=== PATIENT | female | born 1995 | race Caucasian/White ===

== ENCOUNTER → 2017-12-21 15:37 | Outpatient (CLI) | payer MEDICAID, SELFPAY | PROVIDERS: Visit Provider Obstetrics & Gynecology | DX: O20.0 Threatened abortion (principal); Z3A.00 Weeks of gestation of pregnancy not specified | CPT/HCPCS: 36415; 86850; 86900 ==

== ENCOUNTER → 2017-12-26 15:14 | Outpatient (CLI) | payer MEDICAID, SELFPAY ==
[2017-12-26 18:05] LABS: Chlamydia Trachomatis by PCR Negative (Negative); Neisserai gonorrhoeae by PCR Negative (Negative); Probe Check PASS; Sample Adequacy Control PASS; Specimen Processing Control PASS
== END ==
PROVIDERS: Visit Provider Obstetrics & Gynecology
DX: Z34.90 Encounter for supervision of normal pregnancy, unspecified, unspecified trimester (principal)
CPT/HCPCS: 87086; 87491; 87591

== ENCOUNTER → 2018-01-08 14:33 | Outpatient (CLI) | payer MEDICAID, SELFPAY ==
[2018-01-08 15:31] LABS: Absolute Lymphocyte Count 1.74 X10^3/ul (0.83-4.51); Basophil# 0.01 X10^3/uL; Basophil% 0.1 % (0-1); Eosinophil# 0.02 X10^3/uL; Eosinophils% 0.3 % (0-5); Hemoglobin 12.7 g/dl (12.0-15.0); Lymphocyte # 1.74 X10^3/ul (4.0); Lymphocyte % 24.1 % (19-41); Mean Corp Hgb Conc 35.3 g/gl (32-36); Mean Corpuscular Hgb 30.5 pg (27.0-32.0); Mean Corpuscular Volume 86.3 fL (81-99); Monocyte# 0.41 X10^3/uL; Monocyte% 5.7 % (0-10); Neutrophil # 5.04 X10^3/uL (2.7-7.7); Neutrophil % 69.7 % (47-70); Platelet Count 216 K/mm3 (150-450); RBC Distribution Width CV 12.4 % (11.6-14.6); RBC Distribution Width SD 38.2 fl (35.1-43.9); Red Blood Count 4.17 M/mm3 (4.2-5.4); White Blood Count 7.2 K/mm3 (4.4-11.0)
[2018-01-08 15:34] LABS: POSITIVE COUNT NO; POSITIVE DIFFERENTIAL NO; POSITIVE MORPHOLOGY NO
[2018-01-09 09:48] LABS: HIV - WCH Non-Reactive (Nonreactive); Rubella IgG 299.2 IU/mL
[2018-01-11 03:11] LABS: Rapid Plasmin Reagin (RPR) NONREACTIVE (NONREACTIVE)
[2018-01-11 09:54] LABS: HEPATITIS B SURFACE AG Negative (Negative); V-Zoster IgG (Immunity) 254 index (Immune >165)
== END ==
PROVIDERS: Visit Provider Obstetrics & Gynecology
DX: Z34.90 Encounter for supervision of normal pregnancy, unspecified, unspecified trimester (principal)
CPT/HCPCS: 85025; 86592; 86703; 86762; 86787; 86850; 86900; 87340

== ENCOUNTER → 2018-02-04 11:48 | Outpatient (CLI) | payer MEDICAID, SELFPAY | DX: Z36.82 Encounter for antenatal screening for nuchal translucency (principal) | CPT/HCPCS: 36415 ==

== ENCOUNTER → 2018-04-05 12:17 | Outpatient (CLI) | payer MEDICAID, SELFPAY ==
--- NOTE | 2018-04-05 12:30 | US_ITS ---
STUDY: SECOND AND THIRD TRIMESTER OBSTETRICAL ULTRASOUND REASON FOR EXAM: Female, 22 years old. For anatomy. LMP: ALESSANDRA: 08/12/2018 TECHNIQUE: Transabdominal PRIOR ULTRASOUND: None. FINDINGS: There is a single intrauterine fetus. The fetus is in a breech presentation. There is demonstrated cardiac activity with a heart rate of 147 bpm. There is a normal amniotic fluid volume. The largest amniotic fluid pocket measures 2.0 x 6.1 cm. . The placenta is posterior in location and is not low lying. . The cervix measures 4.9 cm in length. The bilateral adnexal regions are visualized. BIOMETRY: BPD: 5.2 cm: 21 weeks, 5 days HC: 19.3 cm: 21 weeks, 4 days AC: 16.8 cm: 21 weeks, 6 days FL: 3.7 cm: 22 weeks, 0 days CI: 78% FL/BPD: 72% FL/AC: 22% HC/AC: 1.15 age by current US: 21 weeks, 6 days. ALESSANDRA by current US: 08/10/2018. Estimated weight: 451 grams, +/- 66 grams, 56 %. Age by LMP: 21 weeks, 4 days. ALESSANDRA by LMP: 08/12/2018. ANATOMY: Visualized. Gender: Female Cranium: lateral ventricles. choroid plexus. cerebellum. Cisterna magna. Face, nose and lips. Chest: 4-chamber heart. Abdomen/Pelvis: diaphragm. stomach. abdominal wall. Cord insertion. 3 vessel cord. kidneys. bladder. Spine: cervical spine. thoracic spine. lumbar spine. sacrum. Extremities: bilateral upper extremities. bilateral lower extremities. US/OB Anatomy Scan IMPRESSION: 1. Single alive intrauterine uterine is seen in a breech position. 2. Estimated gestational age by current ultrasound: 21 weeks 6 days and ALESSANDRA: 08/10/2018. Based on LMP gestational age: 21 weeks 4 days and ALESSANDRA: 08/12/2018. 3. Unremarkable visualized anatomy. Electronically Signed: Erin Zelaya MD at 10:10 EDT Tel , Service support ,
== END ==
PROVIDERS: Visit Provider Nurse Practitioner Women's Health
DX: Z34.90 Encounter for supervision of normal pregnancy, unspecified, unspecified trimester (principal)
CPT/HCPCS: 76805

== ENCOUNTER → 2018-05-08 09:00 | Outpatient (CLI) | payer MEDICAID, SELFPAY ==
[2018-05-08 10:04] LABS: Absolute Lymphocyte Count 1.67 X10^3/ul (0.83-4.51); Absolute Neutrophil Count 5.8 X10^3/uL (2.0-7.7); Basophil# 0.02 X10^3/uL; Basophil% 0.2 % (0-1); Eosinophils% 1.2 % (0-5); Hematocrit 31.4 % (37-47); Hemoglobin 10.4 g/dl (12.0-15.0); Lymphocyte # 1.67 X10^3/ul (4.0); Lymphocyte % 20.1 % (19-41); Mean Corp Hgb Conc 33.1 g/gl (32-36); Mean Corpuscular Hgb 30.2 pg (27.0-32.0); Mean Corpuscular Volume 91.3 fL (81-99); Mean Platelet Vol. 9.7 fl (6.2-12.0); Monocyte# 0.62 X10^3/uL; Monocyte% 7.5 % (0-10); Neutrophil # 5.83 X10^3/uL (2.7-7.7); Neutrophil % 70.4 % (47-70); Platelet Count 227 K/mm3 (150-450); RBC Distribution Width CV 12.6 % (11.6-14.6); RBC Distribution Width SD 41.2 fl (35.1-43.9); Red Blood Count 3.44 M/mm3 (4.2-5.4); White Blood Count 8.3 K/mm3 (4.4-11.0)
[2018-05-08 10:16] LABS: POSITIVE COUNT NO; POSITIVE DIFFERENTIAL NO; POSITIVE MORPHOLOGY NO
[2018-05-08 10:17] LABS: Glucose Challenge Gest 1H 50g 74 mg/dL (70-140)
== END ==
PROVIDERS: Visit Provider Obstetrics & Gynecology
DX: Z34.90 Encounter for supervision of normal pregnancy, unspecified, unspecified trimester (principal)
CPT/HCPCS: 36415; 82950; 85025

== ENCOUNTER 2018-06-18 10:45 | Outpatient (CLI) | payer MEDICAID, SELFPAY ==
[2018-06-18 11:48] VITALS: BMI 23.9
[2018-06-18 11:59] LABS: Fetal Fibronectin Negative
[2018-06-18 13:30] LABS: Color, Urine Yellow (Yellow); Glucose, Dipstick Normal (Normal); Ketone-Dipstick 50 mg/dl (Negative); Leukocyte Esterase-Dipstick Negative /ul (Negative); Nitrite-Dipstick Negative (Negative); Occult Blood-Urine Negative /ul (Negative); Protein-Dipstick Negative (Negative); Urine Bilirubin Dipstick Negative (Negative); Urine Clarity Clear (Clear); Urine Urobilinogen Normal (Normal)
--- NOTE | 2018-06-20 21:29 | OB.TRI.NOTE ---
- Problem List (1) contractions Status: Acute History of Present Illness Date of Service: 06/18/18 Was patient seen by the physician?: No Reason For Visit: R/O LABOR Final ALESSANDRA: 08/12/18 Final ALESSANDRA Source: US >20 weeks Gestational age: 32 Weeks and 3 Days History of Present Illness: contractions Allergies No Known Allergies Allergy (Verified 06/18/18 11:58) - Pertinent Past Medical History Medical History: Past Medical History (Last Reviewed 05/29/18 @ 14:11 by Lydia Green) Anxiety and depression Surgical History: Past Surgical History (Last Reviewed 05/29/18 @ 14:11 by Lydia Green) H/O dilation and curettage right hand surgery NST - FHR Rate Baby A Baseline: 140 Variability:: Moderate Accelerations:: 15 x 15 Decelerations:: None NST Reactive:: Yes FHR Category:: Category I Uterine Activity:: irregular ctx Impression/Plan threatened labor reactive nst cat I
== END 2018-06-18 13:55 | disposition home or self-care (01) ==
LOC: WPOUT 10:54 → WP 10:54
PROVIDERS: Visit Provider Obstetrics & Gynecology
DX: O47.03 False labor before 37 completed weeks of gestation, third trimester (principal); Z3A.32 32 weeks gestation of pregnancy
CPT/HCPCS: 59025; 59050; 81002; 82731; 87086; 99218; G0378

== ENCOUNTER 2018-07-10 12:10 | Outpatient (CLI) | payer MEDICAID, SELFPAY ==
[2018-07-10 12:33] VITALS: BMI 23.8
[2018-07-10 13:07] LABS: ROM Internal Control Test YES-OK TO RESULT pt. (Internal QC); ROM Patient Test Negative (Negative)
--- NOTE | 2018-07-10 18:00 | OB.TRI.NOTE ---
- Problem List (1) 35 weeks gestation of Status: Acute (2) False labor after 37 completed weeks of gestation Status: Acute History of Present Illness Date of Service: 07/10/18 Was patient seen by the physician?: No Reason For Visit: R/O LABOR Final ALESSANDRA: 08/12/18 Final ALESSANDRA Source: US >20 weeks Gestational age: 35 Weeks and 2 Days Allergies No Known Allergies Allergy (Verified 07/18/18 14:15) - Pertinent Past Medical History Medical History: Past Medical History (Last Reviewed 07/18/18 @ 14:15 by Lydia Green) Anxiety and depression Surgical History: Past Surgical History (Last Reviewed 07/18/18 @ 14:15 by Lydia Green) H/O dilation and curettage right hand surgery NST - FHR Rate Baby A Baseline: 140 Variability:: Moderate Accelerations:: 15 x 15 Decelerations:: None NST Reactive:: Yes FHR Category:: Category I Uterine Activity:: irritability Impression/Plan ROM plus neg Cat I FHR D/C home
== END 2018-07-10 13:30 | disposition home or self-care (01) ==
LOC: WPOUT 12:23 → WP 12:24
PROVIDERS: Obstetrics & Gynecology; Visit Provider Obstetrics & Gynecology
DX: O47.9 False labor, unspecified (principal); Z3A.00 Weeks of gestation of pregnancy not specified
CPT/HCPCS: 59025; 59050; 84112; 99218; G0378

== ENCOUNTER → 2018-07-18 17:09 | Outpatient (CLI) | payer MEDICAID, SELFPAY ==
[2018-07-18 18:36] LABS: Group B Strep DNA By PCR Negative (Negative); Internal Control PASS; Probe Check PASS; Specimen Processing Control PASS
== END ==
PROVIDERS: Referring Provider Obstetrics & Gynecology; Visit Provider Obstetrics & Gynecology
DX: Z34.90 Encounter for supervision of normal pregnancy, unspecified, unspecified trimester (principal)
CPT/HCPCS: 87081; 87653

== ENCOUNTER 2018-08-12 04:15 | Inpatient (IN) | payer MEDICAID, SELFPAY ==
[2018-08-12 04:31] VITALS: BMI 25.4
[2018-08-12] MEDS: Lactated Ringers 1,000 ML 50 ML IV ×3 (04:45→10:43)
[2018-08-12 05:04] LABS: Hematocrit 33.5 % (37-47); Hemoglobin 10.4 g/dl (12.0-15.0); Mean Corpuscular Hgb 23.9 pg (27.0-32.0); Mean Corpuscular Volume 76.8 fL (81-99); Mean Platelet Vol. 9.3 fl (6.2-12.0); Platelet Count 291 K/mm3 (150-450); RBC Distribution Width CV 14.7 % (11.6-14.6); RBC Distribution Width SD 41.5 fl (35.1-43.9); Red Blood Count 4.36 M/mm3 (4.2-5.4); White Blood Count 10.8 K/mm3 (4.4-11.0)
[2018-08-12] MEDS: Ondansetron 4 MG/2 ML Vial IV (05:08)
[2018-08-12 05:10] LABS: Scan Indicated on CBC? Y/N NO
--- NOTE | 2018-08-12 05:29 | PCM.HP.OB ---
- Problem List (1) Active labor at term Status: Acute (2) Status: Acute Qualifiers: (3) Anemia in preg-unspec Status: Acute Qualifiers: (4) screening encounter Status: Acute Comment: NT done 02/04/18 (5) Supervision of normal Status: Acute Qualifiers: Comment: PRR ALESSANDRA 08/12/18 girl Avril Artur History Date of Admission: 08/12/18 Final ALESSANDRA: 08/12/18 Final ALESSANDRA Source: US >20 weeks Gestational age: 40 Weeks and 0 Days History of this : This is a 22 year-old, G 2, P 0, at 40 weeks gestational age presents in active labor. Patient presented at 3-4 cm dilated 90% effaced with a bulging bag. Patient complains of regular painful contractions every 2-3 minutes. Patient is also had some vaginal bleeding. Patient denies any loss of fluid and admits good movement. She has had an uncomplicated . Medical History: Medical History (Last Reviewed 08/09/18 @ 14:41 by Alyssa Mcfarlane) Anxiety and depression F41.8 Surgical History: Surgical History (Last Reviewed 08/09/18 @ 14:41 by Alyssa Mcfarlane) H/O dilation and curettage Z98.890 right hand surgery Allergies No Known Allergies Allergy (Verified 08/09/18 14:40) Home Medications: Home Medications vitamin,calcium,soozxjwd-isre-ziwaf acid tablet 1 tab PO QDAY 12/21/17 Ranitidine HCl [Acid Control] 150 mg PO BID 07/10/18 Smoking Status: Never smoker Alcohol: None Number of Fetus(es): 1 Heart Tracins to 140s moderate variability reactive no decelerations TOCO Analysis: Every 2 to 3 minutes History Past Pregnancies: Past PregnanciesPregancy History 2 Elective abortions Hx Para 0 Spontaneous abortions 1 Hx # Term Pregnancies Ectopic pregnancies Hx # Pregnancies Multiple births # of living children OB Visit ALESSANDRA Calculator Estimated Delivery Date 08/12/18 Based on Ultrasound Date 12/26/17 Current WG 39w 4d Number 1 Expected Delivery Route/Plan Specific Issue/Plans flu vaccine declined minichart given: given tdap vaccine: given rhogam: NA LARC form signed: declines labor support person: Artur pain management: epidural cut cord/dad catch: cord : yes PP control planned: [] special requests: [] Describe any other labor & delivery plans:: OB Visit. ALESSANDRA Calculator. Estimated Delivery Date 08/12/18. Based on Ultrasound Date 12/26/17. Current WG 39w 4d. Number 1. Expected Delivery Route/Plan. . Specific Issue/Plans. flu vaccine declined. minichart given: given. tdap vaccine: given. rhogam: NA. LARC form signed: declines. labor support person: Artur. pain management: epidural. cut cord/dad catch: cord. : yes. PP control planned: []. special requests: [] Review of Systems Constitutional: Denies: Fever, Malaise Eyes: Denies: Blurred vision, Vision Change HEENT: Denies: Head Aches, Visual Changes Cardiovascular: Denies: Chest Pain, Palpitations Respiratory: Denies: Cough, Shortness of Breath, Wheezing Gastrointestinal: Denies: Abdominal Pain, Diarrhea, Nausea, Vomiting Genitourinary: Denies: Dysuria, Hematuria Musculoskeletal: Denies: Joint Pain, Muscle pain Skin: Denies: Lesions, Rash Neurological: Denies: Blurred vision, Focal weakness, Headaches Psychiatric: Denies: Anxiety, Depression Endocrine: Denies: Heat/ Cold Intolerance Hematologic/ Lymphatic: Denies: Easy Bruising, Easy Bleeding Physical Exam General: Alert, Cooperative, No apparent distress HEENT: Atraumatic, Normocephalic. Negative for: Thyromegaly, Lymphadenopathy Cardiovascular: Regular rate Lungs: Normal air movement Abdomen: Soft, Non Tender, Gravid Neurological: Deep Tendon Reflexes 2+/4 and Symmetrical, Neuro grossly intact. Negative for: Clonus PACKAGE WINDER: Normal external genitalia. Negative for: Vulvar lesions Estimated gestational size: Appropriate for gestational size Presentation: Cephalic Cervix Dilation (cm): 3.5 Station: 0 Effacement (%): 90 Assessment/Plan All Active Problems (Last Reviewed 08/09/18 @ 14:41 by Alyssa Mcfarlane) Active labor at term (Acute) (Acute) Anemia in preg-unspec (Acute) screening encounter (Acute) Supervision of normal (Acute) 35 weeks gestation of (Resolved) False labor after 37 completed weeks of gestation (Resolved) contractions (Resolved) Subchorionic hematoma in first trimester (Resolved) Threatened in early (Resolved) This is a 22 year-old, G 2, P 0, at 40 weeks gestational age in active labor Patient presents in active labor plan expectant management for , AROM and Pitocin if needed. Pain management: plans epidural. GBS negative. Management of any complications: None I have reviewed the [facility] and made any clinically relevant updates.
[2018-08-12] MEDS: fentaNYL-bupivacaine (epidural) 100 ML BAG EPIDURAL ×2 (06:01→10:43)
[2018-08-12] MEDS: Mag Hydrox/Al Hydrox/Simeth 30 ML UDC PO (08:18)
--- NOTE | 2018-08-12 13:05 | PCM.PN.BLA ---
Progress Note fht 130 moderate variability reactive no decels cat I tracing toco q 2-4 minutes. 7-8/100/+1 station. exp managment pit PRN
[2018-08-12] MEDS: Oxytocin 30 units/NS 500 ml 30 UNITS/500 ML IV.SOLN 334 UNITS IV (15:10)
--- NOTE | 2018-08-12 15:21 | PCM.OB.VAG ---
- Problem List (1) Active labor at term Status: Acute (2) Status: Acute Qualifiers: (3) Anemia in preg-unspec Status: Acute Qualifiers: (4) screening encounter Status: Acute Comment: NT done 02/04/18 (5) Supervision of normal Status: Acute Qualifiers: Comment: PRR ALESSANDRA 08/12/18 girl Avril Artur Vaginal Delivery Maternal Presentation: Active Labor ial 40 weeks Amniotic Membrane Rupture Type: Artificial Amniotic Fluid Description: Clear Final ALESSANDRA: 08/12/18 Gestational age: 40 Weeks and 0 Days Date of Procedure: 08/12/18 Pre-Operative Diagnosis: ial Post-Operative Diagnosis: same Surgery/ Procedure Performed: Spontaneous Vaginal Delivery Type of Anesthesia: Epidural Description of Procedure: delivered head atraumatically rest of infant delivered delayed cord clamping 60 seconday, placenta delivered intact following. no lacerations Presentation: EDWARD Placental Delivery Description: Spontaneous Placenta Disposition: [facility] Cord Vessel Description: 3 Vessels Cord Entanglement: None Estimated Blood Loss: 100 A gender: Female Episiotomy Description: None Laceration: None Medications given after delivery: IV Pitocin Complications: None
[2018-08-12] MEDS: Oxytocin 30 units/NS 500 ml 30 UNITS/500 ML IV.SOLN 167 UNITS IV (15:40)
[2018-08-12 20:14] VITALS: BP 105/59; PULSE 109; RESP 15; TEMP 37.7; O2SAT 98
[2018-08-12] MEDS: Naproxen 250 MG Tablet PO (21:03)
[2018-08-12] MEDS: Famotidine 20 MG Tablet PO (22:37)
[2018-08-12] MEDS: Senna/Docusate Sodium 1 Tablet PO (22:37)
[2018-08-13 00:45] VITALS: BP 112/72; PULSE 101; RESP 17; TEMP 36.4; O2SAT 98
[2018-08-13 04:45] VITALS: BP 102/56; PULSE 75; RESP 15; TEMP 36.1; O2SAT 98
--- NOTE | 2018-08-13 08:00 | PCM.PN.OB ---
Patient Problems: Active and Suspected Problems (Last Reviewed 08/09/18 @ 14:41 by Alyssa Mcfarlane) Active labor at term (Acute) Subjective: Doing well. No CP, SOB. - Physical Exam General: Alert, Oriented x3 Abdomen: Soft, Non Tender, - - FF below U Vital Signs Temp Pulse Resp BP Pulse Ox 97.0 F L 75 15 102/56 L 98 08/13/18 04:45 08/13/18 04:45 08/13/18 04:45 08/13/18 04:45 08/13/18 04:45 Oxygen Delivery Method Room Air Weight: 139 lb Body Mass Index (BMI) 25.4 Intake and Output for Last 24 Hours 08/11/18 08/12/18 08/13/18 23:59 23:59 23:59 Intake Total 1200 / 1200 Output Total 1050 / 1050 Balance 150 / 150 Medical Necessity - Tobacco Use Smoking Status: Never smoker Assessment/Plan All Active Problems (Last Reviewed 08/09/18 @ 14:41 by Alyssa Mcfarlane) Active labor at term (Acute) (Acute) Anemia in preg-unspec (Acute) screening encounter (Acute) Supervision of normal (Acute) 35 weeks gestation of (Resolved) False labor after 37 completed weeks of gestation (Resolved) contractions (Resolved) Subchorionic hematoma in first trimester (Resolved) Threatened in early (Resolved) PPD #1: Routine care. Pain controlled.
[2018-08-13 10:00] VITALS: BP 110/63; PULSE 91; RESP 20; TEMP 36.7
[2018-08-13] MEDS: Senna/Docusate Sodium 1 Tablet PO (10:50)
[2018-08-13] MEDS: Prenatal Vits Tablet 1 TABLET PO (10:50)
[2018-08-13] MEDS: Famotidine 20 MG Tablet PO ×2 (10:50→21:44)
[2018-08-13 12:30] VITALS: BP 103/60; PULSE 103; RESP 14; TEMP 36.7; O2SAT 98
[2018-08-13 16:30] VITALS: BP 117/61; PULSE 92; RESP 16; TEMP 36.7; O2SAT 96
[2018-08-13 20:15] VITALS: BP 108/59; PULSE 104; RESP 15; TEMP 36.4; O2SAT 97
[2018-08-13] MEDS: Naproxen 250 MG Tablet PO (21:44)
[2018-08-14 02:45] VITALS: BP 98/69; PULSE 74; RESP 18; TEMP 36.2; O2SAT 97
--- NOTE | 2018-08-14 07:47 | PCM.PN.OB ---
Patient Problems: Active and Suspected Problems (Last Reviewed 08/09/18 @ 14:41 by Alyssa Mcfarlane) Active labor at term (Acute) Subjective: NO CP, SOB. Doing well. Pain controlled - Physical Exam General: Alert, Oriented x3 Abdomen: Soft, Non Tender, - - F Extremities: No clubbing - FF below U, No edema, Capillary Refill Less than 3 Seconds Vital Signs Temp Pulse Resp BP Pulse Ox 97.2 F L 74 18 98/69 97 08/14/18 02:45 08/14/18 02:45 08/14/18 02:45 08/14/18 02:45 08/14/18 02:45 Oxygen Delivery Method Room Air Weight: 139 lb Body Mass Index (BMI) 25.4 Intake and Output for Last 24 Hours 08/12/18 08/13/18 08/14/18 23:59 23:59 23:59 Intake Total 1200 / 1200 Output Total 1050 / 1050 Balance 150 / 150 Medical Necessity - Tobacco Use Smoking Status: Never smoker Assessment/Plan All Active Problems (Last Reviewed 08/09/18 @ 14:41 by Alyssa Mcfarlane) Active labor at term (Acute) (Acute) Anemia in preg-unspec (Acute) screening encounter (Acute) Supervision of normal (Acute) 35 weeks gestation of (Resolved) False labor after 37 completed weeks of gestation (Resolved) contractions (Resolved) Subchorionic hematoma in first trimester (Resolved) Threatened in early (Resolved) PPD#2: Routine care. Home today
--- NOTE | 2018-08-14 07:49 | PCM.DCVAG ---
Additional Instructions: If you experience any of the following, contact your healthcare provider. Bleeding that soaks a pad every hour for 2 hours Fever 100.4 or higher Unrelieved incision or abdominal pain Swelling, redness, discharge or bleeding from your incision or episiotomy site Your incision begins to separate Problems urinating (including inability to urinate or burning while urinating). Visual changes Severe headache Flu-like symptoms Pain or redness in one of both of your breasts Pain, warmth, tenderness or swelling in your legs, especially the calf area Frequent nausea and vomiting Symptoms of depression or anxiety If you experience any of the following, call 911 or go to the nearest Emergency Room. Chest pain Problems breathing Seizure activity Partial or complete paralysis of a body part, slurred speech, weakness or drooping of the face, or a sudden inability to walk or hold your balance Allergies/Adverse Reactions: Allergies No Known Allergies Allergy (Verified 08/09/18 14:40) Medications to take at Discharge vitamin,calcium,pigqfrfz-eujg-nngmx acid tablet 1 tab PO QDAY 12/21/17 Ranitidine HCl [Acid Control] 150 mg PO BID 07/10/18 Primary Care Physician: Care Physician,No Primary [Primary Care Provider] - Test Results: Test results from this visit will be discussed in further detail at your follow-up appointment, if applicable.
--- NOTE | 2018-08-14 07:50 | DCINST_ITS ---
Additional Instructions: If you experience any of the following, contact your healthcare provider. * Bleeding that soaks a pad every hour for 2 hours * Fever 100.4 or higher * Unrelieved incision or abdominal pain * Swelling, redness, discharge or bleeding from your incision or episiotomy site * Your incision begins to separate * Problems urinating (including inability to urinate or burning while urinating). * Visual changes * Severe headache * Flu-like symptoms * Pain or redness in one of both of your breasts * Pain, warmth, tenderness or swelling in your legs, especially the calf area * Frequent nausea and vomiting * Symptoms of depression or anxiety If you experience any of the following, call 911 or go to the nearest Emergency Room. * Chest pain * Problems breathing * Seizure activity * Partial or complete paralysis of a body part, slurred speech, weakness or drooping of the face, or a sudden inability to walk or hold your balance Allergies/Adverse Reactions: Allergies No Known Allergies Allergy (Verified 08/09/18 14:40) Medications to take at Discharge vitamin,calcium,nabfajfw-wrda-weqgj acid tablet 1 tab PO QDAY 12/21/17 Ranitidine HCl [Acid Control] 150 mg PO BID 07/10/18 Primary Care Physician: Care Physician,No Primary [Primary Care Provider] - Test Results: Test results from this visit will be discussed in further detail at your follow- up appointment, if applicable.
[2018-08-14 08:44] VITALS: BP 116/68; PULSE 69; RESP 16; TEMP 36.6
[2018-08-14] MEDS: Famotidine 20 MG Tablet PO (10:41)
[2018-08-14 12:42] VITALS: BP 114/74; PULSE 97; RESP 16; TEMP 36.3
== END 2018-08-14 12:50 | disposition home or self-care (01) | DRG 560 ==
PROVIDERS: Admitting Provider Obstetrics & Gynecology; Visit Provider Obstetrics & Gynecology
DX: O99.02 Anemia complicating childbirth (principal); D64.9 Anemia, unspecified; Z3A.40 40 weeks gestation of pregnancy; Z37.0 Single live birth
CPT/HCPCS: 59025; 59050; 85027; 86850; 86900; 99218; J7120; G0378; J2405

== ENCOUNTER → 2020-07-22 09:52 | Outpatient (CLI) | payer MEDICAID, SELFPAY ==
[2020-07-22 09:25] VITALS: BMI 25.4
[2020-07-22 12:47] LABS: Absolute Lymphocyte Count 1.52 X10^3/uL (0.83-4.51); Absolute Neutrophil Count 4.3 X10^3/uL (2.0-7.7); Basophil# 0.03 X10^3/uL; Basophil% 0.5 % (0-1); Eosinophil# 0.06 X10^3/uL; Hematocrit 43.5 % (37-47); Hemoglobin 14.5 g/dL (12.0-15.0); Lymphocyte # 1.52 X10^3/ul (4.0); Lymphocyte % 24.2 % (19-41); Mean Corp Hgb Conc 33.3 g/dL (32-36); Mean Corpuscular Hgb 29.6 pg (27.0-32.0); Mean Corpuscular Volume 88.8 fL (81-99); Mean Platelet Vol. 10.5 fl (6.2-12.0); Monocyte# 0.35 X10^3/uL; Monocyte% 5.6 % (0-10); NRBC Flagged by Analyzer 0 % (0-5); Neutrophil # 4.29 X10^3/uL (2.7-7.7); Neutrophil % 68.2 % (47-70); Platelet Count 259 K/mm3 (150-450); RBC Distribution Width CV 12.7 % (11.6-14.6); RBC Distribution Width SD 41.3 fl (35.1-43.9); White Blood Count 6.3 K/mm3 (4.4-11.0)
[2020-07-22 13:11] LABS: ALB/GLOB Ratio 1.1 RATIO (0.9-2.4); AST(SGOT) 21 U/L (15-37); Alanine Aminotransfer ALT/SGPT 11 U/L (13-56); Albumin, Serum 4.1 g/dL (3.2-5.0); Alkaline Phosphatase 43 U/L (45-117); Anion Gap 5 (5-15); BUN 8 mg/dL (7-18); BUN/Creat Ratio 12.2 RATIO (10-20); Calcium,Total 9.4 mg/dL (8.5-10.1); Chloride 103 mmol/L (98-107); Cholesterol 149 mg/dL (200); Creatinine, Serum 0.66 mg/dL (0.55-1.02); EST Glomerular Filtration Rate 119 mL/min (>60); Est Glom Filt Rate - Afr Amer 144 mL/min (>60); Globulin 3.7 g/dL (2.2-4.2); Glucose 79 mg/dL (74-106); High Density Lipoprotein 64 mg/dL; Potassium 4.2 mmol/L (3.5-5.1); Protein, Total 7.8 g/dL (6.4-8.2); Sodium Level 135 mmol/L (136-145); Thyroid Stim Hormone (TSH) 1.24 uIU/mL (0.358-3.74); Triglycerides 43 mg/dL; Very Low Density Lipoprotein 9 mg/dL (5-40)
== END ==
PROVIDERS: PCP Internal Medicine; Referring Provider Nurse Practitioner Family; Visit Provider Nurse Practitioner Family
DX: F31.9 Bipolar disorder, unspecified (principal); F41.9 Anxiety disorder, unspecified; E55.9 Vitamin D deficiency, unspecified
CPT/HCPCS: 36415; 80053; 80061; 82306; 84443; 85025

== ENCOUNTER 2021-12-12 13:01 | Outpatient (CLI) | payer MEDICAID, SELFPAY ==
[2021-12-12 13:45] LABS: hCG Titer Quant., Serum 48 mIU/mL (1-3)
== END 2021-12-12 23:59 | disposition home or self-care (01) ==
PROVIDERS: PCP Internal Medicine; Referring Provider Nurse Practitioner Women's Health; Visit Provider Nurse Practitioner Women's Health
DX: N91.2 Amenorrhea, unspecified (principal)
CPT/HCPCS: 36415; 84702

== ENCOUNTER 2021-12-15 11:10 | Outpatient (CLI) | payer MEDICAID, SELFPAY ==
[2021-12-15 11:55] LABS: hCG Titer Quant., Serum 188 mIU/mL (1-3)
== END 2021-12-15 23:59 | disposition home or self-care (01) ==
LOC: PAVLAB 11:11
PROVIDERS: PCP Internal Medicine; Referring Provider Nurse Practitioner Women's Health; Visit Provider Nurse Practitioner Women's Health
DX: N91.2 Amenorrhea, unspecified (principal)
CPT/HCPCS: 36415; 84702

== ENCOUNTER 2021-12-19 10:58 | Outpatient (CLI) | payer MEDICAID, SELFPAY ==
--- NOTE | 2021-12-19 11:02 | US_ITS ---
STUDY: FIRST TRIMESTER OBSTETRICAL ULTRASOUND REASON FOR EXAM: Female, 26 years old dating LMP: Unknown. TECHNIQUE: Transvaginal TECHNICAL QUALITY: Adequate. PRIOR ULTRASOUND: None. FINDINGS: There is visualization of a single gestational sac in a normal intrauterine position. The mean sac diameter (MSD) measures 2.9 mm, indicating an estimated gestational age (EGA) of 4 weeks, 6 days. The gestational sac shape is within normal limits. There is no demonstrated yolk sac. The placenta is non-visualized. There is no demonstrated embryo ( pole). The estimated gestation age (EGA) by US is 4 weeks, 6 days. The estimated date of delivery (ALESSANDRA) by US is 08/22/2022. The uterus measures 9.2 cm x 5.7 cm x 4.8 cm. There is no demonstrated uterine fibroid. The cervix is closed. The right ovary measures 3.7 cm x 3.3 cm x 2.5 cm. There is no right ovarian cyst. There is no visualized right adnexal mass or complex lesion. The left ovary measures 3.9 cm x 1.8 cm by 1.4 cm. There is no left ovarian cyst. There is no visualized left adnexal mass or complex lesion. There is no fluid in the cul de sac. US/Transvaginal w/Preg US IMPRESSION: Intrauterine gestational sac measuring 4 weeks and 6 days. Follow-up is recommended. Electronically Signed: Mian Bojorquez MD at 15:40 EST ,
== END 2021-12-19 23:59 | disposition home or self-care (01) ==
PROVIDERS: PCP Internal Medicine; Visit Provider Obstetrics & Gynecology
DX: Z34.90 Encounter for supervision of normal pregnancy, unspecified, unspecified trimester (principal)
CPT/HCPCS: 76817

== ENCOUNTER 2022-01-23 16:22 | Outpatient (CLI) | payer MEDICAID, SELFPAY ==
--- NOTE | 2022-01-23 16:24 | US_ITS ---
EXAM: US OB Transvaginal HISTORY: well being TECHNIQUE: US OB Transvaginal COMPARISON: None. LIMITATIONS: None. UTERUS Size: Within normal limits Masses: None. Gestational sac: Single intrauterine gestational sac visualized. Subchorionic hemorrhage: None. Yolk sac: Visualized. pole: CRL = 2.9 cm, 9 weeks 3 days. Cardiac activity: 161 bpm. OVARIES/ADNEXA Right: Within normal limits. Left: Within normal limits OTHER: Increased vascularity in the bilateral adnexa. US/Transvaginal w/Preg US IMPRESSION: Single live intrauterine , 9 weeks 3 days. Electronically Signed: Jesus Wilkinson MD at 6:58 EDT ,
== END 2022-01-23 23:59 | disposition home or self-care (01) ==
LOC: OPUS 16:24
PROVIDERS: Visit Provider Obstetrics & Gynecology
DX: Z34.91 Encounter for supervision of normal pregnancy, unspecified, first trimester (principal)
CPT/HCPCS: 76817

== ENCOUNTER 2022-01-27 09:57 | Outpatient (CLI) | payer MEDICAID, SELFPAY ==
[2022-01-27 10:20] LABS: Absolute Lymphocyte Count 1.57 X10^3/uL (0.83-4.51); Absolute Neutrophil Count 4.6 X10^3/uL (2.0-7.7); Basophil# 0.03 X10^3/uL; Basophil% 0.5 % (0-1); Eosinophil# 0.03 X10^3/uL; Eosinophils% 0.5 % (0-5); Hematocrit 37.8 % (37-47); Hemoglobin 12.6 g/dL (12.0-15.0); Lymphocyte # 1.57 X10^3/ul (0.83-4.51); Lymphocyte % 23.6 % (19-41); Mean Corp Hgb Conc 33.3 g/dL (32-36); Mean Corpuscular Hgb 27.5 pg (27.0-32.0); Mean Corpuscular Volume 82.4 fL (81-99); Monocyte# 0.41 X10^3/uL; Monocyte% 6.2 % (0-10); NRBC Flagged by Analyzer 0 % (0-5); Neutrophil # 4.61 X10^3/uL (2.7-7.7); Platelet Count 273 K/mm3 (150-450); RBC Distribution Width CV 14.5 % (11.6-14.6); RBC Distribution Width SD 42.7 fl (35.1-43.9); Red Blood Count 4.59 M/mm3 (4.2-5.4); White Blood Count 6.7 K/mm3 (4.4-11.0)
[2022-01-27 11:25] LABS: HIV - WCH Non-Reactive (Nonreactive); Hepatitis B Surface Antigen Non-Reactive (Nonreactive); Hepatitis C Antibody Non-Reactive (Nonreactive); Rubella IgG Reactive (Nonreactive); Syphilis Antibodies Non-reactive
[2022-01-27 17:36] LABS: Amphetamine Urine VISTA NEGATIVE (<1000 ng/mL); Barbiturate Urine VISTA NEGATIVE (< 200 ng/mL); Benzodiazepine Urine VISTA NEGATIVE (< 200 ng/mL); Cocaine Urine VISTA NEGATIVE (< 300 ng/mL); Ecstacy Urine VISTA NEGATIVE (< 500 ng/mL); Methadone Urine VISTA NEGATIVE (< 300 ng/mL); PCP Urine VISTA NEGATIVE (< 25 ng/mL); THC Urine VISTA POSITIVE (< 50 ng/mL); Vista UDS pH Range 6
[2022-01-31 12:01] LABS: Chlamydia By Nucleic Acid AMP Negative (Negative)
[2022-01-31 12:26] LABS: Gonococcus By Nucleic Acid AMP Negative (Negative)
[2022-02-03 13:29] LABS: HPV APTIMA, High Risk Negative (Negative)
== END 2022-01-27 23:59 | disposition home or self-care (01) ==
LOC: PAVLAB 09:58
PROVIDERS: Referring Provider Obstetrics & Gynecology; Visit Provider Obstetrics & Gynecology
DX: O21.9 Vomiting of pregnancy, unspecified (principal); Z3A.00 Weeks of gestation of pregnancy not specified
CPT/HCPCS: 36415; 80307; 85025; 86703; 86762; 86780; 86803; 86850; 86900; 86901; 87086; 87088; 87340; 87491; 87591; 87624; 88175; G0145

== ENCOUNTER → 2022-05-16 | Outpatient (CLI) | payer MEDICAID, SELFPAY ==
[2022-05-15 14:02] LABS: Amphetamine Urine VISTA NEGATIVE (<1000 ng/mL); Barbiturate Urine VISTA NEGATIVE (< 200 ng/mL); Benzodiazepine Urine VISTA NEGATIVE (< 200 ng/mL); Cocaine Urine VISTA NEGATIVE (< 300 ng/mL); Ecstacy Urine VISTA NEGATIVE (< 500 ng/mL); Methadone Urine VISTA NEGATIVE (< 300 ng/mL); PCP Urine VISTA NEGATIVE (< 25 ng/mL); THC Urine VISTA NEGATIVE (< 50 ng/mL); Vista UDS pH Range 6
== END | disposition home or self-care (01) ==
LOC: LABSPEC 09:26
PROVIDERS: Referring Provider Obstetrics & Gynecology; Visit Provider Obstetrics & Gynecology
DX: F12.90 Cannabis use, unspecified, uncomplicated (principal)
CPT/HCPCS: 80307

== ENCOUNTER → 2022-06-05 | Outpatient (CLI) | payer MEDICAID, SELFPAY ==
[2022-06-05 10:05] LABS: Absolute Lymphocyte Count 1.56 X10^3/uL (0.83-4.51); Basophil# 0.03 X10^3/uL; Basophil% 0.4 % (0-1); Eosinophil# 0.11 X10^3/uL; Eosinophils% 1.5 % (0-5); Hematocrit 30.8 % (37-47); Hemoglobin 10.1 g/dL (12.0-15.0); Lymphocyte # 1.56 X10^3/ul (0.83-4.51); Lymphocyte % 21.7 % (19-41); Mean Corp Hgb Conc 32.8 g/dL (32-36); Mean Corpuscular Hgb 27.2 pg (27.0-32.0); Mean Platelet Vol. 10.1 fl (6.2-12.0); Monocyte# 0.43 X10^3/uL; NRBC Flagged by Analyzer 0 % (0-5); Neutrophil # 5.01 X10^3/uL (2.7-7.7); Neutrophil % 69.6 % (47-70); Platelet Count 224 K/mm3 (150-450); RBC Distribution Width CV 13.2 % (11.6-14.6); RBC Distribution Width SD 39.7 fl (35.1-43.9); Red Blood Count 3.71 M/mm3 (4.2-5.4); White Blood Count 7.2 K/mm3 (4.4-11.0)
[2022-06-05 10:13] LABS: Glucose Challenge Gest 1H 50g 98 mg/dL (70-140)
== END | disposition home or self-care (01) ==
LOC: PAVLAB 09:32
PROVIDERS: Referring Provider Obstetrics & Gynecology; Visit Provider Obstetrics & Gynecology
DX: Z34.90 Encounter for supervision of normal pregnancy, unspecified, unspecified trimester (principal)
CPT/HCPCS: 36415; 82950; 85025

== ENCOUNTER → 2022-07-03 | Outpatient (CLI) | payer MEDICAID, SELFPAY ==
[2022-07-03 12:57] LABS: Absolute Neutrophil Count 3.2 X10^3/uL (2.0-7.7); Basophil# 0.01 X10^3/uL; Basophil% 0.2 % (0-1); Eosinophil# 0.04 X10^3/uL; Eosinophils% 0.8 % (0-5); Hematocrit 32.9 % (37-47); Hemoglobin 10.2 g/dL (12.0-15.0); Lymphocyte % 26.4 % (19-41); Mean Corpuscular Hgb 25.3 pg (27.0-32.0); Mean Corpuscular Volume 81.6 fL (81-99); Mean Platelet Vol. 9.6 fl (6.2-12.0); Monocyte# 0.28 X10^3/uL; Monocyte% 5.7 % (0-10); NRBC Flagged by Analyzer 0 % (0-5); Neutrophil # 3.23 X10^3/uL (2.7-7.7); Neutrophil % 65.5 % (47-70); Platelet Count 216 K/mm3 (150-450); RBC Distribution Width CV 14.3 % (11.6-14.6); RBC Distribution Width SD 41.4 fl (35.1-43.9); Red Blood Count 4.03 M/mm3 (4.2-5.4); White Blood Count 4.9 K/mm3 (4.4-11.0)
[2022-07-03 13:14] LABS: ALB/GLOB Ratio 0.7 RATIO (0.9-2.4); AST(SGOT) 40 U/L (15-37); Alanine Aminotransfer ALT/SGPT 15 U/L (13-56); Albumin, Serum 2.7 g/dL (3.2-5.0); Alkaline Phosphatase 93 U/L (45-117); Anion Gap 12 (5-15); BUN 7 mg/dL (7-18); BUN/Creat Ratio 11.8 RATIO (10-20); Calcium,Total 8.6 mg/dL (8.5-10.1); Chloride 104 mmol/L (98-107); Creatinine, Serum 0.59 mg/dL (0.55-1.02); EST Glomerular Filtration Rate 131 mL/min (>60); Est Glom Filt Rate - Afr Amer 159 mL/min (>60); Glucose 78 mg/dL (74-106); Potassium 3.8 mmol/L (3.5-5.1); Protein, Total 6.7 g/dL (6.4-8.2); Sodium Level 139 mmol/L (136-145)
== END | disposition home or self-care (01) ==
PROVIDERS: Referring Provider Obstetrics & Gynecology; Visit Provider Obstetrics & Gynecology
DX: O26.619 Liver and biliary tract disorders in pregnancy, unspecified trimester (principal); O99.619 Diseases of the digestive system complicating pregnancy, unspecified trimester; K83.1 Obstruction of bile duct
CPT/HCPCS: 36415; 80053; 85025

== ENCOUNTER → 2022-07-06 | Outpatient (CLI) | payer MEDICAID, SELFPAY ==
--- NOTE | 2022-07-06 18:38 | US_ITS ---
STUDY: OBSTETRICAL ULTRASOUND - BIOPHYSICAL PROFILE REASON FOR EXAM: Female, 26 years old cholestasis LMP: 11/18/2021. PRIOR ULTRASOUND: Comparison is made with prior sonogram dated 01/23/2022. TECHNIQUE: Transabdominal TECHNICAL QUALITY: Adequate. FINDINGS: There is a single intrauterine fetus. The fetus is in a cephalic presentation. There is demonstrated cardiac activity with a heart rate of 143 bpm. There is a normal amniotic fluid volume. The largest amniotic fluid pocket measures 2.6 cm x 2.4 cm. The amniotic fluid index (JG) is 12.75 cm. The placenta is posterior in location and is not low lying. There are Grade 1 placental changes. Age by LMP: 32 weeks, 6 days. ALESSANDRA by LMP: 08/25/2022. age by prior US: 31 weeks, 5 days. ALESSANDRA by prior US: 09/02/2022. BIOPHYSICAL PROFILE: Breathing Movements (FBM): 2 Gross Body Movements (GBM): 2 Tone (FT): 2 Amniotic Fluid Volume (AFV): 2 TOTAL SCORE: 8 / 8 US/Biophysical Prof W/O Non Stres IMPRESSION: Normal biophysical profile of 8/8. Electronically Signed: Mian Bojorquez MD at 10:14 EDT ,
--- NOTE | 2022-07-06 18:38 | US_ITS ---
STUDY: SECOND AND THIRD TRIMESTER OBSTETRICAL ULTRASOUND - LIMITED REASON FOR EXAM: Female, 26 years old cholestasis in LMP: 11/18/2021. PRIOR ULTRASOUND: Comparison is made with prior examination 01/23/2022. TECHNIQUE: Transabdominal TECHNICAL QUALITY: Adequate. FINDINGS: There is a single intrauterine fetus. The fetus is in a cephalic presentation. There is demonstrated cardiac activity with a heart rate of 145 bpm. There is a normal amniotic fluid volume. The largest amniotic fluid pocket measures 5.3 cm x 4.2 cm. The amniotic fluid index (JG) is 12.75 cm. The placenta is posterior in location and is not low lying. There are Grade 1 placental changes. The cervix measures 3.3 cm in length. BIOMETRY: BPD: 7.58 cm: 30 weeks, 3 days HC: 29.71 cm: 32 weeks, 6 days AC: 26.06 cm: 30 weeks, 1 days FL: 6.16 cm: 32 weeks, 0 days Age by LMP: 32 weeks, 6 days. ALESSANDRA by LMP: 08/25/2022. age by prior US: 33 weeks, 2 days. ALESSANDRA by prior US: 08/22/2022. age by current US: 31 weeks, 5 days. ALESSANDRA by current US: 09/02/2020. Estimated weight: 1657 grams, +/- 249 grams, 4.7 percentile. US/OB Limited With Biometrics IMPRESSION: Single live intrauterine gestation with a mean gestational age of 33 weeks and 2 days. The measurements obtained today fall within the 5th percentile. Electronically Signed: Mian Bojorquez MD at 10:16 EDT ,
== END | disposition home or self-care (01) ==
LOC: US 18:34
PROVIDERS: Visit Provider Obstetrics & Gynecology
DX: O26.613 Liver and biliary tract disorders in pregnancy, third trimester (principal); K83.1 Obstruction of bile duct; Z3A.33 33 weeks gestation of pregnancy
CPT/HCPCS: 76816; 76819

== ENCOUNTER → 2022-07-13 | Outpatient (CLI) | payer MEDICAID, SELFPAY ==
--- NOTE | 2022-07-13 18:08 | US_ITS ---
STUDY: LIMITED OBSTETRICAL ULTRASOUND- BIOPHYSICAL PROFILE 1813 HOURS ON 07/13/2022 REASON FOR EXAM: 26-year-old female for evaluation of biophysical profile. LMP: 11/18/2021. PRIOR ULTRASOUND: None. TECHNIQUE: A transabdominal examination was performed for evaluation of biophysical profile. TECHNICAL QUALITY: Adequate. FINDINGS: There is a single fetus in transverse position with head towards maternal right. heartbeat 169 bpm. There is amniotic fluid index of 12.89 cm with the largest pocket measuring 4.44 cm and the Q2 quadrant. The biophysical profile scoring, there is a breathing movement score 2, gross body movement score 2, a tone score of 2, and a amniotic fluid volume score 2. There is a biophysical profile score of 8 out of 8. US/Biophysical Prof W/O Non Stres IMPRESSION: 1. Single fetus in transverse position with its head towards maternal left in a heart rate of 169 bpm. 2. Biophysical profile score of 8 out of 8. Electronically Signed: Junaid Edmonds MD at 20:19 EDT ,
== END | disposition home or self-care (01) ==
PROVIDERS: Visit Provider Obstetrics & Gynecology
DX: Z36.89 Encounter for other specified antenatal screening (principal)
CPT/HCPCS: 76819

== ENCOUNTER → 2022-07-17 | Outpatient (CLI) | payer MEDICAID, SELFPAY ==
--- NOTE | 2022-07-17 11:54 | US_ITS ---
STUDY: OBSTETRICAL ULTRASOUND - BIOPHYSICAL PROFILE REASON FOR EXAM: Female, 26 years old well being LMP: 05/18/2022. PRIOR ULTRASOUND: Comparison is made with prior examination of 07/13/2022. TECHNIQUE: Transabdominal TECHNICAL QUALITY: Adequate. FINDINGS: There is a single intrauterine fetus. The fetus is in a cephalic presentation. There is demonstrated cardiac activity with a heart rate of 133 bpm. There is a normal amniotic fluid volume. The largest amniotic fluid pocket measures 4.6 cm. The amniotic fluid index (JG) is 11.5 cm. The placenta is posterior in location and is not low lying. There are Grade 1 placental changes. Age by LMP: 34 weeks, 3 days. ALESSANDRA by LMP: 08/25/2022. age by prior US: 34 weeks, 3 days. ALESSANDRA by prior US: 08/25/2023. BIOPHYSICAL PROFILE: Breathing Movements (FBM): 2 Gross Body Movements (GBM): 2 Tone (FT): 2 Amniotic Fluid Volume (AFV): 2 TOTAL SCORE: US/Biophysical Prof W/O Non Stres IMPRESSION: Normal biophysical profile of 05/29. Electronically Signed: Mian Bojorquez MD at 15:43 EDT ,
== END | disposition home or self-care (01) ==
PROVIDERS: Visit Provider Obstetrics & Gynecology
DX: O26.613 Liver and biliary tract disorders in pregnancy, third trimester (principal); K83.1 Obstruction of bile duct; Z3A.34 34 weeks gestation of pregnancy
CPT/HCPCS: 76819

== ENCOUNTER → 2022-07-24 | Outpatient (CLI) | payer MEDICAID, SELFPAY ==
[2022-07-24 10:02] LABS: Absolute Lymphocyte Count 1.65 X10^3/uL (0.83-4.51); Absolute Neutrophil Count 5.2 X10^3/uL (2.0-7.7); Basophil# 0.04 X10^3/uL; Basophil% 0.5 % (0-1); Eosinophil# 0.07 X10^3/uL; Eosinophils% 0.9 % (0-5); Hematocrit 31.6 % (37-47); Hemoglobin 9.7 g/dL (12.0-15.0); Lymphocyte # 1.65 X10^3/ul (0.83-4.51); Lymphocyte % 21.5 % (19-41); Mean Corp Hgb Conc 30.7 g/dL (32-36); Mean Corpuscular Hgb 24.6 pg (27.0-32.0); Mean Corpuscular Volume 80.2 fL (81-99); Mean Platelet Vol. 9.9 fl (6.2-12.0); Monocyte# 0.61 X10^3/uL; Monocyte% 7.9 % (0-10); NRBC Flagged by Analyzer 0 % (0-5); Neutrophil # 5.21 X10^3/uL (2.7-7.7); Neutrophil % 67.8 % (47-70); Platelet Count 221 K/mm3 (150-450); RBC Distribution Width CV 14.6 % (11.6-14.6); RBC Distribution Width SD 42.4 fl (35.1-43.9); Red Blood Count 3.94 M/mm3 (4.2-5.4); White Blood Count 7.7 K/mm3 (4.4-11.0)
--- NOTE | 2022-07-24 10:49 | US_ITS ---
STUDY: OBSTETRICAL ULTRASOUND - BIOPHYSICAL PROFILE REASON FOR EXAM: Female, 26 years old well being LMP: 05/18/2022 PRIOR ULTRASOUND: Comparison is made with prior study 07/17/2022 TECHNIQUE: Transabdominal TECHNICAL QUALITY: Adequate. FINDINGS: There is a single intrauterine fetus. The fetus is in a cephalic presentation. There is demonstrated cardiac activity with a heart rate of 138 bpm. There is a normal amniotic fluid volume. The largest amniotic fluid pocket measures 4.5 cm x 3 cm. The amniotic fluid index (JG) is 10.14 cm. The placenta is posterior in location and is not low lying. There are Grade 1 placental changes. Age by LMP: 35 weeks, 3 days. ALESSANDRA by LMP: 08/25/2022. age by prior US: 35 weeks, 3 days. ALESSANDRA by prior US: 08/25/2022. BIOPHYSICAL PROFILE: Breathing Movements (FBM): 2 Gross Body Movements (GBM): 2 Tone (FT): 2 Amniotic Fluid Volume (AFV): 2 TOTAL SCORE: 8 / 8 US/Biophysical Prof W/O Non Stres IMPRESSION: Normal biophysical profile of 05/29. Electronically Signed: Mian Bojorquez MD at 12:31 EDT ,
[2022-07-24 11:16] LABS: ALB/GLOB Ratio 0.7 RATIO (0.9-2.4); AST(SGOT) 41 U/L (15-37); Alanine Aminotransfer ALT/SGPT 25 U/L (13-56); Albumin, Serum 2.8 g/dL (3.2-5.0); Alkaline Phosphatase 108 U/L (45-117); Anion Gap 9 (5-15); BUN 7 mg/dL (7-18); BUN/Creat Ratio 14.1 RATIO (10-20); Calcium,Total 8.7 mg/dL (8.5-10.1); Chloride 106 mmol/L (98-107); EST Glomerular Filtration Rate 161 mL/min (>60); Est Glom Filt Rate - Afr Amer 195 mL/min (>60); Globulin 4.1 g/dL (2.2-4.2); Glucose 74 mg/dL (74-106); Lipase 236 U/L (73-393); Potassium 3.6 mmol/L (3.5-5.1); Protein, Total 6.9 g/dL (6.4-8.2); Sodium Level 137 mmol/L (136-145)
[2022-07-26 17:07] LABS: Dilute Prothrombin Time (dPT) 29.3 sec (0.0-47.6); Dilute Russell Viper Venom 33.2 sec (0.0-47.0); HEPATITIS B SURFACE AG Negative (Negative); Hep C Antibodies <0.1 s/co ratio (0.0-0.9); Hepatitis A IgM Antibody Negative (Negative); Hepatitis B Core AB IgM Negative (Negative); PTT-LA 31.4 sec (0.0-51.9); Thrombin Time 16.1 sec (0.0-23.0); dPT Confirm Ratio 1.19 Ratio (0.00-1.34)
[2022-07-27 12:34] LABS: Anti-Cardiolipin Ab, IgG, Qn < 9 GPL U/mL (0-14)
[2022-07-27 12:35] LABS: Anti-Cardiolipin Ab, IgA, Qn < 9 APL U/mL (0-11); Anti-Cardiolipin Ab, IgM, Qn 13 MPL U/mL (0-12); Beta-2-Glycoprotein I IgA <9 (0-25); Beta-2-Glycoprotein I IgG <9 (0-20); Beta-2-Glycoprotein I IgM <9 (0-32); Interpretation Comment: (.)
== END | disposition home or self-care (01) ==
PROVIDERS: Nurse Practitioner Women's Health; Referring Provider Obstetrics & Gynecology; Visit Provider Obstetrics & Gynecology
DX: O26.23 Pregnancy care for patient with recurrent pregnancy loss, third trimester (principal); O26.613 Liver and biliary tract disorders in pregnancy, third trimester; K83.1 Obstruction of bile duct; Z3A.35 35 weeks gestation of pregnancy
CPT/HCPCS: 36415; 76819; 80053; 80074; 83690; 85025; 86146; 86147

== ENCOUNTER → 2022-07-27 | Outpatient (CLI) | payer MEDICAID, SELFPAY ==
--- NOTE | 2022-07-27 18:27 | US_ITS ---
INDICATION: WELL BEING EXAMINATION: US Biophysical Profile W/O Nonst TECHNIQUE: Transabdominal pelvic ultrasound was performed, biophysical profile scoring. COMPARISON: Obstetric ultrasound from 07/24/2022 LMP: 11/18/2021 Beta-hCG: Unknown. Provided EGA: 35 weeks 6 days FINDINGS: INTRAUTERINE GESTATION(s): Single. ESTIMATED GESTATIONAL AGE: 35 weeks 6 days ESTIMATED DUE DATE (ALESSANDRA): 08/25/2022 HEART MOTION is 167 bpm. AMNIOTIC FLUID INDEX (JG): 10.8 cm, with largest pocket measuring 4.3 x 4.6 cm. BIOPHYSICAL PROFILE (BPP): 05/29 -- Breathin/2. -- Movement: 2/2. -- Tone: 2/2. --JG: 2/2. PRESENTATION: Cephalic PLACENTA: Posterior grade 1. There is no placenta previa or abruption. CERVIX: The cervix is not visualized. MATERNAL OVARIES: Not imaged. FREE FLUID: None demonstrated. US/Biophysical Prof W/O Non Stres IMPRESSION: Single live intrauterine with normal biophysical profile score. Electronically Signed: Jamar Thacker MD at 1:00 EDT ,
== END | disposition home or self-care (01) ==
PROVIDERS: Visit Provider Obstetrics & Gynecology
DX: Z36.89 Encounter for other specified antenatal screening (principal)
CPT/HCPCS: 76819

== ENCOUNTER → 2022-07-28 | Outpatient (CLI) | payer MEDICAID, SELFPAY ==
[2022-07-28] MEDS: 0.9% NaCl Peripheral Flush Adult/Peds IV (12:58)
[2022-07-28] MEDS: 0.9% NaCl IVPB Med Flush (250 mL) 15 ML IV (13:00)
[2022-07-28 13:08] VITALS: BP 117/73; PULSE 98; O2SAT 98
[2022-07-28 15:13] VITALS: BP 109/67; PULSE 103; RESP 16; O2SAT 97
== END | disposition home or self-care (01) ==
LOC: MEDOUTP 12:44
PROVIDERS: Referring Provider Nurse Practitioner Women's Health; Visit Provider Nurse Practitioner Women's Health
DX: O99.019 Anemia complicating pregnancy, unspecified trimester (principal); Z3A.00 Weeks of gestation of pregnancy not specified
CPT/HCPCS: 96365; 96366; J1756; J7050; A4216

== ENCOUNTER → 2022-07-31 | Outpatient (CLI) | payer MEDICAID, SELFPAY ==
[2022-07-31 12:19] VITALS: BP 122/75; PULSE 93; RESP 16; TEMP 36.3; O2SAT 99; BMI 25.0
[2022-07-31] MEDS: 0.9% NaCl IVPB Med Flush (250 mL) 15 ML IV (13:17)
[2022-07-31 15:01] VITALS: BP 101/52; PULSE 96
== END | disposition home or self-care (01) ==
LOC: OPUS 12:32 → MEDOUTP 12:58
PROVIDERS: Referring Provider Nurse Practitioner Women's Health; Visit Provider Nurse Practitioner Women's Health
DX: O99.019 Anemia complicating pregnancy, unspecified trimester (principal)
CPT/HCPCS: 96365; 96366; 87081; J1756; J7050; A4216

== ENCOUNTER → 2022-08-03 | Outpatient (CLI) | payer MEDICAID, SELFPAY ==
--- NOTE | 2022-08-03 18:35 | US_ITS ---
STUDY: OBSTETRICAL ULTRASOUND - BIOPHYSICAL PROFILE REASON FOR EXAM: Female, 26 years old WELL BEING LMP: 11/18/2021 PRIOR ULTRASOUND: 07/27/2022 TECHNIQUE: Transabdominal TECHNICAL QUALITY: Adequate. FINDINGS: There is a single intrauterine fetus. The fetus is in a cephalic presentation. There is demonstrated cardiac activity with a heart rate of 158 bpm. There is a normal amniotic fluid volume. The largest amniotic fluid pocket measures 4.8 x 4.2 cm. The amniotic fluid index (JG) is 9.5 cm. The placenta is posterior in location and is not low lying. There are Grade 2 placental changes. Age by LMP: 36 weeks, 6 days. ALESSANDRA by LMP: 08/25/2022. Gender: Female BIOPHYSICAL PROFILE: Breathing Movements (FBM): 2 Gross Body Movements (GBM): 2 Tone (FT): 2 Amniotic Fluid Volume (AFV): 2 TOTAL SCORE: 8 / 8 US/Biophysical Prof W/O Non Stres IMPRESSION: Normal biophysical profile of 8/8. Electronically Signed: Vivek Munoz MD at 20:04 EDT ,
== END | disposition home or self-care (01) ==
LOC: US 18:33
PROVIDERS: Visit Provider Obstetrics & Gynecology
DX: Z36.89 Encounter for other specified antenatal screening (principal)
CPT/HCPCS: 76819

== ENCOUNTER → 2022-08-07 | Outpatient (CLI) | payer MEDICAID, SELFPAY ==
[2022-08-07 10:42] VITALS: BP 105/68; PULSE 105; TEMP 36.2
[2022-08-07] MEDS: 0.9% NaCl IVPB Med Flush (250 mL) 15 ML IV (10:53)
[2022-08-07] MEDS: 0.9% NaCl Peripheral Flush Adult/Peds IV (10:53)
[2022-08-07 12:46] VITALS: BP 108/64; PULSE 106; RESP 16
== END | disposition home or self-care (01) ==
LOC: MEDOUTP 10:30
PROVIDERS: Referring Provider Obstetrics & Gynecology; Visit Provider Obstetrics & Gynecology
DX: O99.019 Anemia complicating pregnancy, unspecified trimester (principal)
CPT/HCPCS: 96365; 96366; J1756; J7050; A4216

== ENCOUNTER 2022-08-14 07:15 | Inpatient (IN) | payer MEDICAID, SELFPAY ==
[2022-08-14] VITALS (39 sets, daily range): BP systolic 77–133; BP diastolic 46–81; PULSE 65–111; RESP 15; TEMP 36.5–37.4; O2SAT 91–100; BMI 25.6
--- NOTE | 2022-08-14 | PLAC_PTH ---
PATIENT: LISSETT ARNETT LOC: WP U#:[id number] AGE/SX: ROOM: WP004 RE08/14/[address]: Georgette Cantu CNM : 1995 BED: 1 DIS: 08/15/2022 SPEC #: [id number] RECD: 08/14/22 16:19 STATUS: JOSE REJaskaran #: [id number] MAYRA: 08/14/22 00:[address]: Georgette Cantu DEPT: SURGICAL PATHOLOGY RECD BY: Bernard Hansen ENTERED: 08/15/22 09:03 SP TYPE: PLACENTA OTHR DR: Linda Primary Care Phys Tissues: Placenta, NOS Procedures: Surgery Specimen Level V HEADER OPERATION: Vaginal delivery PRE-OP DIAGNOSIS: Abnormal looking cord TISSUE SUBMITTED: Placenta MICROSCOPIC DIAGNOSIS Carreon placenta (348 gm): Umbilical cord ? trivascular with no inflammation. Placental membranes - No pathologic change. Placental disc ? Gallo change, mild chronic decidual inflammation. AM:sahara 08/16/2022 MICROSCOPIC DESCRIPTION Slides are reviewed. GROSS DESCRIPTION SPECIMEN: PLACENTA / CLINICAL INFORMATION: A. Weight: 2.785 kg B. Gestational Age: 38 weeks C. Sex: Female PLACENTAL WEIGHT (POST FIXATION): 348 gm PLACENTAL DIMENSIONS: 17 x 14 x 2.5 cm PLACENTAL SHAPE: Usual ovoid PLACENTAL WEIGHT FOR GESTATIONAL AGE: Within 10-99th percentile MEMBRANES - Present A. Insertion: Marginal B. Site of rupture from edge: 2 cm from edge of placental disc C. Color of membrane: Rodriguez-martinez D. Abnormalities: None UMBILICAL CORD - Present A. Color: Rodriguez-martinez B. Insertion: Eccentric C. Length: 21 cm D. Diameter: 2 cm E. Number of vessels: Three F. Abnormalities: None PLACENTAL DISC - Present A. Color of surface: Rodriguez-martinez B. surface abnormalities: None C. Maternal cotyledons: Intact with minimal tears D. Attached retro placental clot: No clot E. Cut surface: Dark red and spongy F. Lesions: None G. Separate clot: Absent SECTIONS SUBMITTED: 1. Umbilical cord ( end notched) 2. Umbilical cord, placental end 3. Membrane roll 4. Placental disc, and maternal surfaces 5. Placental disc, and maternal surfaces 6. Placental disc, and maternal surfaces AM:sahara 08/15/2022 TC:5 CPT: 79321
[2022-08-14] MEDS: Lactated Ringers 1,000 ML 50 ML IV (08:28)
[2022-08-14] MEDS: Oxytocin 15 Units/NS 250ml 15 UNITS/250 ML IV.SOLN 2 UNITS IV (08:28)
[2022-08-14 08:29] LABS: Absolute Neutrophil Count 3.9 X10^3/uL (2.0-7.7); Basophil# 0.04 X10^3/uL; Basophil% 0.6 % (0-1); Eosinophils% 1.6 % (0-5); Hematocrit 34.7 % (37-47); Hemoglobin 10.8 g/dL (12.0-15.0); Lymphocyte % 28.8 % (19-41); Mean Corp Hgb Conc 31.1 g/dL (32-36); Mean Corpuscular Hgb 25.8 pg (27.0-32.0); Mean Corpuscular Volume 82.8 fL (81-99); Mean Platelet Vol. 10.6 fl (6.2-12.0); Monocyte# 0.42 X10^3/uL; Monocyte% 6.7 % (0-10); NRBC Flagged by Analyzer 0 % (0-5); Neutrophil # 3.85 X10^3/uL (2.7-7.7); Neutrophil % 61.8 % (47-70); POSITIVE MORPHOLOGY YES; Platelet Count 213 K/mm3 (150-450); RBC Distribution Width CV 21.6 % (11.6-14.6); RBC Distribution Width SD 62.5 fl (35.1-43.9); Red Blood Count 4.19 M/mm3 (4.2-5.4); White Blood Count 6.2 K/mm3 (4.4-11.0)
--- NOTE | 2022-08-14 08:46 | HP.PCM.OB_ITS ---
HPI - General General Date of Admission: 08/14/22 HPI Narrative LISSETT ARNETT, is a 26 y/o @ 38 weeks and 3 days who presents to L&D for iol secondary to cholestasis of . She has been followed by [facility] and our office. Her last was uncomplicated and she states that she delivered within 3 hours when presented in active labor last . Maternal Data Information ALESSANDRA Calculator Estimated Delivery Date Method Current WG Current Estimate 08/25/22 Ultrasound #1 38w 3d PFSH PFS Medical History Anxiety and depression Home Medications prenat.vits,silvia,kla-vhwr-nydov 1 tab PO DAILY 04/17/22 [History Last Taken Unknown] ferrous sulfate 325 mg (65 mg iron) tablet (Feosol) 325 mg PO DAILY #90 tabs 06/05/22 [Rx Last Taken Unknown] famotidine 20 mg tablet (Pepcid) 20 mg PO BID #30 tabs 07/03/22 [Rx Last Taken Unknown] ursodiol 500 mg tablet 500 mg PO BID #60 tabs 07/03/22 [Rx Last Taken Unknown] Allergy/AdvReac Type Severity Reaction Status Date / Time No Known Allergies Allergy Verified 08/08/22 14:37 Surgical History H/O dilation and curettage Hx of hand surgery S/P laparoscopy Social History Smoking Status: Never smoker alcohol intake: never substance use type: does not use caffeine: No what type of physical activity do you participate in: none seatbelt use: always do you feel safe at home: Yes additional social history: [place]- unemployed History 2 Elective abortions Hx Para 1 Spontaneous abortions Hx # Term Pregnancies Ectopic pregnancies Hx # Pregnancies Multiple births # of living children 1 Past Pregnancies Del. Date Name GA/Weeks Outcome Route Bth Weight Infant Gen Labor Lgth Anesthesia Del Locatn Provider FOB 08/12/18 AVRIL 40 live - full term Female epid ural [facility] Art[facility] Visit Details Expected Delivery Route/Plan IOL 37 Labor Preferences- CB/BF classes: discussed labor support person: Donald labor intervention preferences: [] pain management options preferred: epidural cut cord/dad catch: yes : yes PP control planned: considering IUD discussed possible routes of delivery and associated risks: [] special requests: [] Plans Covid status: discussed Flu vaccine: discussed Tdap vaccine: considering Rhogam: na LARC form signed: yes movement and labor precautions reviewed. Problem list reviewed and updated with the most current plan of care details and appropriate orders placed. Relevant counseling for the gestational age provided. Continue routine care and follow up unless otherwise noted in visit notes/problem list details OB Flowsheet Initial Weight: Not Recorded Date -?-?-?-?-?-?-?-?-?-?-?-?- EGA Weight BP Urine Prot -?-?-?-?-?-?-?-?-?-?-?-?- Glucose FHR FuHt Pres Dilation -?-?-?-?-?-?-?-?-?-?-?-?- Effaced St Visit Note 01/27/22 -?-?-?-?-?-?-?-?-?-?-?-?- 10w 0d 111 lb 94/62 -?-?-?-?-?-?-?-?-?-?-?-?- 150 -?-?-?-?-?-?-?-?-?-?-?-?- SM- no vb crampi ng 02/24/22 -?-?-?-?-?-?-?-?-?-?-?-?- 14w 0d 116 lb 2 oz 110/58 Nega tive -?-?-?-?-?-?-?-?-?-?-?-?- Negative 146 -?-?-?-?-?-?-?-?-?-?-?-?- JV- no cramping or bleeding, no complaints. NIPT normal 04/17/22 -?-?-?-?-?-?-?-?-?-?-?-?- 21w 3d 121 lb 100/72 Negative -?-?-?-?-?-?-?-?-?-?-?-?- Negative 140 21 -?-?-?-?-?-?-?-?-?-?-?-?- SM- no vb lof go od fm no regular ctx 05/15/22 -?-?-?-?-?-?-?-?-?-?-?-?- 25w 3d 129 lb 112/74 -?-?-?-?-?-?-?-?-?-?-?-?- 140 25 -?-?-?-?-?-?-?-?-?-?-?-?- Sm- no vb lof go od fm no regular ctx 06/05/22 -?-?-?-?-?-?-?-?-?-?-?-?- 28w 3d 133 lb 118/70 Negative -?-?-?-?-?-?-?-?-?-?-?-?- Negative 145 27 -?-?-?-?-?-?-?-?-?-?-?-?- MH-No Vb, LOF. G ood FM. Declines tdap. 28 wk labs and larc done. 06/19/22 -?-?-?-?-?-?-?-?-?-?-?-?- 30w 3d 133 lb 102/70 -?-?-?-?-?-?-?-?-?-?-?-?- 140 30 -?-?-?-?-?-?-?-?-?-?-?-?- SM- no vb lof go od fm no regular ctx 07/03/22 -?-?-?-?-?-?-?-?-?-?-?-?- 32w 3d 129 lb 101/63 Negative -?-?-?-?-?-?-?-?-?-?-?-?- Negative 140 -?-?-?-?-?-?-?-?-?-?-?-?- SM- SM- co generalized severe pr uritis. labs done, start zyrtec and urosodiol, reviewed kick counts 07/10/22 -?-?-?-?-?-?-?-?-?-?-?-?- 33w 3d 135 lb 103/71 Negative -?-?-?-?-?-?-?-?-?-?-?-?- Negative 140 -?-?-?-?-?-?-?-?-?-?-?-?- SM- itching mild ly improved. nst reactive 07/17/22 -?-?-?-?-?-?-?-?-?-?-?-?- 34w 3d 137 lb 121/77 Negative -?-?-?-?-?-?-?-?-?-?-?-?- Negative 150 33 -?-?-?-?-?-?-?-?-?-?-?-?- SM- no vb lof go od fm no regular ctx itching resolved now with medication twice weekly bpps scheduled 07/24/22 -?-?-?-?-?-?-?-?-?-?-?-?- 35w 3d 137 lb 2 oz 112/72 Nega tive -?-?-?-?-?-?-?-?-?-?-?-?- Negative 148 -?-?-?-?-?-?-?-?-?-?-?-?- MH-No VB, LOF. G ood FM. Repeat fasting bile acid, CMP, APL & Hep panal plus BPP today. 07/31/22 -?-?-?-?-?-?-?-?-?-?-?-?- 36w 3d 140 lb 115/50 -?-?-?-?-?-?-?-?-?-?-?-?- 145 35 -?-?-?-?-?-?-?-?-?-?-?-?- SM- no vb lof go od fm no regular ctx 08/08/22 -?-?-?-?-?-?-?-?-?-?-?-?- 37w 4d 141 lb 4 oz 113/72 Nega tive -?-?-?-?-?-?-?-?-?-?-?-?- Negative 155 36 Cephalic 3 -?-?-?-?-?-?-?-?-?-?-?-?- 70 JV- reac tive NST. Bile acids up to 8 now per MFM. (unable to see results here) recommendations are to deliver between 38 wnd 39 weeks. PT prefers after 08/13. IOL set up for 08/14 at 7am. no complaints of itching and is off ursidiol. ROS Constitutional Constitutional: Denies change in weight, fatigue, fever(s), headache(s), poor appetite or weakness Eyes Eyes: Denies blurry vision, change in vision, seeing flashes or spots in vision ENT HEENT: Denies dizziness, headache(s), loss taste/smell or sore throat Cardiovascular Cardiovascular: Denies chest pain, dizziness, dyspnea, irregular heart rhythm, leg edema, palpitations, rapid heart rate or vomiting Respiratory/Chest Respiratory/Chest: Denies chest tightness, cough, dyspnea or breast pain Gastrointestinal Gastrointestinal: Denies abdominal pain, anorexia, constipation, cramping, diarrhea, hemorrhoids, vomiting or weight changes Genitourinary Genitourinary: Denies dysuria, flank pain, genital lesions, genital pain, urinary frequency or urinary urgency Musculoskeletal Musculoskeletal: Denies back pain, difficulty walking, joint pain, limited range of motion, muscle cramps or numbness Integumentary Integumentary: Denies lesions or unusual bruising Neurologic Neurologic: Denies abnormal movements, abnormal speech, dizziness, numbness, seizure-like activity or syncope Psychiatric Psychiatric: Denies anxiety, behavioral changes, change in appetite, change in libido, cognitive impairment, confusion, depression, difficulty concentrating, hallucinations or suicidal thoughts Endocrine Endocrinology: Denies excessive sweating, polydipsia or polyuria Hematologic/Lymphatic Hematologic/Lymphatic: Denies easy bleeding, easy bruising or lymphadenopathy Allergic/Immunologic Allergic/Immunologic: Denies itchy eyes, lip swelling, seasonal rhinorrhea, rhinitis, throat swelling, tongue swelling, eczemia, wheezing or asthma Vital Signs Vital Signs Vital Signs: 08/14/22 07:25 08/14/22 07:25 08/14/22 08:29 Temperature Pulse Rate 107 H Blood Pressure 110/70 120/71 BP Systolic 110 120 BP Diastolic 70 71 08/14/22 08:29 08/14/22 08:29 Temperature 99.3 F H Pulse Rate 109 H Blood Pressure BP Systolic BP Diastolic Weight Weight: 140 lb Body Mass Index (BMI) 25.6 Physical Exam Const alert, oriented x3, no apparent distress and healthy appearing General Appearance: cooperative; Negative for anxious HEENT normocephalic Face and Sinus: normal facial exam Eyes EOMs intact bilaterally and no scleral icterus General Eye: normal appearance of both eyes Neck full ROM and supple Lymph Lymphatic: no lymphadenopathy noted Chest Chest: abnormal inspection of the chest Resp normal respiratory effort Effort and Inspection: able to speak in complete sentences Cardio regular rate GI soft to palpation and non-tender Inspection: gravid Palpation: soft; Negative for tender external exam normal Speculum Exam - Cervix: other /-2, posterior , medium consistency. Back/Spine no CVA tenderness Extremity normal to inspection, full ROM and no clubbing, cyanosis or edema General Extremity: Negative for calf tenderness or edema Skin Lesions: no lesions Rashes: no rashes Psych mental status grossly normal Labs Labs Labs: Blood Type A POSITIVE Antibody Screen NEGATIVE Hct 31.6 % (37-47) L Hgb 9.7 g/dL (12.0-15.0) L Obstetrics US Syphilis Total Ab Non-reactive VZV IgG Antibody 254 index (Immune >165) Rubella IgG Antibody Reactive (Nonreactive) Hep Bs Antigen Negative (Negative) Chlamydia DNA ([place]) Negative (Negative) Neisseria gonorrhoeae DNA ([place]) Negative (Negative) HIV 1&2 Antibody Non-Reactive (Nonreactive) Glucose 1 Hr 50 gm 98 mg/dL (70-140) Group B Strep DNA Negative (Negative) Rhogam given: No Miscellaneous Test Assessment & Plan (1) Supervision of high-risk : COMMENT: PRR ALESSANDRA 08/25/22 girl PC: Avril boyfriend Donald (his first) (2) Cholestasis during : COMMENT: elevated AST. start on ursodiol empirically/works. MFM: recommend twice weekly BPP or nst. deliver at 39. growth US 31%. rpt fasting bile acid, CMP, hep and APL panels done 07/23. 07/31 Labs sent to [facility] (3) Anemia affecting : COMMENT: Fe added; worsening:IV fenofer (4) Marijuana use: COMMENT: random tox screens 05/15/22 negative (5) : QUALIFIERS: Weeks of gestation: 37 weeks Qualified Code(s): Z3A.37 - 37 weeks gestation of COMMENT: anatomy nl, declined carrier screening and afp. NIPT low risk, GBS negative PLAN: Plan Patient presents IOL, plan management for with pitocin/AROM. Pain management: plans epidural. GBS negative. Management of any complications: cholestasis - mild I have reviewed the [facility] and made any clinically relevant updates.
[2022-08-14 09:00] LABS: Differential Indicated SCAN CRITERIA MET
[2022-08-14] MEDS: LACTATED RINGERS 500 ML 999 ML IV (09:10)
[2022-08-14 10:12] LABS: Anisocytosis 2+; Differential Comment SCANNED; Macrocytosis 1+; Microcytosis 1+
[2022-08-14] MEDS: fentaNYL-bupivacaine (epidural) 100 ML BAG EPIDURAL (10:15)
[2022-08-14] MEDS: Ondansetron 4 MG/2 ML Vial IV (10:48)
[2022-08-14] MEDS: Mag Hydrox/Al Hydrox/Simeth 30 ML UDC PO (10:48)
[2022-08-14 16:21] LABS: Pathology Specimen OB SEE PATHOLOGY REPORT
--- NOTE | 2022-08-14 16:22 | OP.PCM_ITS ---
Assessment & Plan (1) Supervision of high-risk : COMMENT: PRR ALESSANDRA 08/25/22 girl PC: Avril boyfrienrashawn Bennett (his first) (2) Cholestasis during : COMMENT: elevated AST. start on ursodiol empirically/works. MFM: recommend twice weekly BPP or nst. deliver at 39. growth US 31%. rpt fasting bile acid, CMP, hep and APL panels done 07/23. 07/31 Labs sent to [facility] (3) Anemia affecting : COMMENT: Fe added; worsening:IV fenofer (4) Marijuana use: COMMENT: random tox screens 05/15/22 negative (5) : QUALIFIERS: Weeks of gestation: 37 weeks Qualified Code(s): Z3A.37 - 37 weeks gestation of COMMENT: anatomy nl, declined carrier screening and afp. NIPT low risk, GBS negative PLAN: Plan on 08/14/2022 routine care Maternal Data Information ALESSANDRA Calculator Estimated Delivery Date Method Current WG Current Estimate 08/25/22 Ultrasound #1 38w 3d Vaginal Delivery Maternal Presentation Maternal Presentation: Medically Indicated Induction Type of Induction: Pitocin and Amniotomy Medical Reason for Induction: Maternal Medical Condition: list: (cholestasis ) and - Operative Information Pre-Operative Diagnosis: Post-Operative Diagnosis: Surgery / Procedure Performed: Spontaneous Vaginal Delivery Type of Anesthesia: Epidural Estimated Blood Loss: 300 Time of Delivery: 15:12 Findings Description of Procedure: Patient began pushing and delivered the head in the [EDWARD] presentation. The head was delivered atraumatically. The anterior and posterior shoulders delivered without complication followed by the rest of the infant and the was placed on the maternal abdomen. Delayed cord clamping was employed for approximately 120 seconds. Cord was clamped and cut and gentle traction was applied to the cord and the placenta delivered spontaneously immediately following it was noted to be intact with three-vessel cord. The perineum and vagina were inspected and noted to have no laceration. uterus was boggy, pitocin rate increased with uterine massage with hemostasis achieved in 30 seconds. EBL was 300. Patient and infant entered recovery phase in stable condition bonding skin to skin. Presentation: EDWARD Amniotic Membrane Rupture Type: Artificial Amniotic Fluid Description: Clear Placental Delivery Description: Spontaneous Placenta Disposition: Sent to Pathology Cord Vessel Description: 3 Vessels Cord Entanglement: None Nuchal Cord Compression: Without compression A Gender: Female (1 minute): 9 (5 minute): 9 Delayed Cord Clamping: Yes Post Vaginal Delivery Medications Given After Delivery: IV Pitocin Episiotomy Description: None Laceration: None Complication Complications: None Multi Select Codes Urinary/Genital Urinary/Genital CPT Codes: 76007 Vaginal Delivery global pkg (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
[2022-08-14] MEDS: Ibuprofen 600 MG Tablet PO ×2 (16:47→22:49)
[2022-08-14] MEDS: Acetaminophen 500 MG Tablet 1000 MG PO (19:16)
[2022-08-15 00:39] VITALS: BP 104/58; PULSE 100; RESP 16; TEMP 36.6; O2SAT 97
[2022-08-15 03:58] VITALS: BP 110/66; PULSE 70; RESP 14; TEMP 36.4; O2SAT 97
[2022-08-15] MEDS: Acetaminophen 500 MG Tablet 1000 MG PO ×2 (04:08→09:58)
--- NOTE | 2022-08-15 06:28 | NURSING ---
All charting done by SERA Cool reviewed by SERA Stone
--- NOTE | 2022-08-15 07:53 | PCM.PN.OB ---
Subjective Subjective Patient doing well without complaints. Tolerating PO. Ambulating and voiding without difficulty. Feeding well. Denies chest pain, shortness of breath, calf pain/swelling, fevers, chills, lightheadedness. Objective Data Objective Data Vital Signs: Vital Signs Temp Pulse Resp BP Pulse Ox O2 Del Method 97.6 F L 70 14 110/66 97 Room Air 08/15/22 03:58 08/15/22 03:58 08/15/22 03:58 08/15/22 03:58 08/15/22 03:58 08/15/22 03:58 Oxygen Delivery Method Room Air Weight: 140 lb Body Mass Index (BMI) 25.6 Intake & Output: Intake and Output for Last 24 Hours 08/13/22 08/14/22 08/15/22 23:59 23:59 23:59 Intake Total 1750.00 / 1750.00 Output Total 800 / 800 600 / 600 Balance 950.00 / 950.00 -600 / -600 Lab / Micro Data Result Diagrams: 08/14/22 07:50 Labs: Laboratory Results - last 24 hr 08/14/22 07:50: WBC 6.2, RBC 4.19 L, Hgb 10.8 L, Hct 34.7 L, MCV 82.8, MCH 25.8 L, MCHC 31.1 L, RDW Std Deviation 62.5 H, RDW Coeff of Saurabh 21.6 H, Plt Count 213, MPV 10.6, Immature Gran % (Auto) 0.500, Neut % (Auto) 61.8, Lymph % (Auto) 28.8, [place] % (Auto) 6.7, Eos % (Auto) 1.6, Baso % (Auto) 0.6, Absolute Neuts (auto) 3.9, Absolute Lymphs (auto) 1.80, Nucleated RBC % 0, Differential Comment SCANNED, Anisocytosis 2+, Microcytosis 1+, Macrocytosis 1+ 08/14/22 07:50: Blood Type A POSITIVE, Antibody Screen NEGATIVE Physical Exam Const alert and oriented x3 HEENT normocephalic Eyes PERRL Neck full ROM Resp normal respiratory effort GI soft to palpation GI Narrative: FF below U Assessment & Plan (1) Vaginal delivery: COMMENT: 08/14/22 Girl LC PLAN: Plan s/p PPD # 1 1. routine post delivery care 2. breast feeding- support given 3. rh positive 4. rubella immune 5. plans home today 6. anemia stable pp
[2022-08-15 08:50] VITALS: BP 112/71; PULSE 83; RESP 16; TEMP 36.6; O2SAT 98
[2022-08-15] MEDS: Ibuprofen 600 MG Tablet PO (09:58)
[2022-08-15 11:19] VITALS: BP 113/56; PULSE 86; RESP 16; TEMP 36.6; O2SAT 97
[2022-08-15] MEDS: FLU VACC QS2022-23(6MOS UP)/PF 60 MCG/0.5 ML SYRINGE IM (15:08)
[2022-08-15 16:00] VITALS: BP 105/64; PULSE 78; RESP 14; TEMP 36; O2SAT 97
[2022-08-23 08:20] LABS: Pathology Specimen OB SEE PATHOLOGY REPORT
== END 2022-08-15 17:50 | disposition home or self-care (01) | DRG 560 ==
PROVIDERS: Obstetrics & Gynecology; Admitting Provider Registered Nurse; Visit Provider Registered Nurse
DX: O26.62 Liver and biliary tract disorders in childbirth (principal); Z37.0 Single live birth; K83.1 Obstruction of bile duct; F12.90 Cannabis use, unspecified, uncomplicated; O99.02 Anemia complicating childbirth; O99.324 Drug use complicating childbirth; O99.892 Other specified diseases and conditions complicating childbirth; N85.8 Other specified noninflammatory disorders of uterus; Z3A.38 38 weeks gestation of pregnancy; Z23 Encounter for immunization
CPT/HCPCS: 59025; 59050; 85025; 86850; 86900; 86901; 88307; 99218; J7120; 90686; G0378; J2405

== ENCOUNTER → 2023-10-04 | Outpatient (CLI) | payer MEDICAID, SELFPAY ==
[2023-10-04 13:37] LABS: hCG Titer Quant., Serum 36617 mIU/mL (1-3)
== END | disposition home or self-care (01) ==
LOC: LAB 12:11
PROVIDERS: Referring Provider Obstetrics & Gynecology; Visit Provider Obstetrics & Gynecology
DX: N91.2 Amenorrhea, unspecified (principal)
CPT/HCPCS: 36415; 84702

== ENCOUNTER → 2023-10-05 | Outpatient (CLI) | payer MEDICAID, SELFPAY ==
--- NOTE | 2023-10-05 19:12 | US_ITS ---
INDICATION: DATING COMPARISON: 08/03/2022 OB ultrasound.. FINDINGS: 54 grayscale ultrasound ultrasound images demonstrate single live intrauterine measuring at 12 weeks +0 days average age. This gives estimated date of delivery by current ultrasound of 04/18/2024. However, crown-rump length measures at 12 weeks +4 days. heart rate 161 bpm. Yolk sac is identified. Adequate amniotic fluid for gestational age. Placenta cannot be definitively identified at this gestational age. Uterine myometrium is unremarkable. Bilateral ovaries are not visualized. No significant free fluid. US/Transvaginal w/Preg US IMPRESSION: Single live intrauterine measuring at 12 weeks +0 days average age. This gives estimated date of delivery by current ultrasound of 04/18/2024. However, crown-rump length measures at 12 weeks +4 days. Electronically Signed: Ananda Landa MD at 7:00 EST ,
== END | disposition home or self-care (01) ==
LOC: US 19:07
PROVIDERS: Visit Provider Obstetrics & Gynecology
DX: Z34.90 Encounter for supervision of normal pregnancy, unspecified, unspecified trimester (principal); N91.2 Amenorrhea, unspecified
CPT/HCPCS: 76817

== ENCOUNTER → 2023-10-24 | Outpatient (CLI) | payer MEDICAID, SELFPAY ==
--- OUTSIDE RECORDS SUMMARY | 2023-10-24 17:11 | XMS RPT_ITS | CCD ---
Author Name Unknown Address [id number] [place] [address] Organization [facility] Care Team Providers Care Database Security Administrator Name Role Phone DENISHA HARRINGTON Unavailable Unavailable JUANYDENISHA GUTIERREZ Unavailable Unavailable NONE, NONE Unavailable Unavailable NONE, NONE Unavailable Unavailable Arcadio Garner Unavailable Unavailable Arcadio Ganrer Unavailable Unavailable Massiel Lujan Unavailable Unavailable Massiel Lujan Unavailable Unavailable Aydee Francisco Unavailable Unavailable Aydee Francisco Unavailable Unavailable Unavailable Primary Care Provider UnavailSharri Gibson MD Primary Care Provider Provider, Akbar Primary Care Provider Unava ilable Jesus Man Unavailable Unavailable Unavailable MASSIEL LUJAN Admitting Unavailable MASSIEL LUJAN Attending Unavailable MASSIEL LUJAN Referring Unavailable SHARRI GUZMÁN Primary Care Unavailable SHARRI GUZMÁN Primary Care Unavailable SHARRI GUZMÁN Referring UnavailLETY Garcia Primary Care Unavailable ROBERT LAWRENCE Attending Unavailable VIDAL ERVIN Referring Unavailab ELANA Pacheco Attending Unavailable LETY MONTELONGO Primary Care Unavailable SHARRI GUZMÁN Referring UnavailCHE Cordero Attending Unavailable LETY MONTELONGO Primary Care Unavailable SHARRI GUZMÁN Referring UnavailCHE Cordero Attending Unavailable LETY MONTELONGO Primary Care Unavailable SHARRI GUZMÁN Referring UnavailBHUMIKA Klein Attending Unavailable LETY MONTELONGO Primary Care Unavailable Allergies Allergy Classification Reported Allergen(s) Allergy Type Date of Onset Reaction(s) Facility (1 source) OTHER; Translations: [OTHER] Propensity to adverse reactions to food (disorder) 4 [facility] Repository Medications Current Medications Medication Drug Class(es) Dates Sig (Normalized) Sig (Original) brompheniramine maleate 0.4 mg/ml / dextromethorphan hydrobromide 2 mg/ml / pseudoephedrine hydrochloride 6 mg/ml oral solution (2 sources) alpha-Adrenergic Agonist, Uncompetitive E-dqexuw-P-aspartat e Receptor Antagonist, Sigma-1 Agonist Start: 02-09-2021 take 1 [tsp_us] by mouth every six hours as needed pseudoephedrine-b rompheniramine-de xtromethorphan (Bromfed DM) 30-2-10 MG/5ML Syrup Take 1 teaspoon PO every 6 hours as needed 100 mL 0 02/09/2021 Active docusate sodium 100 mg oral capsule (2 sources) Start: 02-25-2019 take 1 capsule by mouth twice daily as needed for constipation docusate 100 MG Cap Take 1 capsule by mouth 2 times daily as needed for Constipation 1st Line. 60 capsule 0 02/25/2019 Active ibuprofen 600 mg oral tablet (2 sources) Nonsteroidal Anti-inflammatory Drug Start: 02-25-2019 take 1 tablet by mouth every six hours as needed ibuprofen 600 MG Tab tablet Take 1 tablet by mouth every 6 hours as needed for Mild Pain or Moderate Pain. 35 tablet 0 02/25/2019 Active ondansetron 4 mg disintegrating oral tablet (5 sources) Serotonin-3 Receptor Antagonist Start: 10-31-2020 take 1 tablet by mouth every four hours as needed ondansetron 4 MG Tab Dispersible tablet Take 1 tablet by mouth every 4 hours as needed for Nausea. 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 Inflammation; infection of eye (except that caused by tuberculosis or sexually transmitteddisease) (1 source) Allergic contact dermatitis of eyelid; Translations: [Contact and allergic dermatitis of eyelid] Episodic Other circulatory disease (1 source) History of cardiac arrhythmia; Translations: [Personal history of other diseases of circulatory system] Episodic Other complications of (1 source) Vomiting of ; Translations: [Vomiting of , unspecified] Episodic Other gastrointestinal disorders (1 source) Hemoperitoneum; Translations: [Hemoperitoneum] Episodic Residual codes; unclassified (1 source) History of past delivery; Translations: [Personal history of other genital system and obstetric disorders] Episodic Past or Other Problems Problem Classification Problem Date Documented Da te Episodic/Chronic Influenza (3 sources) Influenza due to Influenza A virus; Translations: [Influenza due to other identified influenza virus with other respiratory manifestations] Onset: 01-01-2022 Episodic Menstrual disorders (2 sources) Missed period; Translations: [Irregular menstrual cycle] Resolved: 04-10-2022 Chronic Other complications of (1 source) Nausea and vomiting; Translations: [Unspecified vomiting of , unspecified as to episode of care or not applicable] Resolved: 04-10-2022 Episodic Other complications of (2 sources) Vomiting of , unspecified; Translations: [Vomiting of , unspecified] Onset: 01-01-2022 Episodic Ovarian cyst (2 sources) Hemorrhagic cyst of ovary; Translations: [Unspecified ovarian cyst, unspecified side] Onset: 02-24-2019 02-24-2019 Episodic Urinary tract infections (1 source) Acute cystitis; Translations: [Acute cystitis without hematuria] Episodic NEGATED: Highlighted row has been ruled out!Unclassified (2 sources) No known active problems Results Test Name Value Interpretation Reference Range Merged With [facility] it Vital Signs Date Time Vital Sign Value Performing Clinician Demetris gregory 04-10-2022 15:36-0400 Body height 157.48 cm Jesus Alannah [facility] Work Phone: [facility] Work Phone: 04-10-2022 15:36-0400 Body mass index (BMI) [Ratio] 22.41 kg/m2 Jesus Man Work Phone: [facility] Work Phone: 04-10-2022 15:36-0400 Body surface area Derived from formula 1.55 m2 Jesus Man Work Phone: [facility] Work Phone: 04-10-2022 15:36-0400 Body temperature 97.3 [degF] Jesus Man Work Phone: [facility] Work Phone: 04-10-2022 15:36-0400 Body weight 55.57 kg Jesus Man Work Phone: [facility] Work Phone: 04-10-2022 15:36-0400 Diastolic blood pressure 64 mm[Hg] Jesus Man Work Phone: [facility] Work Phone: 04-10-2022 15:36-0400 Heart rate 94 /min Jesus Man Work Phone: [facility] Work Phone: 04-10-2022 15:36-0400 SaO2% (BldA) [Mass fraction] 99 % Jesus Man Work Phone: [facility] Work Phone: 04-10-2022 15:36-0400 Systolic blood pressure 104 mm[Hg] Jesus Goinsl Work Phone: [facility] Work Phone: 01-01-2022 14:18-0400 Diastolic blood pressure 70 mm[Hg] Sharri Guzmán MD Work Phone: [facility] 01-01-2022 14:18-0400 Heart rate 114 /min Sharri Guzmán MD Work Phone: [facility] [employer] [facility] 01-01-2022 14:18-0400 Respiratory rate 16 /min Sharri Guzmán MD Work Phone: [facility] 01-01-2022 14:18-0400 SaO2% (BldA) [Mass fraction] 97 % Sharri Guzmán MD Work Phone: [facility] 01-01-2022 14:18-0400 Systolic blood pressure 106 mm[Hg] Sharri Guzmán MD Work Phone: [facility] 01-01-2022 10:14-0400 Body height 154.9 cm Sharri Guzmán MD Work Phone: [facility] 01-01-2022 10:13-0400 Body temperature 100.09 [degF] Sharri Guzmán MD Work Phone: [facility] 06-13-2021 14:10-0400 Body height 157.5 cm Bloomingdale Arnold PA-C Work Phone: [facility] [employer] [facility] 06-13-2021 14:10-0400 Body mass index (BMI) [Ratio] 19.39 kg/m2 Lenore Arnold PA-C Work Phone: [employer] [facility] 06-13-2021 14:10-0400 Body temperature 98.6 [degF] Lenore Arnold PA-C Work Phone: [facility] [employer] [facility] 06-13-2021 14:10-0400 Body weight 48.08 kg Lenore Arnold PA-C Work Phone: [employer] [facility] 06-13-2021 14:10-0400 Diastolic blood pressure 68 mm[Hg] Bloomingdale Arnold PA-C Work Phone: [facility] 06-13-2021 14:10-0400 Heart rate 83 /min Lenore Arnold PA-C Work Phone: [facility] 06-13-2021 14:10-0400 Respiratory rate 15 /min Lenore Cordova PA-C Work Phone: [facility] [employer] [facility] 06-13-2021 14:10-0400 SaO2% (BldA) [Mass fraction] 99 % Lenore Cordova PA-C Work Phone: [facility] [employer] [facility] 06-13-2021 14:10-0400 Systolic blood pressure 100 mm[Hg] Lenore Cordova PA-C Work Phone: [employer] [facility] 02-24-2019 15:40-0400 BP Diastolic 66 mm[Hg] [employer] 02-24-2019 15:40-0400 BP Systolic 133 mm[Hg] [employer] 02-24-2019 15:40-0400 Pulse (Heart Rate) 94 /min [employer] 02-24-2019 15:40-0400 Pulse Oximetry 100 % [employer] 02-24-2019 15:40-0400 Respiratory Rate 22 /min [employer] 02-24-2019 14:23-0400 Body Temperature 98.49 [degF] [facility] 02-24-[facility] 10:07-0400 Height 154.9 cm [employer] Encounters Encounter Date Encounter Type Care Provider Facility Start: 08-07-2022 End: 08-07-2022 ambulatory [facility] Start: 07-20-2022 End: 07-20-2022 ambulatory SHARRI GUZMÁN [facility] Start: 06-28-2022 End: 06-28-2022 ambulatory MASSIEL LUJAN [facility] Start: 04-10-2022 Office outpatient ne w 30 minutes Jesus Man Work Phone: [facility] Work Phone: Start: 03-28-2022 End: 03-28-2022 ambulatory VIDAL ERVIN [facility] Start: 01-01-2022 End: 01-01-2022 Emergency department patient visit SHARRI GUZMÁN [facility] Start: 01-01-2022 End: 01-01-2022 Emergency department patient visit Sharri Guzmán MD Work Phone: [facility] Start: 06-13-2021 End: 06-13-2021 Office outpatient new 30 minutes Lenore Cordova PA-C Work Phone: [facility] Procedures Date Procedure Procedure Detail Performing Clinician Start: 01-01-2022 End: 01-01-2022 Gonadotropin chorionic qualitative Corinne Charles AUTOMATIC MAINTAINER-RELOCATION MANAGER Work Phone: Start: 01-01-2022 Urinalysis microscopic only Corinne Alannah Roni rivero AUTOMATIC MAINTAINER-RELOCATION MANAGER Work Phone: Start: 01-01-2022 Urinalysis, reagent strip without microscopy Corinne Charles AUTOMATIC MAINTAINER-RELOCATION MANAGER Work Phone: Start: 01-01-2022 Complete blood count with white cell differential, automated Corinne Charles AUTOMATIC MAINTAINER-RELOCATION MANAGER Work Phone: Start: 01-01-2022 Quantitative PCR analysis Corinne williamson AUTOMATIC MAINTAINER-RELOCATION MANAGER Work Phone: Start: 06-13-2021 Urnls dip stick/tablet rgnt auto w/o microscopy Lenore Cordova PA-C Work Phone: Start: 06-11-2019 Echocardiography Start: 02-24-2019 Blood count hematocrit Triny Mejia Work Phone: Start: 02-24-2019 Blood typing serologic abo Triny mota Work Phone: Start: 02-24-2019 Choriogonadotropin ( test) [Presence] in Serum or Plasma Triny Mejia Work Phone: Start: 02-24-2019 Computed tomography of abdomen and pelvis with contrast Triny Mejia Work Phone: Start: 02-24-2019 Choriogonadotropin ( test) [Presence] in Urine Triny Mejia Work Phone: Start: 02-24-2019 Iadna chlamydia trachomatis amplified probe tq Triny Mejia Work Phone: Start: 02-24-2019 Urinalysis microscopic only Triny Avitia rne Work Phone: Start: 02-24-2019 URINALYSIS, MACRO Triny Mejia Work Phone: Start: 02-24-2019 Assay of lipase Triny Mejia Work Phone: Start: 02-24-2019 CBC, EDIF, PLATELET Triny Mejia Work Phone: Start: 02-24-2019 Comprehensive metabolic panel Triny eagle Work Phone: Dilation and curettage Jesus Man Work Phone: Excision of cyst of ovary Se teri Man Work Phone: Plan of Treatment Date Care Activity Detail Author Start: 06-22-2021 Influenza vaccination INFLUENZA VACCINE (#1) [facility] Start: 02-25-2020 GONORRHEA SCREEN GONORRHEA SCREEN [facility] Start: 02-25-2020 Screening for Chlamydia trachomatis CHLAMYDIA SCREEN [facility] Start: 06-22-2019 Influenza vaccination INFLUENZA VACCINE (Season Ended) [facility] Start: 2018 Screening for malignant neoplasm of cervix [facility] Start: 2016 Third diphtheria, tetanus and acellular pertussis (DTaP) vaccination TDAP (ADULT) [facility] Start: 2015 Tetanus vaccination TETANUS [facility] Start: 2013 Screening for Chlamydia trachomatis CHLAMYDIA SCREEN [facility] Start: 2012 HIV screening HIV SCREENING DISCUSSION [facility] Start: 2012 Vaccination for human papillomavirus HPV VACCINE ADOL (1 - Female 3-dose series) [facility] Start: 2010 HIV screening HIV SCREENING DISCUSSION [facility] Start: 2009 COVID-19 VACCINE (1) COVID-19 VACCINE (1) [facility] Start: 2008 Vaccination for human papillomavirus HPV VACCINE ADOL (1 - 2-dose series) [facility] Start: 2002 COVID-19 VACCINE (1) COVID-19 VACCINE (1) [facility] Start: 1997 GONORRHEA SCREEN GONORRHEA SCREEN [facility] Start: 1997 Hepatitis C antibody, confirmatory test HEPATITIS C VIRUS SCREENING [facility] Bacteria identified in Urine by Culture URINE CULTURE Microbiology STAT 01/01/2022 11:57 AM EDT [facility] Bacteria identified in Urine by Culture URINE CULTURE Microbiology Routine Acute cystitis without hematuria 06/13/2021 2:00 PM EDT [facility] Work Phone: CHLAMYDIA/GONOCOCCUS, CLIFTON CHLAMY SHAUNA/GONOCOCCUS, [place]ON Microbiology STAT 02/24/2019 11:45 AM EDT [facility] HCG ( test) Ql [facility] End: 01-01-2022 Standard ECG ECG ECG STAT One Time for 1 Occurrences starting 01/01/2022 until 01/01/2022 [facility] Payers Date Payer Category Payer Unknown [employer] SHAYNEGARRET xxxxxxxxxxx 2017-Present xxxxxxxxxxx [id number] 2017 Unknown [id number] 2017 Unknown [employer] [id number] 2017-Present [address] [place] [address] [id number] 2017 Unknown [id number] 1997 Unknown [id number] 1997 Unknown [id number] 1997 Unknown [id number] 1997 Unknown [id number] 1997 Unknown [id number] 1997 Unknown [id number] 1997 Unknown [id number] Social History Date Type Detail Facility Start: 12-16-2017 End: 02-24-2019 Tobacco smoking status NHIS Never smoker [facility] Start: 1997 Sex Assigned At Not on file O [facility] Start: 12-16-2017 Tobacco use and exposure Smokeless tobacco non-user [facility] Start: 06-13-2021 End: 01-01-2022 Alcohol intake Current non-drinker of alcohol (finding) [facility] Start: 12-22-2021 End: 01-01-2022 Exposure to SARS-CoV-2 (event) Not sure [facility] No alcohol use No alcohol use [facility] Work Phone: Clinical Notes 06-13-2021 to 08-07-2022 Nancy Saleem RN - 01/01/2022 12:50 PM Oscar Saleem RN - 01/01/2022 12:50 PM Eugenio Charles APRN-RELOCATION MANAGER - 01/01/2022 10:47 AM Janice Duarte RN - 01/01/2022 10:21 AM EDTDischarge Instructions Note Date & Type Note Facility 08-07-2022 Note DOS: 08/07/2022 COMANAGEMENT PROGRESS NOTE CHIEF COMPLAINT: Possible cholestasis of HISTORY OF PRESENT ILLNESS: Yumi is a 26 y.o. female at 37w3d who presents for comanagement visit. She has no unusual complaints. States stopped ursodiol as instructed and has had no further itching. Reports good movement ALLERGY: Allergies Allergen Reactions Other Swelling Pop Tarts - used to make throat swell. Can eat them now. REVIEW OF SYSTEMS: A comprehensive review of systems was negative. PHYSICAL EXAM: VITAL SIGNS: Wt 64.2 kg (141 lb 8 oz) LMP 11/18/2021 BMI 25.88 kg/m DOS: 08/07/2022 MEDS: Current Outpatient Medications Medication Sig FEROSUL 325 (65 Fe) MG TABS tablet Take by mouth daily MV-Min-Fe Fum-FA-DHA ( 1 PO) Take by mouth IMAGING: Growth ultrasound today- see report under separate cover. LABS: No visits with results within 1 Month(s) from this visit. Latest known visit with results is: Office Visit on 12/03/2014 Component Date Value Ref Range Status Strep A Antigen 12/03/2014 None Detected None Detected Final POCT Influenza A Ag 12/03/2014 None Detected None Detected Final POCT Influenza B Ag 12/03/2014 None Detected None Detected Final Strep Culture 12/03/2014 SEE BELOW Final 26 y.o. at 37w3d with Active Non-Hospital Problems Diagnosis Date Noted 07/20/2022 Ultrasound on 07/06/2022 states EFW in 5th percentile Normally grown on US 07/20 Possible Cholestasis during 07/20/2022 - Bile salts = 4.5 (07/03/22) - AST mildly elevated at 40 but ALT normal - Recommend continuing ursodiol at this time as her symptoms return with a missed dose. - Recommend repeating fasting bile acids, LFT (along with hepatitis panel and APLS testing if not previously done). 08/04- pt stopped ursodiol and no further itching Repeat bile acid ^8 (previously 4.5) AST 41 ALT 25 Reviewed on 08/07/2022 Prior loss in second trimester, antepartum 07/20/2022 - G1 demise in second trimester, in [place] - Recommend APLS testing if not previously done. - Further management per primary OB. Follow up: While bile acids normal, have risen. Would recommend delivery 38-39 weeks. If not delivering by 08/14- please call our office to schedule BPP on 08/14 as she has no further ultrasounds with our office Precautions, movement monitoring reinforced. The total time spent on patient care today was 25 minutes. -15 minutes direct patient care -10 minutes chart review and documentation [facility] 01-01-2022 Emergency department Note Pt states I am pretty sure I just threw up the Tylenol and Tamilflu Pt vomiting into bag upon entering room. [facility] 01-01-2022 Emergency department Note Pt states I am pretty sure I just threw up the Tylenol and Tamilflu Pt vomiting into bag upon entering room. Emergency Department Report [facility] EM[facility] Service Date:.01/01/22 PCP: Sharri Guzmán Chief Complaint: Chief Complaint Patient presents with Fever 3 days Headache HPI Yumi Hirsch is a 26 y.o. female who presents to ED for evaluation of Fever, cough, headache; onset 3 days ago. She additionally states that she is approximately 7 weeks gestation of , G4A2P1, & has had morning sickness weak, now having difficulty retaining fluids. She has an appointment with highwall drill operator in [place] tomorrow. Denies any abdominal pain. No urinary symptoms or abnormal vaginal bleeding/discharge. She does report a history of stress-induced cardiomyopathy & notes mild shortness of breath, chest discomfort for a few days now. No lower extremity pain or swelling. Review of Systems: Review of Systems 8 systems reviewed with patient, negative unless specifically mentioned in history of present illness Past Medical History: No past medical history on file. Past Surgical History: Past Surgical History: Procedure Laterality Date LAPAROSCOPY ABDOMEN PERITONEUM OMENTUM W/ ASPIRATION CAVITY/CYST N/A 02/24/2019 Laterality: N/A; Surgeon: Rachel Rai MD; Location: [facility] MAIN OR HAND SURGERY right Allergies: No Known Allergies Medications: Patient's Medications New Prescriptions OSELTAMIVIR 75 MG CAPSULE Take 1 capsule by mouth 2 times daily. For flu treatment Previous Medications DOCUSATE 100 MG CAP Take 1 capsule by mouth 2 times daily as needed for Constipation 1st Line. IBUPROFEN 600 MG TAB TABLET Take 1 tablet by mouth every 6 hours as needed for Mild Pain or Moderate Pain. ONDANSETRON 4 MG TAB DISPERSIBLE TABLET Take 1 tablet by mouth every 4 hours as needed for Nausea. Place on tongue OXYCODONE 5 MG TAB TABLET Take 1 tablet by mouth every 6 hours as needed for Pain (breakthrough) for up to 7 days. VIT-FE FUMARATE-FA ( PLUS) 27-1 MG TABLET Take 1 tablet by mouth daily. PSEUDOEPHEDRINE-BROMPHENIRAMINE -DEXTROMETHORPHAN (BROMFED DM) 30-2-10 MG/5ML SYRUP Take 1 teaspoon PO every 6 hours as needed Modified Medications No medications on file Discontinued Medications No medications on file Family History: History reviewed. No pertinent family history. Social History: Social History Socioeconomic History Marital status: Single Spouse name: Not on file Number of children: Not on file Years of education: Not on file Highest education level: Not on file Occupational History Not on file Tobacco Use Smoking status: Never Smoker Smokeless tobacco: Never Used Vaping Use Vaping Use: Never used Substance and Sexual Activity Alcohol use: No Drug use: No Sexual activity: Yes Partners: Male control/protection: None Other Topics Concern Service Not Asked Blood Transfusions Not Asked Caffeine Concern Not Asked Occupational Exposure Not Asked Hobby Hazards Not Asked Sleep Concern Not Asked Stress Concern Not Asked Weight Concern Not Asked Special Diet Not Asked Back Care Not Asked Exercise Not Asked Bike Helmet Not Asked Seat Belt Not Asked Domestic Violence No Social History Narrative Not on file Social Determinants of Health Financial Resource Strain: Not on file Food Insecurity: Not on file Transportation Needs: Not on file Physical Activity: Not on file Stress: Not on file Social Connections: Not on file Intimate Partner Violence: Not on file Housing Stability: Not on file Physical Exam: Physical Exam Vitals and nursing note reviewed. Constitutional: General: She is not in acute distress. Appearance: She is not toxic-appearing or diaphoretic. HENT: Head: Normocephalic and atraumatic. Right Ear: External ear normal. Left Ear: External ear normal. Mouth/Throat: Comments: masked Eyes: General: Right eye: No discharge. Left eye: No discharge. Conjunctiva/sclera: Conjunctivae normal. Cardiovascular: Rate and Rhythm: Regular rhythm. Tachycardia present. Pulses: Normal pulses. Heart sounds: Normal heart sounds. No murmur heard. No friction rub. No gallop. Pulmonary: Effort: Pulmonary effort is normal. No respiratory distress. Breath sounds: Normal breath sounds. No wheezing, rhonchi or rales. Abdominal: General: Bowel sounds are normal. There is no distension. Palpations: Abdomen is soft. Tenderness: There is no abdominal tenderness. There is no guarding or rebound. Musculoskeletal: Cervical back: Normal range of motion and neck supple. Skin: General: Skin is warm and dry. Capillary Refill: Capillary refill takes less than 2 seconds. Coloration: Skin is not jaundiced or pale. Findings: No rash. Neurological: General: No focal deficit present. Mental Status: She is alert and oriented to person, place, and time. Motor: No weakness. Gait: Gait normal. Psychiatric: Mood and Affect: Mood normal. Behavior: Behavior normal. Vital Signs During ED Visit Patient Vitals for the past 24 hrs: BP Temp Temp src Pulse Resp SpO2 Height 01/01/22 1150 108/71 -- -- 107 15 98 % -- 01/01/22 1124 107/57 -- -- 108 14 97 % -- 01/01/22 1014 -- -- -- -- -- -- 1.549 m (5' 1 ) 01/01/22 1013 120/73 100.1 F (37.8 C) Oral 117 16 99 % -- Orders/Results: Results for orders placed or performed during the hospital encounter of 01/01/22 INFLUENZA A AND B, PCR Result Value Ref Range INFLUENZA A POSITIVE (A) NEGATIVE INFLUENZA B NEGATIVE NEGATIVE CBC, EDIF, PLATELET Result Value Ref Range WBC (WHITE BLOOD COUNT) 5.8 3.6 - 11.0 10*3/uL RBC 4.34 4.0 - 5.4 10*6/uL HEMOGLOBIN (HGB) 11.8 (L) 12.0 - 16.0 G/DL HEMATOCRIT (HCT) 34.6 (L) 36.0 - 48.0 % MEAN CELL VOLUME 79.8 (L) 80.0 - 100.0 FL Mean Cell HGB 27.3 26.0 - 35.0 PG MEAN CELL HGB CONCENTRATION 34.2 27.0 - 37.0 G/DL RBC DISTRIBUTION 15.1 (H) 11.5 - 14.5 % PLATELET COUNT 179 130.0 - 400.0 10*3/uL MEAN PLATELET VOLUME 8.3 7.4 - 11.0 FL DIFFERENTIAL TYPE AUTO DIFF % NEUTROPHILS 88.9 (H) 37.0 - 75.0 % LYMPHOCYTE 4.5 (L) 20.0 - 55.0 % MONOCYTE % 5.9 0.0 - 10.0 % EOSINOPHIL % 0.2 0.0 - 11.0 % BASOPHIL % 0.5 0.0 - 2.0 % Absolute Neutrophil Count 5.2 1.4 - 6.5 10*3/uL LYMPHOCYTES, ABSOLUTE 0.30 (L) 1.2 - 3.4 10*3/uL MONOCYTES, ABSOLUTE 0.3 0.0 - 0.7 10*3/uL ABSOLUTE EOSINOPHIL COUNT 0.00 0.0 - 0.7 10*3/uL ABSOLUTE BASOPHIL COUNT 0.0 0.0 - 0.2 10*3/uL CHEM 7 (LYTES,BUN,CREA,GLUC) Result Value Ref Range GLUCOSE 95 70 - 100 MG/DL BUN 9 7 - 20 MG/DL CREATININE SERUM 0.75 0.52 - 1.04 MG/DL SODIUM 131 (L) 136 - 145 MMOL/L POTASSIUM 3.4 (L) 3.5 - 5.1 MMOL/L CHLORIDE 98 98 - 107 MMOL/L CARBON DIOXIDE (CO2) 23 22 - 30 MMOL/L ESTIMATED GFR, NON AMER 101 ml/min/1.73sq.m ESTIMATED GFR, 122 ml/min/1.73sq.m GFR COMMENT Average GFR for 20-29 years old = 116. TROPONIN I, HIGH SENSITIVITY Result Value Ref Range TROPONIN I, HIGH SENSITIVITY <2 0 - 12 pg/mL URINALYSIS, MACRO Result Value Ref Range COLOR, URINE YELLOW YELLOW APPEARANCE, URINE CLEAR CLEAR Specific [place], Urine 1.020 1.010 - 1.025 PH URINE 7.0 5.0 - 7.0 PROTEIN, URINE 30 (A) NEGATIVE mg/dl GLUCOSE, URINE NEGATIVE NEGATIVE mg/dl KETONES, URINE 40 (A) NEGATIVE mg/dl BILIRUBIN, URINE SMALL (A) NEGATIVE BLOOD, URINE DIPSTICK NEGATIVE NEGATIVE NITRITES, URINE NEGATIVE NEGATIVE UROBILINOGEN, URINE 1.0 0.2 - 1.0 E.U./dL LEUKOCYTE ESTERASE, URINE NEGATIVE NEGATIVE HCG QUALITATIVE, URINE Result Value Ref Range HCG, QUALITATIVE, URINE POSITIVE (A) NEGATIVE URINE MICROSCOPIC Result Value Ref Range WBC, URINE NEGATIVE NEGATIVE /HPF RBC, URINE NEGATIVE NEGATIVE /HPF Epithelial Cells UA 1 TO 5 /HPF Mucus NEGATIVE NEGATIVE BACTERIA, URINE TRACE (A) NEGATIVE CRYSTALS, URINE NONE NONE CASTS, URINE NONE NONE /LPF COMMENT, URINE CULTURE CRITERIA NOT MET, NO CULTURE PERFORMED. Radiographic Imaging No orders to display Medications Ordered/Given During ED Visit Medications sodium chloride 0.9% IV solution 1,000 mL (0 mL Intravenous Stopped 01/01/22 1231) metoclopramide (REGLAN) injection 10 mg (10 mg Intravenous Given 01/01/22 1057) diphenhydrAMINE (BENADRYL) injection 25 mg (25 mg Intravenous Given 01/01/22 1057) acetaminophen (TYLENOL) tablet 650 mg (650 mg Oral Given 01/01/22 1152) oseltamivir (TAMIFLU) capsule 75 mg (75 mg Oral Given 01/01/22 1152) Procedures: Procedures EKG: Sinus tachycardia, rate 104 BPM. VT 130, QRS 72, QTC 402. Mabie is normal. No acute ST changes, no STEMI. No old EKGs readily available for comparison ED Summary/MDM Patient presented for evaluation of Fever, cough and cold symptoms; additionally complaining of persistent vomiting at 7 weeks gestation of . She is nontoxic in appearance. ED workup as follows: Influenza A POSITIVE. Laboratory studies grossly unremarkable. Urine is positive. Urinalysis is unfortunately contaminated with squamous epithelial cells, but no overt infection. She was given IV hydration and antiemetics, and on my reevaluation she is feeling significantly improved & iis tolerating oral fluids. Discussed risks versus benefits of Tamiflu, and at this point she would like to proceed and dose was given here in ED. She is currently medically stable for discharge and outpatient treatment. Tamiflu Prescription was sent to patient's pharmacy of choice. She may continue Unisom/B6 as needed for nausea, as directed by her MOLDING PRESS OPERATOR. Supportive measures were otherwise reviewed and return precautions were given.Patient is aware of all findings, agreeable to plan. Stable throughout ED course. Clinical Impression: 1. Influenza A 2. Nausea and vomiting in prior to 22 weeks gestation No follow-ups on file. New Prescriptions OSELTAMIVIR 75 MG CAPSULE Take 1 capsule by mouth 2 times daily. For flu treatment Discontinued Medications No medications on file An After Visit Summary was printed and given to the patient with above information. . . Corinne Charles APRN-RELOCATION MANAGER 01/01/22 1237 Pt ambulates to ER, c/o headache, fever, eye pain, N/V and generalized malaise x approx 3 days. Pt reports that she is unable to retain food or liquids, and is approximately 7 weeks . documented in this encounter [facility] 01-01-2022 Hospital Discharg e instructions HOMER Hernandez - 01/01/2022 12:02 PM EDT May continue Unisom & Vit B6 Needed for nausea/vomiting, dosage as per your OB provider. Tamiflu as directed- okay to discontinue if worsens nausea/vomiting. Increase oral fluids, bland diet. Please follow-up with your doctor as planned, or return for new, worsening, or worrisome symptoms. The following attachments cannot be sent through Care Everywhere.Influenza ([place]ian)Morning Sickness ([facility]) ([place]ian) Over the Counter Medicines During ([facility]) ([place]ian)documented in this encounter [facility] 01-01-2022 Physician Emergency department Note Emergency Department Report [facility] EM[facility]PART[facility] Service Date:.01/01/22 PCP: Sharri Guzmán Chief Complaint: Chief Complaint Patient presents with Fever 3 days Headache HPI Yumi Hirsch is a 26 y.o. female who presents to ED for evaluation of Fever, cough, headache; onset 3 days ago. She additionally states that she is approximately 7 weeks gestation of , G4A2P1, & has had morning sickness weak, now having difficulty retaining fluids. She has an appointment with highwall drill operator in [place] tomorrow. Denies any abdominal pain. No urinary symptoms or abnormal vaginal bleeding/discharge. She does report a history of stress-induced cardiomyopathy & notes mild shortness of breath, chest discomfort for a few days now. No lower extremity pain or swelling. Review of Systems: Review of Systems 8 systems reviewed with patient, negative unless specifically mentioned in history of present illness Past Medical History: No past medical history on file. Past Surgical History: Past Surgical History: Procedure Laterality Date LAPAROSCOPY ABDOMEN PERITONEUM OMENTUM W/ ASPIRATION CAVITY/CYST N/A 02/24/2019 Laterality: N/A; Surgeon: Rachel Rai MD; Location: [facility] MAIN OR HAND SURGERY right Allergies: No Known Allergies Medications: Patient's Medications New Prescriptions OSELTAMIVIR 75 MG CAPSULE Take 1 capsule by mouth 2 times daily. For flu treatment Previous Medications DOCUSATE 100 MG CAP Take 1 capsule by mouth 2 times daily as needed for Constipation 1st Line. IBUPROFEN 600 MG TAB TABLET Take 1 tablet by mouth every 6 hours as needed for Mild Pain or Moderate Pain. ONDANSETRON 4 MG TAB DISPERSIBLE TABLET Take 1 tablet by mouth every 4 hours as needed for Nausea. Place on tongue OXYCODONE 5 MG TAB TABLET Take 1 tablet by mouth every 6 hours as needed for Pain (breakthrough) for up to 7 days. VIT-FE FUMARATE-FA ( PLUS) 27-1 MG TABLET Take 1 tablet by mouth daily. PSEUDOEPHEDRINE-BROMPHENIRAMINE -DEXTROMETHORPHAN (BROMFED DM) 30-2-10 MG/5ML SYRUP Take 1 teaspoon PO every 6 hours as needed Modified Medications No medications on file Discontinued Medications No medications on file Family History: History reviewed. No pertinent family history. Social History: Social History Socioeconomic History Marital status: Single Spouse name: Not on file Number of children: Not on file Years of education: Not on file Highest education level: Not on file Occupational History Not on file Tobacco Use Smoking status: Never Smoker Smokeless tobacco: Never Used Vaping Use Vaping Use: Never used Substance and Sexual Activity Alcohol use: No Drug use: No Sexual activity: Yes Partners: Male control/protection: None Other Topics Concern Service Not Asked Blood Transfusions Not Asked Caffeine Concern Not Asked Occupational Exposure Not Asked Hobby Hazards Not Asked Sleep Concern Not Asked Stress Concern Not Asked Weight Concern Not Asked Special Diet Not Asked Back Care Not Asked Exercise Not Asked Bike Helmet Not Asked Seat Belt Not Asked Domestic Violence No Social History Narrative Not on file Social Determinants of Health Financial Resource Strain: Not on file Food Insecurity: Not on file Transportation Needs: Not on file Physical Activity: Not on file Stress: Not on file Social Connections: Not on file Intimate Partner Violence: Not on file Housing Stability: Not on file Physical Exam: Physical Exam Vitals and nursing note reviewed. Constitutional: General: She is not in acute distress. Appearance: She is not toxic-appearing or diaphoretic. HENT: Head: Normocephalic and atraumatic. Right Ear: External ear normal. Left Ear: External ear normal. Mouth/Throat: Comments: masked Eyes: General: Right eye: No discharge. Left eye: No discharge. Conjunctiva/sclera: Conjunctivae normal. Cardiovascular: Rate and Rhythm: Regular rhythm. Tachycardia present. Pulses: Normal pulses. Heart sounds: Normal heart sounds. No murmur heard. No friction rub. No gallop. Pulmonary: Effort: Pulmonary effort is normal. No respiratory distress. Breath sounds: Normal breath sounds. No wheezing, rhonchi or rales. Abdominal: General: Bowel sounds are normal. There is no distension. Palpations: Abdomen is soft. Tenderness: There is no abdominal tenderness. There is no guarding or rebound. Musculoskeletal: Cervical back: Normal range of motion and neck supple. Skin: General: Skin is warm and dry. Capillary Refill: Capillary refill takes less than 2 seconds. Coloration: Skin is not jaundiced or pale. Findings: No rash. Neurological: General: No focal deficit present. Mental Status: She is alert and oriented to person, place, and time. Motor: No weakness. Gait: Gait normal. Psychiatric: Mood and Affect: Mood normal. Behavior: Behavior normal. Vital Signs During ED Visit Patient Vitals for the past 24 hrs: BP Temp Temp src Pulse Resp SpO2 Height 01/01/22 1150 108/71 -- -- 107 15 98 % -- 01/01/22 1124 107/57 -- -- 108 14 97 % -- 01/01/22 1014 -- -- -- -- -- -- 1.549 m (5' 1 ) 01/01/22 1013 120/73 100.1 F (37.8 C) Oral 117 16 99 % -- Orders/Results: Results for orders placed or performed during the hospital encounter of 01/01/22 INFLUENZA A AND B, PCR Result Value Ref Range INFLUENZA A POSITIVE (A) NEGATIVE INFLUENZA B NEGATIVE NEGATIVE CBC, EDIF, PLATELET Result Value Ref Range WBC (WHITE BLOOD COUNT) 5.8 3.6 - 11.0 10*3/uL RBC 4.34 4.0 - 5.4 10*6/uL HEMOGLOBIN (HGB) 11.8 (L) 12.0 - 16.0 G/DL HEMATOCRIT (HCT) 34.6 (L) 36.0 - 48.0 % MEAN CELL VOLUME 79.8 (L) 80.0 - 100.0 FL Mean Cell HGB 27.3 26.0 - 35.0 PG MEAN CELL HGB CONCENTRATION 34.2 27.0 - 37.0 G/DL RBC DISTRIBUTION 15.1 (H) 11.5 - 14.5 % PLATELET COUNT 179 130.0 - 400.0 10*3/uL MEAN PLATELET VOLUME 8.3 7.4 - 11.0 FL DIFFERENTIAL TYPE AUTO DIFF % NEUTROPHILS 88.9 (H) 37.0 - 75.0 % LYMPHOCYTE 4.5 (L) 20.0 - 55.0 % MONOCYTE % 5.9 0.0 - 10.0 % EOSINOPHIL % 0.2 0.0 - 11.0 % BASOPHIL % 0.5 0.0 - 2.0 % Absolute Neutrophil Count 5.2 1.4 - 6.5 10*3/uL LYMPHOCYTES, ABSOLUTE 0.30 (L) 1.2 - 3.4 10*3/uL MONOCYTES, ABSOLUTE 0.3 0.0 - 0.7 10*3/uL ABSOLUTE EOSINOPHIL COUNT 0.00 0.0 - 0.7 10*3/uL ABSOLUTE BASOPHIL COUNT 0.0 0.0 - 0.2 10*3/uL CHEM 7 (LYTES,BUN,CREA,GLUC) Result Value Ref Range GLUCOSE 95 70 - 100 MG/DL BUN 9 7 - 20 MG/DL CREATININE SERUM 0.75 0.52 - 1.04 MG/DL SODIUM 131 (L) 136 - 145 MMOL/L POTASSIUM 3.4 (L) 3.5 - 5.1 MMOL/L CHLORIDE 98 98 - 107 MMOL/L CARBON DIOXIDE (CO2) 23 22 - 30 MMOL/L ESTIMATED GFR, NON AMER 101 ml/min/1.73sq.m ESTIMATED GFR, 122 ml/min/1.73sq.m GFR COMMENT Average GFR for 20-29 years old = 116. TROPONIN I, HIGH SENSITIVITY Result Value Ref Range TROPONIN I, HIGH SENSITIVITY <2 0 - 12 pg/mL URINALYSIS, MACRO Result Value Ref Range COLOR, URINE YELLOW YELLOW APPEARANCE, URINE CLEAR CLEAR Specific [place], Urine 1.020 1.010 - 1.025 PH URINE 7.0 5.0 - 7.0 PROTEIN, URINE 30 (A) NEGATIVE mg/dl GLUCOSE, URINE NEGATIVE NEGATIVE mg/dl KETONES, URINE 40 (A) NEGATIVE mg/dl BILIRUBIN, URINE SMALL (A) NEGATIVE BLOOD, URINE DIPSTICK NEGATIVE NEGATIVE NITRITES, URINE NEGATIVE NEGATIVE UROBILINOGEN, URINE 1.0 0.2 - 1.0 E.U./dL LEUKOCYTE ESTERASE, URINE NEGATIVE NEGATIVE HCG QUALITATIVE, URINE Result Value Ref Range HCG, QUALITATIVE, URINE POSITIVE (A) NEGATIVE URINE MICROSCOPIC Result Value Ref Range WBC, URINE NEGATIVE NEGATIVE /HPF RBC, URINE NEGATIVE NEGATIVE /HPF Epithelial Cells UA 1 TO 5 /HPF Mucus NEGATIVE NEGATIVE BACTERIA, URINE TRACE (A) NEGATIVE CRYSTALS, URINE NONE NONE CASTS, URINE NONE NONE /LPF COMMENT, URINE CULTURE CRITERIA NOT MET, NO CULTURE PERFORMED. Radiographic Imaging No orders to display Medications Ordered/Given During ED Visit Medications sodium chloride 0.9% IV solution 1,000 mL (0 mL Intravenous Stopped 01/01/22 1231) metoclopramide (REGLAN) injection 10 mg (10 mg Intravenous Given 01/01/22 1057) diphenhydrAMINE (BENADRYL) injection 25 mg (25 mg Intravenous Given 01/01/22 1057) acetaminophen (TYLENOL) tablet 650 mg (650 mg Oral Given 01/01/22 1152) oseltamivir (TAMIFLU) capsule 75 mg (75 mg Oral Given 01/01/22 1152) Procedures: Procedures EKG: Sinus tachycardia, rate 104 BPM. VT 130, QRS 72, QTC 402. Mabie is normal. No acute ST changes, no STEMI. No old EKGs readily available for comparison ED Summary/MDM Patient presented for evaluation of Fever, cough and cold symptoms; additionally complaining of persistent vomiting at 7 weeks gestation of . She is nontoxic in appearance. ED workup as follows: Influenza A POSITIVE. Laboratory studies grossly unremarkable. Urine is positive. Urinalysis is unfortunately contaminated with squamous epithelial cells, but no overt infection. She was given IV hydration and antiemetics, and on my reevaluation she is feeling significantly improved & iis tolerating oral fluids. Discussed risks versus benefits of Tamiflu, and at this point she would like to proceed and dose was given here in ED. She is currently medically stable for discharge and outpatient treatment. Tamiflu Prescription was sent to patient's pharmacy of choice. She may continue Unisom/B6 as needed for nausea, as directed by her MOLDING PRESS OPERATOR. Supportive measures were otherwise reviewed and return precautions were given.Patient is aware of all findings, agreeable to plan. Stable throughout ED course. Clinical Impression: 1. Influenza A 2. Nausea and vomiting in prior to 22 weeks gestation No follow-ups on file. New Prescriptions OSELTAMIVIR 75 MG CAPSULE Take 1 capsule by mouth 2 times daily. For flu treatment Discontinued Medications No medications on file An After Visit Summary was printed and given to the patient with above information. . . Corinne Charles, AUTOMATIC MAINTAINER-RELOCATION MANAGER 01/01/22 1237 [facility] 01-01-2022 Emergency department Note Pt ambulates to ER, c/o headache, fever, eye pain, N/V and generalized malaise x approx 3 days. Pt reports that she is unable to retain food or liquids, and is approximately 7 weeks . [facility] 06-13-2021 History of Presen t illness Narrative HPI Yumi Hirsch is a 25 y.o. female presenting to the clinic for urinary symptoms for the past 2 weeks. Symptoms include dysuria, urgency, frequency,, abdominal pain, back pain. She denies fever/chills or nausea/vomiting. Self treatment - cranberry juice. Patient states she is currently on her menstrual period. ROS Constitutional: Denies Fever or chills Gastrointestinal: Denies nausea, Denies vomiting, Denies diarrhea Genitourinary: SEE HPI Musculoskeletal: Reports back pain Social History Socioeconomic History Marital status: Single Spouse name: Not on file Number of children: Not on file Years of education: Not on file Highest education level: Not on file Occupational History Not on file Tobacco Use Smoking status: Never Smoker Smokeless tobacco: Never Used Vaping Use Vaping Use: Never used Substance and Sexual Activity Alcohol use: No Drug use: No Sexual activity: Yes Partners: Male control/protection: None Other Topics Concern Service Not Asked Blood Transfusions Not Asked Caffeine Concern Not Asked Occupational Exposure Not Asked Hobby Hazards Not Asked Sleep Concern Not Asked Stress Concern Not Asked Weight Concern Not Asked Special Diet Not Asked Back Care Not Asked Exercise Not Asked Bike Helmet Not Asked Seat Belt Not Asked Domestic Violence No Social History Narrative Not on file Social Determinants of Health Financial Resource Strain: Difficulty of Paying Living Expenses: Food Insecurity: Worried About Running Out of Food in the Last Year: Ran Out of Food in the Last Year: Transportation Needs: Lack of Transportation (Medical): Lack of Transportation (Non-Medical): Physical Activity: Days of Exercise per Week: Minutes of Exercise per Session: Stress: Feeling of Stress : Social Connections: Frequency of Communication with Friends and Family: Frequency of Social Gatherings with Friends and Family: Attends Zoroastrianism Services: Active Member of Clubs or Organizations: Attends Club or Organization Meetings: Marital Status: Intimate Partner Violence: Fear of Current or Ex-Partner: Emotionally Abused: Physically Abused: Sexually Abused: History reviewed. No pertinent family history. No past medical history on file. Past Surgical History: Procedure Laterality Date LAPAROSCOPY ABDOMEN PERITONEUM OMENTUM W/ ASPIRATION CAVITY/CYST N/A 02/24/2019 Laterality: N/A; Surgeon: Rachel Rai MD; [facility]GERY right PHYSICAL EXAM BP 100/68 (BP Location: Right arm, BP Position: Sitting) Pulse 83 Temp 98.6 F (37 C) (Temporal) Resp 15 Ht 1.575 m (5' 2 ) Wt 48.1 kg (106 lb) SpO2 99% BMI 19.39 kg/m Smoking Status Never Smoker Primary Assessment: Airway patent. Respirations unlabored, Normal respiratory effort Constitutional: Vital signs reviewed. Well appearing. No distress Psychiatric: Mental status appropriate. Normal affect Skin: Warm and dry. No rashes noted Gastrointestinal: No CVA tenderness. Abdomen soft, no masses or hepatosplenomegaly, no guarding or rigidity, no rebound tenderness. Negative for suprapubic tenderness with palpation. Musculoskeletal: All joints grossly normal. Neurologic: Alert and Oriented Results for orders placed or performed in visit on 06/13/21 POCT URINALYSIS DIPSTICK AUTOMATED W/O SCOP Result Value Ref Range POCT APPEARANCE, URINE CLOUDY POCT COLOR, URINE YELLOW POCT GLUCOSE, URINE NEGATIVE mg/dL POCT BILIRUBIN, URINE NEGATIVE POCT KETONES, URINE NEGATIVE mg/dL POCT SPECIFIC GRAVITY, URINE 1.025 1.001 - 1.035 POCT BLOOD, URINE SMALL POCT PH, URINE 7.0 5 - 7 POCT PROTEIN, URINE NEGATIVE mg/dL POCT UROBILINOGEN, URINE 1.0 0 - 2 E.U./dL POCT NITRITE, URINE NEGATIVE POCT LEUKOCYTE, URINE NEGATIVE POCT ESTERASE, URINE POCT BACTERIA, URINE POCT WBC, URINE POCT RBC, URINE POCT AMORPHOUS, URINE POCT CASTS, QUANTITATIVE, URINE POCT SQUAMOUS EPIS, URINE POCT RENAL EPIS, URINE POCT CRYSTALS, URINE POCT URINE COMMENTS, URINE Diagnosis/Plan: Yumi was seen today for urinary pain. Diagnoses and all orders for this visit: Acute cystitis without hematuria - sulfamethoxazole-trimethoprim 800-160 MG per tablet; Take 1 tablet by mouth 2 times daily for 5 days. - POCT URINALYSIS DIPSTICK AUTOMATED W/O SCOP - URINE CULTURE; Future Patient's urine will be sent to the lab for a urine culture. This office will contact the patient in 2-3 days with the results. If it is negative patient will be asked to stop the antibiotic and follow up with his/her primary care provider if he/she is still having symptoms. If symptoms worsen patient was advised to follow up in our office or with his/her PCP. Benefits, Risks, Contraindications, and Complications of recommended treatments were explained. The patient understands and agrees to proceed with plan. Lenore Cordova PA-C 06/13/2021 documented in this encounter [facility] 06-13-2021 Instructions Lenore Cordova PA-C - 06/13/2021 1:10 PM EDT Images from the original note were not included. Urinary Tract Infection (UTI) in Women: Care Instructions Overview A urinary tract infection, or UTI, is a general term for an infection anywhere between the kidneys and the urethra (where urine comes out). Most UTIs are bladder infections. They often cause pain or burning when you urinate. UTIs are caused by bacteria and can be cured with antibiotics. Be sure to complete your treatment so that the infection does not get worse. Follow-up care is a castillo part of your treatment and safety. Be sure to make and go to all appointments, and call your doctor if you are having problems. It's also a good idea to know your test results and keep a list of the medicines you take. How can you care for yourself at home? Take your antibiotics as directed. Do not stop taking them just because you feel better. You need to take the full course of antibiotics. Drink extra water and other fluids for the next day or two. This will help make the urine less concentrated and help wash out the bacteria that are causing the infection. (If you have kidney, heart, or liver disease and have to limit fluids, talk with your doctor before you increase the amount of fluids you drink.) Avoid drinks that are carbonated or have caffeine. They can irritate the bladder. Urinate often. Try to empty your bladder each time. To relieve pain, take a hot bath or lay a heating pad set on low over your lower belly or genital area. Never go to sleep with a heating pad in place. To prevent UTIs Drink plenty of water each day. This helps you urinate often, which clears bacteria from your system. (If you have kidney, heart, or liver disease and have to limit fluids, talk with your doctor before you increase the amount of fluids you drink.) Urinate when you need to. If you are sexually active, urinate right after you have sex. Change sanitary pads often. Avoid douches, bubble baths, feminine hygiene sprays, and other feminine hygiene products that have deodorants. After going to the bathroom, wipe from front to back. When should you call for help? Call your doctor now or seek immediate medical care if: Symptoms such as fever, chills, nausea, or vomiting get worse or appear for the first time. You have new pain in your back just below your rib cage. This is called flank pain. There is new blood or pus in your urine. You have any problems with your antibiotic medicine. Watch closely for changes in your health, and be sure to contact your doctor if: You are not getting better after taking an antibiotic for 2 days. Your symptoms go away but then come back. Where can you learn more? Go to http://www.wexnermedical.[facility].ed u/patiented. Enter K848 in the search box to learn more about 'Urinary Tract Infection (UTI) in Women: Care Instructions.' Interested in seeing a video go to https://wexnermedical.[facility].edu/v mk to see all video content. Current as of: December 01, 2020 Content Version: 12.9 [employer]. Care instructions adapted under license by your healthcare professional. If you have questions about a medical condition or this instruction, always ask your healthcare professional. [employer] disclaims any warranty or liability for your use of this information. documented in this encounter [facility] Acute cystitis without hematuria- Primary Acute cystitis [facility] Patient presents to establish care. * Patient has no chronic illnesses and takes no daily medicines. Patient is currently 20 weeks and is following with OB in [place]. * Acutely, patient reports eyelid irritation. Patient reports erythema, irritation, mild tenderness, and pruritus that has been present for months after using glue to affix fake eyelashes. Patient has attempted moisturizing cream without success. No bleeding or drainage from the eyelids. Has stopped u sing all eye cosmetic products and has not used the adhesive since that time. [facility] Work Phone: Summary Purpose Family History No Family History Records FoundUnknown Family Member Name Dates Details Family history of malignant neoplasm of thyroid: Mother(V16.8, Z80.8) Status:Active Elevated cholesterol with hi gh triglycerides: Mother Status:Active Advance Directives No Advanced Directives Records FoundLatest Code Status on File Code Status Date Activated Date Inactivated Comments Full Code 02/24/2019 7:56 PM 02/24/2019 11:39 PM Latest Code Status on File Code Status Date Activated Date Inactivated Comments Full Code 02/24/2019 7:56 PM 02/24/2019 11:39 PM Reason for Referral Status Reason Specialty Diagnoses / Procedures Referred By Contact Referred To Contact New Request Procedures US PELVIS Triny Mejia, RENO [address] [place] [address] Status Reason Specialty Diagnoses / Procedures Referred By Contact Referred To Contact New Request Procedures US ABDOMEN COMPLETE Triny Mejia, RENO [address] [place] [address] Specialty Diagnoses / Procedures Referred By Contalejandro t Referred To Contact Procedures ECG Handy Charlessshandy Jaffe, AUTOMATIC MAINTAINER-RELOCATION MANAGER 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) Hospital Course Note Send Summary: Discharge Summ ethan Providers: Provider RoleProvider Name ReferringDanis Crystal AttendingDanis Crystal ConsultingMartin Hayes PrimaryRequired, No Pcp Note Recipients: Danis Crystal DO Poommipanit, Paul, MD Discharge: Summary: Admission Date: .10-Jun-2019 22:05:00 Discharge Date: 12-Jun-2019 Attending Physician at Discharge: Danis Crystal Admission Reason: elevated trop, n/v, CP, epigastric pain(1) Final Discharge Diagnoses: stress induced Cardiomyopathy, Dehydration, Elevated troponin level, Epigastric pain, Nausea and vomiting, Procedures: none Condition at Discharge: Fair Disposition at Discharge: .Home Vital Signs: T PRBPSpO2 [id number]/6398% Date/Time06/12 8:008 8: 8:008 8:008 8:00 Range(36.4C - 37C ) (59 - 75 ) (18 - 18 ) (98 - 111 )/ (54 - 64 ) (94% - 99% ) Highest temp of 37 C was recorded at 06/11 20:00 Physical Exam: Constitutional: Alert, awake, in no acute distress Eyes: EOMI, PERRLA, clear sclera Head/Neck: Normocephalic, a (more content not included)... Chief Complaint * Patient here today to get established as a new patient. Patient states it has been over 5 years since last seen by a PCP. Patient is 20 weeks [address] Jamar Malave in [place]. * Patient is having bilateral upper eye lid irritation with itching x 3-4 months. Patient states symptoms noticed after she used false eyelashes and eyelash glue. Patient states since that time she hasstopped using make-up and fake eyelashes with no change in eye irritation. Additional Source Comments INFORMATION SOURCE (unrecogn ized section and content) DATE CREATED AUTHOR AUTHOR'S ORGANIZ ATION 05/09/2018 [facility] DATE CREATED AUTHOR AUTHOR'S ORGANIZ ATION 06/20/2019 [facility] DATE CREATED AUTHOR AUTHOR'S ORGANIZ ATION 06/25/2019 [facility] DATE CREATED AUTHOR AUTHOR'S ORGANIZ ATION 03/28/2021 [facility] DATE CREATED AUTHOR AUTHOR'S ORGANIZ ATION 06/17/2021 [facility] DATE CREATED AUTHOR AUTHOR'S ORGANIZ ATION 04/11/2022 [facility] DATE CREATED AUTHOR AUTHOR'S ORGANIZ ATION 07/04/2022 [facility] DATE CREATED AUTHOR AUTHOR'S ORGANIZ ATION 08/12/2022 [facility] Reason for Visit (unrecogniz ed section and content) Reason Comments Fever 3 days Headache Reason Comments Urinary Pain symptoms started las t week, strong odor, burning and tinging, urgency Scheduled Active and Recently Administ ered Medications (unrecognized section and content) Care Teams (unrecognized sec tion and content) Database Security Administrator Relationship Specialty Start Date End Date Provider, Historical PCP - General Unallocated 06/13/21 FOR RECORDS PERTAINING TO PATIENTS WHO ARE OR HAVE BEEN ENROLLED IN A CHEMICAL DEPENDENCY/SUBSTANCEABUSE PROGRAM, SOME INFORMATION MAY BE OMITTED. This clinical summary was aggregated from multiple sources. Caution should be exercised in using it in the provision of clinical care. This summary normalizes information from multiple sources, and as a consequence, information in this document may materially change the coding, format and clinical context of patient data. In addition, data may be omitted in some cases. CLINICAL DECISIONS SHOULD BE BASED ON THE PRIMARY CLINICAL RECORDS. [facility]. provides no warranty or guarantee of the accuracy or completeness of information in this document.
[2023-10-24 18:15] LABS: Amphetamine Urine VISTA NEGATIVE (<1000 ng/mL); Barbiturate Urine VISTA NEGATIVE (< 200 ng/mL); Benzodiazepine Urine VISTA NEGATIVE (< 200 ng/mL); Cocaine Urine VISTA NEGATIVE (< 300 ng/mL); Ecstacy Urine VISTA NEGATIVE (< 500 ng/mL); Methadone Urine VISTA NEGATIVE (< 300 ng/mL); PCP Urine VISTA NEGATIVE (< 25 ng/mL); THC Urine VISTA NEGATIVE (< 50 ng/mL); Vista UDS pH Range 5
[2023-10-26 22:10] LABS: Chlamydia By Nucleic Acid AMP Negative (Negative); Gonococcus By Nucleic Acid AMP Negative (Negative)
== END | disposition home or self-care (01) ==
LOC: LABSPEC 16:43
PROVIDERS: Referring Provider Registered Nurse; Visit Provider Registered Nurse
DX: O99.320 Drug use complicating pregnancy, unspecified trimester (principal); F12.91 Cannabis use, unspecified, in remission; Z3A.00 Weeks of gestation of pregnancy not specified
CPT/HCPCS: 80307; 87086; 87088; 87491; 87591

== ENCOUNTER → 2023-10-25 | Outpatient (CLI) | payer MEDICAID, SELFPAY ==
[2023-10-25 17:51] LABS: Absolute Lymphocyte Count 1.62 X10^3/uL (0.83-4.51); Absolute Neutrophil Count 4.6 X10^3/uL (2.0-7.7); Basophil# 0.04 X10^3/uL; Basophil% 0.6 % (0-1); Eosinophil# 0.05 X10^3/uL; Eosinophils% 0.7 % (0-5); Hematocrit 37.6 % (37-47); Hemoglobin 12.6 g/dL (12.0-15.0); Lymphocyte # 1.62 X10^3/ul (0.83-4.51); Lymphocyte % 24.1 % (19-41); Mean Corp Hgb Conc 33.5 g/dL (32-36); Mean Corpuscular Hgb 30.1 pg (27.0-32.0); Mean Corpuscular Volume 89.7 fL (81-99); Monocyte# 0.42 X10^3/uL; Monocyte% 6.2 % (0-10); NRBC Flagged by Analyzer 0 % (0-5); Neutrophil # 4.58 X10^3/uL (2.7-7.7); Neutrophil % 68.1 % (47-70); Platelet Count 233 K/mm3 (150-450); RBC Distribution Width CV 13.1 % (11.6-14.6); RBC Distribution Width SD 42.5 fl (35.1-43.9); Red Blood Count 4.19 M/mm3 (4.2-5.4); White Blood Count 6.7 K/mm3 (4.4-11.0)
--- OUTSIDE RECORDS SUMMARY | 2023-10-25 19:04 | XMS RPT_ITS | CCD ---
Author Name Unknown Address [id number] [place] [address] Organization [employer] Care Team Providers Care Tank Truck Milk Receiver Name Role Phone DENISHA HARRINGTON Unavailable Unavailable JUANYDENISHA GUTIERREZ Unavailable Unavailable NONE, NONE Unavailable Unavailable NONE, NONE Unavailable Unavailable Arcadio Garner Unavailable Unavailable Arcadio Garner Unavailable Unavailable Massiel Lujan Unavailable Unavailable Massiel [...] Unavailable LETY MONTELONGO Primary Care Unavailable SHARRI UGZMÁN Referring UnavailCHE Cordero Attending Unavailable LETY MONTELONGO Primary Care Unavailable SHARRI GUZMÁN Referring UnavailBHUMIKA Klein Attending Unavailable LETY MONTELONGO Primary Care Unavailable Allergies Allergy Classification Reported Allergen(s) Allergy Type Date of Onset Reaction(s) Facility (1 source) OTHER; Translations: [OTHER] Propensity to adverse reactions to food (disorder) [facility] Rep[facility] Medications Current Medications Medication Drug Class(es) Dates Sig (Normalized) Sig (Original) brompheniramine maleate 0.4 mg/ml / dextromethorphan hydrobromide 2 mg/ml / pseudoephedrine hydrochloride 6 mg/ml oral solution (2 sources) alpha-Adrenergic Agonist, Uncompetitive B-mufbss-W-aspartat e Receptor Antagonist, Sigma-1 Agonist Start: 02-09-2021 [...] Results Test Name Value Interpretation Reference Range [facility] it Vital Signs Date Time Vital Sign Value Performing Clinician Demetris gregory 04-10-2022 15:36-0400 Body height 157.48 cm Jesus Alannah [facility] Work Phone: [facility] Work Phone: 04-10-2022 15:36-0400 Body mass index (BMI) [Ratio] 22.41 kg/m2 Jesus Man Work Phone: [facility] Work Phone: 04-10-2022 15:36-0400 Body surface area Derived from formula 1.55 m2 Jesus Man Work Phone: [facility] Work Phone: 04-10-2022 15:36-0400 Body temperature 97.3 [degF] Jesus Man Work Phone: [facility] Work Phone: 04-10-2022 15:36-0400 Body weight 55.57 kg Jesus Man Work Phone: [facility] Work Phone: 04-10-2022 15:36-0400 Diastolic blood pressure 64 mm[Hg] Jesus Man Work Phone: [facility] Work Phone: 04-10-2022 15:36-0400 Heart rate 94 /min Jesus Man Work Phone: [facility] Work Phone: 04-10-2022 15:36-0400 SaO2% (BldA) [Mass fraction] 99 % Jesus Man Work Phone: [facility] Work Phone: 04-10-2022 15:36-0400 Systolic blood pressure 104 mm[Hg] Jesus Goinsl Work Phone: [facility] Work Phone: 01-01-2022 14:18-0400 Diastolic blood pressure 70 mm[Hg] Sharri Guzmán MD Work Phone: [facility] 01-01-2022 14:18-0400 Heart rate 114 /min Sharri Guzmán MD Work Phone: [facility] 01-01-2022 14:18-0400 Respiratory rate 16 /min Sharri Guzmán MD Work Phone: [facility] 01-01-2022 14:18-0400 SaO2% (BldA) [Mass fraction] 97 % Sharri Guzmán MD Work Phone: [facility] 01-01-2022 14:18-0400 Systolic blood pressure 106 mm[Hg] Sharri Guzmán MD Work Phone: [facility] 01-01-2022 10:14-0400 Body height 154.9 cm Sharri Guzmán MD Work Phone: [facility] 01-01-2022 10:13-0400 Body temperature 100.09 [degF] Sharri Guzmán MD Work Phone: [facility] 06-13-2021 14:10-0400 Body height 157.5 cm [place]ack[place] Arnold PA-C Work Phone: [facility] 06-13-2021 14:10-0400 Body mass index (BMI) [Ratio] 19.39 kg/m2 Lenore Arnold PA-C Work Phone: [employer] [facility] 06-13-2021 14:10-0400 Body temperature 98.6 [degF] Lenore Arnold PA-C Work Phone: [facility] 06-13-2021 14:10-0400 Body weight 48.08 kg Lenore Arnold PA-C Work Phone: [employer] [facility] 06-13-2021 14:10-0400 Diastolic blood pressure 68 mm[Hg] Thackerville Arnold PA-C Work Phone: [facility] 06-13-2021 14:10-0400 Heart rate 83 /min Lenore Arnold PA-C Work Phone: [facility] 06-13-2021 14:10-0400 Respiratory rate 15 /min Lenore Cordova PA-C Work Phone: [facility] 06-13-2021 14:10-0400 SaO2% (BldA) [Mass fraction] 99 % Lenore [place] PA-C Work Phone: [facility] 06-13-2021 14:10-0400 Systolic blood pressure 100 mm[Hg] Lenore [place] PA-C Work Phone: [employer] [facility] 02-24-2019 15:40-0400 BP Diastolic 66 mm[Hg] [facility]or[facility] 02-24-2019 15:40-0400 BP Systolic 133 mm[Hg] [facility] 02-24-2019 15:40-0400 Pulse (Heart Rate) 94 /min [facility] 02-24-2019 15:40-0400 Pulse Oximetry 100 % [facility]ic [facility] 02-24-2019 15:40-0400 Respiratory Rate 22 /min [facility] 02-24-2019 14:23-0400 Body Temperature 98.49 [degF] [facility] 02-24-2019 10:07-0400 Height 154.9 cm Agorafy Encounters Encounter Date Encounter Type Care Provider Facility Start: 08-07-2022 End: 08-07-2022 [facility] Start: 07-20-2022 End: 07-20-2022 ambulatory SHARRI GUZMÁN [facility] Start: 06-28-2022 End: 06-28-2022 ambulatory MASSIEL LUJAN [facility] Start: 04-10-2022 Office outpatient ne w 30 minutes Jesus Man Work Phone: [facility] Work Phone: Start: 03-28-2022 End: 03-28-2022 ambulatory VIDAL ERVIN [facility] Start: 01-01-2022 End: 01-01-2022 Emergency department patient visit SHARRI GUZMÁN [facility] Start: 01-01-2022 End: 01-01-2022 Emergency department patient visit Sharri Guzmán MD Work Phone: [facility] Start: 06-13-2021 End: 06-13-2021 Office outpatient new 30 minutes Lenore [place] PA-C Work Phone: [facility] Procedures Date Procedure Procedure Detail Performing Clinician Start: 01-01-2022 End: 01-01-2022 Gonadotropin chorionic qualitative Corinne Charles JOURNEYMAN PATTERNMAKER-RENEWABLE ENERGY TRADER Work Phone: Start: 01-01-2022 Urinalysis microscopic only Corinne Alannah Roni rivero JOURNEYMAN PATTERNMAKER-RENEWABLE ENERGY TRADER Work Phone: Start: 01-01-2022 Urinalysis, reagent strip without microscopy Corinne Charles JOURNEYMAN PATTERNMAKER-RENEWABLE ENERGY TRADER Work Phone: Start: 01-01-2022 Complete blood count with white cell differential, automated Corinne Charles JOURNEYMAN PATTERNMAKER-RENEWABLE ENERGY TRADER Work Phone: Start: 01-01-2022 Quantitative PCR analysis Corinne williamson JOURNEYMAN PATTERNMAKER-RENEWABLE ENERGY TRADER Work Phone: Start: 06-13-2021 Urnls dip stick/tablet [...] Start: 06-22-2021 Influenza vaccination INFLUENZA VACCINE (#1) [facility] Start: 02-25-2020 GONORRHEA SCREEN GONORRHEA SCREEN [facility] Start: 02-25-2020 Screening for Chlamydia trachomatis CHLAMYDIA SCREEN [facility] Start: 06-22-2019 Influenza vaccination INFLUENZA VACCINE (Season Ended) [facility] Start: 2018 Screening for malignant neoplasm of cervix [facility] Start: 2016 Third diphtheria, tetanus and acellular pertussis (DTaP) vaccination TDAP (ADULT) [facility] Start: 2015 Tetanus vaccination TETANUS [facility] Start: 2013 Screening for Chlamydia trachomatis CHLAMYDIA SCREEN [facility] Start: 2012 HIV screening HIV SCREENING DISCUSSION [facility] Start: 2012 Vaccination for human papillomavirus HPV VACCINE ADOL (1 - Female 3-dose series) [facility] Start: 2010 HIV screening HIV SCREENING DISCUSSION [facility] Start: 2009 COVID-19 VACCINE (1) COVID-19 VACCINE (1) [facility] Start: 2008 Vaccination for human papillomavirus HPV VACCINE ADOL (1 - 2-dose series) [facility] Start: 2002 COVID-19 VACCINE (1) COVID-19 VACCINE (1) [facility] Start: 1997 GONORRHEA SCREEN GONORRHEA SCREEN [facility] Start: 1997 Hepatitis C antibody, confirmatory test HEPATITIS C VIRUS SCREENING [facility] Bacteria identified in Urine by Culture URINE CULTURE Microbiology STAT 01/01/2022 11:57 AM EDT [facility] Bacteria identified in Urine by Culture URINE CULTURE Microbiology Routine Acute cystitis without hematuria 06/13/2021 2:00 PM EDT [facility] Work Phone: CHLAMYDIA/GONOCOCCUS, CLIFTON CHLAMY SHAUNA/GONOCOCCUS, [place]IFTON Microbiology STAT 02/24/2019 11:45 AM EDT [place] HCG ( test) Ql [facility] End: 01-01-2022 Standard ECG ECG ECG STAT One Time for 1 Occurrences starting 01/01/2022 until 01/01/2022 [facility] Payers Date Payer Category Payer Unknown [employer] SHAYNEGARRET xxxxxxxxxxx 2017-Present xxxxxxxxxxx [id number] 2017 Unknown [id number] 2017 Unknown [employer] SHAY[employer]RET [id number] 2017-Present [address] [place] [address] [id number] 2017 Unknown [id number] 1997 Unknown [id number] 1997 Unknown [id number] 1997 Unknown [id number] 1997 Unknown [id number] 1997 Unknown [id number] 1997 Unknown [id number] 1997 Unknown [id number] Social History Date Type Detail Facility Start: 12-16-2017 End: 02-24-2019 Tobacco smoking status NHIS Never smoker [facility] Start: 1997 Sex Assigned At Not on file [facility] Start: 12-16-2017 Tobacco use and exposure Smokeless tobacco non-user [facility] Start: 06-13-2021 End: 01-01-2022 Alcohol intake Current non-drinker of alcohol (finding) [facility] Start: 12-22-2021 End: 01-01-2022 Exposure to SARS-CoV-2 (event) Not sure [facility] No alcohol use No alcohol use [facility] Work Phone: Clinical Notes 06-13-2021 to 08-07-2022 Nancy Saleem RN - 01/01/2022 12:50 PM Oscar Saleem RN - 01/01/2022 12:50 PM Eugenio Charles APRN-RENEWABLE ENERGY TRADER - 01/01/2022 10:47 AM Janice Duarte RN [...] - G1 demise in second trimester, in [place] - Recommend APLS testing if not previously [...] care -10 minutes chart review and documentation [facility] 01-01-2022 Emergency department Note Pt states I am pretty sure I just threw up the Tylenol and Tamilflu Pt vomiting into bag upon entering room. [facility] 01-01-2022 Emergency department Note Pt states I am pretty sure I just threw up the Tylenol and Tamilflu Pt vomiting into bag upon entering room. Emergency Department Report [facility] EM[facility] Service Date:.01/01/22 PCP: Sharri Guzmán [...] retaining fluids. She has an appointment with high pressure kettle operator in [place] tomorrow. Denies any abdominal [...] YELLOW YELLOW APPEARANCE, URINE CLEAR CLEAR Specific [place], Urine 1.020 1.010 - 1.025 PH URINE [...] Procedures EKG: Sinus tachycardia, rate 104 BPM. AZ 130, QRS 72, QTC 402. [place] is normal. No acute ST changes, no [...] needed for nausea, as directed by her HOLE FILLER. Supportive measures were otherwise reviewed and return [...] with above information. . . Corinne Charles APRN-RENEWABLE ENERGY TRADER 01/01/22 1237 Pt ambulates to ER, c/o headache, fever, eye pain, N/V and generalized malaise x approx 3 days. Pt reports that she is unable to retain food or liquids, and is approximately 7 weeks . documented in this encounter [facility] 01-01-2022 Hospital Discharg e instructions HOMER [...] attachments cannot be sent through Care Everywhere.Influenza ([facility])Morning Sickness ([facility]) ([facility]) Over the Counter Medicines During ([facility]) ([place])documented in this encounter [facility] 01-01-2022 Physician Emergency department Note Emergency Department Report [facility] Service Date:.01/01/22 PCP: Sharri Guzmán [...] retaining fluids. She has an appointment with high pressure kettle operator in [place] tomorrow. Denies any abdominal pain. No urinary [...] YELLOW YELLOW APPEARANCE, URINE CLEAR CLEAR Specific [place], Urine 1.020 1.010 - 1.025 PH URINE [...] Procedures EKG: Sinus tachycardia, rate 104 BPM. AZ 130, QRS 72, QTC 402. [place] is normal. No acute ST changes, no [...] needed for nausea, as directed by her HOLE FILLER. Supportive measures were otherwise reviewed and return [...] with above information. . . Corinne Charles, JOURNEYMAN PATTERNMAKER-RENEWABLE ENERGY TRADER 01/01/22 1237 [facility] 01-01-2022 Emergency department Note Pt ambulates to ER, c/o headache, fever, eye pain, N/V and generalized malaise x approx 3 days. Pt reports that she is unable to retain food or liquids, and is approximately 7 weeks . [facility] 06-13-2021 History of Presen t illness [...] Social Gatherings with Friends and Family: Attends Buddhist Services: Active Member of Clubs or Organizations: [...] [place] PA-C 06/13/2021 documented in this encounter [facility] 06-13-2021 Instructions Lenore [place] PA-C - [...] of: December 01, 2020 Content Version: 12.9 [employer]. Care instructions adapted under license by your healthcare professional. If you have questions about a medical condition or this instruction, always ask your healthcare professional. [employer] disclaims any warranty or liability for your use of this information. documented in this encounter [facility] [employer] [facility] Diagnosis Acute cystitis without hematuria- Primary Acute cystitis [facility] N[facility]* Patient presents to establish care. * Patient has no chronic illnesses and takes no daily medicines. Patient is currently 20 weeks and is following with OB in [place]. * Acutely, patient reports eyelid irritation. Patient reports erythema, irritation, mild tenderness, and pruritus that has been present for months after using glue to affix fake eyelashes. Patient has attempted moisturizing cream without success. No bleeding or drainage from the eyelids. Has stopped u sing all eye cosmetic products and has not used the adhesive since that time. [facility] Work Phone: Summary Purpose [...] Request Procedures US PELVIS Triny Mejia, RENO [address] [place] [address] Status Reason Specialty Diagnoses / Procedures Referred By Contact Referred To Contact New Request Procedures US ABDOMEN COMPLETE Triny Mejia, RENO [address] [facility] [place] [address] Specialty Diagnoses / Procedures Referred By Contalejandro t Referred To Contact Procedures ECG Handy Charlessshandy Jaffe, JOURNEYMAN PATTERNMAKER-RENEWABLE ENERGY TRADER [address] [address] Referral ID Status Reason Start Date Expiration Date V isits Requested Visits Authorized [id number] New Request 01/01/2022 01/26/2023 1 1 Assessments [...] at Discharge: .Home Vital Signs: T PRBPSpO2 [id number]/6398% Date/Time06/12 8:008 8: 8:008 8:008 8:00 Range(36.4C [...] and follows with Dr. Jamar Malave in [place]. * Patient is having bilateral upper eye lid irritation with itching x 3-4 months. Patient states symptoms noticed after she used false eyelashes and eyelash glue. Patient states since that time she hasstopped using make-up and fake eyelashes with no change in eye irritation. Additional Source Comments INFORMATION SOURCE (unrecogn ized section and content) DATE CREATED AUTHOR AUTHOR'S ORGANIZ ATION 05/09/2018 [facility] DATE CREATED AUTHOR AUTHOR'S ORGANIZ ATION 06/20/2019 [facility] DATE CREATED AUTHOR AUTHOR'S ORGANIZ ATION 06/25/2019 [facility] DATE CREATED AUTHOR AUTHOR'S ORGANIZ ATION 03/28/2021 [facility] DATE CREATED AUTHOR AUTHOR'S ORGANIZ ATION 06/17/2021 [facility] DATE CREATED AUTHOR AUTHOR'S ORGANIZ ATION 04/11/2022 [facility] DATE CREATED AUTHOR AUTHOR'S ORGANIZ ATION 07/04/2022 [facility] DATE CREATED AUTHOR AUTHOR'S ORGANIZ ATION 08/12/2022 [facility] Reason for Visit (unrecogniz ed section and content) Reason Comments Fever 3 days Headache Reason Comments Urinary Pain symptoms started las t week, strong odor, burning and tinging, urgency Scheduled Active and Recently Administ ered Medications (unrecognized section and content) Care Teams (unrecognized sec tion and content) Tank Truck Milk Receiver Relationship Specialty Start Date End Date Provider, [...] BE BASED ON THE PRIMARY CLINICAL RECORDS. [facility]. provides no warranty or guarantee of the accuracy or completeness of information in this document.
[2023-10-25 19:20] LABS: HIV - WCH Non-Reactive (Nonreactive); Hepatitis B Surface Antigen Non-Reactive (Nonreactive); Hepatitis C Antibody Non-Reactive (Nonreactive); Rubella IgG Reactive (Nonreactive); Syphilis Antibodies Non-reactive
== END | disposition home or self-care (01) ==
LOC: LAB 17:38
PROVIDERS: Registered Nurse; Visit Provider Obstetrics & Gynecology
DX: Z34.90 Encounter for supervision of normal pregnancy, unspecified, unspecified trimester (principal)
CPT/HCPCS: 36415; 85025; 86703; 86762; 86780; 86803; 86850; 86900; 86901; 87340

== ENCOUNTER → 2024-01-24 | Outpatient (CLI) | payer MEDICAID, SELFPAY ==
[2024-01-24 13:14] LABS: Absolute Lymphocyte Count 1.76 X10^3/uL (0.83-4.51); Absolute Neutrophil Count 5.3 X10^3/uL (2.0-7.7); Basophil# 0.05 X10^3/uL; Basophil% 0.7 % (0-1); Eosinophil# 0.07 X10^3/uL; Eosinophils% 0.9 % (0-5); Hematocrit 32.7 % (37-47); Hemoglobin 10.8 g/dL (12.0-15.0); Lymphocyte # 1.76 X10^3/ul (0.83-4.51); Lymphocyte % 22.9 % (19-41); Mean Corpuscular Hgb 29.3 pg (27.0-32.0); Mean Corpuscular Volume 88.6 fL (81-99); Mean Platelet Vol. 10.3 fl (6.2-12.0); Monocyte# 0.42 X10^3/uL; Monocyte% 5.5 % (0-10); NRBC Flagged by Analyzer 0 % (0-5); Neutrophil # 5.33 X10^3/uL (2.7-7.7); Neutrophil % 69.3 % (47-70); Platelet Count 221 K/mm3 (150-450); RBC Distribution Width CV 12.7 % (11.6-14.6); RBC Distribution Width SD 40.8 fl (35.1-43.9); Red Blood Count 3.69 M/mm3 (4.2-5.4); White Blood Count 7.7 K/mm3 (4.4-11.0)
[2024-01-24 13:28] LABS: Glucose Challenge Gest 1H 50g 126 mg/dL (70-140)
[2024-01-24 13:57] LABS: HIV - WCH Non-Reactive (Nonreactive); Syphilis Antibodies Non-reactive
[2024-01-24 16:25] LABS: Amphetamine Urine VISTA NEGATIVE (<1000 ng/mL); Barbiturate Urine VISTA NEGATIVE (< 200 ng/mL); Benzodiazepine Urine VISTA NEGATIVE (< 200 ng/mL); Cocaine Urine VISTA NEGATIVE (< 300 ng/mL); Ecstacy Urine VISTA NEGATIVE (< 500 ng/mL); Methadone Urine VISTA NEGATIVE (< 300 ng/mL); PCP Urine VISTA NEGATIVE (< 25 ng/mL); THC Urine VISTA NEGATIVE (< 50 ng/mL); Vista UDS pH Range 6
== END | disposition home or self-care (01) ==
PROVIDERS: Referring Provider Registered Nurse; Visit Provider Registered Nurse
DX: O09.91 Supervision of high risk pregnancy, unspecified, first trimester (principal); O99.321 Drug use complicating pregnancy, first trimester; F12.91 Cannabis use, unspecified, in remission; Z13.1 Encounter for screening for diabetes mellitus; Z3A.00 Weeks of gestation of pregnancy not specified
CPT/HCPCS: 36415; 80307; 82950; 85025; 86703; 86780

== ENCOUNTER → 2024-02-18 | Outpatient (CLI) | payer MEDICAID, SELFPAY ==
--- NOTE | 2024-02-18 14:44 | US_ITS ---
STUDY: SECOND AND THIRD TRIMESTER OBSTETRICAL ULTRASOUND - LIMITED REASON FOR EXAM: Female, 28 years old growth LMP: July 03, 2023. PRIOR ULTRASOUND: Comparison is made with prior study dated October 05, 2023. TECHNIQUE: Transabdominal TECHNICAL QUALITY: Adequate. FINDINGS: There is a single intrauterine fetus. The fetus is in a breech presentation. There is demonstrated cardiac activity with a heart rate of 141 bpm. There is a normal amniotic fluid volume. The largest amniotic fluid pocket measures 5.6 cm. The amniotic fluid index (JG) is 16.7 cm. The placenta is anterior in location and is not low lying. There are Grade 1 placental changes. The cervix was not measured due to the head positioning. BIOMETRY: BPD: 7.93 cm: 31 weeks, 6 days HC: 30.02 cm: 33 weeks, 2 days AC: 28.2 cm: 32 weeks, 2 days FL: 5.9 cm: 30 weeks, 6 days Age by LMP: 32 weeks, 6 days. ALESSANDRA by LMP: April 08, 2024. age by prior US: 31 weeks, 3 days. ALESSANDRA by prior US: April 18, 2024. age by current US: 32 weeks, 4 days. ALESSANDRA by current US: April 10, 2024. Estimated weight: 1847 grams, +/- 277 grams, 15 percentile. US/OB Limited With Biometrics IMPRESSION: Single live uterine gestation with a mean gestational age of 32 weeks and 4 days. Electronically Signed: Mian Bojorquez MD at 10:59 EDT ,
== END | disposition home or self-care (01) ==
LOC: OPUS 14:44
PROVIDERS: Referring Provider Obstetrics & Gynecology; Visit Provider Obstetrics & Gynecology
DX: O09.90 Supervision of high risk pregnancy, unspecified, unspecified trimester (principal); O99.320 Drug use complicating pregnancy, unspecified trimester; F12.99 Cannabis use, unspecified with unspecified cannabis-induced disorder; Z3A.00 Weeks of gestation of pregnancy not specified; Z87.19 Personal history of other diseases of the digestive system; Z87.59 Personal history of other complications of pregnancy, childbirth and the puerperium
CPT/HCPCS: 76816

== ENCOUNTER 2024-03-13 16:40 | Outpatient (CLI) | payer MEDICAID, SELFPAY ==
[2024-03-13 17:06] VITALS: BP 116/55; PULSE 103
[2024-03-13 17:07] VITALS: BMI 27.8
[2024-03-13 17:11] VITALS: PULSE 104; O2SAT 96
[2024-03-13 17:12] VITALS: RESP 16; TEMP 36.2
--- NOTE | 2024-03-13 17:56 | OB.TRI.PN_ITS ---
Progress Notes Date of Service: 03/13/24 Progress Note: Patient presents for triage evaluation secondary to false labor FHT: 130 Moderate variability reactive no decelerations category I tracing [place]: q 2-5, irregular Contractions Assessment and plan: false labor, variable 05/29 bpp Reactive NST, reassuring maternal and status patient discharged to home to follow-up as scheduled. See problem list details for additional plan information. Charges/Coding Procedures Urinary/Genital [id number]-[id number]: 22143-93 non-stress test Interp
--- NOTE | 2024-03-13 17:56 | US_ITS ---
INDICATION: variables EXAMINATION: Ultrasound US Biophysical Profile W/O Nonst TECHNIQUE: Transabdominal pelvic ultrasound was performed. COMPARISON: February 18, 2024. Provided EGA: 36 weeks 2 days correlating with April 08, 2024 delivery date. FINDINGS: Single live anterior with current cephalic presentation heart rate 1 64 bpm. Placenta anterior, grade 2, without evidence of abruption or previa. JG 13.9 cm with deepest vertical pocket 5.5 cm BIOPHYSICAL PROFILE (BPP): 05/29 -- Breathin/2. -- Movement: 2/2. -- Tone: 2/2. --JG: 2/2. US/Biophysical Prof W/O Non Stres IMPRESSION: Single live intrauterine with current cephalic presentation and normal heart rate. Normal biophysical profile, 8 out of 8 . Electronically Signed: Bala Rios MD at 22:04 EDT ,
== END 2024-03-13 19:20 | disposition home or self-care (01) ==
LOC: WPOUT 16:48 → WP 16:49
PROVIDERS: Referring Provider Obstetrics & Gynecology; Visit Provider Obstetrics & Gynecology
DX: O47.03 False labor before 37 completed weeks of gestation, third trimester (principal); O32.1XX0 Maternal care for breech presentation, not applicable or unspecified; O09.93 Supervision of high risk pregnancy, unspecified, third trimester; Z3A.36 36 weeks gestation of pregnancy; Z87.59 Personal history of other complications of pregnancy, childbirth and the puerperium
CPT/HCPCS: 59025; 59050; 76819; 99221; G0378

== ENCOUNTER → 2024-03-13 | Outpatient (CLI) | payer MEDICAID, SELFPAY | END | disposition home or self-care (01) | LOC: LABSPEC 17:07 | PROVIDERS: Referring Provider Advanced Practice Midwife; Visit Provider Advanced Practice Midwife | DX: O09.90 Supervision of high risk pregnancy, unspecified, unspecified trimester (principal); Z3A.00 Weeks of gestation of pregnancy not specified | CPT/HCPCS: 87081 ==

== ENCOUNTER 2024-04-03 03:30 | Inpatient (IN) | payer MEDICAID, SELFPAY ==
[2024-04-03] VITALS (74 sets, daily range): BP systolic 90–134; BP diastolic 50–65; PULSE 73–106; RESP 14–16; TEMP 36.2–37.5; O2SAT 88–100; BMI 27.8
[2024-04-03] MEDS: Lactated Ringers 1,000 ML 999 ML IV (03:30)
[2024-04-03 03:56] LABS: Absolute Lymphocyte Count 3.73 X10^3/uL (0.83-4.51); Absolute Neutrophil Count 7.7 X10^3/uL (2.0-7.7); Basophil# 0.07 X10^3/uL; Basophil% 0.5 % (0-1); Eosinophils% 0.8 % (0-5); Hematocrit 33.6 % (37-47); Hemoglobin 10.4 g/dL (12.0-15.0); Lymphocyte # 3.73 X10^3/ul (0.83-4.51); Lymphocyte % 29.1 % (19-41); Mean Corpuscular Hgb 24.5 pg (27.0-32.0); Mean Corpuscular Volume 79.1 fL (81-99); Mean Platelet Vol. 10.2 fl (6.2-12.0); Monocyte# 1.08 X10^3/uL; Monocyte% 8.4 % (0-10); NRBC Flagged by Analyzer 0 % (0-5); Neutrophil % 60.2 % (47-70); Platelet Count 288 K/mm3 (150-450); RBC Distribution Width CV 14.4 % (11.6-14.6); RBC Distribution Width SD 41.1 fl (35.1-43.9); Red Blood Count 4.25 M/mm3 (4.2-5.4); White Blood Count 12.8 K/mm3 (4.4-11.0)
[2024-04-03] MEDS: fentaNYL-bupivacaine (epidural) 100 ML BAG EPIDURAL (04:12)
[2024-04-03 04:30] LABS: Syphilis Antibodies Non-reactive
[2024-04-03] MEDS: Lactated Ringers 1,000 ML 200 ML IV (04:31)
[2024-04-03 06:05] LABS: Amphetamine Urine VISTA NEGATIVE (<1000 ng/mL); Barbiturate Urine VISTA NEGATIVE (< 200 ng/mL); Benzodiazepine Urine VISTA NEGATIVE (< 200 ng/mL); Cocaine Urine VISTA NEGATIVE (< 300 ng/mL); Ecstacy Urine VISTA NEGATIVE (< 500 ng/mL); Methadone Urine VISTA NEGATIVE (< 300 ng/mL); PCP Urine VISTA NEGATIVE (< 25 ng/mL); THC Urine VISTA NEGATIVE (< 50 ng/mL); Vista UDS pH Range 6
[2024-04-03] MEDS: Oxytocin 15 Units/NS 250ml 15 UNITS/250 ML IV.SOLN 334 UNITS IV (06:05)
--- NOTE | 2024-04-03 06:13 | HP.PCM.OB_ITS ---
HPI - General General Date of Admission: 04/03/24 HPI Narrative LISSETT ARNETT, is a 28 y/o @ 39 weeks 2 days who presents to L&D with painful contractions. she was checked in by the nurses and found to be 7 cm dilated at 3:30 am. She is requesting an epidural. Maternal Data Information ALESSANDRA Calculator Estimated Delivery Date Method Current WG Current Estimate 04/08/24 Ultrasound #1 39w 2d PFSH PFSH Medical History Vaginal delivery Anemia affecting Marijuana use Anxiety and depression Home Medications ?Medication ?Instructions ?Recorded ?Last Taken ?Type prenat.vits,silvia,fpw-rxbh-swmig 1 tab PO DAILY 04/17/22 03/13/24 08:00 History 1 TAB Allergy/AdvReac Type Severity Reaction Status Date / Time No Known Allergies Allergy Verified 04/03/24 03:34 Surgical History Hx of hand surgery S/P laparoscopy H/O dilation and curettage Social History adopted: No household members: significant other and children number of children: 1 current occupational status: employed current occupation: [employer] current occupational exposures/hazards: No pets and animals: Yes (Not managing litterbox ) pets and animals: cat(s) and dog(s) history of recent travel: No sexually active: Yes Smoking Status: Never smoker alcohol intake: never substance use type: does not use well-balanced diet: daily or most days caffeine: Yes Type: coffee Number of servings: 1 eating out: rarely or never during the past year weight has: remained stable what type of physical activity do you participate in: none ciara/roman catholic: None seatbelt use: always do you feel safe at home: Yes additional social history: [employer] - [employer] History 4 Elective abortions Hx Para 2 Spontaneous abortions 1 Hx # Term Pregnancies Ectopic pregnancies Hx # Pregnancies Multiple births # of living children 2 Past Pregnancies Del. Date Name GA/Weeks Outcome Route Bth Weight Gen Labor Lgth Anesthesia Del Locatn Provider FOB 09/28/17 8 spontaneous 08/12/18 SOILA 40 live - full term Female epid ural [facility] LILLIAN Artur 08/14/22 Theryi 38 live - full term Female [facility] Georgette Bennett Delivery Date: 09/28/17 Last Updated by: Cris Gordon D&C Delivery Date: 08/14/22 Last Updated by: Lydia Green Cholestasis, anemia Visit Details Expected Delivery Route/Plan Labor Preferences- CB/BF classes: [] labor support person: [] labor intervention preferences: [] pain management options preferred: [] cut cord/dad catch: [] : [] PP control planned: [] discussed possible routes of delivery and associated risks: [] special requests: [] Plans Covid status: [] Flu vaccine: [] Tdap vaccine: [] Rhogam: [] LARC form signed: completed. Problem list reviewed and updated with the most current plan of care details and appropriate orders placed. Relevant counseling for the gestational age provided. Continue routine care and follow up unless otherwise noted in visit notes/problem list details OB Flowsheet Initial Weight: Not Recorded Date -?-?-?-?-?-?-?-?-?-?-?-?- EGA Weight BP Urine Prot -?-?-?-?-?-?-?-?-?-?-?-?- Glucose FHR FuHt Pres Dilation -?-?-?-?-?-?-?-?-?-?-?-?- Effaced St Visit Note 10/24/23 -?-?-?-?-?-?-?-?-?-?-?-?- 16w 1d 127 lb 8 oz 101/70 -?-?-?-?-?-?-?-?-?-?-?-?- 153 -?-?-?-?-?-?-?-?-?-?-?-?- LC- 1st trimeste r us con with LMP. declines nipt LC- 1st trimester us con wit h LMP. declines nipt. 01/24/24 -?-?-?-?-?-?-?-?-?-?-?-?- 29w 2d 145 lb 2 oz 112/76 Nega tive -?-?-?-?-?-?-?-?-?-?-?-?- Negative 145 28 -?-?-?-?-?-?-?-?-?-?-?-?- LC- no vb/ctx/lo f. good fm. had gap in care due to seeing MFM and didn't remember to schedule here. LC- no vb/ctx/lof. good fm. had gap in care due to seeing MFM and didn't remember to schedule here as well. completing 28 week labs today. 02/04/24 -?-?-?-?-?-?-?-?-?-?-?-?- 30w 6d 148 lb 109/73 Negative -?-?-?-?-?-?-?-?-?-?-?-?- Negative 140 30 -?-?-?-?-?-?-?-?-?-?-?-?- JV- pt was not s een for a while between oct and january because she was being seen for MFM for a false blood clot in the brain. She is now cleared and all genetic screens were normal. she wants to do follow up growth scans with us here instead of driving 2 hrs to [place]. will arrange for this. normal gct. mild anemia. pt unable to tolerate PO iron. will rpt in 1-2 months. 02/22/24 -?-?-?-?-?-?-?-?-?-?-?-?- 33w 3d 150 lb 2 oz 115/73 Nega tive -?-?-?-?-?-?-?-?-?-?-?-?- Negative 145 32 -?-?-?-?-?-?-?-?-?-?-?-?- Jv- scan shows 1 5th% and breech. rpt bedside scan at 36 weeks and growth at 37 weeks. 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 03/13/24 -?-?-?-?-?-?-?-?-?-?-?-?- 36w 2d 153 lb 115/75 Negative -?-?-?-?-?-?-?-?-?-?-?-?- Negative 145 35 Cephalic 3 -?-?-?-?-?-?-?-?-?-?-?-?- 60 -2 kw- work i n for light brown spotting and cramping today. good fm. no urinary sx. to wp to rule out labor 04/02/24 -?-?-?-?-?-?-?-?-?-?-?-?- 39w 1d 152 lb 6 oz 111/70 Trac e -?-?-?-?-?-?-?-?-?-?-?-?- Negative 156 40 Cephalic 4 .5 -?-?-?-?-?-?-?-?-?-?-?-?- 60 -2 JV- labor precautions discussed. no lof, vaginal bleeding, or dec fm. does not want induced but tired of being . membranes swept today ROS Constitutional Constitutional: Denies change in weight, fatigue, fever(s), headache(s), poor appetite or weakness Eyes Eyes: Denies blurry vision, change in vision, seeing flashes or spots in vision ENT HEENT: Denies dizziness, headache(s), loss taste/smell or sore throat Cardiovascular Cardiovascular: Denies chest pain, dizziness, dyspnea, irregular heart rhythm, leg edema, palpitations, rapid heart rate or vomiting Respiratory/Chest Respiratory/Chest: Denies chest tightness, cough, dyspnea or breast pain Gastrointestinal Gastrointestinal: Denies abdominal pain, anorexia, constipation, cramping, diarrhea, hemorrhoids, vomiting or weight changes Genitourinary Genitourinary: Denies dysuria, flank pain, genital lesions, genital pain, urinary frequency or urinary urgency Musculoskeletal Musculoskeletal: Denies back pain, difficulty walking, joint pain, limited range of motion, muscle cramps or numbness Integumentary Integumentary: Denies lesions or unusual bruising Neurologic Neurologic: Denies abnormal movements, abnormal speech, dizziness, numbness, seizure-like activity or syncope Psychiatric Psychiatric: Denies anxiety, behavioral changes, change in appetite, change in libido, cognitive impairment, confusion, depression, difficulty concentrating, hallucinations or suicidal thoughts Endocrine Endocrinology: Denies excessive sweating, polydipsia or polyuria Hematologic/Lymphatic Hematologic/Lymphatic: Denies easy bleeding, easy bruising or lymphadenopathy Allergic/Immunologic Allergic/Immunologic: Denies itchy eyes, lip swelling, seasonal rhinorrhea, rhinitis, throat swelling, tongue swelling, eczemia, wheezing or asthma Vital Signs Vital Signs Vital Signs: 04/03/24 03:32 04/03/24 03:32 04/03/24 03:33 Temperature Temperature Source Pulse Rate 81 85 Respiratory Rate Blood Pressure 119/59 L BP Systolic 119 BP Diastolic 59 Pulse Ox 04/03/24 03:33 04/03/24 03:38 04/03/24 03:38 Temperature Temperature Source Pulse Rate 85 Respiratory Rate Blood Pressure BP Systolic BP Diastolic Pulse Ox 98 100 04/03/24 03:38 04/03/24 03:38 04/03/24 03:38 Temperature 97.2 F L Temperature Source Temporal Pulse Rate Respiratory Rate 16 Blood Pressure BP Systolic BP Diastolic Pulse Ox 04/03/24 03:43 04/03/24 03:43 04/03/24 04:00 Temperature Temperature Source Pulse Rate 86 104 H Respiratory Rate Blood Pressure BP Systolic BP Diastolic Pulse Ox 100 04/03/24 04:00 04/03/24 04:01 04/03/24 04:01 Temperature Temperature Source Pulse Rate 106 H Respiratory Rate Blood Pressure BP Systolic BP Diastolic Pulse Ox 88 100 04/03/24 04:01 04/03/24 04:01 04/03/24 04:01 Temperature Temperature Source Pulse Rate 90 Respiratory Rate 16 Blood Pressure 122/63 H BP Systolic 122 BP Diastolic 63 Pulse Ox 04/03/24 04:06 04/03/24 04:06 04/03/24 04:06 Temperature Temperature Source Pulse Rate 85 Respiratory Rate Blood Pressure 134/57 H BP Systolic 134 BP Diastolic 57 Pulse Ox 99 04/03/24 04:06 04/03/24 04:08 04/03/24 04:08 Temperature Temperature Source Pulse Rate 96 Respiratory Rate 16 Blood Pressure BP Systolic BP Diastolic Pulse Ox 92 04/03/24 04:11 04/03/24 04:11 04/03/24 04:13 Temperature Temperature Source Pulse Rate 101 H Respiratory Rate Blood Pressure 122/65 H BP Systolic 122 BP Diastolic 65 Pulse Ox 99 04/03/24 04:13 04/03/24 04:13 04/03/24 04:16 Temperature Temperature Source Pulse Rate 99 86 Respiratory Rate 16 Blood Pressure BP Systolic BP Diastolic Pulse Ox 04/03/24 04:16 04/03/24 04:17 04/03/24 04:17 Temperature Temperature Source Pulse Rate 80 Respiratory Rate Blood Pressure 114/55 L BP Systolic 114 BP Diastolic 55 Pulse Ox 100 04/03/24 04:17 04/03/24 04:20 04/03/24 04:20 Temperature Temperature Source Pulse Rate 82 Respiratory Rate 16 Blood Pressure BP Systolic BP Diastolic Pulse Ox 100 04/03/24 04:21 04/03/24 04:21 04/03/24 04:21 Temperature Temperature Source Pulse Rate 86 Respiratory Rate 16 Blood Pressure 110/58 L BP Systolic 110 BP Diastolic 58 Pulse Ox 04/03/24 04:26 04/03/24 04:26 04/03/24 04:27 Temperature Temperature Source Pulse Rate 87 Respiratory Rate Blood Pressure 103/62 BP Systolic 103 BP Diastolic 62 Pulse Ox 100 04/03/24 04:27 04/03/24 04:27 04/03/24 04:31 Temperature Temperature Source Pulse Rate 90 88 Respiratory Rate 16 Blood Pressure BP Systolic BP Diastolic Pulse Ox 04/03/24 04:31 04/03/24 04:33 04/03/24 04:33 Temperature Temperature Source Pulse Rate 83 Respiratory Rate Blood Pressure 110/56 L BP Systolic 110 BP Diastolic 56 Pulse Ox 98 04/03/24 04:36 04/03/24 04:36 04/03/24 04:37 Temperature Temperature Source Pulse Rate 85 Respiratory Rate Blood Pressure 110/56 L BP Systolic 110 BP Diastolic 56 Pulse Ox 96 04/03/24 04:37 04/03/24 04:37 04/03/24 04:41 Temperature Temperature Source Pulse Rate 99 85 Respiratory Rate 16 Blood Pressure BP Systolic BP Diastolic Pulse Ox 04/03/24 04:41 04/03/24 04:41 04/03/24 04:41 Temperature Temperature Source Pulse Rate 84 Respiratory Rate Blood Pressure 98/51 L BP Systolic 98 BP Diastolic 51 Pulse Ox 99 04/03/24 04:41 04/03/24 04:45 04/03/24 04:45 Temperature Temperature Source Pulse Rate 100 Respiratory Rate 16 Blood Pressure BP Systolic BP Diastolic Pulse Ox 98 04/03/24 04:46 04/03/24 04:46 04/03/24 04:46 Temperature Temperature Source Pulse Rate 102 H Respiratory Rate 16 Blood Pressure 95/53 L BP Systolic 95 BP Diastolic 53 Pulse Ox 04/03/24 04:51 04/03/24 04:51 04/03/24 04:51 Temperature Temperature Source Pulse Rate 84 Respiratory Rate Blood Pressure 99/52 L BP Systolic 99 BP Diastolic 52 Pulse Ox 97 04/03/24 04:51 04/03/24 04:55 04/03/24 04:55 Temperature Temperature Source Pulse Rate 102 H 93 Respiratory Rate Blood Pressure BP Systolic BP Diastolic Pulse Ox 97 04/03/24 04:55 04/03/24 04:57 04/03/24 04:57 Temperature Temperature Source Pulse Rate 83 Respiratory Rate 16 Blood Pressure 91/50 L BP Systolic 91 BP Diastolic 50 Pulse Ox 04/03/24 05:00 04/03/24 05:00 04/03/24 05:01 Temperature Temperature Source Pulse Rate 96 Respiratory Rate Blood Pressure 90/54 L BP Systolic 90 BP Diastolic 54 Pulse Ox 97 04/03/24 05:01 04/03/24 05:01 04/03/24 05:01 Temperature Temperature Source Temporal Pulse Rate 96 Respiratory Rate 16 Blood Pressure BP Systolic BP Diastolic Pulse Ox 04/03/24 05:01 04/03/24 06:09 04/03/24 06:09 Temperature 98.4 F Temperature Source Pulse Rate 90 Respiratory Rate Blood Pressure BP Systolic BP Diastolic Pulse Ox 98 04/03/24 06:10 04/03/24 06:10 Temperature Temperature Source Pulse Rate 84 Respiratory Rate Blood Pressure 111/53 L BP Systolic 111 BP Diastolic 53 Pulse Ox Weight Weight: 152 lb Body Mass Index (BMI) 27.8 Physical Exam Const alert, oriented x3, no apparent distress and healthy appearing General Appearance: cooperative; Negative for anxious HEENT normocephalic Face and Sinus: normal facial exam Eyes EOMs intact bilaterally and no scleral icterus General Eye: normal appearance of both eyes Neck full ROM and supple Lymph Lymphatic: no lymphadenopathy noted Chest Chest: abnormal inspection of the chest Resp normal respiratory effort Effort and Inspection: able to speak in complete sentences Cardio regular rate GI soft to palpation and non-tender Inspection: gravid Palpation: soft; Negative for tender external exam normal Amniotic Fluid: ROM+plus Back/Spine no CVA tenderness Extremity normal to inspection, full ROM and no clubbing, cyanosis or edema General Extremity: Negative for calf tenderness or edema Skin Lesions: no lesions Rashes: no rashes Psych mental status grossly normal Labs Labs Labs: Blood Type A POSITIVE Antibody Screen NEGATIVE Hct 33.6 % (37-47) L Hgb 10.4 g/dL (12.0-15.0) L Obstetrics Ultrasound Syphilis Total Ab Non-reactive VZV IgG Antibody 254 index (Immune >165) Rubella IgG Antibody Reactive (Nonreactive) Hep Bs Antigen Non-Reactive (Nonreactive) Hepatitis C Antibody Non-Reactive (Nonreactive) Hepatitis C Ab (EIA) <0.1 s/co ratio (0.0-0.9) Chlamydia DNA ([place]) Negative (Negative) N.gonorrhoeae DNA ([place]) Negative (Negative) HIV 1&2 Antibody Non-Reactive (Nonreactive) Glucose 1 Hr 50 gm 126 mg/dL (70-140) Group B Strep DNA Negative (Negative) Rhogam given: No Miscellaneous Test Assessment & Plan (1) malformation of central nervous system: COMMENT: [facility]- stat MRI with [facility] ashleigh follow up. verbalized follow up and mri normal- report requested- pending review. -normal results (2) Supervision of high risk in first trimester: COMMENT: ALESSANDRA 04/08/24 PC: Cedric Mackenzie (3) History of cholestasis during : (4) History of marijuana use: COMMENT: random tox screen.neg on NOB. verbally states has not used. rescreened / due to gap in care. (5) History of miscarriage, currently : COMMENT: 2016 (6) Supervision of high-risk : COMMENT: ALESSANDRA 04/08/24 PC: Cedric Mackenzie (7) : QUALIFIERS: Weeks of gestation: 39 weeks Qualified Code(s): Z3A.39 - 39 weeks gestation of COMMENT: GBS neg, discussed genetic & carrier, declines. obtained with MFM- low risk nipt., nl GCT (8) 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, antepartum: COMMENT: TVUS for dating PLAN: Plan Patient presents IAL, plan expectant management for , pitocin/AROM PRN if needed. Pain management: plans epidural. GBS negative . Management of any complications: none I have reviewed the [facility] and made any clinically relevant updates.
--- NOTE | 2024-04-03 06:15 | EX.PCM.OBRPT ---
Maternal Data Information ALESSANDRA Calculator Estimated Delivery Date Method Current Current Estimate 04/08/24 Ultrasound #1 39w 2d Vaginal Delivery Maternal Presentation Maternal Presentation: Active Labor Type of Induction: Amniotomy Operative Information Date of Procedure: 04/03/24 Pre-Operative Diagnosis: active labor @ 39 weeks 2 days gestation Post-Operative Diagnosis: active labor @ 39 weeks 2 days gestation Surgery / Procedure Performed: Spontaneous Vaginal Delivery Type of Anesthesia: Epidural Drain: Murpyh to straight drain Time of Delivery: 06:00 Findings Description of Procedure: Patient began pushing and delivered the head in the MARILU presentation. The head was delivered atraumatically. The anterior and posterior shoulders delivered without complication followed by the rest of the infant and the was placed on the maternal abdomen. Delayed cord clamping was employed for approximately 60 seconds. Cord was clamped and cut and gentle traction was applied to the cord and the placenta delivered spontaneously immediately following it was noted to be intact with three-vessel cord. The perineum and vagina were inspected and noted to be intact. EBL was 100 cc. Patient and tolerated delivery well. Baby boy Artell Presentation: Vertex Amniotic Membrane Rupture Type: Spontaneous Amniotic Fluid Description: Clear Placental Delivery Description: Spontaneous Placenta Disposition: [facility] Cord Vessel Description: 3 Vessels Cord Entanglement: None Infant A Gender: Male (1 minute): 6 (5 minute): 8 Delayed Cord Clamping: Yes Post Vaginal Delivery Medications Given After Delivery: IV Pitocin Episiotomy Description: None Laceration: None Complication Complications: None Multi Select Codes Urinary/Genital Urinary/Genital CPT Codes: 18051 Vaginal Delivery+ Care([facility])
--- NOTE | 2024-04-03 06:17 | DCINST_ITS ---
Discharge Instructions Diet Discharge Diet: No restrictions Activity Discharge Activity: Return to Normal Activity, May Not Drive (while taking narcotic pain medications.) and May Shower May resume sexual activity in: 4-6 weeks Dressing / Incision Call your doctor if your incision/area has: Continuous Slow Oozing, Sudden Increased Bleeding, Increased Pain/ Swelling, Increased Redness and Foul Smelling Discharge Follow Up Care Please Follow Up With: Coco Vyas, DO When: Call [phone] to make an appointment with your doctor in 6 weeks. If you had elevated blood pressure or 4th degree laceration, you will need to be seen in 2 weeks. Test Results: Test results from this visit will be discussed in further detail at your follow- up appointment, if applicable. Discharge Plan Admission Admit Date/Time: 04/03/24 03:30 Attending Provider: Coco Vyas Primary Care Provider: Joana Physician,Linda Primary Discharge Orders/Prescriptions Prescriptions: No Action prenat.vits,silvia,[id number] Tablet 1 tab PO DAILY Referrals / Follow Up: Care Physician,No Primary [Primary Care Provider] -
[2024-04-03] MEDS: Oxytocin 15 Units/NS 250ml 15 UNITS/250 ML IV.SOLN 83 UNITS IV (06:36)
[2024-04-03] MEDS: Ibuprofen 600 MG Tablet PO ×2 (11:43→21:43)
[2024-04-04 05:30] VITALS: BP 89/50; PULSE 65; RESP 16; TEMP 36.7; O2SAT 97
[2024-04-04 05:31] VITALS: BP 89/50; PULSE 64
--- NOTE | 2024-04-04 07:32 | PN.OBGYN_ITS ---
Subjective Subjective Patient doing well without complaints. Tolerating PO. Ambulating and voiding without difficulty. Feeding well. Denies chest pain, shortness of breath, calf pain/swelling, fevers, chills, lightheadedness. Objective Data Objective Data Vital Signs: Vital Signs Temp Pulse Resp BP Pulse Ox O2 Del Method 98.0 F 64 16 89/50 L 97 Room Air 04/04/24 05:30 04/04/24 05:31 04/04/24 05:30 04/04/24 05:31 04/04/24 05:30 04/04/24 05:30 Oxygen Delivery Method Room Air Weight: 152 lb Body Mass Index (BMI) 27.8 Intake & Output: Intake and Output for Last 24 Hours 04/02/24 04/03/24 04/04/24 23:59 23:59 23:59 Intake Total 1985.90 / 1985.90 Output Total 650 / 650 Balance 1335.90 / 1335.90 Lab / Micro Data Attestation: I reviewed the patient's lab results. 04/03/24 03:30 ROS Constitutional Constitutional: Reports systems reviewed and no addt'l complaints, except as documented; Denies anorexia or headache(s) Cardiovascular Cardiovascular: Reports systems reviewed and no addt'l complaints, except as documented; Denies dizziness, dyspnea, nausea or tachypnea Respiratory/Chest Respiratory/Chest: Reports systems reviewed and no addt'l complaints, except as documented; Denies cough, dyspnea, shortness of breath at rest or tachypnea Gastrointestinal Gastrointestinal: Reports systems reviewed and no addt'l complaints, except as documented; Denies abdominal pain, constipation or nausea Genitourinary Genitourinary: Reports systems reviewed and no addt'l complaints, except as documented; Denies burning urination, difficulty urinating, dysuria, urinary frequency or urinary incontinence Musculoskeletal Musculoskeletal: Reports systems reviewed and no addt'l complaints, except as documented Integumentary Integumentary: Reports systems reviewed and no addt'l complaints, except as documented Neurologic Neurologic: Reports systems reviewed and no addt'l complaints, except as documented; Denies abnormal speech, dizziness or headache(s) Psychiatric Psychiatric: Reports systems reviewed and no addt'l complaints, except as documented Endocrine Endocrinology: Reports systems reviewed and no addt'l complaints, except as documented Hematologic/Lymphatic Hematologic/Lymphatic: Reports systems reviewed and no addt'l complaints, except as documented Physical Exam Const alert, oriented x3 and no apparent distress Neck full ROM Resp normal respiratory effort, normal air movement and no retractions Effort and Inspection: able to speak in complete sentences and symmetric chest movement GI soft to palpation Bladder / Kidney Exam: bladder normal to palpation Uterus Palpation: uterus fundus firm Extremity normal to inspection and full ROM Psych mental status grossly normal, thought process normal and cooperative Assessment & Plan (1) malformation of central nervous system: COMMENT: [facility]- stat MRI with [facility] follow up. verbalized follow up and mri normal- report requested- pending review. -normal results (2) Supervision of high risk in first trimester: COMMENT: ALESSANDRA 04/08/24 PC: Cedric Mackenzie (3) History of cholestasis during : (4) History of marijuana use: COMMENT: random tox screen.neg on NOB. verbally states has not used. rescreened 01/23 due to gap in care. (5) History of miscarriage, currently : COMMENT: 2016 (6) Supervision of high-risk : COMMENT: ALESSANDRA 04/08/24 PC: Cedric Mackenzie (7) : QUALIFIERS: Weeks of gestation: 39 weeks Qualified Code(s): Z 3A.39 - 39 weeks gestation of COMMENT: GBS neg, discussed genetic & carrier, declines. obtained with [facility]- low risk nipt., nl GCT (8) 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, antepartum: COMMENT: TVUS for dating (9) Vaginal delivery: PLAN: s/p PPD # 1 1. routine post delivery care 2. breast feeding- support given 3. rh positive 4. rubella immune 5. Discharge home Charges/Coding Multi Select Codes Urinary/Genital Urinary/Genital CPT Codes: No Charge
[2024-04-04] MEDS: Acetaminophen 500 MG Tablet 1000 MG PO (09:19)
[2024-04-04 09:21] VITALS: BP 113/57; PULSE 87; RESP 16; TEMP 36.9; O2SAT 97
[2024-04-04 09:22] VITALS: BP 113/57; PULSE 86
--- NOTE | 2024-04-04 11:18 | CASEMGMT ---
Social Work Assessment Labor and Delivery Unit Patient Address: [address] [place] [address] [place] [address] Phone number: [phone] Date of Referral: 04/03/24 Time of Referral:? 714 Referred By: Coco Vyas Date of Intervention: ??04/04/24 Time of Intervention:? 5 Reason for Referral:?anxiety and depression Sw completed chart review and acknowledges social work consult due to maternal mental health history. Sw presented to bedside and introduced self to mother of baby (MARINA Eason) and explained sw role throughout admission. Sw completed psychosocial assessment and provided literature and resources. History obtained from: medical records, MOB Household composition: LUIS F states that she and FOB currently reside together along with their other child (Roland- 1 y/o) and MOB's older daughter (Avril, 5 y/o). baby will also reside with family when ready for discharge. Patient's parent/guardian status:? ?LUIS F states that she and FOB have been together for 4 years after meeting through mutual friends. MOB denies any concerns of domestic violence or intimate partner violence with FOB. Medical History: ?LUIS F is 28 year old female who is 4, para 2- now 3 following labor and delivery of . LUIS F received routine care during with [facility]. LUIS F presented to hospital on 04/03/24 and delivered baby via vaginal delivery at 39 weeks gestation. Baby boy, named Lorenzo Mcgrath, was born weighing 6lb 12oz with apgars of 6 and 8 at one and five minutes of life, respectfully. Baby will be followed by Dr. Haley for pediatrics. LUIS F states that she is breast feeding and has a pump for home. Educational Status:? Both parents graduated from high school. Financial Status: Both parents are gainfully employed outside of the home. LUIS F works for a [employer] company and is able to work remotely. FOB works for a moving company. Infant Supplies:?? LUIS F has obtained all necessary baby supplies for baby, including: car seat, safe sleep space, clothes, diapers and wipes. Childcare/Caregiver(s):? MOB will be the primary caregiver to baby along with FOB when he is not working. Transportation:?? Both parents have their drivers license and reliable means of transportation. Programs/Agencies Involved: ?LUIS F denies being connected to any resources that assist her financially. ?? Children Services/Legal Issues:??? LUIS F denies history of children services involvement. NO issues or concerns warranting referral to be made at this time. Behavioral Health Issues: ??Mental Health History:?LUIS F reports that CÉSAR does not have any mental health diagnoses. LUIS F states that she has been diagnosed with anxiety and depression, however those were issues that she struggled with when she was younger. LUIS F denies ever having mental health concerns as an adult. ?? Substance Use History:?LUIS F admits to smoking marijuana in the past, denies anything during . ? Family History:?MOB denies any family history of addiction or significant mental health diagnoses. ? Drug Screens: ?MOB urine screens was negative at time of delivery. ? Family/Social Stressors:? LUIS F denies any issues, concerns or problems at this time. Support Systems: LUIS F states that CÉSAR and her mom are her biggest supports. Depression/Shaken Baby/Safe Sleeping:? Sw educated MOB on signs and symptoms of baby blues and depression. MOB expressed understanding. MOB states that if she were to struggle CÉSAR would know how to recognize that and he would know how to help and support her. Sw educated MOB on shaken baby prevention and ABCs of safe sleep. MOB expressed understanding. ASSESSMENT:? MOB and baby admitted following labor and delivery. Baby not present in room during time of psychosocial assessment due to getting circumcision. LUIS F made eye contact but her presentation appeared to be blunt. Sw asked LUIS F if she was okay, and she reported to being tired after baby cluter feeding. Shirley talked to nursing staff who state that LUIS F has done great with baby and has been pleasant throughout admission. MOB with mental health and substance use history, however reports that these are no longer an issue for her. LUIS F has obtained everything she needs for baby and has natural supports in place. PLAN:? MOB and baby to be discharged when medically ready. ?No other services requested or indicated. Fish Ardon, FORGING OPERATOR, GUN STOCK MAKER
[2024-04-04 15:13] VITALS: BP 111/63; PULSE 82; PULSE 84; RESP 17; TEMP 36.8; O2SAT 93; O2SAT 97
[2024-04-04 15:14] VITALS: BP 111/63; PULSE 81
--- NOTE | 2024-04-09 10:19 | NURSING ---
Follow up phone call made, no answer, voicemail left
== END 2024-04-04 16:00 | disposition home or self-care (01) | DRG 560 ==
LOC: WPOUT 03:30 → WP 03:30 → WPOUT 03:31 → WP 03:31
PROVIDERS: Admitting Provider Obstetrics & Gynecology; Referring Provider Obstetrics & Gynecology; Visit Provider Obstetrics & Gynecology
DX: O26.23 Pregnancy care for patient with recurrent pregnancy loss, third trimester (principal); Z37.0 Single live birth; O99.324 Drug use complicating childbirth; F12.11 Cannabis abuse, in remission; Z3A.39 39 weeks gestation of pregnancy; Z87.19 Personal history of other diseases of the digestive system; Z87.59 Personal history of other complications of pregnancy, childbirth and the puerperium
CPT/HCPCS: 59025; 59050; 80307; 85025; 86780; 86850; 86900; 86901; 99221; J7120; G0378

== ENCOUNTER → 2025-05-12 | Outpatient (CLI) | payer MEDICAID, SELFPAY ==
--- NOTE | 2025-05-12 18:02 | US_ITS ---
PROCEDURE: PELVIC W/ TRANSVAGINAL 05/12/2025 REASON FOR EXAM: INCOMPLETE , RULE OUT POC TECHNIQUE: PELVIC W/ TRANSVAGINAL. Transabdominal and transvaginal grayscale, color and spectral Doppler pelvic ultrasound. COMPARISON: None. FINDINGS: ENDOMETRIUM: Heterogeneous with internal vascularity. Thickness of 12.0 mm. UTERUS: Anteverted. Normal size and contour measuring 9.6 x 6.1 x 4.3 cm. No fibroid detected. CERVIX: Normal size and contour. RIGHT OVARY: Normal size and appearance measuring 3.7 x 3.2 x 2.7 cm. Normal follicles. Normal blood flow. No adnexal mass. LEFT OVARY: Enlarged measuring 4.0 x 3.2 x 3.2 cm with a volume of 21.4 mL. Anechoic cyst measuring 3.4 x 2.8 x 3.0 cm. Normal blood flow. No adnexal mass. FREE FLUID: No free fluid. US/Pelvic w/ Transvaginal IMPRESSION: 1. Heterogeneous endometrium with vascularity, suggesting retained products of conception. 2. Simple 3.4 cm left ovarian cyst. O-RADS US 2 - Almost certainly benign cat egory (<1% risk of malignancy). No follow-up recommended. Reading Location: [id number]
== END | disposition home or self-care (01) ==
PROVIDERS: Referring Provider Obstetrics & Gynecology; Visit Provider Obstetrics & Gynecology
DX: O03.4 Incomplete spontaneous abortion without complication (principal)
CPT/HCPCS: 76830; 76856

== ENCOUNTER 2025-05-21 05:54 | Day surgery (SDC) | payer MEDICAID, SELFPAY ==
[2025-05-21] VITALS (8 sets, daily range): BP systolic 94–120; BP diastolic 58–81; PULSE 59–80; RESP 12–16; TEMP 36.4–36.7; O2SAT 95–99; BMI 22.5
--- OUTSIDE RECORDS SUMMARY | 2025-05-21 05:59 | XMS RPT_ITS | CCD ---
Author Organization [facility] Care Team Providers Care Rack Pusher Name Role Phone JUANYDENISHA GUTIERREZ Unavailable Unavailable JUANYDENISHA GUTIERREZ Unavailable Unavailable NONE, NONE Unavailable Unavailable NONE, NONE Unavailable Unavailable Arcadio Garner Unavailable Unavailable Arcadio Garner Unavailable Unavailable Massiel Lujan Unavailable Unavailable Massiel Lujan Unavailable Unavailable Aydee Francisco Unavailable Unavailable Aydee Francisco Unavailable Unavailable Unavailable Primary Care Provider UnavailSharri Gibson MD Primary Care Provider [phone] Provider, Historical Primary Care Provider Unava Dr. Briana Law Referring Provider [phone] Sharri Guzmán Attending Provider [phone] Care Physician, No Primary Primary Care Provider Unavailable Jesus Man Unavailable Unavailable Unavailable Care Physician, No Primary Referring Provider Un available Dr. Coco Vyas Attending Provider [phone] Care Physician, No Primary Primary Care Provider Unavailable Care Physician, No Primary Referring Provider Un available Dr. Sharri Guzmán Attending Provider [phone] Sandro TO, KALA Maharaj Attending Provider [phone] Dr. Coco Vyas Attending Provider [phone] QUINCY Cantu Admit Provider QUINCY Cantu Other Provider Care Physician, No Primary Primary Care Provider Unavailable Care Physician, No Primary Referring Provider Un available QUINCY Cantu Attending Provider [phone] Sobeida Cantu CNM Unavailable [phone] No business strategist, Md Primary Care Provider Shonda vailable SOBEIDA CANTU Referring Unavailable NO PRIMARY CARE, Primary Care Unavailable CANDIS ROBERTS Attending Unavailable CANDIS ROBERTS Referring Unavailable NO PRIMARY CARE, Primary Care Unavailable CANDIS ROBERTS Attending Unavailable CANDIS ROBERTS Referring Unavailable NO PRIMARY CARE, Primary Care Unavailable CANDIS ROBERTS Attending Unavailable SOBEIDA CANTU Referring Unavailable NO PRIMARY CARE, Primary Care Unavailable CANDIS ROBERTS Attending Unavailable Care Physician, No Primary Primary Care Provider Unavailable Care Physician, No Primary Referring Provider Un available QUINCY Cantu Attending Provider [phone] Dr. Coco Vyas Attending Provider [phone] Care Physician, No Primary Primary Care Provider Unavailable Care Physician, No Primary Referring Provider Un available QUINCY Cantu Attending Provider [phone]) Sharri Guzmán MD Primary Care Provider SHARRI GUZMÁN Primary Care Unavailabl e CORINNE PAUL Attending Unavailable SELF, SELF Referring Unavailable Sharri Guzmán MD Primary Care Provider SELF, SELF Referring Unavailable CORINNE PAUL Attending Unavailable SHARRI GUZMÁN Primary Care Unavailabl e SELF, SELF Referring Unavailable KAREN LLOYD Attending Unavailable SHARRI GUZMÁN Primary Care Unavailabl e SHARRI GUZMÁN Primary Care Unavailabl e SELF, SELF Referring Unavailable CORINNE PAUL Attending Unavailable SELF, SELF Referring Unavailable PRETTY VEGA Attending Unavailable SHARRI GUZMÁN Primary Care Unavailabl e SHARRI GUZMÁN Primary Care Unavailabl e Care Physician, No Primary Primary Care Provider Unavailable Care Physician, No Primary Referring Provider Un available Dr. Coco Vyas DO Attending Provider Dr. Coco Vyas DO Referring Provider Coco Vyas Attending Unavailabl e Care Physician, No Primary Referring Unava ilable Care Physician, No Primary Primary Care Unava ilRosey Almeida Attending Unavailable Care Physician, No Primary Referring Unava ilable Care Physician, No Primary Primary Care Unava ilable Coco V[facility]as [facility] Referring [facility] e Care Physician, No Primary Primary Care Unava ilable Coco Vyas Attending [facility] e Care Physician, No Primary Primary Care Unava ilable Allergies Allergy Classification Reported Allergen(s) Allergy Type Date of Onset Reaction(s) Facility (3 sources) Other; Translations: [OTHER] Propensity to adverse reactions 09-30-2014 [facility] Medications Current Medications Medication Drug Class(es) Dates Sig (Normalized) Sig (Original) [id number] 200 actuat albuterol 0.09 mg/actuat metered dose inhaler (1 source) beta2-Adrenergic Agonist Start: 03-12-2025 take 2 puff(s) by inhalation every six hours as needed for wheezing Albuterol 108 (90 Base) MCG/ACT Aero Soln inhaler Inhale 2 puffs every 6 hours as needed for Shortness of Breath or Wheezing. 8 g 03/12/2025 Active amoxicillin 500 mg oral capsule (1 source) Penicillin-class Antibacterial Start: 12-25-2024 End: 01-04-2025 take 1 capsule by mouth every twelve hours Amoxicillin 500 MG capsule Indications: Sore throat , Strep throat exposure Take 1 capsule by mouth every 12 hours for 10 days. 20 capsule 12/25/2024 01/04/2025 Active amoxicillin 875 mg / clavulanate 125 mg oral tablet (1 source) Penicillin-class Antibacterial Start: 09-11-2024 End: 09-18-2024 take 1 tablet by mouth twice daily Amoxicillin-clavu lanate 875-125 MG tablet Indications: Acute suppurative otitis media of left ear without spontaneous rupture of tympanic membrane, recurrence not specified Take 1 tablet by mouth 2 times daily for 7 days. 14 tablet 09/11/2024 09/18/2024 Active dextromethorphan hydrobromide 15 mg / guaiFENesin 400 mg / pseudoephedrine hydrochloride 60 mg oral tablet (1 source) alpha-Adrenergic Agonist, Uncompetitive G-nynwbd-B-aspartat e Receptor Antagonist, Sigma-1 Agonist Start: 03-12-2025 take 1 tablet by mouth every six hours as needed pseudoephedrine-d extromethorphan-g uaiFENesin (Capmist DM) 60-15-400 MG tablet Take 1 tablet by mouth every 6 hours as needed for Cold Symptoms or Cough for up to 3 days. 12 tablet 03/12/2025 Active docusate sodium 100 mg oral capsule (6 sources) Start: 02-25-2019 take 1 capsule by mouth twice daily as needed for constipation docusate 100 MG Cap Take 1 capsule by mouth 2 times daily as needed for Constipation 1st Line. 60 capsule 02/25/2019 Active ibuprofen 600 mg oral tablet (6 sources) Nonsteroidal Anti-inflammatory Drug Start: 02-25-2019 take 1 tablet by mouth every six hours as needed ibuprofen 600 MG Tab tablet Take 1 tablet by mouth every 6 hours as needed for Mild Pain or Moderate Pain. 35 tablet 02/25/2019 Active miSOPROStol 0.2 mg oral tablet (2 sources) Prostaglandin E1 Analog Start: 04-27-2025 take 1 tablet by mouth once Misoprostol (Cytotec) 200 mcg tablet Active 600 ug PO ONCE 3 0 April 27, 2025 12:00am oseltamivir 75 mg oral capsule (6 sources) Neuraminidase Inhibitor Start: 01-01-2022 End: 01-01-2022 take 1 capsule by mouth twice daily oseltamivir 75 MG capsule Take 1 capsule by mouth 2 times daily. For flu treatment 10 capsule 01/01/2022 Active oxyCODONE hydrochloride 5 mg oral tablet (6 sources) Opioid Agonist Start: 02-25-2019 take 1 tablet by mouth every six hours as needed for pain oxyCODONE 5 MG Tab tablet Indications: Hemorrhagic cyst of ovary Take 1 tablet by mouth every 6 hours as needed for Pain (breakthrough) for up to 7 days. 10 tablet 02/25/2019 Active Prenat.Vits,Donta,Min-Ir on-Folic (17 sources) Start: 04-17-2022 take 1 tablet by mouth once daily Prenat.Vits,Donta,M gb-Aken-Hjxjs Active 1 TABLET PO DAILY April 16, 2022 11:00pm Start: 04-17-2022 take 1 tablet by jeniffer th once daily Prenat.Vits,Donta,Qiw-Tdfw-Oluwk Active 1 TABLET PO DAILY April 17, 2022 12:00am MV-Min-Fe Fum-FA-DHA ( 1 PO) (2 sources) MV-Min- Fe Fum-FA-DHA ( 1 PO) Take by mouth 0 Active Vit-Fe Fumarate-FA ( Plus) 27-1 MG tablet (6 sources) Start: 01-01-2020 take 1 tablet by mouth once daily Vit-Fe Fumarate-FA ( Plus) 27-1 MG tablet Take 1 tablet by mouth daily. 30 tablet 01/01/2020 Active Start: 01-01-2020 take 1 tablet by jeniffer th once daily Vit-Fe Fumarate-FA ( Plus) 27-1 MG tablet Take 1 tablet by mouth daily. 30 tablet 0 01/01/2020 Active sertraline 50 mg oral tablet (2 sources) Serotonin Reuptake Inhibitor Start: 04-27-2025 take 0.5 tablet by mouth every week Sertraline (Zoloft) 50 mg tablet Active 50 mg PO daily April 27, 2025 12:00am take a half a pill for the first week. sulfamethoxazole 800 mg / trimethoprim 160 mg oral tablet (1 source) Dihydrofolate Reductase Inhibitor Antibacterial, Sulfonamide Antimicrobial Start: 06-13-2021 End: 06-18-2021 take 1 tablet by mouth twice daily sulfamethoxazole -trimethoprim 800-160 MG per tablet Indications: Acute cystitis without hematuria Take 1 tablet by mouth 2 times daily for 5 days. 10 tablet 0 06/13/2021 06/18/2021 Active Completed/Discontinued Medications Medication Drug Class(es) Dates Sig (Normalized) Sig (Original) acetaminophen 325 mg oral tablet (5 sources) Start: 01-01-2022 End: 01-01-2022 acetaminophen (TYLENOL) tablet 650 mg Acetaminophen 16 0 MG/5ML Solution Take by mouth every 4 hours as needed for Mild Pain. Active ARIPiprazole 2 mg oral tablet (20 sources) Atypical Antipsychotic Start: 07-22-2020 End: 04-17-2022 take 1 tablet by mouth once daily Aripiprazole (Abilify) 2 mg tablet Discontinued 2 mg PO DAILY 30 July 22, 2020 12:00am April 17, 2022 10:53am brompheniramine maleate 0.4 mg/ml / dextromethorphan hydrobromide 2 mg/ml / pseudoephedrine hydrochloride 6 mg/ml oral solution (3 sources) alpha-Adrenergic Agonist, Uncompetitive S-uinxrm-E-aspartat e Receptor Antagonist, Sigma-1 Agonist Start: 02-09-2021 End: 09-11-2024 take 1 [tsp_us] by mouth every six hours as needed pseudoephedrine-b rompheniramine-de xtromethorphan (Bromfed DM) 30-2-10 MG/5ML Syrup Take 1 teaspoon PO every 6 hours as needed 100 mL 02/09/2021 09/11/2024 Discontinued (Therapy completed) calcium chloride 0.001 meq/ml / glucose 50 mg/ml / potassium chloride 0.004 meq/ml / sodium chloride 0.103 meq/ml / sodium lactate 0.028 meq/ml injectable solution (1 source) Start: 04-22-2025 End: 04-22-2025 Intravenous, at 125 mL/hr, CONTINUOUS, Starting on Sun04/22/25 at 1900, Until Sun04/22/25 at 2325 1 ml diphenhydrAMINE hydrochloride 50 mg/ml cartridge (2 sources) Histamine-1 Receptor Antagonist Start: 04-22-2025 End: 04-22-2025 25 mg, Intravenous, ONCE, 1 dose, On Sun04/22/25 at 1830 Start: 01-01-2022 End: 01-01-2022 diphenhydrAMINE (BENADRYL) i njection 25 mg famotidine 20 mg oral tablet (18 sources) Histamine-2 Receptor Antagonist Start: 07-03-2022 End: 10-12-2023 take 1 tablet by mouth twice daily Famotidine (Pepcid) 20 mg tablet Discontinued 20 mg PO TWICE A DAY 30 July 03, 2022 12:00am October 12, 2023 2:10pm ferrous sulfate 325 mg oral tablet (20 sources) Start: 06-05-2022 End: 10-12-2023 take 1 tablet by mouth once daily Ferrous Sulfate (Feosol) 325 mg (65 mg iron) tablet Discontinued 325 mg PO DAILY 90 June 05, 2022 12:00am October 12, 2023 2:09pm Start: 02-25-2019 End: 06-13-2021 take 1 tablet by mouth three times daily at mealtime ferrous sulfate 324 (65 Fe) MG Tab DR tablet Take 1 tablet by mouth 3 times daily with meals. 90 tablet 1 02/25/2019 06/13/2021 Discontinued 1 ml HYDROmorphone hydrochloride 1 mg/ml cartridge (1 source) Opioid Agonist Start: 02-24-2019 End: 02-24-2019 HYDROmorphone (DILAUDID) injection 1 mg Start: 02-24-2019 End: 02-24-2019 HYDROmorphone (DILAUDID) inj ection 1 mg hydrOXYzine hydrochloride 25 mg oral tablet (1 source) Antihistamine Start: 04-10-2022 take 1 tablet by mouth three to four times daily as needed hydrOXYzine HCl - 25 MG Oral Tablet TAKE 1 TABLET 3 TO 4 TIMES DAILY NEEDED FOR ITCHING. Quantity: 20 Refills: 0 Ordered: 10-Apr-2022 Jesus Man PA-C Start : 10-Apr-2022 Active iohexol (OMNIPAQUE) 350 MG/ML injection 75 mL (1 source) Start: 02-24-2019 End: 02-24-2019 iohexol (OMNIPAQUE) 350 MG/ML injection 75 mL 2 ml ketorolac tromethamine 30 mg/ml cartridge (1 source) Nonsteroidal Anti-inflammatory Drug, Cyclooxygenase Inhibitor Start: 02-24-2019 End: 02-24-2019 ketorolac (TORADOL) injection 30 mg Start: 02-24-2019 End: 02-24-2019 ketorolac (TORADOL) injectio n 30 mg 2 ml metoclopramide 5 mg/ml prefilled syringe (2 sources) Dopamine-2 Receptor Antagonist Start: 04-22-2025 End: 04-22-2025 10 mg, Intravenous, ONCE, 1 dose, On Sun04/22/25 at 1830 Start: 01-01-2022 End: 01-01-2022 metoclopramide (REGLAN) inje ction 10 mg ofloxacin 3 mg/ml ophthalmic solution (2 sources) Quinolone Antimicrobial Start: 12-20-2024 End: 12-25-2024 take 1 drop(s) into the eye(s) four times daily ofloxacin 0.3 % ophthalmic solution Place 1 drop in both eyes 4 times daily for 5 days. 5 mL 12/20/2024 12/25/2024 ondansetron 4 mg disintegrating oral tablet (20 sources) Serotonin-3 Receptor Antagonist Start: 10-31-2020 End: 04-17-2022 take 1 tablet by mouth every four hours as needed for nausea and vomiting Ondansetron 4 mg tablet,disintegra ting Discontinued 4 mg PO Q4H as needed for nausea and vomiting 60 2 March 02, 2022 9:35am April 17, 2022 10:54am Start: 02-24-2019 End: 02-24-2019 ondansetron 4mg/2ml (ZOFRAN) injection 4 mg Start: 12-16-2017 take 1 tablet by jeniffer th every four hours as needed ondansetron 4 MG Tab Dispersible tablet Take 1 tablet by mouth every 4 hours as needed for Nausea. Place on tongue 30 tablet 0 12/16/2017 Active Prenat.Vits,Donta,Vjh-Thpz-Wof ic ( Vitamin) tablet (20 sources) Start: 12-21-2017 End: 07-22-2020 take 1 tablet by mouth once daily Prenat.Vits,Donta,Fcb-Gqdo-Vpbdg ( Vitamin) tablet Discontinued 1 TABLET PO daily December 21, 2017 4:00pm July 22, 2020 9:21am Start: 12-21-2017 End: 07-22-2020 Prenat.Vits,Donta,Jfw-Npid-Ksq ic ( Vitamin) tablet Discontinued 1 {tbl} PO daily December 21, 2017 1:00am July 22, 2020 9:21am Start: 12-21-2017 End: 07-22-2020 take 1 tablet by mouth once daily Prenat.Vits,Donta,Lxx-Ehyn-Yipyc ( Vitamin) tablet Discontinued 1 TABLET PO daily December 21, 2017 12:00am July 22, 2020 8:21am Start: 12-21-2017 End: 07-22-2020 take 1 tablet by mouth once daily Prenat.Vits,Donta,Ypc-Ddzm-Wjewo ( Vitamin) tablet Discontinued 1 TABLET PO daily December 21, 2017 1:00am July 22, 2020 9:21am Prenat.Vits,Donta,Hkb-Qdpm-Tex ic tablet (2 sources) Start: 04-17-2022 End: 04-27-2025 Prenat.Vits,Donta,Tpx-Wvaj-Ssh ic tablet Discontinued 1 {tbl} PO DAILY April 17, 2022 12:00am April 27, 2025 1:18pm One Daily 27-0.8 MG Oral Tablet (1 source) Start: 01-07-2020 take 1 tablet by mouth once daily One Daily 27-0.8 MG Oral Tablet TAKE 1 TABLET DAILY DIRECTED. Quantity: 30 Refills: 1 Ordered: 07-Jan-2020 Darin Barros DO Start : 07-Jan-2020 Active Any PNV covered by insurance promethazine hydrochloride 2 5 mg oral tablet (1 source) Phenot hiazin e Start: 01-07-2020 End: 04-10-2022 take 1 tablet by mouth every six hours Promethazine HCl - 25 MG Oral Tablet TAKE 1 TABLET EVERY 6 HOURS NEEDED FOR NAUSEA. Quantity: 20 Refills: 3 Ordered: 07-Jan-2020 Darin Barros DO Start : 07-Jan-2020 End : 10-Apr-2022 Complete promethazine (PHENERGAN) 12. 5 mg in sodium chloride 0.9%, with overfill 60.5 mL (total volume) IVPB (2 sources) Start: 01-01-2022 End: 01-01-2022 promethazine (PHENERGAN) 12. 5 mg in sodium chloride 0.9%, with overfill 60.5 mL (total volume) IVPB Start: 02-24-2019 End: 02-24-2019 promethazine (PHENERGAN) 12. 5 mg in sodium chloride 0.9%, with overfill 60.5 mL (total volume) IVPB raNITIdine 150 mg oral tablet (20 sources) Histamine-2 Receptor Antagonist Start: 04-10-2018 End: 07-22-2020 take 1 tablet by mouth twice daily Ranitidine Hcl 150 MG tablet Discontinued 150 mg PO TWICE A DAY July 10, 2018 12:35pm July 22, 2020 9:21am acid reflux 250 ml sodium chloride 9 mg/ml injection (7 sources) Start: 04-22-2025 End: 04-22-2025 1,000 mL, Intravenous, ONCE, 1 dose, On Sun04/22/25 at 1830 Start: 01-01-2022 End: 01-01-2022 sodium chloride 0.9% IV solu tion 1,000 mL Start: 02-24-2019 End: 02-24-2019 sodium chloride 0.9% IV solu tion 250 mL Start: 02-24-2019 End: 02-24-2019 sodium chloride (PF) 0.9% in jection 70 mL Start: 02-24-2019 End: 02-24-2019 sodium chloride 0.9% IV solu tion 1,000 mL triamcinolone acetonide 5 mg/ml topical cream (1 source) Corticosteroid Start: 04-10-2022 Triamcinolone Acetonide 0.5 % External Cream APPLY SPARINGLY AND MASSAGE IN TWICE DAILY. Quantity: 1 Refills: 0 Ordered: 10-Apr-2022 Magda BOJORQUEZ Jesus Start : 10-Apr-2022 Active ursodiol 500 mg oral tablet (18 sources) Bile Acid Start: 07-03-2022 End: 10-12-2023 take 1 tablet by mouth twice daily Ursodiol 500 mg tablet Discontinued 500 mg PO TWICE A DAY 60 July 03, 2022 12:00am October 12, 2023 2:09pm vitamin b6 50 mg oral tablet (1 source) Start: 01-07-2020 End: 04-10-2022 take 1 tablet by mouth twice daily B-6 50 MG Oral Tablet TAKE 1 TABLET TWICE DAILY. Quantity: 60 Refills: 2 Ordered: 07-Jan-2020 Darin Barros DO Start : 07-Jan-2020 End : 10-Apr-2022 Complete Problems Active Problems Problem Classification Problem Date Documented Da te Episodic/Chronic Administrative/social admission (2 sources) Discussed with patient; Translations: [Other specified counseling] Onset: 11-23-2023 11-23-2023 Episodic Anxiety disorders (2 sources) Mixed anxiety and depressive disorder; Translations: [Anxiety disorder, unspecified] Onset: 11-23-2023 11-23-2023 Chronic Deficiency and other anemia (1 source) Anemia due to blood loss; Translations: [Blood loss anemia] Chronic Early or threatened labor (20 sources) False labor at or after 37 completed weeks of gestation; Translations: [False labor at or after 37 completed weeks of gestation] 08-12-2018 Episodic Hemorrhage during ; abruptio placenta; placenta previa (20 sources) Threatened miscarriage in first trimester; Translations: [Threatened ] Onset: 04-22-2025 08-12-2018 Episodic Influenza (1 source) Influenza due to Influenza A virus; Translations: [Influenza due to other identified influenza virus with other respiratory manifestations] Episodic Malposition; malpresentation (3 sources) Breech presentation; Translations: [Maternal care for breech presentation, not applicable or unspecified] 02-22-2024 Episodic Other circulatory disease (1 source) History of cardiac arrhythmia; Translations: [Personal history of other diseases of circulatory system] Episodic Other complications of ; puerperium affecting management of mother (6 sources) 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 verbalized follow up and mri normal- report requested- pending review.-normal results Other complications of (20 sources) Anemia of ; Translations: [Anemia complicating , unspecified trimester] 01-07-2020 Chronic Comment on above: Fe added; worsening: IV fenofer Other complications of (20 sources) Anemia complicating , unspecified trimester; Translations: [Anemia of mother, unspecified as to episode of care or not applicable] Chronic Other complications of (1 source) Vomiting of ; Translations: [Vomiting of , unspecified] Episodic Other complications of (20 sources) Nausea and vomiting; Translations: [Vomiting of , unspecified] Resolved: 04-10-2022 04-17-2022 Episodic Other complications of (6 sources) Vomiting of , unspecified; Translations: [Unspecified vomiting of , unspecified as to episode of care or not applicable] Episodic Comment on above: ED visit prior to NO B. Failed phenergan and reglan. Zofran sent Other complications of (20 sources) High risk ; Translations: [Supervision of high risk , unspecified, unspecified trimester] 08-15-2022 Episodic Comment on above: ALESSANDRA 04/08/24 PC: Cedric Mackenzie PRR ALESSANDRA 08/25/22 girl PC: Avril boyfrienrashawn Bennett (his first) Other complications of (20 sources) Cholestasis of ; Translations: [Liver and biliary tract disorders in , unspecified trimester] Onset: 07-20-2022 08-15-2022 Episodic Comment on above: elevated AST. start on ursodiol empirically/works. [facility]: recommend twice weekly BPP or nst. deliver at 39. growth US 31%. rpt fasting bile acid, CMP, hep and APL panels done 07/23. 07/31 Labs sent to [facility] Other complications of (20 sources) Liver and biliary tract disorders in , unspecified trimester; Translations: [Liver and biliary tract disorders in , unspecified as to episode of care or not applicable] Episodic Other complications of (20 sources) Supervision of high risk , unspecified, unspecified trimester; Translations: [Supervision of unspecified high-risk ] Episodic Other complications of (7 sources) Supervision of with other poor reproductive or obstetric history, unspecified trimester; Translations: [Supervision of high-risk with history of ] 10-24-2023 Episodic Other complications of (7 sources) Supervision of high risk , unspecified, first trimester; Translations: [Supervision of unspecified high-risk ] 10-24-2023 Episodic Other complications of (1 source) ultrasound scan abnormal; Translations: [Abnormal ultrasonic finding on screening of mother] 11-23-2023 Episodic Other complications of (1 source) Hyperemesis gravidarum; Translations: [Mild hyperemesis gravidarum] 04-22-2025 Episodic Other complications of (2 sources) Mild hyperemesis gravidarum; Translations: [Mild hyperemesis gravidarum] Onset: 04-22-2025 Episodic Other gastrointestinal disorders (1 source) Hemoperitoneum; Translations: [Hemoperitoneum] Episodic Other lower respiratory disease (2 sources) Shortness of breath; Translations: [Shortness of breath] Onset: 03-12-2025 Episodic Other and delivery including normal (20 sources) Normal ; Translations: [Encounter for supervision of normal , unspecified, unspecified trimester] Episodic Comment on above: GBS neg, discussed g enetic & carrier, declines.obtained with [facility]- low risk nipt., nl GCT TVUS for dating Other screening for suspected conditions (not mental disorders or infectious disease) (20 sources) Patient encounter status; Translations: [Encounter for screening, unspecified] 01-07-2020 Episodic Comment on above: NT done 02/04/18 Other upper respiratory disease (2 sources) Nasal congestion; Translations: [Nasal congestion] Onset: 03-12-2025 Episodic Other upper respiratory disease (2 sources) Other specified disorders of nose and nasal sinuses; Translations: [Other specified disorders of nose and nasal sinuses] Onset: 03-12-2025 Episodic Polyhydramnios and other problems of amniotic cavity (20 sources) Subchorionic hematoma; Translations: [Other specified disorders of amniotic fluid and membranes, first trimester, not applicable or unspecified] 08-12-2018 Episodic Residual codes; unclassified (20 sources) Gestation period, 35 weeks; Translations: [35 weeks gestation of ] 08-12-2018 Episodic Residual codes; unclassified (1 source) History of past delivery; Translations: [Personal history of other genital system and obstetric disorders] Episodic Comment on above: 08/12/2018; 40 WEEKS ; FEMALE; 8LBS; Residual codes; unclassified (7 sources) H/O: miscarriage; Translations: [Personal history of other genital system and obstetric disorders] 10-12-2023 Episodic Comment on above: 10/06/2017; 2017 Residual codes; unclassified (6 sources) History of cholestasis in ; Translations: [Personal history of other complications of , childbirth and the puerperium] 10-24-2023 Episodic Residual codes; unclassified (4 sources) Personal history of other complications of , childbirth and the puerperium; Translations: [ with other poor obstetric history] 01-24-2024 Episodic Short gestation; low weight; and growth retardation (20 sources) growth restriction; Translations: [ growth restriction] Episodic Comment on above: consult [facility] for grow th us:31%. growth. Rpt [facility] growth US 08/03 Spontaneous (4 sources) with abortive outcome; Translations: [Incomplete spontaneous without complication] Onset: 05-18-2025 04-27-2025 Episodic Substance-related disorders (13 sources) History of clinical finding in subject; Translations: [History of marijuana use] 10-12-2023 Chronic Comment on above: random tox screen.ne g on NOB. verbally states has not used. rescreened 01/23 due to gap in care. Substance-related disorders (20 sources) Marijuana user; Translations: [Cannabis use, unspecified, uncomplicated] Episodic Comment on above: random tox screens negative Unclassified (3 sources) Encounter for surveillance of implantable subdermal contraceptive; Translations: [ENC SURV IMPLANT SUBDERMAL CNTRACPT] Onset: 04-03-2017 Unclassified (1 source) Acute cough; Translations: [Acute cough] Onset: 03-12-2025 Past or Other Problems Problem Classification Problem Date Documented Date Episodic/Chronic E Codes: Natural/environment (2 sources) Cat bite - wound; Translations: [Bitten by cat, initial encounter] Onset: 05-26-2014 Resolved: 09-30-2014 09-30-2014 Episodic Immunizations and screening for infectious disease (3 sources) Exposure to streptococcal pharyngitis; Translations: [Contact with and (suspected) exposure to other bacterial communicable diseases] Onset: 12-25-2024 12-25-2024 Episodic Inflammation; infection of eye (except that caused by tuberculosis or sexually transmitteddisease) (4 sources) Allergic contact dermatitis of eyelid; Translations: [Contact and allergic dermatitis of eyelid] Onset: 12-20-2024 12-20-2024 Episodic Menstrual disorders (2 sources) Missed period; Translations: [Irregular menstrual cycle] Resolved: 04-10-2022 Chronic Other complications of (2 sources) Poor growth affecting management; Translations: [Maternal care for other known or suspected poor growth, unspecified trimester, not applicable or unspecified] Onset: 07-20-2022 07-20-2022 Episodic Other complications of (2 sources) H/O: loss; Translations: [Supervision of with other poor reproductive or obstetric history, second trimester] Onset: 07-20-2022 07-21-2022 Episodic Other upper respiratory infections (4 sources) Sore throat symptom; Translations: [Acute pharyngitis, unspecified] Onset: 12-25-2024 09-11-2024 Episodic Otitis media and related conditions (3 sources) Acute suppurative otitis media without spontaneous rupture of ear drum; Translations: [Acute suppurative otitis media without spontaneous rupture of ear drum, left ear] Onset: 09-11-2024 09-11-2024 Episodic Ovarian cyst (6 sources) Hemorrhagic cyst of ovary; Translations: [Unspecified ovarian cyst, unspecified side] Onset: 02-24-2019 02-24-2019 Episodic Unclassified (19 sources) Normal labor; Translations: [Active labor at term] 01-07-2020 Unclassified (1 source) Acute cough; Translations: [Acute cough] Onset: 03-12-2025 Urinary tract infections (1 source) Acute cystitis; Translations: [Acute cystitis without hematuria] Episodic NEGATED: Highlighted row has been ruled out!Unclassified (2 sources) No known active problems Results Test Name Value Interpretation Reference Range Facility Pelvic w/ Transvaginalon Pelvic w/ Transvaginal [facility] Imaging Services [address] [place] [address] Pelvic w/ Transvaginal MR#: [id number] Acct: [id number] Name: LISSETT ARNETT Rep #: [id number] : 1995 F 29 From: Anais Dunlap MD PCP: Care Physician,No Primary Status: REG CLI Study: Pelvic w/ Transvaginal Date of Exam: 05/12/25 Exam# [id number] Ordering Dr: Coco Vyas DO PROCEDURE: PELVIC W/ TRANSVAGINAL 05/12/2025 REASON FOR EXAM: INCOMPLETE , RULE OUT POC TECHNIQUE: PELVIC W/ TRANSVAGINAL. Transabdominal and transvaginal grayscale, color and spectral Doppler pelvic ultrasound. COMPARISON: None. FINDINGS: ENDOMETRIUM: Heterogeneous with internal vascularity. Thickness of 12.0 mm. UTERUS: Anteverted. Normal size and contour measuring 9.6 x 6.1 x 4.3 cm. No fibroid detected. CERVIX: Normal size and contour. RIGHT OVARY: Normal size and appearance measuring 3.7 x 3.2 x 2.7 cm. Normal follicles. Normal blood flow. No adnexal mass. LEFT OVARY: Enlarged measuring 4.0 x 3.2 x 3.2 cm with a volume of 21.4 mL. Anechoic cyst measuring 3.4 x 2.8 x 3.0 cm. Normal blood flow. No adnexal mass. FREE FLUID: No free fluid. US/Pelvic w/ Transvaginal IMPRESSION: 1. Heterogeneous endometrium with vascularity, suggesting retained products of conception. 2. Simple 3.4 cm left ovarian cyst. O-RADS US 2 - Almost certainly benign category (<1% risk of malignancy). No follow-up recommended. Reading Location: [id number] CC: Dr. Coco Vyas DO; No Primary Care Physician Hogshead Dumper: Signed Normal [facility] Hand Counter Office Visit Reporton 04-27-2025 Hand Counter Office Visit Report [facility] [address], [address] [place] [address] OFFICE VISIT Date of Service: 04/27/25 MR#: [id number] Acct: [id number] Name: LISSETT ARNETT Rep #: [id number] : 1995 Provider: Dr. Coco Davison DO Age/Sex: 29/F [place] [facility] [place]: Signed Intake Vital Signs 04/03/24 03:41 04/27/25 13:13 Height 5 ft 2 in 5 ft 2 in Weight: 124 lb BMI 22.6 BP 116/76 Intake Visit Reasons: Possible Miscarriage F/U Rides Attendant Required: No Is patient in pain?: No Allergies No Known Allergies Allergy (Verified 04/27/25 13:14) Medications ???Medication ???Instructions ???Recorded ???Confirmed ???Type misoprostol 200 mcg tablet 600 mcg (3 x 200 mcg) PO ONCE #3 0 04/27/25 04/27/25 Rx (Cytotec) tabs sertraline 50 mg tablet (Zoloft) 50 mg PO QDAY #90 tabs 04/27/25 Rx Is last menstrual period known: No Post menopausal: No PFSH Medical History (Updated 04/27/25 @ 13:[address] Coco Vyas DO) 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, antepartum Supervision of high-risk History of miscarriage, currently malformation of central nervous system Supervision of high risk in first trimester Breech presentation Anemia affecting Marijuana use Anxiety and depression Surgical History Hx of hand surgery S/P laparoscopy H/O dilation and curettage Social History adopted: No household members: significant other and children number of children: 3 current occupational status: employed current occupation: [employer] current occupational exposures/hazards: No pets and animals: Yes (Not managing litterbox ) pets and animals: cat(s) and dog(s) history of recent travel: No sexually active: Yes Smoking Status: Never smoker alcohol intake: never substance use type: does not use well-balanced diet: daily or most days caffeine: Yes Type: coffee Number of servings: 1 eating out: rarely or never during the past year weight has: remained stable what type of physical activity do you participate in: none ciara/methodist: None seatbelt use: always do you feel safe at home: Yes additional social history: [facility] - [employer] HPI Possible Miscarriage F/U Details: LISSETT ARNETT is a 29 year old who presents for miscarriage follow up. She was seen at an ER in [facility] but results from them are scant and do not include labs or ultrasound. she states that they told her the fetus was 5 weeks 6 days and had a 90bpm heart rate. She since then bled large clots. She is extremely tearful today and wants to get started on an antidepressant (has appt with online psych in may) and wants to discuss tubal ligation. History 5 Elective abortions Hx Para 3 Spontaneous abortions 2 Hx # Term Pregnancies Ectopic pregnancies Hx # Pregnancies Multiple births # of living children 3 Past Pregnancies Del. Date Name GA/Weeks Outcome Route Bth Weight Gen Labor Lgth Anesthesia Del Locatn Provider FOB 09/28/17 8 spontaneous 08/12/18 AVRIL 40 live - full term Female epidural [facility] L[facility]IAN Artur 08/14/22 Theryi 38 live - full term Female [facility] Noa Cantu Donald 04/03/24 Artell 39 live - full term Male epidural [facility] JV Delivery Date: 09/28/17 Last Updated by: Cris Smith Delivery Date: 08/14/22 Last Updated by: Lydia Green Cholestasis, anemia Delivery Date: 04/03/24 Last Updated by: Marianne Saab RN See problem list for complications ROS Const ROS Unobtainable: All systems reviewed are unremarkable except as noted in H Resp Resp: Reports system reviewed and no additional complaints, except as documented; Denies cough GI GI: Reports as per HPI Psych Psych: Reports system reviewed and no additional complaints, except as documented Exam Const General: cooperative, healthy appearing, comfortable and no acute distress Resp Effort Inspection: normal respiratory effort Other: 1.5 cm endometrium. no blood flow. no IUP noted. Skin General: no rashes or lesions noted Psych Appearance: grossly normal Speech and Movement: speech and movement normal Coding Level of Care Code Off vis,est,level 4 Diagnoses Incomplete O03.4 Contraceptive management Z30.9 Assessment and Plan Assessment and Plan (1) Incomplete : Status: Acute (2) Contraceptive management: Status: Acute Orders: Orders Pelvic w/ Transvaginal 05/04/25 O03.4 - Incomplete spontaneous without complication Medications: New sertrali (more content not included)... Normal [facility] 04-22-20 [facility] [address].00 MIU/ML Normal [facility] Comment on above: Result Comment: [facility] INTERPRETIVE RANGES: NON FEMALE 0-6 MIU/ML MALE ADULT 0-2 MIU/ML 0-1 WEEK 6-50 MIU/ML 1-2 WEEKS 40-300 MIU/ML 2-3 WEEKS 100-1,000 MIU/ML 3-4 WEEKS 500-6,000 MIU/ML 1-2 MONTHS 5,000-200,000 MIU/ML 2-3 MONTHS 10,000-100,000 MIU/ML 2ND TRIMESTER 3,000-50,000 MIU/ML 3RD TRIMESTER 1,000-50,000 MIU/ML If an hCG level is inconsistent with, or unsupported by, clinical evidence, results should be confirmed by an alternate hCG method. This method may include the qualitative hCG testing of urine. Performed By: #### B HCG2, LIVR, CHEM7F, ACBC, LIPA2 #### Testing performed at [place] [id number] CBCon 04-22-2025 ABSOLUTE BAS 0.0 10*3/uL Normal 0.0-0.2 [facility] Comment on above: Performed By: #### B HCG2, LIVR, CHEM7F, ACBC, LIPA2 #### Testing performed at [address] [address] ABSOLUTE EOS 0.0 10*3/uL Normal 0.0-0.7 [facility] Comment on above: Performed By: #### B HCG2, LIVR, CHEM7F, ACBC, LIPA2 #### Testing performed at [address] [address] ABSOLUTE NEUTROPHIL COUNT 3.6 10*3/uL Normal 1.4-6.5 [facility] Comment on above: Performed By: #### B HCG2, LIVR, CHEM7F, ACBC, LIPA2 #### Testing performed at [address] [address] Basophils/100 WBC (Bld) 0.7 % Normal 0.0-2.0 [facility] Comment on above: Performed By: #### B HCG2, LIVR, CHEM7F, ACBC, LIPA2 #### Testing performed at [address] [address] DTYPE AUTO DIFF Normal [facility] Comment on above: Performed By: #### B HCG2, LIVR, CHEM7F, ACBC, LIPA2 #### Testing performed at [address] [address] Eosinophils/100 WBC (Bld) 0.7 % Normal 0.0-11.0 [facility] Comment on above: Performed By: #### B HCG2, LIVR, CHEM7F, ACBC, LIPA2 #### Testing performed at [address] [address] Erythrocyte distribution width (RBC) [Ratio] 13.5 % Normal 11.5-14.5 [facility] Comment on above: Performed By: #### B HCG2, LIVR, CHEM7F, ACBC, LIPA2 #### Testing performed at [address] [address] Hematocrit (Bld) [Volume fraction] 39.0 % Normal 36.0-48.0 [facility] Comment on above: Performed By: #### B HCG2, LIVR, CHEM7F, ACBC, LIPA2 #### Testing performed at [address] [address] Hemoglobin (Bld) [Mass/Vol] 13.9 g/dL Normal 12.0-16.0 [facility] Comment on above: Performed By: #### B HCG2, LIVR, CHEM7F, ACBC, LIPA2 #### Testing performed at [address] [address] Lymphocytes (Bld) [#/Vol] 1.2 10*3/uL Normal 1.2-3.4 [facility] Comment on above: Performed By: #### B HCG2, LIVR, CHEM7F, ACBC, LIPA2 #### Testing performed at [address] [address] Lymphocytes/100 WBC (Bld) 23.7 % Normal 20.0-55.0 [facility] Comment on above: Performed By: #### B HCG2, LIVR, CHEM7F, ACBC, LIPA2 #### Testing performed at [address] [address] MCH (RBC) [Entitic mass] 29.6 pg Normal 26.0-35.0 [facility] Comment on above: Performed By: #### B HCG2, LIVR, CHEM7F, ACBC, LIPA2 #### Testing performed at [address] [address] MCHC (RBC) [Mass/Vol] 35.7 g/dL Normal 27.0-37.0 [facility] Comment on above: Performed By: #### B HCG2, LIVR, CHEM7F, ACBC, LIPA2 #### Testing performed at [address] [address] MCV (RBC) [Entitic vol] 82.9 fL Normal 80.0-100.0 [facility] Comment on above: Performed By: #### B HCG2, LIVR, CHEM7F, ACBC, LIPA2 #### Testing performed at [address] [address] Monocytes (Bld) [#/Vol] 0.3 10*3/uL Normal 0.0-0.7 [facility] Comment on above: Performed By: #### B HCG2, LIVR, CHEM7F, ACBC, LIPA2 #### Testing performed at [address] [address] Monocytes/100 WBC (Bld) 6.0 % Normal 0.0-10.0 [facility] Comment on above: Performed By: #### B HCG2, LIVR, CHEM7F, ACBC, LIPA2 #### Testing performed at [address] [address] Neutrophils/100 WBC (Bld) 68.9 % Normal 37.0-75.0 [facility] Comment on above: Performed By: #### B HCG2, LIVR, CHEM7F, ACBC, LIPA2 #### Testing performed at [address] [address] Platelet mean volume (Bld) [Entitic vol] 8.2 fL Normal 7.4-11.0 [facility] Comment on above: Performed By: #### B HCG2, LIVR, CHEM7F, ACBC, LIPA2 #### Testing performed at [address] [address] Platelets (Bld) [#/Vol] 215 10*3/uL Normal 130-400 [facility] Comment on above: Performed By: #### B HCG2, LIVR, CHEM7F, ACBC, LIPA2 #### Testing performed at [address] [address] RBC (Bld) [#/Vol] 4.70 10*6/uL Normal 4.0-5.4 [facility] Comment on above: Performed By: #### B HCG2, LIVR, CHEM7F, ACBC, LIPA2 #### Testing performed at [address] [address] WBC (Bld) [#/Vol] 5.2 10*3/uL Normal 3.6-11.0 [facility] Comment on above: Performed By: #### B HCG2, LIVR, CHEM7F, ACBC, LIPA2 #### Testing performed at [address] [address] CBC, EDIF, PLATELETon 2024 ABSOLUTE BASOPHIL COUNT 0 10*3/uL 0.0 - 0.2 10*3/uL [facility] Basophils/100 WBC (Bld) 0.7 % 0.0 - 2.0 % [facility] Differential cell count method Nom (Bld) AUTO DIFF % [facility] Eosinophils (Bld) [#/Vol] 0 10*3/uL 0.0 - 0.7 10*3/uL [facility] Eosinophils/100 WBC (Bld) 0.7 % 0.0 - 11.0 % [facility] Erythrocyte distribution width (RBC) [Ratio] 13.5 % 11.5 - 14.5 % [facility] Hematocrit (Bld) [Volume fraction] 39 % 36.0 - 48.0 % [facility] Hemoglobin (Bld) [Mass/Vol] 13.9 g/dL [facility] Lymphocytes (Bld) [#/Vol] 1.2 10*3/uL 1.2 - 3.4 10*3/uL [facility] Lymphocytes/100 WBC (Bld) 23.7 % 20.0 - 55.0 % [facility] MCH (RBC) [Entitic mass] 29.6 pg 26.0 - 35.0 PG [facility] MCHC (RBC) [Mass/Vol] 35.7 g/dL [facility] MCV (RBC) [Entitic vol] 82.9 fL [facility] Monocytes (Bld) [#/Vol] 0.3 10*3/uL 0.0 - 0.7 10*3/uL [facility] Monocytes/100 WBC (Bld) 6 % 0.0 - 10.0 % [facility] Neutrophils (Bld) [#/Vol] 3.6 10*3/uL 1.4 - 6.5 10*3/uL [facility] Neutrophils/100 WBC (Bld) 68.9 % 37.0 - 75.0 % [facility] Platelet mean volume (Bld) [Entitic vol] 8.2 fL [facility] Platelets (Bld) [#/Vol] 215 10*3/uL 130 - 400 10*3/uL [facility] RBC (Bld) [#/Vol] 4.7 10*6/uL 4.0 - 5.4 10*6/uL [facility] WBC (Bld) [#/Vol] 5.2 10*3/uL 3.6 - 11.0 10*3/uL [facility] CHEM 7 FASTINGon 04-22-2025 Chloride [Moles/Vol] 99 mmol/L Normal 98-107 [facility] Comment on above: Result Comment: Hien saeed note: Triglyceride levels of 600mg/dL or higher may positively bias chloride results by approximately 2.1 mmol Performed By: #### B HCG2, LIVR, CHEM7F, ACBC, LIPA2 #### Testing performed at [address] [address] CO2 [Moles/Vol] 26 mmol/L Normal 22-30 [facility] Comment on above: Performed By: #### B HCG2, LIVR, CHEM7F, ACBC, LIPA2 #### Testing performed at [address] [address] Creatinine [Mass/Vol] 0.70 mg/dL Normal 0.70-1.20 [facility] Comment on above: Performed By: #### B HCG2, LIVR, CHEM7F, ACBC, LIPA2 #### Testing performed at [address] [address] GFR Information Average GFR for 18-2 9 years old = 116. Normal [facility] Comment on above: Result Comment: Core Analysis Operator vin Kidney disease, GFR = <60. Kidney failure, GFR = <15. The GFR estimate is not adjusted for extreme body surface area or acute process, nor has it been validated for women or ethnic groups other than and . Performed By: #### B HCG2, LIVR, CHEM7F, ACBC, LIPA2 #### Testing performed at [address] [address] GFR/1.73 sq M.predicted MDRD (S/P/Bld) [Vol rate/Area] 107 mL/min/{1.73_m2} Normal [facility] Comment on above: Performed By: #### B HCG2, LIVR, CHEM7F, ACBC, LIPA2 #### Testing performed at [address] [address] Glucose [Mass/Vol] 87 mg/dL Normal 70-100 [facility] Comment on above: Result Comment: NORMAL <100 mg/dL PREDIABETES 101-126 mg/dL DIABETES 126 mg/dL or higher Performed By: #### B HCG2, LIVR, CHEM7F, ACBC, LIPA2 #### Testing performed at [address] [address] Potassium [Moles/Vol] 4.2 mmol/L Normal 3.5-5.1 [facility] Comment on above: Performed By: #### B HCG2, LIVR, CHEM7F, ACBC, LIPA2 #### Testing performed at [address] [address] Sodium [Moles/Vol] 136 mmol/L Low 137-145 [facility] Comment on above: Performed By: #### B HCG2, LIVR, CHEM7F, ACBC, LIPA2 #### Testing performed at [address] [address] Urea nitrogen [Mass/Vol] 9 mg/dL Normal 7-20 [facility] Comment on above: Performed By: #### B HCG2, LIVR, CHEM7F, ACBC, LIPA2 #### Testing performed at [address] [address] CHEM 7 (LYTES,BUN,CREA,GLUC) on 04-22-2025 Chloride [Moles/Vol] 99 mmol/L [facility] Comment on above: Please note: Triglyc eride levels of 600mg/dL or higher may positively bias chloride results by approximately 2.1 mmol CO2 [Moles/Vol] 26 mmol/L [facility] Creatinine [Mass/Vol] 0.7 mg/dL 0.70 - 1.20 mg/dL [facility] GFR COMMENT Average GFR for 18-2 9 years old = 116. [facility] Comment on above: Chronic Kidney disea se, GFR = <60. Kidney failure, GFR = <15. The GFR estimate is not adjusted for extreme body surface area or acute process, nor has it been validated for women or ethnic groups other than and . GFR/1.73 sq M.predicted MDRD (S/P/Bld) [Vol rate/Area] 107 mL/min/{1.73_m2} ml/min/1.73s q.m [facility] Glucose post fast [Mass/Vol] 87 mg/dL [facility] Comment on above: NORMAL <100 mg/dL PREDIABETES 101-126 mg/dL DIABETES 126 mg/dL or higher Interpretation and review of laboratory results Abnormal [facility] Potassium [Moles/Vol] 4.2 mmol/L [facility] Sodium [Moles/Vol] 136 mmol/L Low [facility] Urea nitrogen [Mass/Vol] 9 mg/dL 7 - 20 mg/dL [facility] Narrative [Interpretat ion] Study observation.general transvaginal 1st trimester USon 04-22-2025 IMPRESSION: Single live Intrauterine at 5 weeks 6 days by ultrasound criteria. This appears less than stated dates. Correlation advised. Threatened not excluded . Follow-up is advised Physiologic appearance of the ovaries. Cervical length measures 4.6 cm RADIOLOGY EXAM: US Pelvis Transabdominal and Transvaginal, Complete and US Duplex Arterial/Venous of the Pelvis, Complete CLINICAL INDICATION: pelvic pain and bleeding 8 weeks preg TECHNIQUE: Real-time complete transabdominal and transvaginal pelvic ultrasound with image documentation. Transvaginal imaging was used for better evaluation of the endometrium and adnexa. Real-time duplex ultrasound scan of the arterial and venous flow of the pelvis with color Doppler flow and spectral waveform analysis. COMPARISON: No relevant prior studies available. FINDINGS: Cervix measures 4.6 cm heart tones at 92 bpm with a single live at 5 weeks 6 days by ultrasound criteria. This appears to be less than stated dates of 9 weeks 5 days. Cervical length measures 4.6 cm. both ovaries are normal in size and echotexture with normal blood flow. There is a corpus luteum cyst seen on the right RADIOLOGY Jesus Santos MD - 04/22/2025 EXAM: US Pelvis Transabdominal and Transvaginal, Complete and US Duplex Arterial/Venous of the Pelvis, Complete CLINICAL INDICATION: pelvic pain and bleeding 8 weeks preg TECHNIQUE: Real-time complete transabdominal and transvaginal pelvic ultrasound with image documentation. Transvaginal imaging was used for better evaluation of the endometrium and adnexa. Real-time duplex ultrasound scan of the arterial and venous flow of the pelvis with color Doppler flow and spectral waveform analysis. COMPARISON: No relevant prior studies available. FINDINGS: Cervix measures 4.6 cm heart tones at 92 bpm with a single live at 5 weeks 6 days by ultrasound criteria. This appears to be less than stated dates of 9 weeks 5 days. Cervical length measures 4.6 cm. both ovaries are normal in size and echotexture with normal blood flow. There is a corpus luteum cyst seen on the right IMPRESSION IMPRESSION: Single live Intrauterine at 5 weeks 6 days by ultrasound criteria. This appears less than stated dates. Correlation advised. Threatened not excluded . Follow-up is advised Physiologic appearance of the ovaries. Cervical length measures 4.6 cm [facility] Radiology Study observation (narrative) [facility] Narrative [Interpretat ion] Study observation.general transvaginal 1st trimester USOrdered By: Jesus Santos on 04-22-2025 [facility] HCG ( test) [place] [address] m[IU]/mL MIU/ML A [employer] Comment on above: [facility] [place]PRETIVE RANGES: NON FEMALE 0-6 MIU/ML MALE ADULT 0-2 MIU/ML 0-1 WEEK 6-50 MIU/ML 1-2 WEEKS 40-300 MIU/ML 2-3 WEEKS 100-1,000 MIU/ML 3-4 WEEKS 500-6,000 MIU/ML 1-2 MONTHS 5,000-200,000 MIU/ML 2-3 MONTHS 10,000-100,000 MIU/ML 2ND TRIMESTER 3,000-50,000 MIU/ML 3RD TRIMESTER 1,000-50,000 MIU/ML If an hCG level is inconsistent with, or unsupported by, clinical evidence, results should be confirmed by an alternate hCG method. This method may include the qualitative hCG testing of urine. [facility] HCG ( test) Ql (U)o n 04-22-2025 Interpretation and review of laboratory results Abnormal [facility] HCG QUALITATIVE, URINEon HCG ( test) Ql (U) Positive Abnormal NEGATIVE [facility] HEPATIC FUNCTION PANELon Albumin [Mass/Vol] 4.6 g/dL [facility] ALP [Catalytic activity/Vol] 51 U/L 38 - 126 U/L [facility] ALT [Catalytic activity/Vol] 8 U/L NINF - 35 U/L [facility] AST [Catalytic activity/Vol] 30 U/L 14 - 36 U/L [facility] Bilirubin [Mass/Vol] 0.5 mg/dL 0.2 - 1 .3 mg/dL [facility] Bilirubin.direct [Mass/Vol] 0 mg/dL [facility] Protein [Mass/Vol] 7.5 g/dL 6.3 - 8.2 g/dL [facility] LIPASEon 04-22-2025 Lipase [Catalytic activity/Vol] 154 U/L 23 - 300 U/L [facility] LIPASE,SERUMon 04-22-2025 LIPASE,SERUM 154 U/L Normal 23-300 [facility] Comment on above: Performed By: #### B HCG2, LIVR, CHEM7F, ACBC, LIPA2 #### Testing performed at [address] [address] LIVER PANELon 04-22-2025 Albumin [Mass/Vol] 4.6 g/dL Normal 2.9-5.3 [facility] Comment on above: Performed By: #### B HCG2, LIVR, CHEM7F, ACBC, LIPA2 #### Testing performed at [address] [address] ALP [Catalytic activity/Vol] 51 U/L Normal 38-126 [facility] Comment on above: Performed By: #### B HCG2, LIVR, CHEM7F, ACBC, LIPA2 #### Testing performed at [address] [address] ALT [Catalytic activity/Vol] 8 U/L Normal <35 [facility] Comment on above: Performed By: #### B HCG2, LIVR, CHEM7F, ACBC, LIPA2 #### Testing performed at [address] [address] AST [Catalytic activity/Vol] 30 U/L Normal 14-36 [facility] Comment on above: Performed By: #### B HCG2, LIVR, CHEM7F, ACBC, LIPA2 #### Testing performed at [address] [address] Bilirubin [Mass/Vol] 0.5 mg/dL Normal 0.2-1.3 [facility] Comment on above: Performed By: #### B HCG2, LIVR, CHEM7F, ACBC, LIPA2 #### Testing performed at [address] [address] Bilirubin.indirect [Mass/Vol] 0.0 mg/dL Normal 0.0-0.4 [facility] Comment on above: Performed By: #### B HCG2, LIVR, CHEM7F, ACBC, LIPA2 #### Testing performed at [address] [address] Protein [Mass/Vol] 7.5 g/dL Normal 6.3-8.2 [facility] Comment on above: Performed By: #### B HCG2, LIVR, CHEM7F, ACBC, LIPA2 #### Testing performed at [address] [address] No Panel Informationon 04-22 [facility] URINALYSIS, MACROon 04-22-20 25 Bilirubin Ql (U) Negative NEGATIVE [facility] Clarity (U) CLEAR CLEAR [facility] Color (U) YELLOW YELLOW [facility] Glucose Test strip (U) [Mass/Vol] Negative NEGATIVE mg/dl [facility] Hemoglobin Ql (U) MODERATE Abnormal NEGATIVE [facility] Interpretation and review of laboratory results Abnormal [facility] Ketones (U) [Mass/Vol] mg/dL Abnormal NEGAT NICHELLE mg/dl [facility] Leukocyte esterase Test strip Ql (U) Negative NEGATIVE [facility] Nitrite Ql (U) Negative NEGATIVE [facility] pH (U) 6 [pH] 5.0 - 7.0 [facility] Protein Ql (U) 30 mg/dl Abnormal NEGATIVE [facility] Specific gravity (U) [Rel density] >1.030 High 1.010 - 1.025 [facility] Urobilinogen (U) [Mass/Vol] 1 mg/dL [facility] URINE CULTUREon 04-22-2025 Bacteria identified Cx Nom (U) SPECIMEN DESCRIPTION URINE CLEAN CATCH CULTURE NO GROWTH 2 DAYS * Result Note: Testing performed at [place], [place] [address] * REPORT STATUS 04/24/2025 * Result Note: FINAL * Normal [facility] Comment on above: Performed By: #### A URNC #### Testing performed at [address] [address] Testing performed at [address] [address] URINE HCG QUALon 04-22-2025 Beta HCG ( test) Ql (U) Positive Abnormal NEGATIVE [facility] Comment on above: Performed By: #### U AMERICA, UHCGT, UMAC #### Testing performed at [address] [address] URINE MACROSCOPICon 04-22-20 25 Bilirubin Ql (U) Negative Normal NEGATIVE [facility] Comment on above: Performed By: #### U AMERICA, UHCGT, UMAC #### Testing performed at [address] [address] Clarity (U) CLEAR Normal CLEAR [facility] Comment on above: Performed By: #### U AMERICA, UHCGT, UMAC #### Testing performed at [address] [place] [address] Color (U) YELLOW Normal YELLOW [facility] Comment on above: Performed By: #### U AMERICA, UHCGT, UMAC #### Testing performed at [address] [address] Glucose Ql (U) Negative Normal NEGATIVE [facility] Comment on above: Performed By: #### U AMERICA, UHCGT, UMAC #### Testing performed at [address] [place] [address] pH (U) 6.0 [pH] Normal 5.0-7.0 [facility] Comment on above: Performed By: #### U AMERICA, UHCGT, UMAC #### Testing performed at [address] [address] Protein (U) [Mass/Vol] 30 mg/dL Abnormal NEGATIVE [facility] Comment on above: Performed By: #### U AMERICA, UHCGT, UMAC #### Testing performed at [facility] [place] [facility] [address] [place] [address] URINE HEMOGLOBIN MODERATE Abnormal NEGATIVE [facility] Comment on above: Performed By: #### U AMERICA, UHCGT, UMAC #### Testing performed at [address] [address] URINE KETONE >160 Abnormal NEGATIVE [facility] Comment on above: Performed By: #### U AMERICA, UHCGT, UMAC #### Testing performed at [address] [address] URINE LEUKOTEST Negative Normal NEGATIVE [facility] Comment on above: Performed By: #### U AMERICA, UHCGT, UMAC #### Testing performed at [address] [address] URINE NITRATES Negative Normal NEGATIVE [facility] Comment on above: Performed By: #### U AMERICA, UHCGT, UMAC #### Testing performed at [address] [address] URINE SPEC GRAVITY >1.030 High 1.010-1.025 [facility] Comment on above: Performed By: #### U AMERICA, UHCGT, UMAC #### Testing performed at [address] [address] Urobilinogen Qn (U) 1.0 {Shiela'U}/dL Normal 0.2-1.0 [facility] Comment on above: Performed By: #### U AMERICA, UHCGT, UMAC #### Testing performed at [address] [address] URINE MICROSCOPICon 04-22-20 25 Bacteria LM.HPF (Urine sed) [#/Area] Negative NEGATIVE [facility] Casts LM.LPF (Urine sed) [#/Area] NONE NONE /LPF [facility] Crystals LM Nom (Urine sed) NONE NONE [facility] Epithelial cells LM Ql (Urine sed) 5 TO 10 /HPF [facility] Mucus Ql (Urine sed) Negative NEGATIVE [facility] RBC LM.HPF (Urine sed) [#/Area] Negative NEGATIVE /HPF [facility] Urine sediment comments LM Judd (Urine sed) REFLEX CULTURE PER ESTABLISHED CRITERIA. [facility] WBC LM.HPF (Urine sed) [#/Area] Negative NEGATIVE /HPF [facility] Bacteria LM.HPF (Urine sed) [#/Area] Negative Normal NEGATIVE [facility] Comment on above: Performed By: #### U AMERICA, UHCGT, UMAC #### Testing performed at [address] [address] CASTS NONE Normal NONE [facility] Comment on above: Performed By: #### U AMERICA, UHCGT, UMAC #### Testing performed at [address] [address] CRYSTAL NONE Normal NONE [facility] Comment on above: Performed By: #### U AMERICA, UHCGT, UMAC #### Testing performed at [address] [place] [address] Epithelial cells LM Ql (Urine sed) 5 TO 10 Normal [facility] Comment on above: Performed By: #### U AMERICA, UHCGT, UMAC #### Testing performed at [address] [place] [address] Mucus Ql (Urine sed) Negative Normal NEGATIVE [facility] Comment on above: Performed By: #### U AMERICA, UHCGT, UMAC #### Testing performed at [address] [place] [address] URINE COMMENT REFLEX CULTURE PER ESTABLISHED CRITERIA. Normal [facility] Comment on above: Performed By: #### U AMERICA, UHCGT, UMAC #### Testing performed at [address] [place] [address] URINE RBC'S Negative Normal NEGATIVE [facility] Comment on above: Performed By: #### U AMERICA, UHCGT, UMAC #### Testing performed at [address] [address] URINE WBC'S Negative Normal NEGATIVE [facility] Comment on above: Performed By: #### U AMERICA, UHCGT, UMAC #### Testing performed at [address] [address] US OB TRANSVAGINAL/CERVICAL LENGTHon 04-22-2025 US OB TRANSVAGINAL/CERVICAL LENGTH EXAM: US Pelvis Transabdominal and Transvaginal, Complete and US Duplex Arterial/Venous of the Pelvis, Complete CLINICAL INDICATION: pelvic pain and bleeding 8 weeks preg TECHNIQUE: Real-time complete transabdominal and transvaginal pelvic ultrasound with image documentation. Transvaginal imaging was used for better evaluation of the endometrium and adnexa. Real-time duplex ultrasound scan of the arterial and venous flow of the pelvis with color Doppler flow and spectral waveform analysis. COMPARISON: No relevant prior studies available. FINDINGS: Cervix measures 4.6 cm heart tones at 92 bpm with a single live at 5 weeks 6 days by ultrasound criteria. This appears to be less than stated dates of 9 weeks 5 days. Cervical length measures 4.6 cm. both ovaries are normal in size and echotexture with normal blood flow. There is a corpus luteum cyst seen on the right IMPRESSION: Single live Intrauterine at 5 weeks 6 days by ultrasound criteria. This appears less than stated dates. Correlation advised. Threatened not excluded . Follow-up is advised Physiologic appearance of the ovaries. Cervical length measures 4.6 cm Normal [facility] POCT RAPID STREP Aon 025 S. pyogenes Ag Ql (Throat) Negative (+/-) [facility] Internal controls OK [facility] THROAT CULTUREon 12-25-2024 Throat culture SPECIMEN DESCRIPTION THROAT SWAB CULTURE USUAL OROPHARYNGEAL IVONNE * Result Note: Testing performed at [place] [address] * REPORT STATUS 12/28/2024 * Result Note: FINAL * Normal [facility] Comment on above: Performed By: #### [facility] #### [place] [address] POCT RAPID STREP Aon 024 S. pyogenes Ag Ql (Throat) Negative (+/-) [facility] SARS-COV-2 RAPID AG (WIC)on 09-11-2024 SARS-CoV-2 (COVID-19) RNA CLIFTON+probe Ql (Unsp spec) Not detected Normal NOT DETECTED [facility] Comment on above: Result Comment: Nega tive results should be treated as presumptive and confirmation with a molecular assay, if necessary, for patient management, may be performed. Negative results do not rule out SARSCoV-2 infection and should not be used as the sole basis for treatment or patient management decisions, including infection control decisions. Negative results should be considered in the context of a patient's recent exposures, history and the presence of clinical signs and symptoms consistent with COVID-19. Performed By: #### C COVAG #### Testing performed at [place] [address] [place] [address] NARRATIVE This test was perfor med using lateral flow immunoassay. This test does not differentiate between SARS-CoV and SARS-CoV2. Normal [facility] Comment on above: Performed By: #### C COVAG #### Testing performed at [place] [id number] SARS-COV-2 RAPID ANTIGEN (CL INIC ONLY)on 09-11-2024 SARS-CoV-2 (COVID-19) RNA CLIFTON+probe Ql (Unsp spec) This test was performed using lateral flow immunoassay. This test does not differentiate between SARS-CoV and SARS-CoV2. [facility] SARS-CoV-2 (COVID-19) RNA NA A+probe Ql (Unsp spec)on 09-11-2024 SARS-CoV-2 (COVID-19) Ag IA.rapid Ql (Resp) Not detected NOT DETECTED [facility] Comment on above: Negative results [place] uld be treated as presumptive and confirmation with a molecular assay, if necessary, for patient management, may be performed. Negative results do not rule out SARSCoV-2 infection and should not be used as the sole basis for treatment or patient management decisions, including infection control decisions. Negative results should be considered in the context of a patient's recent exposures, history and the presence of clinical signs and symptoms consistent with COVID-19. [facility] Laboratory - Chemistry and C hemistry - challengeon 02-04-2024 Glucose Ql (U) Negative [facility] Laboratory - Urinalysison Protein Ql (U) Negative [facility] Absolute lymphocyte countOrd ered By: Sobeida Cantu on 01-24-2024 Lymphocytes Auto (Unsp spec) [#/Vol] 1.76 10*3/uL 0.83-4.51 [facility] Automated lymphocyte count a s percentage of total leukocytesOrdered By: Sobeida Cantu on 01-24-2024 Lymphocytes/100 WBC Auto (Unsp spec) 22.9 % 19-41 [facility] Basophil percentageOrdered B y: Sobeida Cantu on 01-24-2024 Basophils/100 WBC (Bld) 0.7 % 0-1 [facility] Eosinophils/100 WBC (Bld) 0.9 % 0-5 [facility] Hemoglobin (Bld) [Mass/Vol] 10.8 g/dL 12.0-15.0 [facility] Monocytes/100 WBC (Bld) 5.5 % 0-10 [facility] Neutrophils (Bld) [#/Vol] 5.3 10*3/uL 2.0-7.7 [facility] Neutrophils/100 WBC (Bld) 69.3 % 47-70 [facility] WBC (Bld) [#/Vol] 7.7 10*3/uL 4.4-11.0 [facility] Determination of erythrocyte mean corpuscular volume (MCV)Ordered By: Sobeida Cantu on 01-24-2024 MCV (RBC) [Entitic vol] 88.6 fL 81-99 [facility] Erythrocyte distribution wid th ratioOrdered By: Sobeida Cantu on 01-24-2024 Erythrocyte distribution width (RBC) [Ratio] 12.7 % 11.6-14.6 [facility] Erythrocyte distribution wid th standard deviationOrdered By: Sobeida Cantu on 01-24-2024 Erythrocyte distribution width (RBC) [Entitic vol] 40.8 fL 35.1-43.9 [facility] Gestational diabetes screen 1-hour screen with 50g oral glucose loadOrdered By: Sobeida Cantu on 01-24-2024 Glucose 1 Hr post 50 g glucose PO [Mass/Vol] 126 mg/dL 70-140 [facility] HIV 1 and HIV-2 antibody ass ay with HIV-1 p24 antigen detectionOrdered By: Sobeida Cantu on 01-24-2024 HIV 1+2 Ab+HIV1 p24 Ag IA Ql Non-Reactive Nonreactive [facility] Hematocrit Auto (Bld) [Volum e fraction]Ordered By: Sobeida Cantu on 01-24-2024 Hematocrit (Bld) [Volume fraction] 32.7 % 37-47 [facility] Immature granulocytes/100 WB C Auto (Bld)Ordered By: Sobeida Cantu on 01-24-2024 Immature granulocytes/100 WBC (Bld) 0.700 % 0.0-0.9 [facility] Comment on above: IG% - Immature Granu locytes (promyelocytes, myelocytes and metamyelocytes) > 1% indicates that a LEFT SHIFT is Present. Laboratory - Chemistry and C hemistry - challengeon 01-24-2024 Glucose Ql (U) Negative [facility] Laboratory - Drug toxicology Ordered By: Sobeida Cantu on 01-24-2024 Amphetamines Ql (U) Negative <1000 ng/mL [facility] Benzodiazepines Ql (U) Negative < 200 ng/mL [facility] Cannabinoids Screen Ql (U) Negative < 50 ng/mL [facility] Cocaine Ql (U) Negative < 300 ng/mL [facility] Opiates Ql (U) Negative < 300 ng/mL [facility] Laboratory - Hematology and Cell countsOrdered By: Sobeida Cantu on 01-24-2024 MCH (RBC) [Entitic mass] 29.3 pg 27.0-32.0 [facility] MCHC (RBC) [Mass/Vol] 33.0 g/dL 32-36 [facility] Nucleated RBC/100 WBC (Bld) [Ratio] 0 % 0-5 [facility] Platelet mean volume (Bld) [Entitic vol] 10.3 fL 6.2-12.0 [facility] Platelets (Bld) [#/Vol] 221 10*3/uL 150-450 [facility] Laboratory - Urinalysison Protein Ql (U) Negative [facility] No Panel InformationOrdered By: Sobeida Cantu on 01-24-2024 MDMA (Ecstasy) Screen Negative < 500 ng/mL [facility] Urine Barbiturates Screen Negative < 200 ng/mL [facility] Urine Drug Screen Comment [facility] Comment on above: CONFIRMATORY TESTING FOR ALL POSITIVE URINE DRUG SCREENRESULTS WILL ONLY BE SENT OUT UPON PHYSICIAN ORDER. VISTA Urine Drug Screen methods provide only preliminaryanalytical test results. A more specific alternate chemicalmethod must be used in order to obtain a confirmedanalytical result. Gas chromatography/mass spectrometery(GC/MS) is the preferred confirmatory method. Clinicalconsideration and professional judgement should be appliedto any drug of abuse test result, particularly whenpreliminary positive results are used. URINE TCA TESTING MUST BE ORDERED SEPARATELY. USE TESTMNEMONIC: [facility] Urine Methadone Screen Negative < 300 ng/mL [facility] RBC Auto (Bld) [#/Vol]Ordere d By: Sobeida Cantu on 01-24-2024 RBC (Bld) [#/Vol] 3.69 10*6/uL 4.2-5.4 [facility] Serum Treponema species anti body detectionOrdered By: Sobeida Cantu on 01-24-2024 Treponema sp Ab Ql (S) Non-Reactive [facility] Urine phencyclidine (PCP) de tectionOrdered By: Sobeida Cantu on 01-24-2024 Phencyclidine Ql (U) Negative < 25 ng/mL [facility] MRI (SINGLE)on 024 MRI (SINGLE) CLINICAL HISTORY: Possible intraventricular hemorrhage, abnormal ultrasound COMPARISON: Examination correlated with report of obstetrical ultrasound performed on 10/05/2023. PROCEDURE COMMENTS: MRI of the fetus was performed without contrast, with attention to the brain. Examination performed at 19 weeks 0 days gestational age, as assessed from the above ultrasound. FINDINGS: Findings of : Carreon intrauterine gestation. Cervix length: 2.7 cm Cervix status: closed. Placenta: anterior. Placenta previa: No. Findings: position: Vertex. Number of vessels in umbilical cord: Three. Amniotic fluid volume: Normal. brain: Gyration and sulcation: Normal for the stated gestational age. No structural abnormalities are noted in the cerebral hemispheres. Ventricles: Normal. transverse atrial diameter: Right 6.5 mm , Left 7.0 mm Cavum septum pellucidum: Normal. Corpus callosum: Present and normally formed. Posterior Fossa: Brainstem morphology: Normal. Cerebellum morphology: Normal appearance of hemispheres and vermis. Cranio-cervical junction: Normal with no sign of Chiari or other malformation. Face: There is no obvious facial clefting. Ocular globes: Normal and symmetrical appearance. spine: Spine: Normal appearing.. No sign of scoliosis or open neural tube defect. Conus: Normal in position. Body: Situs: Normal. Oropharynx/cervical airway: Normal. Lungs: Normal in size and signal. No diaphragmatic hernia. Liver: Normal. Gallbladder: Normal. Spleen: Normal. Adrenal glands: Normal. Kidneys: Normal. Small bowel: Normal. Colon: Normal. Meconium is present in the rectum. Urinary bladder: Normal. Evaluation of the extremities is limited due to motion artefacts. No gross limb deficiencies are noted, but subtle findings would be better assessedby ultrasound. Maternal findings: Visible parts of maternal kidneys/bladder/adnexa are unremarkable. Visible maternal spine is unremarkable. IMPRESSION: No intraventricular hemorrhage. This report has been created using voice recognition software Signed by: Dr. Martin Yap at 11/26/2023 09:00 Normal [facility] Progress Noteon 11-26-2023 Figure Clerk Authentication Interface Message Text MFM attending note: Lissett is a 28 y.o. female, and is at 20w0d Reason for the visit: MRI results are normal HPI: The patient is her to evaluate MRI results. Lissett denies nausea, vomiting, vaginal bleeding, vaginal discharge, and/or cramping. A separate genetic counseling note will be sent separately. Review of Systems Constitutional: Negative. HENT: Negative. Eyes: Negative. Respiratory: Negative. Cardiovascular: Negative. Gastrointestinal: Negative. Genitourinary: Negative. Musculoskeletal: Negative. Skin: Negative. Neurological: Negative. Endo/Heme/Allergies: Negative. Psychiatric/Behavioral: Negative. PHYSICAL EXAM: BP 133/61 Pulse 95 Resp 18 Wt 60.8 kg (134 lb) LMP (LMP Unknown) SpO2 98% BMI 24.51 kg/m Constitutional: General: She is active. HENT: Head: Atraumatic. Eyes: Extraocular Movements: EOM normal. Conjunctiva/sclera: Conjunctivae normal. Pulmonary: Effort: Pulmonary effort is normal. Abdominal: Comments: gravid uterus Musculoskeletal: Normal range of motion. Neurological: Mental Status: She is alert. X 3. 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 MRI: brain: Gyration and sulcation: Normal for the stated gestational age. No structural abnormalities are noted in the cerebral hemispheres. Ventricles: Normal. transverse atrial diameter: Right 6.5 mm , Left 7.0 mm Cavum septum pellucidum: Normal. Corpus callosum: Present and normally formed. Posterior Fossa: Brainstem morphology: Normal. Cerebellum morphology: Normal appearance of hemispheres and vermis. Cranio-cervical junction: Normal with no sign of Chiari or other malformation. IMPRESSION: No intraventricular hemorrhage. Following our discussion Lissett elected to have: Cell free DNA aneuploidy screening Follow-up Follow up in 4 weeks for repeat ultrasound Patient and your office will be contacted regarding results of Panorama cell free aneuploidy screening Additional follow up as clinically indicated Chart review and preparation: 5 minutes. Face to face: 10 minutes. Documentation and care coordination: 5 minutes. Total time spent on patient care today: 20 minutes. This note or partial portions of this note may have been created using a copy forward or copy paste feature, but these portions have been verified and re-edited for accuracy and any portions not in need of editing or reviews are not being used to generate any component necessary for billing purposes. Elements necessary for proper CPT code selection are based only on elements of the visit that are truly unique to this visit. Normal [facility] Absolute lymphocyte countOrd ered By: Sobeida Cantu on 10-25-2023 Lymphocytes Auto (Unsp spec) [#/Vol] 1.62 10*3/uL 0.83-4.51 [facility] Basophil percentageOrdered B y: Sobeida Cantu on 10-25-2023 Basophils/100 WBC (Bld) 0.6 % 0-1 [facility] Eosinophils/100 WBC (Bld) 0.7 % 0-5 [facility] Neutrophils (Bld) [#/Vol] 4.6 10*3/uL 2.0-7.7 [facility] Neutrophils/100 WBC (Bld) 68.1 % 47-70 [facility] WBC (Bld) [#/Vol] 6.7 10*3/uL 4.4-11.0 [facility] Blood erythrocytes count (nu mber/volume)Ordered By: Sobeida Cantu on 10-25-2023 RBC (Bld) [#/Vol] 4.19 10*6/uL 4.2-5.4 [facility] Blood hemoglobin measurement (mass/volume)Ordered By: Sobeida Cantu on 10-25-2023 Hemoglobin (Bld) [Mass/Vol] 12.6 g/dL 12.0-15.0 [facility] Blood lymphocytes/100 leukoc ytesOrdered By: Sobeida Cantu on 10-25-2023 Lymphocytes/100 WBC (Bld) 24.1 % 19-41 [facility] Blood monocytes/100 leukocyt esOrdered By: Sobeida Cantu on 10-25-2023 Monocytes/100 WBC (Bld) 6.2 % 0-10 [facility] Blood platelet mean volumeOr dered By: Sobeida Cantu on 10-25-2023 Platelet mean volume (Bld) [Entitic vol] 10.0 fL 6.2-12.0 [facility] Determination of erythrocyte mean corpuscular volume (MCV)Ordered By: Sobeida Cantu on 10-25-2023 MCV (RBC) [Entitic vol] 89.7 fL 81-99 [facility] HIV 1 and HIV-2 antibody ass ay with HIV-1 p24 antigen detectionOrdered By: Sobeida Cantu on 10-25-2023 HIV 1+2 Ab+HIV1 p24 Ag IA Ql Non-Reactive Nonreactive [facility] Hematocrit Auto (Bld) [Volum e fraction]Ordered By: Sobeida Cantu on 10-25-2023 Hematocrit (Bld) [Volume fraction] 37.6 % 37-47 [facility] Laboratory - Hematology and Cell countsOrdered By: Sobeida Cantu on 10-25-2023 Erythrocyte distribution width (RBC) [Entitic vol] 42.5 fL 35.1-43.9 [facility] Erythrocyte distribution width (RBC) [Ratio] 13.1 % 11.6-14.6 [facility] Immature granulocytes/100 WBC (Bld) 0.300 % 0.0-0.9 [facility] Comment on above: IG% - Immature Granu locytes (promyelocytes, myelocytes and metamyelocytes) > 1% indicates that a LEFT SHIFT is Present. MCH (RBC) [Entitic mass] 30.1 pg 27.0-32.0 [facility] Nucleated RBC/100 WBC (Bld) [Ratio] 0 % 0-5 [facility] MCHC Auto (RBC) [Mass/Vol]Or dered By: Sobeida Cantu on 10-25-2023 MCHC (RBC) [Mass/Vol] 33.5 g/dL 32-36 [facility] No Panel InformationOrdered By: Sobeida Cantu on 10-25-2023 Hepatitis B Surface Antigen Non-Reactive Nonreactive [facility] Hepatitis C Antibody Non-Reactive Nonreactive [facility] Comment on above: Non Reactive: < 0.8 Equivocal: >/= 0.8 to < 1.0 Reactive: >/= 1.0The CDC recommends that a reactive/equivocal HCV antibody result be followed up by the HCV Nucleic Acid Amplificationtest (694044) Rubella IgG Antibody Reactive Nonreactive [facility] Comment on above: Antibody Results Int erpretation of Immune Status Non Reactive Presumed Non-Immune Equivocal Equivocal Reactive Presumed Immune Platelets bldOrdered By: Radha Cantu on 10-25-2023 Platelets (Bld) [#/Vol] 233 10*3/uL 150-450 [facility] Serum Treponema species anti body detectionOrdered By: Sobeida Cantu on 10-25-2023 Treponema sp Ab Ql (S) Non-Reactive [facility] Chlamydia trachomatis rRNA d etection by probe and target amplification methodOrdered By: Sobeida Cantu on 10-24-2023 C. trachomatis rRNA CLIFTON+probe Ql (Unsp spec) Negative Negative [facility] Culture, urineOrdered By: Fariha Cantu on 10-24-2023 Bacteria identified Cx Nom (U) Presumptive Lactobacillus sp. [facility] Bacteria identified Cx Nom (U) Presumptive Lactobacillus sp. [facility] Laboratory - Drug toxicology Ordered By: Sobeida Cantu on 10-24-2023 Amphetamines Ql (U) Negative <1000 ng/mL [facility] Benzodiazepines Ql (U) Negative < 200 ng/mL [facility] Cannabinoids Screen Ql (U) Negative < 50 ng/mL [facility] Cocaine Ql (U) Negative < 300 ng/mL [facility] Opiates Ql (U) Negative < 300 ng/mL [facility] Laboratory - Microbiology an d Antimicrobial susceptibilityOrdered By: Sobeida Cantu on 10-24-2023 N. gonorrhoeae DNA CLIFTON+probe Ql (Unsp spec) Negative Negative [facility] Comment on above: Performed at: =Abby yang [address] [place] [id number] Director: Porsha Yuan MD, Phone: [phone] No Panel InformationOrdered By: Sobeida Cantu on 10-24-2023 MDMA (Ecstasy) Screen Negative < 500 ng/mL [facility] Urine Barbiturates Screen Negative < 200 ng/mL [facility] Urine Drug Screen Comment [facility] Comment on above: CONFIRMATORY TESTING FOR ALL POSITIVE URINE DRUG SCREENRESULTS WILL ONLY BE SENT OUT UPON PHYSICIAN ORDER. VISTA Urine Drug Screen methods provide only preliminaryanalytical test results. A more specific alternate chemicalmethod must be used in order to obtain a confirmedanalytical result. Gas chromatography/mass spectrometery(GC/MS) is the preferred confirmatory method. Clinicalconsideration and professional judgement should be appliedto any drug of abuse test result, particularly whenpreliminary positive results are used. URINE TCA TESTING MUST BE ORDERED SEPARATELY. USE TESTMNEMONIC: [facility] Urine Methadone Screen Negative < 300 ng/mL [facility] Urine phencyclidine (PCP) de tectionOrdered By: Sobeida Cantu on 10-24-2023 Phencyclidine Ql (U) Negative < 25 ng/mL [facility] Serum or plasma choriogonado tropin detectionOrdered By: Coco Kerr on 10-04-2023 HCG ( test) [place]l [address] mIU/mL <4 [facility] Comment on above: hCG levels with Gest ational AgeGestational Age hCG mIU/mL (IU/L)0.2 - 1 week 5 - 501-2 weeks 50 - 5002-3 weeks 100 - 37633-5 weeks 500 - 225892-0 weeks 1000 - 845962-7 weeks 50155 - 100,0006-8 weeks 76078 - 200,0002-3 months 46646 - 100,000 Absolute lymphocyte counton 08-14-2022 Lymphocytes Auto (Unsp spec) [#/Vol] 1.80 10*3/uL 0.83-4.51 [facility] Work Phone: Basophil percentageon 2021 Basophils/100 WBC (Bld) 0.6 % 0-1 [facility] Work Phone: Eosinophils/100 WBC (Bld) 1.6 % 0-5 [facility] Work Phone: Neutrophils (Bld) [#/Vol] 3.9 10*3/uL 2.0-7.7 [facility] Work Phone: Neutrophils/100 WBC (Bld) 61.8 % 47-70 [facility] Work Phone: WBC (Bld) [#/Vol] 6.2 10*3/uL 4.4-11.0 [facility] Work Phone: Blood erythrocytes count (nu mber/volume)on 08-14-2022 RBC (Bld) [#/Vol] 4.19 10*6/uL 4.2-5.4 [facility]: Blood hemoglobin measurement (mass/volume)on 08-14-2022 Hemoglobin (Bld) [Mass/Vol] 10.8 g/dL 12.0-15.0 [facility] Work Phone: Blood lymphocytes/100 leukoc yteson 08-14-2022 Lymphocytes/100 WBC (Bld) 28.8 % 19-41 [facility] Work Phone: Blood manual differential co mment interpretation (narrative result)on 08-14-2022 Manual differential comment Judd (Bld) [Interp] SCANNED [facility] Work Phone: Blood monocytes/100 leukocyt eson 08-14-2022 Monocytes/100 WBC (Bld) 6.7 % 0-10 [facility] Work Phone: Blood platelet mean volumeon 08-14-2022 Platelet mean volume (Bld) [Entitic vol] 10.6 fL 6.2-12.0 [facility] Work Phone: Determination of erythrocyte mean corpuscular volume (MCV)on 08-14-2022 MCV (RBC) [Entitic vol] 82.8 fL 81-99 [facility] Work Phone: Hematocrit Auto (Bld) [Volum e fraction]on 08-14-2022 Hematocrit (Bld) [Volume fraction] 34.7 % 37-47 [facility] Work Phone: Laboratory - Hematology and Cell countson 08-14-2022 Anisocytosis Ql (Bld) 2+ [facility] Work [facility]: Erythrocyte distribution width (RBC) [Entitic vol] 62.5 fL 35.1-43.9 [facility] Work Phone: Erythrocyte distribution width (RBC) [Ratio] 21.6 % 11.6-14.6 [facility] Work Phone: Immature granulocytes/100 WBC (Bld) 0.500 % 0.0-0.9 [facility] Work Phone: Comment on above: IG% - Immature Granu locytes (promyelocytes, myelocytes and metamyelocytes) > 1% indicates that a LEFT SHIFT is Present. MCH (RBC) [Entitic mass] 25.8 pg 27.0-32.0 [facility] Work Phone: Nucleated RBC/100 WBC (Bld) [Ratio] 0 % 0-5 [facility] Work Phone: MCHC Auto (RBC) [Mass/Vol]on 08-14-2022 MCHC (RBC) [Mass/Vol] 31.1 g/dL 32-36 [facility] Work Phone: Macrocytes detectionon 08-14 Macrocytes Ql (Bld) 1+ [facility] Work Phone: Platelets bldon 08-14-2022 Platelets (Bld) [#/Vol] 213 10*3/uL 150-450 [facility] Work Phone: Thin prep Papanicolaou smear with manual screeningon 08-14-2022 Thin prep Papanicolaou smear with manual screening 1+ [facility] Work Phone: Laboratory - Chemistry and C hemistry - challengeon 08-08-2022 Glucose Ql (U) Negative [facility] Work Phone: Laboratory - Urinalysison Protein Ql (U) Negative [facility] Work Phone: Absolute lymphocyte counton 07-24-2022 Lymphocytes Auto (Unsp spec) [#/Vol] 1.65 10*3/uL 0.83-4.51 [facility] Work Phone: Basophil percentageon 2021 Basophils/100 WBC (Bld) 0.5 % 0-1 [facility] Work Phone: Bilirubin [Mass/Vol] 0.30 mg/dL 0.20-1.00 [facility] Work Phone: Comment on above: For patients on eltr ombopag therapy, use of Dimension [place] TBIL is not recommended. Chloride [Moles/Vol] 106 mmol/L 98-107 [facility] Work Phone: Eosinophils/100 WBC (Bld) 0.9 % 0-5 [facility] Work Phone: Glucose [Mass/Vol] 74 mg/dL 74-106 [facility] Work Phone: Neutrophils (Bld) [#/Vol] 5.2 10*3/uL 2.0-7.7 [facility] Work Phone: Neutrophils/100 WBC (Bld) 67.8 % 47-70 [facility] Work Phone: Potassium [Moles/Vol] 3.6 mmol/L 3.5-5.1 [facility] Work Phone: Protein [Mass/Vol] 6.9 g/dL 6.4-8.2 [facility] Work Phone: Sodium [Moles/Vol] 137 mmol/L 136-145 [facility] Work Phone: WBC (Bld) [#/Vol] 7.7 10*3/uL 4.4-11.0 [facility] Work Phone: Blood erythrocytes count (nu mber/volume)on 07-24-2022 RBC (Bld) [#/Vol] 3.94 10*6/uL 4.2-5.4 [facility] Work Phone: Blood hemoglobin measurement (mass/volume)on 07-24-2022 Hemoglobin (Bld) [Mass/Vol] 9.7 g/dL 12.0-15.0 [facility] Work Phone: Blood lymphocytes/100 leukoc yteson 07-24-2022 Lymphocytes/100 WBC (Bld) 21.5 % 19-41 [facility] Work Phone: Blood monocytes/100 leukocyt eson 07-24-2022 Monocytes/100 WBC (Bld) 7.9 % 0-10 [facility] Work Phone: Blood platelet mean volumeon 07-24-2022 Platelet mean volume (Bld) [Entitic vol] 9.9 fL 6.2-12.0 [facility] Work Phone: Determination of erythrocyte mean corpuscular volume (MCV)on 07-24-2022 MCV (RBC) [Entitic vol] 80.2 fL 81-99 [facility] Work Phone: Dilute Tavo's viper venom timeon 07-24-2022 dRVVT Coag (PPP) [Time] 33.2 s 0.0-47.0 [facility] Work Phone: Hematocrit Auto (Bld) [Volum e fraction]on 07-24-2022 Hematocrit (Bld) [Volume fraction] 31.6 % 37-47 [facility] Work Phone: Laboratory - Chemistry and C hemistry - challengeon 07-24-2022 Glucose Ql (U) Negative [facility] Work Phone: ALP [Catalytic activity/Vol] 108 U/L 45-117 [facility] Work Phone: ALT [Catalytic activity/Vol] 25 U/L 13-56 [facility] Work Phone: CO2 [Moles/Vol] 22.0 mmol/L 21.0-32.0 [facility] Work Phone: Globulin (S) [Mass/Vol] 4.1 g/dL 2.2-4.2 [facility] Work Phone: Lipase [Catalytic activity/Vol] 236 U/L 73-393 [facility] Work Phone: Urea nitrogen/Creatinine [Mass ratio] 14.1 mg/mg 10-20 [facility] Work Phone: Laboratory - Hematology and Cell countson 07-24-2022 Erythrocyte distribution width (RBC) [Entitic vol] 42.4 fL 35.1-43.9 [facility] Work Phone: Erythrocyte distribution width (RBC) [Ratio] 14.6 % 11.6-14.6 [facility] Work Phone: Immature granulocytes/100 WBC (Bld) 1.400 % 0.0-0.9 [facility] Work Phone: Comment on above: IG% - Immature Granu locytes (promyelocytes, myelocytes and metamyelocytes) > 1% indicates that a LEFT SHIFT is Present. MCH (RBC) [Entitic mass] 24.6 pg 27.0-32.0 [facility] Work Phone: Nucleated RBC/100 WBC (Bld) [Ratio] 0 % 0-5 [facility] Work Phone: Laboratory - Urinalysison Protein Ql (U) Negative [facility] Work Phone: MCHC Auto (RBC) [Mass/Vol]on 07-24-2022 MCHC (RBC) [Mass/Vol] 30.7 g/dL 32-36 [facility] Work Phone: No Panel Informationon 07-24 Anti-Cardiolipin IgM Antibody 13 MPL U/mL 0-12 [facility] Work Phone: Comment on above: Negative: <13 Indete rminate: 13 - 20 Low-Med Positive: >20 - 80 High Positive: >80 Hepatitis A IgM Antibody Negative Negative [facility] Work Phone: Hepatitis B Core IgM Antibody Negative Negative [facility] Work Phone: Hepatitis C Antibody (EIA) <0.1 s/co ratio 0.0-0.9 [facility] Work Phone: Hepatitis C Antibody Comment Comment . [facility] Work Phone: Comment on above: NegativeNot infected with HCV, unless recent infection issuspected or other evidence exists to indicate HCVinfection. Estimated GFR (MDRD) Amer 195 mL/min >60 [facility] Work Phone: Comment on above: GFR Calc Estimated GFR (MDRD) Non-Af Amer 161 mL/min >60 [facility] Work Phone: Comment on above: Non- GFR Calc Platelets bldon 07-24-2022 Platelets (Bld) [#/Vol] 221 10*3/uL 150-450 [facility] Work Phone: Serum beta 2 glycoprotein 1 IgA antibody detectionon 07-24-2022 Beta 2 glycoprotein 1 IgA Ql (S) <9 0-25 [facility] Work Phone: Comment on above: Result Units: GPI Ig A unitsThe reference interval reflects a 3SD or 99th percentileinterval, which is thought to represent a potentiallyclinically significant result in accordance with theInternational Consensus Statement on the classificationcriteria for definitive antiphospholipid syndrome (APS). JThromb Haem 2006;4:295-306. Serum beta 2 glycoprotein 1 IgG antibody detectionon 07-24-2022 Beta 2 glycoprotein 1 IgG Ql (S) <9 0-20 [facility] Work Phone: Comment on above: Result Units: GPI Ig G unitsThe reference interval reflects a 3SD or 99th percentileinterval, which is thought to represent a potentiallyclinically significant result in accordance with theInternational Consensus Statement on the classificationcriteria for definitive antiphospholipid syndrome (APS). JThromb Haem 2006;4:295-306. Serum beta 2 glycoprotein 1 IgM antibody detectionon 07-24-2022 Beta 2 glycoprotein 1 IgM Ql (S) <9 0-32 [facility] Work Phone: Comment on above: Result Units: GPI Ig M unitsThe reference interval reflects a 3SD or 99th percentileinterval, which is thought to represent a potentiallyclinically significant result in accordance with theInternational Consensus Statement on the classificationcriteria for definitive antiphospholipid syndrome (APS). JThromb Haem 2006;4:295-306.Performed at: - [facility] [address] [place], [place] [id number] Director: Gricelda Granados MD, Phone: [phone] at: [facility] [id number] [place], [place] [id number] Director: Rohith Fernandez PhD, Phone: [phone] Serum cardiolipin IgG antibo dy assay by immunoassay (units/volume)on 07-24-2022 Cardiolipin IgG IA Qn (S) < 9 GPL U/mL 0-14 [facility] Work Phone: Comment on above: Negative: <15 Indete rminate: 15 - 20 Low-Med Positive: >20 - 80 High Positive: >80 Serum or plasma albumin dean urement (mass/volume)on 07-24-2022 Albumin [Mass/Vol] 2.8 g/dL 3.2-5.0 [facility] Work Phone: Serum or plasma albumin/glob ulin mass ratioon 07-24-2022 Albumin/Globulin [Mass ratio] 0.7 {ratio} 0.9-2.4 [facility] Work Phone: Serum or plasma calcium dean urement (mass/volume)on 07-24-2022 Calcium [Mass/Vol] 8.7 mg/dL 8.5-10.1 [facility] Work Phone: Serum or plasma cardiolipin IgA antibody assay (units/volume)on 07-24-2022 Cardiolipin IgA Qn < 9 APL U/mL 0-11 [facility] Work Phone: Comment on above: Negative: <12 Indete rminate: 12 - 20 Low-Med Positive: >20 - 80 High Positive: >80 Serum or plasma creatinine m easurement (mass/volume)on 07-24-2022 Creatinine [Mass/Vol] 0.50 mg/dL 0.55-1.02 [facility] Work Phone: Comment on above: The validity of the calculated GFR & GFRAA in patients over 70 years has not been determined. Clinical correlation is essential. Serum or plasma hepatitis B virus surface antigen detection by immunoassayon 07-24-2022 HBV surface Ag IA Ql Negative Negative [facility] Work Phone: Serum or plasma urea nitroge n measurement (mass/volume)on 07-24-2022 Urea nitrogen [Mass/Vol] 7 mg/dL 7-18 [facility] Work Phone: Thin prep Papanicolaou smear with manual screeningon 07-24-2022 Thin prep Papanicolaou smear with manual screening 29.3 sec 0.0-47.6 [facility] Work Phone: Thin prep Papanicolaou smear with manual screening 1.19 Ratio 0.00-1.34 [facility] Work Phone: Thin prep Papanicolaou smear with manual screening 31.4 sec 0.0-51.9 [facility] Work Phone: Thin prep Papanicolaou smear with manual screening Comment: . [facility] Work Phone: Comment on above: No lupus anticoagula nt was detected. Thin prep Papanicolaou smear with manual screening 41 U/L 15-37 [facility] Work Phone: Thin prep Papanicolaou smear with manual screening 9 5-15 [facility] Work Phone: Thrombin time in platelet po or plasmaon 07-24-2022 Thrombin time Coag (PPP) [Time] 16.1 sec 0.0-23.0 [facility] Work Phone: Laboratory - Chemistry and C hemistry - challengeon 07-17-2022 Glucose Ql (U) Negative [facility] Work Phone: Laboratory - Urinalysison Protein Ql (U) Negative [facility] Work Phone: Laboratory - Chemistry and C hemistry - challengeon 07-10-2022 Glucose Ql (U) Negative [facility] Work Phone: Laboratory - Urinalysison Protein Ql (U) Negative [facility] Work Phone: Absolute lymphocyte counton 07-03-2022 Lymphocytes Auto (Unsp spec) [#/Vol] 1.30 10*3/uL 0.83-4.51 [facility] Work Phone: Basophil percentageon 2021 Basophils/100 WBC (Bld) 0.2 % 0-1 [facility] Work Phone: Bilirubin [Mass/Vol] 0.50 mg/dL 0.20-1.00 [facility] Work Phone: Comment on above: For patients on eltr ombopag therapy, use of Dimension [place] TBIL is not recommended. Chloride [Moles/Vol] 104 mmol/L 98-107 [facility] Work Phone: Eosinophils/100 WBC (Bld) 0.8 % 0-5 [facility] Work Phone: Glucose [Mass/Vol] 78 mg/dL 74-106 [facility] Work Phone: Neutrophils (Bld) [#/Vol] 3.2 10*3/uL 2.0-7.7 [facility] Work Phone: Neutrophils/100 WBC (Bld) 65.5 % 47-70 [facility] Work Phone: Potassium [Moles/Vol] 3.8 mmol/L 3.5-5.1 [facility] Work Phone: Protein [Mass/Vol] 6.7 g/dL 6.4-8.2 [facility] Work Phone: Sodium [Moles/Vol] 139 mmol/L 136-145 [facility] Work Phone: WBC (Bld) [#/Vol] 4.9 10*3/uL 4.4-11.0 [facility] Work Phone: Blood erythrocytes count (nu mber/volume)on 07-03-2022 RBC (Bld) [#/Vol] 4.03 10*6/uL 4.2-5.4 [facility] Work Phone: Blood hemoglobin measurement (mass/volume)on 07-03-2022 Hemoglobin (Bld) [Mass/Vol] 10.2 g/dL 12.0-15.0 [facility] Work Phone: Blood lymphocytes/100 leukoc yteson 07-03-2022 Lymphocytes/100 WBC (Bld) 26.4 % 19-41 [facility] Work Phone: Blood monocytes/100 leukocyt eson 07-03-2022 Monocytes/100 WBC (Bld) 5.7 % 0-10 [facility] Work Phone: Blood platelet mean volumeon 07-03-2022 Platelet mean volume (Bld) [Entitic vol] 9.6 fL 6.2-12.0 [facility] Work Phone: Determination of erythrocyte mean corpuscular volume (MCV)on 07-03-2022 MCV (RBC) [Entitic vol] 81.6 fL 81-99 [facility] Work Phone: Hematocrit Auto (Bld) [Volum e fraction]on 07-03-2022 Hematocrit (Bld) [Volume fraction] 32.9 % 37-47 [facility] Work Phone: Laboratory - Chemistry and C hemistry - challengeon 07-03-2022 Glucose Ql (U) Negative [facility] Work Phone: ALP [Catalytic activity/Vol] 93 U/L 45-117 [facility] Work Phone: ALT [Catalytic activity/Vol] 15 U/L 13-56 [facility] Work Phone: CO2 [Moles/Vol] 23.0 mmol/L 21.0-32.0 [facility] Work Phone: Globulin (S) [Mass/Vol] 4.0 g/dL 2.2-4.2 [facility] Work Phone: Urea nitrogen/Creatinine [Mass ratio] 11.8 mg/mg 10-20 [facility] Work Phone: Laboratory - Hematology and Cell countson 07-03-2022 Erythrocyte distribution width (RBC) [Entitic vol] 41.4 fL 35.1-43.9 [facility] Work Phone: Erythrocyte distribution width (RBC) [Ratio] 14.3 % 11.6-14.6 [facility] Work Phone: Immature granulocytes/100 WBC (Bld) 1.400 % 0.0-0.9 [facility] Work Phone: Comment on above: IG% - Immature Granu locytes (promyelocytes, myelocytes and metamyelocytes) > 1% indicates that a LEFT SHIFT is Present. MCH (RBC) [Entitic mass] 25.3 pg 27.0-32.0 [facility] Work Phone: Nucleated RBC/100 WBC (Bld) [Ratio] 0 % 0-5 [facility] Work Phone: Laboratory - Urinalysison Protein Ql (U) Negative [facility] Work Phone: MCHC Auto (RBC) [Mass/Vol]on 07-03-2022 MCHC (RBC) [Mass/Vol] 31.0 g/dL 32-36 [facility] Work Phone: No Panel Informationon 07-03 Estimated GFR (MDRD) Amer 159 mL/min >60 [facility] Work Phone: Comment on above: GFR Calc Estimated GFR (MDRD) Non-Af Amer 131 mL/min >60 [facility] Work Phone: Comment on above: Non- GFR Calc Miscellaneous Test See comment [facility] Work Phone: Comment on above: TEST RESULT LIMITSBi le Acids 4.5 umol/L 0.0-10.0 TESTING PERFORMED AT [facility]. ORIGINAL REPORT ON FILE IN LAB CONTAINS ADDITIONAL TEST SITE INFORMATION. Platelets bldon 07-03-2022 Platelets (Bld) [#/Vol] 216 10*3/uL 150-450 [facility] Work Phone: Serum or plasma albumin dean urement (mass/volume)on 07-03-2022 Albumin [Mass/Vol] 2.7 g/dL 3.2-5.0 [facility] Work Phone: Serum or plasma albumin/glob ulin mass ratioon 07-03-2022 Albumin/Globulin [Mass ratio] 0.7 {ratio} 0.9-2.4 [facility] Work Phone: Serum or plasma calcium dean urement (mass/volume)on 07-03-2022 Calcium [Mass/Vol] 8.6 mg/dL 8.5-10.1 [facility] Work Phone: Serum or plasma creatinine m easurement (mass/volume)on 07-03-2022 Creatinine [Mass/Vol] 0.59 mg/dL 0.55-1.02 [facility] Work Phone: Comment on above: The validity of the calculated GFR & GFRAA in patients over 70 years has not been determined. Clinical correlation is essential. Serum or plasma urea nitroge n measurement (mass/volume)on 07-03-2022 Urea nitrogen [Mass/Vol] 7 mg/dL 7-18 [facility] Work Phone: Thin prep Papanicolaou smear with manual screeningon 07-03-2022 Thin prep Papanicolaou smear with manual screening 40 U/L 15-37 [facility] Work Phone: Thin prep Papanicolaou smear with manual screening 12 5-15 [facility] Work Phone: Absolute lymphocyte counton 06-05-2022 Lymphocytes Auto (Unsp spec) [#/Vol] 1.56 10*3/uL 0.83-4.51 [facility] Work Phone: Basophil percentageon 2021 Basophils/100 WBC (Bld) 0.4 % 0-1 [facility] Work Phone: Eosinophils/100 WBC (Bld) 1.5 % 0-5 [facility] Work Phone: Neutrophils (Bld) [#/Vol] 5.0 10*3/uL 2.0-7.7 [facility] Work Phone: Neutrophils/100 WBC (Bld) 69.6 % 47-70 [facility] Work Phone: WBC (Bld) [#/Vol] 7.2 10*3/uL 4.4-11.0 [facility] Work Phone: [phone] Blood erythrocytes count (nu mber/volume)on 06-05-2022 RBC (Bld) [#/Vol] 3.71 10*6/uL 4.2-5.4 [facility] Work Phone: [phone] Blood hemoglobin measurement (mass/volume)on 06-05-2022 Hemoglobin (Bld) [Mass/Vol] 10.1 g/dL 12.0-15.0 [facility] Work Phone: Blood lymphocytes/100 leukoc yteson 06-05-2022 Lymphocytes/100 WBC (Bld) 21.7 % 19-41 [facility] Work Phone: Blood monocytes/100 leukocyt eson 06-05-2022 Monocytes/100 WBC (Bld) 6.0 % 0-10 [facility] Work Phone: Blood platelet mean volumeon 06-05-2022 Platelet mean volume (Bld) [Entitic vol] 10.1 fL 6.2-12.0 [facility] Work Phone: [phone] Determination of erythrocyte mean corpuscular volume (MCV)on 06-05-2022 MCV (RBC) [Entitic vol] 83.0 fL 81-99 [facility] Work Phone: Gestational diabetes screen 1-hour screen with 50g oral glucose loadon 06-05-2022 Glucose 1 Hr post 50 g glucose PO [Mass/Vol] 98 mg/dL 70-140 [facility] Work Phone: Hematocrit Auto (Bld) [Volum e fraction]on 06-05-2022 Hematocrit (Bld) [Volume fraction] 30.8 % 37-47 [facility] Work Phone: Laboratory - Chemistry and C hemistry - challengeon 06-05-2022 Glucose Ql (U) Negative [facility] Work Phone: Laboratory - Hematology and Cell countson 06-05-2022 Erythrocyte distribution width (RBC) [Entitic vol] 39.7 fL 35.1-43.9 [facility] Work Phone: Erythrocyte distribution width (RBC) [Ratio] 13.2 % 11.6-14.6 [facility] Work Phone: Immature granulocytes/100 WBC (Bld) 0.800 % 0.0-0.9 [facility] Work Phone: Comment on above: IG% - Immature Granu locytes (promyelocytes, myelocytes and metamyelocytes) > 1% indicates that a LEFT SHIFT is Present. MCH (RBC) [Entitic mass] 27.2 pg 27.0-32.0 [facility] Work Phone: Nucleated RBC/100 WBC (Bld) [Ratio] 0 % 0-5 [facility] Work Phone: Laboratory - Urinalysison Protein Ql (U) Negative [facility] Work Phone: MCHC Auto (RBC) [Mass/Vol]on 06-05-2022 MCHC (RBC) [Mass/Vol] 32.8 g/dL 32-36 [facility] Work Phone: Platelets bldon 06-05-2022 Platelets (Bld) [#/Vol] 224 10*3/uL 150-450 [facility] Work Phone: Laboratory - Drug toxicology on 05-15-2022 Amphetamines Ql (U) Negative <1000 ng/mL [facility] Work Phone: Benzodiazepines Ql (U) Negative < 200 ng/mL [facility] Work Phone: Cannabinoids Screen Ql (U) Negative < 50 ng/mL [facility] Work Phone: Cocaine Ql (U) Negative < 300 ng/mL [facility] Work Phone: Opiates Ql (U) Negative < 300 ng/mL [facility] Work Phone: No Panel Informationon 05-15 MDMA (Ecstasy) Screen Negative < 500 ng/mL [facility] Work Phone: Urine Barbiturates Screen Negative < 200 ng/mL [facility] Work Phone: Urine Drug Screen Comment [facility] Work Phone: Comment on above: CONFIRMATORY TESTING FOR ALL POSITIVE URINE DRUG SCREENRESULTS WILL ONLY BE SENT OUT UPON PHYSICIAN ORDER. [facility]ISTA Urine Drug Screen methods provide only preliminaryanalytical test results. A more specific alternate chemicalmethod must be used in order to obtain a confirmedanalytical result. Gas chromatography/mass spectrometery(GC/MS) is the preferred confirmatory method. Clinicalconsideration and professional judgement should be appliedto any drug of abuse test result, particularly whenpreliminary positive results are used. URINE TCA TESTING MUST BE ORDERED SEPARATELY. USE TESTMNEMONIC: [facility] Urine Methadone Screen Negative < 300 ng/mL [facility] Work Phone: Urine phencyclidine (PCP) de tectionon 05-15-2022 Phencyclidine Ql (U) Negative < 25 ng/mL [facility] Work Phone: Laboratory - Chemistry and C hemistry - challengeon 04-17-2022 Glucose Ql (U) Negative [facility] Work Phone: Laboratory - Urinalysison Protein Ql (U) Negative [facility] Work Phone: Office Visit (Internal Medic ine)on 04-10-2022 Follow-up visit Diagnoses/Problems Assessed Eyelid dermatitis, allergic/contact (373.32) (H01.119) Orders Eyelid dermatitis, allergic/contact Start: hydrOXYzine HCl - 25 MG Oral Tablet; TAKE 1 TABLET 3 TO 4 TIMES DAILY NEEDED FOR ITCHING Rx By: Jesus Man; Dispense: 5 Days ; #:20 Tablet; Refill: 0;For: Eyelid dermatitis, allergic/contact; NATALIE = N; Verified Transmission to [address]; Last Updated By: [email or web address]; 04/10/2022 3:51:00 PM Start: Triamcinolone Acetonide 0.5 % External Cream; APPLY SPARINGLY AND MASSAGE IN TWICE DAILY Rx By: Jesus Man; Dispense: 7 Days ; #:1 X 15 GM Tube; Refill: 0;For: Eyelid dermatitis, allergic/contact; NATALIE = N; Verified Transmission to [facility] [address]; Last Updated By: [email or web address]; 04/10/2022 3:51:00 PM Patient Discussion/Summary Bilateral eyelid dermatitis: Atarax and topical Kenalog. Patient advised that topical Kenalog could burn the eyes even through the eyelids. Patient advised to avoid the eyes. Standard of care would be oral prednisone however, patient is . Patient understands this. Follow-up as needed Chief Complaint Patient here today to get established as a new patient. Patient states it has been over 5 years since last seen by a PCP. Patient is [address] weeks [address] Jamar Malave in [place]. Patient is having bilateral upper eye lid irritation with itching x 3-4 months. Patient states symptoms noticed after she used false eyelashes and eyelash glue. Patient states since that time she has stopped using make-up and fake eyelashes with no change in eye irritation. History of Present IllnessPatient presents to establish care. Patient has no chronic illnesses and takes no daily medicines. Patient is currently 20 weeks and is following with OB in [place]. Acutely, patient reports eyelid irritation. Patient reports erythema, irritation, mild tenderness, and pruritus that has been present for months after using glue to affix fake eyelashes. Patient has attempted moisturizing cream without success. No bleeding or drainage from the eyelids. Has stopped using all eye cosmetic products and has not used the adhesive since that time. Review of Systems Constitutional: no fever. Eyes: as noted in HPI. Cardiovascular: no chest pain. Respiratory: no cough. Gastrointestinal: no change in bowel habits. Genitourinary: no dysuria. Musculoskeletal: no arthralgias. Skin: as noted in HPI. Neurological: no headaches. Past Medical History Problems History of irregular heartbeat (V12.59) (Z86.79) History of spontaneous (V13.29) (Z87.59) 10/06/2017 History of vaginal delivery (V13.29) 08/12/2018; 40 WEEKS; FEMALE; 8LBS History of Menarche (V21.8) AGE 15 History of Missed menses (626.4) (N92.6) History of Nausea and vomiting in (643.90) (O21.9) History of Secondary amenorrhea (626.0) (N91.1) Surgical History Problems History of Dilation and curettage History of Ovarian cystectomy 2019 Family History Mother Family history of Elevated cholesterol with high triglycerides Family history of malignant neoplasm of thyroid (V16.8) (Z80.8) Social History Problems Does not use illicit drugs (V49.89) (Z78.9) Never smoker No alcohol use Patient ingests cola containing caffeine (V49.89) (Z78.9) Sexually active Allergies Medication No Known Drug Allergies Recorded By: Jenifer Gross; 01/07/2020 11:15:55 AM Current Meds Medication NameInstruction One Daily 27-0.8 MG Oral TabletTAKE 1 TABLET DAILY DIRECTED. Vitals Vital Signs Recorded: 10Apr2022 03:36PM Psetcyqkjad33.3 F Heart Rate94 Xvdbxnii701 Ndaftuous42 Height5 ft 2 in Bliicw822 lb 8.0 oz BMI Zocamlsbaz52.41 kg/m2 BSA Calculated1.55 Tobacco Useb) No PHQ-2 #1. Over the last 2 weeks have you felt down, depressed or hopeless? (If yes, answer PHQ-9 below)No Fall Screeninga) No falls within the last year O2 Sazqphunmn26, RA Physical Exam Constitutional General appearance: Alert and in no acute distress. Eyes Inspection of eyes: Sclera and conjunctiva were normal. Pupil exam: Pupils were equal in size. Extraocular movements were intact. Lateral upper eyelids with erythema and inflammation that extends to the lateral canthus bilaterally; no cracking or plaques. Ears, Nose, Mouth, and Throat Ears: Auricles: Normal. Otoscopic examination: Tympanic membranes: Normal with no congestion and no discharge. Otic Canals: Normal without tenderness, congestion or discharge. Oropharynx: Normal with moist mucus membranes, no congestion. Tonsils: Normal no follicles. Pulmonary Respiratory assessment: No respiratory distress, normal respiratory rhythm and effort. Auscultation of Lungs: Clear bilateral breath sounds. Cardiovascular Auscultation of heart: Apical pulse normal, heart rate and rhythm normal, normal S1 and S2, no murmurs and no pericardial rub. Lymphatic Palpation o (more content not included)... Normal Moblication Tobacco Screening.on 022 Adult depression screening assessment No [facility] Work Phone: Fall risk assessment a) No falls within the last year [facility] Work Phone: Tobacco use status [facility] b) No [facility] Work Phone: Laboratory - Chemistry and C hemistry - challengeon 02-24-2022 Glucose Ql (U) Negative [facility] Work Phone: Laboratory - Urinalysison Protein Ql (U) Negative [facility] Work Phone: Absolute lymphocyte counton 01-27-2022 Lymphocytes Auto (Unsp spec) [#/Vol] 1.57 10*3/uL 0.83-4.51 [facility] Work Phone: Basophil percentageon 2021 Basophils/100 WBC (Bld) 0.5 % 0-1 [facility] Work Phone: Eosinophils/100 WBC (Bld) 0.5 % 0-5 [facility] Work Phone: Neutrophils (Bld) [#/Vol] 4.6 10*3/uL 2.0-7.7 [facility] Work Phone: Neutrophils/100 WBC (Bld) 69.0 % 47-70 [facility] Work Phone: WBC (Bld) [#/Vol] 6.7 10*3/uL 4.4-11.0 [place] [facility] Work Phone: Blood erythrocytes count (nu mber/volume)on 01-27-2022 RBC (Bld) [#/Vol] 4.59 10*6/uL 4.2-5.4 [place] [facility] Work Phone: Blood hemoglobin measurement (mass/volume)on 01-27-2022 Hemoglobin (Bld) [Mass/Vol] 12.6 g/dL 12.0-15.0 [facility] Work Phone: Blood lymphocytes/100 leukoc yteson 01-27-2022 Lymphocytes/100 WBC (Bld) 23.6 % 19-41 [facility] Work Phone: Blood monocytes/100 leukocyt eson 01-27-2022 Monocytes/100 WBC (Bld) 6.2 % 0-10 [facility] Work Phone: Blood platelet mean volumeon 01-27-2022 Platelet mean volume (Bld) [Entitic vol] 10.0 fL 6.2-12.0 [facility] Work Phone: Cervical or vagninal specime n microscopic examination by cytology stain (reported ason 01-27-2022 Cytology report Cyto stain Doc (Cvx/Vag) Comment . [facility] Work Phone: Comment on above: The Pap smear is a s creening test designed to aid in thedetection of premalignant and malignant conditions of theuterine cervix. It is not a diagnostic procedure andshould not be used as the sole means of detecting cervicalcancer. Both false-positive and false-negative reports dooccur. Chlamydia trachomatis rRNA d etection by probe and target amplification methodon 01-27-2022 C. trachomatis rRNA [facility]+probe Ql (Unsp spec) Negative Negative [facility] Work Phone: Culture, urineon 01-27-2022 Bacteria identified Cx Nom (U) Presumptive Lactobacillus sp. [facility] Work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 [facility] Daily Progress Note-Cardiova laular Medicineon 06-12-2019 Daily Progress Note-Cardiovascular Medicine Service: Cardiovascular Medicine Subjective Data: LISSETT ARNETT is a 23 year old Female who is Hospital Day # 3. Additional Information: No acute overnight events. Pt feeling well today, tolerated breakfast without N/V or abd pain. Explained to her the diagnosis made on ECHO. She understands, has no questions. Stressed the importance of f/u with Dr. Thomas at [facility] and drug cessation. She has no acute complaints today. Denies light-headedness, CP, palpitations, SOB, abd pain, N/V/D currently. Objective Data: Objective Information: T PRBPSpO2 Value36.41609867/6398% Date/Time06/12 8: 8: 8: 8: 8:00 Range(36.4C - 37C ) (59 - 75 ) (18 - 18 ) (98 - 111 )/ (54 - 64 ) (94% - 99% ) Highest temp of 37 C was recorded at 06/11 20:00 Pain reported at 06/12 9:37: 0 = None Physical Exam: Constitutional: Alert, awake, in no acute distress Eyes: EOMI, PERRLA, clear sclera Head/Neck: Normocephalic, atraumatic, neck supple and non-tender, trachea midline, no thyroid masses Respiratory/Thorax: CTAB, no wheezes, crackles, or stridor, no respiratory distress Cardiovascular: Rhythm regular, rate regular, no murmurs, rubs, or gallops Gastrointestinal: Soft, non-tender, non-distended, no guarding, no bruising or hernias Genitourinary: Deferred Musculoskeletal: Equal strength bilaterally, moves all four extremities spontaneously, ROM intact Extremities: No peripheral edema, no cyanosis or clubbing Neurological: Oriented x 3, converses appropriately, follows commands, moves all 4 extremities spontaneously Lymphatic: No cervical or supra-clavicular lymphadenopathy Medication: Medications: Continuous Medications -------- 1. Lactated Ringers Infusion: 1000 mL IntraVenous Scheduled Medications -------- 1. Aspirin Enteric Coated: 81 mg Oral Daily 2. Famotidine Injectable: 20 mg IntraVenous Push Every 12 Hours 3. Metoprolol Succinate Extended Release: 12.5 mg Oral Daily PRN Medications -------- 1. Acetaminophen: 650 mg Oral Every 4 Hours 2. Ondansetron Injectable: 4 mg IntraVenous Push Every 6 Hours Conditional Medication Orders -------- 1. Perflutren Lipid Microsphere (Activated) 1.3 mL / NaCL 0.9% T.V. 10 mL Injectable: 0.5 mL IntraVenous Push Once Assessment and Plan: Comorbidities: Comorbidity: Other Assessment: Healthy 23 y.o. F presenting for CP, N/V, abd pain, light-headedness admitted for troponin elevation, dehydration, and likely pancreatitis. Pt received IVF with LR, Lipase elevated even 5 days s/p onset of sxs, EKG NSR. #Type 2 WI - demand ischemia #Stress-induced cardiomyopathy #HFrEF #troponin elevation #amphetamine use #microcytic anemia, unknown etiology #suspected pancreatitis - troponin down-trending - likely 2/2 demand ischemia in setting of amphetamine use, dehydration, possible pancreatitis, anemia - Counseled patient on responsible alcohol consumption and cessation of drug use - Anemia of unknown etiology, consider menstrual vs iron deficiency vs sequelae from recent hemorrhagic cyst. Iron panel shows decreased iron saturation. Pt recently had surgery for hemorrhagic cyst within 3 months, unsure whether Hgb ever returned to normal after that - Recommend repeat labs after discharge with PCP or on f/u appt with Dr. Thomas - ECHO suspicious for stress induced cardiomyopathy. Started on Toprol 12.5 mg yesterday, tolerating it well. - Advised f/u ECHO in 3-[address] Thomas at [facility] to evaluate LV function Signature/Cosignature/At testation: Note Completion: Attending AttestationI saw and evaluated the patient. I personally obtained the castillo and critical portions of the history and physical exam or was physically present for castillo and critical portions performed by the resident/fellow. I reviewed the resident/fellows documentation and discussed the patient with the resident/fellow. I agree with the resident/fellows medical decision making as documented in the note. I personally evaluated the patient [id number] Comments/ Additional Findings Patient discharged before being staffed. I talked to her in detail last night about her diagnosis and treatment as well as emphasized followup with Dr. Thomas in [place]. Electronic Signatures: Zoran Martin (Resident)) (Signed 12-Jun-2019 10:07) Authored: Service, Subjective Data, Objective Data, Assessment and Plan, Signature/Cosignature/At testation Martin Hayes) (Signed 12-Jun-2019 17:54) Authored: Signature/Cosignature/At testation Co-Signer: Service, Subjective Data, Objective Data, Assessment and Plan, Signature/Cosignature/At testation Last Updated: 12-Jun-2019 17:54 by Martin Hayes) Normal [facility] Discharge [id number] Discharge Profile2 Discharge Orders: Anticipated Discharge Date: Anticipated Discharge [id number] Anticipated Discharge Time08:17 Hospital Course (Home Care/Gold Form): Hospital Course: Hospital Course: include significant abnormal lab values Pt is a 23 y.o. F with no significant PMHx presented to [facility] c/o chest pressure onset 5 days ago [place] music [place]. She describes the pain as a chest pressure which is worse with exertion and with associated light-headedness and SOB. She endorses an inability to tolerate anything PO 2/2 burning abdominal pain, nausea, and vomiting since the onset of symptoms on Sunday06/06/19. She states that at the festival she only drank 3 twisted teas (5% alcohol) before onset of symptoms. She was subsequently admitted for further monitoring and evaluation. Her trops were monitored closely and they down trended. She improved significantly overnight and no longer had any more symptom. Echo done showed left ventricular systolic function is mildly decreased, with an estimated ejection fraction of 40-45%. Wall motion is abnormal. The left ventricular cavity size is normal. Spectral Doppler shows a normal pattern of left ventricular diastolic filling. Suspect Takotsubo variant with hypokinesis of base of heart and normal/hyperdynamic apical segments. Cardiology on consult started her on low dose Toprol XL and her vitals were monitored overnight and she remained hemodynamically stable. She was instructed to follow up with Dr. Thomas as outpatient in [place]. Provider FINAL REVIEW of Orders: Final Review: Final Review of Medication Reconciliation and Orders Completedby Physician Reviewing ProviderDavid Dallas DO (Resident) at 12-Jun-2019 08:25:54 Appointments: Follow-Up Appointment 01: Physician/Dept/Valentina Thomas/cardiology Call to Schedule in2-3 days Phone [phone] Electronic Signatures: David Dallas (Resident)) (Signed 12-Jun-2019 08:25) Authored: Discharge Orders, Hospital Course (Home Care/Gold Form), Provider FINAL REVIEW of Orders, Appointments, Gold Form - Bank Officer Summary Last Updated: 12-Jun-2019 08:25 by David Dallas (DO (Resident)) Normal [facility] AMYLASEon 06-11-2019 Amylase [Catalytic activity/Vol] 67 U/L Normal 29 - 103 [facility] Comment on above: Performed By: #### A MY #### [facility] [address] [place] [address] Admission Risk Screen - Adul ton 06-11-2019 Admission Risk Screen - Adult Allergies: Allergies: No Known Allergies: Patient Verification: New W ID Band Applied in my Departmentyes Patient Identity Verified Bypatient ID Band FULL Name, include Middle, spelling matches patient's ID used for verificationyes ID Band Matches Patient ID used for Verficationyes ID Band MRN Matches EMR MRNyes Advance Directive: Advance Directive/DNRno Advance Directive Information Givenpatient/family declined Falls Screen: Type of Assessmentadmission Moderate Risk Factorsdizziness/syncope Risk for Injury Associated with Fallnone Fall Risk Conclusionmoderate falls risk with low risk for associated injury [place] Safety InterventionsWDL *orient to call system *instruct to call for assistance before getting out of bed *non-slip footwear when patient is out of bed *call pinon in reach *personal items and telephone in reach *physically safe environment (no spills or clutter) *bed in lowest position with wheels locked *appropriate side rails in place *room/bathroom lighting operational, light cord in reach *appropriate signage on door Fall and Injury Risk Interventionseducate pt/family Family Violence Screen: Are you or have you been threatened or abused physically, emotionally, or sexually by anyoneno Do you feel UNSAFE going back to the place where you are livingno Clinical assessment: Are there any apparent signs of injuries/behaviors that could be related to abuse/neglectno Social Service Consult for abuse/neglect needed this visitno Functional screen: Functional Screen: In the recent/past 2-4 weeks, patient or family have noticedno issues that require a rehabilitation consult at this time Learning Assessment (Patient): Patient is Able to be Assessed for Learningyes Factors Influencing Readiness to Learnfatigue Factors that Impact Ability to Learnnone Devices/Methods Used to Communicatenone Learning Preferencesverbal instruction Cultural Considerationsnone Developmental Considerationsnone Presybeterian Considerationsnone Learning Assessment (Other Learner): Other learner availableno Suicide/Depression Screen: During the past month, have you often been bothered by feeling down, depressed or hopelessno During the past month, have you often had little interest or pleasure in doing thingsno Have you had any thoughts of harming yourselfno Have you had any thoughts of harming anyone elseno Adult Nutrition Screen: Have you recently lost weight without tryingno Have you been eating poorly because of a decreased appetiteno Malnutrition Screening Tool Score0 Malnutrition Screening Tool RiskMST = 0 or 1 Not at risk. Eating well with little or no weight loss Nutrition Consult needed this visitno Can Patient Participate in Room Serviceyes Patient requires Paper Dishes/Plastic Utensilsno Pain Screen: Pain Scalenumerical 0-10 Pain Scale Educationteaching provided Current Pain Level0 = None Acceptable Pain Level0 = None Expression of Pain (nonverbal)none Chronic Painno Spiritual Screen: Are there any cultural, spiritual, muslim practices/values/needs that are important for us to knowno CAGE: Is this an injured patient at a Trauma Center ([facility]/[place] /[place]): no Vaccinations: Vaccination - Influenza Vaccination Screen: Is it flu season (between and February 18)No Vaccination - Pneumonia Vaccination Screen: Patient has received a previous pneumonia vaccine:no/unknown... Immunocompetent persons with underlying chronic conditions or reside in meterman care facilitiesnone of these conditions Persons with Functional or Anatomic Asplenianone of these conditions Immunocompromised Personsnone of these conditions Pneumonia vaccine NOT indicated due to:patient DOES NOT have a condition that indicates vaccination Ruy: Skin - Ruy Scale: Ruy: Sensory Perception (response to environment)(4) no impairment Ruy: Moisture (degree skin exposed to moisture)(4) rarely moist Ruy: Activity (ability to walk)(4) walks frequently Ruy: Mobility (amount/control of body movement)(4) no limitation Ruy: Nutrition (quality of food intake)(3) adequate Ruy: Friction and Shear(3) no apparent problem Ruy: Score22 Significant Indicatiors: Significant Indicators: Complete Pressure Injury: Pressure Injury Present on Admissionno Electronic Signatures: Chidi Betancourt (STAFF N) (Signed 10-Jun-2019 22:27) Authored: Admission Risk Screens, Vaccinations, Ruy, Pressure Injury Last Updated: 10-Jun-2019 22:27 by Chidi Betancourt (STAFF N) Normal [facility] CBCon 06-11-2019 Erythrocyte distribution width (RBC) [Ratio] 18.8 % High 11.5 - 14.5 [facility] Comment on above: Performed By: #### C BC #### [address] [address] Hematocrit (Bld) [Volume fraction] 35.4 % Low 36.0 - 46.0 [facility] Comment on above: Performed By: #### C BC #### [address] [address] Hemoglobin (Bld) [Mass/Vol] 10.5 g/dL Low 12.0 - 16.0 [facility] Comment on above: Performed By: #### C BC #### [address] [address] MCHC (RBC) [Mass/Vol] 29.7 g/dL Low 32.0 - 36.0 [facility] Comment on above: Performed By: #### C BC #### [address] [address] MCV (RBC) [Entitic vol] 75 fL Low 80 - 100 [facility] Comment on above: Performed By: #### C BC #### [address] [address] Nucleated RBC/100 WBC (Bld) [Ratio] 0.0 /100 WBC Normal 0.0 - 0.0 [facility] Comment on above: Performed By: #### C BC #### [address] [address] Platelets (Bld) [#/Vol] 240 10*3/uL Normal 150 - 450 [facility] Comment on above: Performed By: #### C BC #### [address] [address] RBC (Bld) [#/Vol] 4.73 x10E12/L Normal 4.00 - 5.20 [facility] Comment on above: Performed By: #### C BC #### [address] [address] WBC (Bld) [#/Vol] 5.6 10*3/uL Normal 4.4 - 11.3 [facility] Comment on above: Performed By: #### C BC #### [address] [place] [address] COMPREHENSIVE PANELon 2018 Albumin [Mass/Vol] 3.5 g/dL Normal 3.4 - 5.0 [facility] Comment on above: Performed By: #### C MP #### [address] [place] [address] ALP [Catalytic activity/Vol] 34 U/L Normal 33 - 110 [facility] Comment on above: Performed By: #### C MP #### [address] [place] [address] ALT [Catalytic activity/Vol] 4 U/L Low 7 - 45 [facility] Comment on above: Result Comment: Narcisa ents treated with Sulfasalazine may generate falsely decreased results for ALT. Performed By: #### C MP #### [address] [place] [address] Anion gap [Moles/Vol] 11 mmol/L Normal 10 - 20 [facility] Comment on above: Performed By: #### C MP #### [address] [place] [address] AST [Catalytic activity/Vol] 23 U/L Normal 9 - 39 [facility] Comment on above: Performed By: #### C MP #### [address] [place] [address] Bilirubin [Mass/Vol] 0.3 mg/dL Normal 0.0 - 1.2 [facility] Comment on above: Performed By: #### C MP #### [address] [place] [address] Calcium [Mass/Vol] 8.5 mg/dL Low 8.6 - 10.3 [facility] Comment on above: Performed By: #### C MP #### [address] [place] [address] Chloride [Moles/Vol] 109 mmol/L High 98 - 107 [facility] Comment on above: Performed By: #### C MP #### [address] [place] [address] Creatinine [Mass/Vol] 0.82 mg/dL Normal 0.50 - 1.05 [facility] Comment on above: Performed By: #### C MP #### [address] [place] [address] GFR- AM. >60 Normal >60 [facility] Comment on above: Result Comment: CALC ULATIONS OF ESTIMATED GFR ARE PERFORMED USING THE MDRD STUDY EQUATION FOR THE IDMS-TRACEABLE CREATININE METHODS. CLIN CHEM 2007;53:766-72 Performed By: #### C MP #### [address] [place] [address] GFR-NON AM. >60 Normal >60 [facility] Comment on above: Performed By: #### C MP #### [address] [place] [address] Glucose [Mass/Vol] 74 mg/dL Normal 74 - 99 [facility] Comment on above: Performed By: #### C MP #### [address] [place] [address] HCO3 (Bld) [Moles/Vol] 23 mmol/L Normal 21 - 32 [facility] Comment on above: Performed By: #### C MP #### [address] [place] [address] Potassium [Moles/Vol] 4.0 mmol/L Normal 3.5 - 5.3 [facility] Comment on above: Performed By: #### C MP #### [address] [place] [address] Protein [Mass/Vol] 5.2 g/dL Low 6.4 - 8.2 [facility] Comment on above: Performed By: #### C MP #### [address] [place] [address] Sodium [Moles/Vol] 139 mmol/L Normal 136 - 145 [facility] Comment on above: Performed By: #### C MP #### [address] [place] [address] Urea nitrogen [Mass/Vol] 15 mg/dL Normal 6 - 23 [facility] Comment on above: Performed By: #### C MP #### [facility] [address] [place] [address] CREATINE KINASEon 06-11-2019 CK [Catalytic activity/Vol] 201 U/L Normal 0 - 215 [facility] Comment on above: Performed By: #### C K #### [facility] [address] [place] [address] Consult-Cardiovascular Medic ineon 06-11-2019 Consult-Cardiovascular Medicine Service: Service: Cardiovascular Medicine Consult: Consult requested by (Attending Name): Marah Reason: Troponin elevation History of Present Illness: HPI: Pt is a 23 y.o. F with no significant PMHx presented to [facility] c/o chest pressure onset 5 days ago while at a music festival. She describes the pain as a chest pressure which is worse with exertion and with associated light-headedness and SOB. She endorses an inability to tolerate anything PO 2/2 burning abdominal pain, nausea, and vomiting since the onset of symptoms on Sunday06/06/19. She states that at the festival she only drank 3 twisted teas (5% alcohol) before onset of symptoms. Currently, she is still experiencing abd pain and nausea, but is tolerating some PO intake. She does not currently have CP, but states that it comes on when she exerts herself even slightly (walking up stairs). Pt denies any history of similar sxs. Denies personal or family history of cardiac issues including [place], congenital anomalies (although father is estranged, thus does not know his medical history). Troponin at transferring facility 0.28. UDS + for amphetamines, marijuana. CODE STATUS: FULL Per portal review No previous records PMHx: Ruptured ovarian cyst PSx: Denies FMHx: - Maternal grandparents both with cardiac disease ([place]) - Denies early cardiac , GI history Social Hx: - never smoker - social alcohol - denies drug use ROS: 12-point ROS negative except as stated above in HPI Allergies: No Known Allergies: Objective: Objective Information: T PRBPSpO2 [id number]/5599% Date/Time06/11 4: 4: 4: 4:008 4:00 Range(36.7C - 37.2C ) (64 - 84 ) (14 - 18 ) (96 - 99 )/ (51 - 58 ) (96% - 99% ) Highest temp of 37.2 C was recorded at 06/11 4:00 Physical Exam: Constitutional: Awake, alert, in no acute distress Eyes: EOMI, PERRLA, clear sclera Head/Neck: Normocephalic, atraumatic, neck supple and non-tender, trachea midline, no thyroid masses Respiratory/Thorax: Decreased breath sounds, CTAB, no wheezes, crackles, or stridor, no respiratory distress Cardiovascular: Rhythm regular, rate regular, no murmurs, rubs, or gallops Gastrointestinal: Tender to mild palpation, especially to epigastric and LLQ, Soft, non-distended, no guarding, no bruising or hernias Genitourinary: Deferred Musculoskeletal: Moves all extremities spontaneously, equal strength bilaterally, ROM intact Extremities: No peripheral edema, no cyanosis or clubbing Neurological: Oriented x 3, converses appropriately, follows commands, moves all 4 extremities spontaneously Lymphatic: No cervical or supra-clavicular lymphadenopathy Medications: Medications: Continuous Medications -------- 1. Lactated Ringers Infusion: 1000 mL IntraVenous Scheduled Medications -------- 1. Famotidine Injectable: 20 mg IntraVenous Push Every 12 Hours PRN Medications -------- 1. Acetaminophen: 650 mg Oral Every 4 Hours 2. Ondansetron Injectable: 4 mg IntraVenous Push Every 6 Hours Conditional Medication Orders -------- 1. Perflutren Lipid Microsphere (Activated) 1.3 mL / NaCL 0.9% T.V. 10 mL Injectable: 0.5 mL IntraVenous Push Once Recent Lab Results: Results: I have reviewed these laboratory results: Complete Blood Count 11-Jun-2019 05:20:00 ResultValue White Blood Cell Count 5.6 Nucleated Erythrocyte Count 0.0 Red Blood Cell Count 4.73 HGB 10.5 L HCT 35.4 L MCV 75 L MCHC 29.7 L PLT 240 RDW-CV 18.8 H Comprehensive Metabolic Panel 11-Jun-2019 05:20:00 ResultValue Glucose, Serum 74 NA 139 K 4.0 CL 109 H Bicarbonate, Serum 23 Anion Gap, Serum 11 BUN 15 CREAT 0.82 GFR-Non >60 GFR- >60 Calcium, Serum 8.5 L ALB 3.5 ALKP 34 T Pro 5.2 L T Bili 0.3 Alanine Aminotransferase, Serum 4 L Aspartate Transaminase, Serum 23 Lipid Panel 11-Jun-2019 05:20:00 ResultValue Cholesterol, Serum 119 . AGE DESIRABLE BORDERLINE HIGH HIGH 0-19 Y 0 - 169 170 - 199 >/= 200 20-24 Y 0 - 189 190 - 224 >/= 225 >24 Y 0 - 199 200 - 239 >/= 240 All ranges are based on fasting samp HDL Cholesterol, Serum 43.4 . AGE VERY LOW LOW NORMAL HIGH 0-19 Y < 35 < 40 40-45 ---- 20-24 Y ---- < 40 >45 ---- >24 Y ---- < 40 40-60 >60 . Cholesterol/HDL Ratio 2.7 REF VALUES DESIRABLE < 3.4 HIGH RISK > 5.0 LDL, Level 65 . NEAR BORD AGE DESIRABLE OPTIMAL HIGH HIGH VERY HIGH 0-19 Y 0 - 109 --- 110-129 >/= 130 ---- 20-24 Y 0 - 119 --- 120-159 >/= 160 ---- >24 Y 0 - VLDL, Serum 11 Triglycerides, Serum 53 . AGE DESIRABLE BORDERLINE HIGH HIGH VERY HIGH 0 D-90 D 19 - 174 ---- ---- ---- 91 D- 9 Y 0 - 74 75 - 99 >/= 100 ---- 10-19 Y 0 - 89 90 - 129 >/= 130 ---- Non-HDL Cholesterol 76 AGE DESIRABLE BORDERLINE HIGH HIGH VERY HIGH 0-19 Y 0 - 119 120 - 144 >/= 145 >/= 160 20-24 Y 0 - 149 150 - 189 >/= 190 ---- >24 Y 30 MG/DL ABOVE LDL CHOLESTEROL GOAL . Troponin I, Serum Trending View [id number] 05:20:00 11-Jun-2019 00:28:00 Lab Comment:Called- RB to maribel reveles, 06/11/2019 07:37 Called- RB to Reinaldo., 06/11/2019 01:35 Troponin I, Serum0.17 HH 0.19 HH Creatine Kinase, Level 11-Jun-2019 00:28:00 ResultValue Creatine Kinase, Level 201 Amylase, Serum 11-Jun-2019 00:28:00 ResultValue Amylase, Serum 67 Lipase, Serum 11-Jun-2019 00:28:00 ResultValue Lipase, Serum 126 H Assessment: Healthy 23 y.o. F presenting for CP, N/V, abd pain, light-headedness admitted for troponin elevation, dehydration, and likely pancreatitis. Pt received IVF with LR, Lipase elevated even 5 days s/p onset of sxs, EKG NSR. #Type 2 WI - demand ischemia #troponin elevation #amphetamine use #microcytic anemia, unknown etiology #suspected pancreatitis #N/V - troponin down-trending - ECHO pending - likely 2/2 demand ischemia in setting of amphetamine use, dehydration, possible pancreatitis, anemia - Continue fluids. If pt tolerating ambulation without sxs after IV hydration, and ECHO normal, pt can be d/c from cardiac standpoint with outpatient f/u at [place] (Dr. Thomas) - Counseled patient on responsible alcohol consumption and drug use - Anemia of unknown etiology, consider menstrual vs iron deficiency vs sequelae from recent hemorrhagic cyst. Iron panel shows decreased iron saturation. Pt recently had surgery for hemorrhagic cyst within 3 months, unsure whether Hgb ever returned to normal after that - Recommend repeat labs after discharge with PCP or on f/u appt with Dr. Thomas Signature/Cosignature/At testation: Note Completion: Attending AttestationI saw and evaluated the patient. I personally obtained the castillo and critical portions of the history and physical exam or was physically present for castillo and critical portions performed by the resident/fellow. I reviewed the resident/fellows documentation and discussed the patient with the resident/fellow. I agree with the resident/fellows medical decision making as documented in the note. I personally evaluated the patient [id number] Comments/ Additional Findings 23 y/o otherwise healthy female with CP and SOB after syncopal episode, dehydration after constitution party on Sunday night. Check echo to ensure LV function normal. OK to DC with outpatient FU with Dr. Thomas at [facility] if normal LV function and able to ambulate without symptoms after IV fluid hydration. Electronic Signatures: Zoran Martin ( (Resident)) (Signed 11-Jun-2019 11:09) Authored: Service, History of Present Illness, Allergies, Objective, Assessment/Recommendatio ns, Signature/Cosignature/At testation Martin Hayes) (Signed 11-Jun-2019 12:21) Authored: Service, Signature/Cosignature/At testation Co-Signer: Service, History of Present Illness, Allergies, Objective, Assessment/Recommendatio ns, Signature/Cosignature/At testation Last Updated: 11-Jun-2019 12:21 by Martin Hayes) Normal [facility] Daily Progress Note-Medicine on 06-11-2019 Daily Progress Note-Medicine Service: Medicine Subjective Data: LISSETT ARNETT is a 23 year old Female who is Hospital Day # 2. Seen this morning, feeling a little better. Hasn't exerted herself yet. TTE read is pending but as per cardiology, stress induced cardiomyopathy findings are noted. They have recommended low dose toprol and cont to monitor on telemetry and additional supportive care. Objective Data: Objective Information: T PRBPSpO2 [id number]/6094% Date/Time06/11 12: 12: 12: 12: 12:00 Range(36.5C - 37.2C ) (64 - 84 ) (14 - 18 ) (96 - 100 )/ (51 - 63 ) (94% - 99% ) Highest temp of 37.2 C was recorded at 06/11 4:00 Pain reported at 06/10 23:06: 0 = None GENERAL: awake/alert/oriented x3, no distress, alert and cooperative HEENT: Normal Inspection, Mucous membranes moist, No JVD, No Lymphadenopathy CARDIOVASCULAR: RRR, no murmurs, 2+ equal pulses of the extremities, normal S1 and S 2 RESPIRATORY: Patent airways, CTAB, normal breath sounds with good chest expansion, thorax symmetric, No Wheezes, Rales or Rhonchi ABDOMEN: Soft, Non-Tender, Normal Bowel Sounds, No Distention SKIN: Warm and dry, no lesions, no rashes EXTREMITIES: normal extremities, no cyanosis edema, contusions or wounds, no clubbing NEURO: A&O x 3, CN II-XII grossly intact PSYCH: Appropriate mood and behavior Medication: Medications: Continuous Medications -------- 1. Lactated Ringers Infusion: 1000 mL IntraVenous Scheduled Medications -------- 1. Famotidine Injectable: 20 mg IntraVenous Push Every 12 Hours 2. Metoprolol Succinate Extended Release: 12.5 mg Oral Daily PRN Medications -------- 1. Acetaminophen: 650 mg Oral Every 4 Hours 2. Ondansetron Injectable: 4 mg IntraVenous Push Every 6 Hours Conditional Medication Orders -------- 1. Perflutren Lipid Microsphere (Activated) 1.3 mL / NaCL 0.9% T.V. 10 mL Injectable: 0.5 mL IntraVenous Push Once Recent Lab Results: Results: I have reviewed these laboratory results: Complete Blood Count 11-Jun-2019 05:20:00 ResultValue White Blood Cell Count 5.6 Nucleated Erythrocyte Count 0.0 Red Blood Cell Count 4.73 HGB 10.5 L HCT 35.4 L MCV 75 L MCHC 29.7 L PLT 240 RDW-CV 18.8 H Comprehensive Metabolic Panel 11-Jun-2019 05:20:00 ResultValue Glucose, Serum 74 NA 139 K 4.0 CL 109 H Bicarbonate, Serum 23 Anion Gap, Serum 11 BUN 15 CREAT 0.82 GFR-Non >60 GFR- >60 Calcium, Serum 8.5 L ALB 3.5 ALKP 34 T Pro 5.2 L T Bili 0.3 Alanine Aminotransferase, Serum 4 L Aspartate Transaminase, Serum 23 Lipid Panel 11-Jun-2019 05:20:00 ResultValue Cholesterol, Serum 119 . AGE DESIRABLE BORDERLINE HIGH HIGH 0-19 Y 0 - 169 170 - 199 >/= 200 20-24 Y 0 - 189 190 - 224 >/= 225 >24 Y 0 - 199 200 - 239 >/= 240 All ranges are based [facility] HDL Cholesterol, Serum 43.4 . AGE VERY LOW LOW NORMAL HIGH 0-19 Y < 35 < 40 40-45 ---- 20-24 Y ---- < 40 >45 ---- >24 Y ---- < 40 40-60 >60 . Cholesterol/HDL Ratio 2.7 REF VALUES DESIRABLE < 3.4 HIGH RISK > 5.0 LDL, Level 65 . NEAR BORD AGE DESIRABLE OPTIMAL HIGH HIGH VERY HIGH 0-19 Y 0 - 109 --- 110-129 >/= 130 ---- 20-24 Y 0 - 119 --- 120-159 >/= 160 ---- >24 Y 0 - VLDL, Serum 11 Triglycerides, Serum 53 . AGE DESIRABLE BORDERLINE HIGH HIGH VERY HIGH 0 D-90 D 19 - 174 ---- ---- ---- 91 D- 9 Y 0 - 74 75 - 99 >/= 100 ---- 10-19 Y 0 - 89 90 - 129 >/= 130 ---- Non-HDL Cholesterol 76 AGE DESIRABLE BORDERLINE HIGH HIGH VERY HIGH 0-19 Y 0 - 119 120 - 144 >/= 145 >/= 160 20-24 Y 0 - 149 150 - 189 >/= 190 ---- >24 Y 30 MG/DL ABOVE LDL CHOLESTEROL GOAL . Iron + TIBC, Serum 11-Jun-2019 05:20:00 ResultValue Iron, Serum 47 Total Iron Binding Capacity 375 % Saturation 13 L Troponin I, Serum Trending View [id number] 05:20:00 11-Jun-2019 00:28:00 Lab Comment:Called- RB to maribel reveles, 06/11/2019 07:37 Called- RB to Naif, 06/11/2019 01:35 Troponin I, Serum0.17 HH 0.19 HH Creatine Kinase, Level 11-Jun-2019 00:28:00 ResultValue Creatine Kinase, Level 201 Assessment and Plan: Assessment: 1.) NSTEMI - stress induced cardiomyopathy -Low dose beta josue added. Cardiology consulted and following. 2.) Dehydration Gentle hydration. 3.) Microcytic anemia. Iron panel ordered and pending. 4.) DVT Proph Low risk, ambulate as tolerated. Electronic Signatures: Danis Crystal () (Signed 11-Jun-2019 15:25) Authored: Service, Subjective Data, Objective Data, Assessment and Plan, Signature/Cosignature/At testation Last Updated: 11-Jun-2019 15:25 by Danis Crystal () Normal [facility] EMR ADDONon 06-11-2019 ADDON CONFIRMATION REQUEST REC'D Normal [facility] Comment on above: Performed By: #### A MY #### [facility] [address] [place] [address] FERRITINon 06-11-2019 Ferritin [Mass/Vol] 14 ug/L Normal 8 - 150 [facility] Comment on above: Performed By: #### A MY #### [address] [address] FOLATE, SERUMon 06-11-2019 Folate [Mass/Vol] 8.7 ng/mL Normal >5.0 [facility] Comment on above: Result Comment: Narcisa ents receiving more than 5 mg/day of biotin may have interference in test results. A sample should be taken no sooner than eight hours after previous dose. Contact the testing laboratory for additional information. Performed By: #### A MY #### [facility] [address] [place] [address] History and Physicalon 06-11 History and Physical History of Present Illness: /Lactating: Are You no (1) Are You Currently Breastfeedingno (1) Admission Reason: elevated trop, n/v, CP, epigastric pain HPI: 23 yo F with PMHx of hemorrhagic ovarian cyst/hemoperitoneum s/p laparoscopic evacuation and fulguration of cyst this past May at [facility] presents as a transfer from [facility] for further evaluation and treatment of an elevated troponin. She initially presented to [place] with multiple complaints of midsternal/epigastric pain, sob, lightheadedness worse when standing, and n/v over the past 4 days. She states symptoms started the day after going to a music festival this past Sunday where she was heavily drinking alcohol to the point of passing out. The following several days she has had numerous episodes of n/v and epigastric pain. She states today is the first day she has been able to really take PO intake. Labs prior to transfer to significant for a troponin of 0.28. Cardiology at [place] Dr. Thomas was contacted and rec patient be transferred to [facility] for further cardiac evaluation. In addition, Ddimer wnl, no leukocytosis, BUN/Cr ratio of 27.5, and UA with specific gravity. CXR clear. UDS positive for amphetamines and marijuana, negative for cocaine. She denies knowingly taking drugs. Social: denies tobacco and illicit, occasional EtOH (wont elaborate on exact quantity) PSHx: laparoscopic evacuation and fulguration of hemorrhagic ovarian cyst 02/2019 at [facility] Hx: CAD, HTN Allergies: No Known Allergies: Medications Prior to Admission: The patient does not take any medications at home. Review of Systems: Respiratory: POSITIVE: Shortness of Breath Cardiac: POSITIVE: Chest Pain Gastrointestinal: POSITIVE: Nausea, Vomiting; COMMENTS: epigastric pain All Other Systems: All other systems reviewed and are negative Objective: Objective Information: T PRBPSpO2 [id number]/5197% Date/Time06/10 22:008 22:008 22:008 22:018 22:00 Range(36.7C - 36.7C ) (84 - 84 ) (14 - 14 ) (96 - 99 )/ (51 - 58 ) (97% - 97% ) Pain reported at 06/10 23:06: 0 = None Physical Exam: Constitutional: Well developed, awake/alert/oriented x3, no distress, alert and cooperative Eyes: clear sclera ENMT: MM dry Head/Neck: supple, no JVD Respiratory/Thorax: clear Cardiovascular: RRR s1 s2 Gastrointestinal: mid epigastric tenderness Extremities: no c/c/e Neurological: no appreciable focal deficits Psychological: Appropriate mood and behavior Skin: Warm and dry, no lesions, no rashes Medications: Medications: CENTRAL NERVOUS SYSTEM AGENTS: 1. Acetaminophen: 650 mg Oral Every 4 Hours PRN 2. Ondansetron Injectable: 4 mg IntraVenous Push Every 6 Hours PRN GASTROINTESTINAL AGENTS: 1. Famotidine Injectable: 20 mg IntraVenous Push Every 12 Hours NUTRITIONAL PRODUCTS: 1. Lactated Ringers Infusion: 1000 mL IntraVenous Conditional Medication Orders -------- 1. Perflutren Lipid Microsphere (Activated) 1.3 mL / NaCL 0.9% T.V. 10 mL Injectable: 0.5 mL IntraVenous Push Once Assessment and Plan: Assessment: Atypical CP with elevated troponin Epigastric pain, n/v Dehydration Drug abuse (+ amphetamine and marijuana) Recent hemorrhagic ovarian cyst req surgery DVT ppx Plan: - Continue ASA, cycle troponin/EKG , ECHO, cardiology consultation - Check amylase and lipase, with epigastric pain n/v may have EtOH induced pancreatitis, already has received 2 liters of IVF prior to transfer, will bolus another liter and then continue LR @ 150 for now , hold of on abd imaging at this time, PRN antiemetics, IV pepcid - Check orthostatics, may be negative now since already received several liters of IVF Signatures/Attestation/C ertification: Note Completion: Attending Provider Inpatient Certification StatementI certify this patients need for inpatient care based on the above documentation including; the order to admit as inpatient, the anticipated length of stay, diagnosis, problem list and plan of care, and discharge plan. Admission Order - View OnlyCurrent Admission Order. Admit to Inpatient Adult Community Transfer to, [facility]: [place] 9 CCU Stepdown Admitting Diagnosis, R74.8 Elevated troponin level;R11.2 Nausea and vomiting;E86.0 Dehydration , Attending Provider Tarik Desai Level of Care, Telemetry Tarik Desai Electronic Signatures: Tarik Desai () (Signed 11-Jun-2019 03:21) Authored: History of Present Illness, Comorbidities, Allergies, Medications Prior to Admission, Review of Systems, Objective, Assessment and Plan, Signatures/Attestation/C ertification Last Updated: 11-Jun-2019 03:21 by Tarik Desai () References: 1. Data Referenced From Patient Profile - Adult v2 10-Jun-2019 22:14 Normal [facility] IRON + TIBCon 06-11-2019 % SATURATION 13 % Low 25 - 45 [facility] Comment on above: Performed By: #### A MY #### [facility] [address] [place] [address] Iron [Mass/Vol] 47 ug/dL Normal 35 - 150 [facility] Comment on above: Performed By: #### A MY #### [facility] [address] [place] [address] TIBC 375 ug/dL Normal 240 - 445 [facility] Comment on above: Performed By: #### A MY #### [facility] [address] [place] [address] LIPASEon 06-11-2019 Lipase [Catalytic activity/Vol] 126 U/L High 9 - 82 [facility] Comment on above: Result Comment: Maddie puncture immediately after or during the administration of Metamizole may lead to falsely low results. Testing should be performed immediately prior to Metamizole dosing. Performed By: #### L IPAS #### [address] [address] LIPID PANEL (CORONARY RISK 2 )on 06-11-2019 Cholesterol [Mass/Vol] 119 mg/dL Normal 0 - 199 [facility] Comment on above: Result Comment: . AGE DESIRABLE BORDERLINE HIGH HIGH 0-19 Y 0 - 169 170 - 199 >/= 200 20-24 Y 0 - 189 190 - 224 >/= 225 >24 Y 0 - 199 200 - 239 >/= 240 All ranges are based on fasting samples. Specific therapeutic targets will vary based on patient-specific cardiac risk. . Pediatric guidelines reference:Pediatrics 2011, 128(S5). Adult guidelines reference: NCEP ATPIII Guidelines, ZENAIDA 2001, 258:2486-97 . Venipuncture immediately after or during the administration of Metamizole may lead to falsely low results. Testing should be performed immediately prior to Metamizole dosing. Performed By: #### A MY #### [facility] [address] [place] [address] Cholesterol in HDL [Mass/Vol] 43.4 mg/dL Normal [facility] Comment on above: Result Comment: . AGE VERY LOW LOW NORMAL HIGH 0-19 Y < 35 < 40 40-45 ---- 20-24 Y ---- < 40 >45 ---- >24 Y ---- < 40 40-60 >60 . Performed By: #### A MY #### [facility] [address] [place] [address] Cholesterol in LDL [Mass/Vol] 65 mg/dL Normal 0 - 119 [facility] Comment on above: Result Comment: . NEAR BORD AGE DESIRABLE OPTIMAL HIGH HIGH VERY HIGH 0-19 Y 0 - 109 --- 110-129 >/= 130 ---- 20-24 Y 0 - 119 --- 120-159 >/= 160 ---- >24 Y 0 - 99 100-129 130-159 160-189 >/=190 . Performed By: #### A MY #### [facility] [address] [place] [place] [id number] Cholesterol in VLDL [Mass/Vol] 11 mg/dL Normal 0 - 40 [facility] Comment on above: Performed By: #### A MY #### [facility] [address] [place] [address] Cholesterol.total/Betsy sterol in HDL [Mass ratio] 2.7 {ratio} Normal [facility] Comment on above: Result Comment: REF VALUES DESIRABLE < 3.4 HIGH RISK > 5.0 Performed By: #### A MY #### [address] [address] NON-HDL CHOLESTEROL 76 mg/dL Normal 0 - 149 [facility] Comment on above: Result Comment: AGE DESIRABLE BORDERLINE HIGH HIGH VERY HIGH 0-19 Y 0 - 119 120 - 144 >/= 145 >/= 160 20-24 Y 0 - 149 150 - 189 >/= 190 ---- >24 Y 30 MG/DL ABOVE LDL CHOLESTEROL GOAL . Performed By: #### A MY #### [facility] [address] [place] [address] Triglyceride [Mass/Vol] 53 mg/dL Normal 0 - 149 [facility] Comment on above: Result Comment: . AGE DESIRABLE BORDERLINE HIGH HIGH VERY HIGH 0 D-90 D 19 - 174 ---- ---- ---- 91 D- 9 Y 0 - 74 75 - 99 >/= 100 ---- 10-19 Y 0 - 89 90 - 129 >/= 130 ---- 20-24 Y 0 - 114 115 - 149 >/= 150 ---- >24 Y 0 - 149 150 - 199 200- 499 >/= 500 . Venipuncture immediately after or during the administration of Metamizole may lead to falsely low results. Testing should be performed immediately prior to Metamizole dosing. Performed By: #### A MY #### [facility] [address] [place] [address] Patient Profile - Adult v2on 06-11-2019 Patient Profile - Adult v2 Profile: Initial Info: How to be AddressedCheyenne Spoken Language PreferredEnglish Source of Informationpatient Are you currently using the Personal Electronic Health Record or MYUHCAREno Stated Reason for AdmissionNot able to breath over the weekend and getting SOB every time I attempt to speak. Feeling nauseated since sunday. Arrived From[place] Patient Belongingsremains with patient Patient Belongings Remaining with Patientclothing; cell phone/electronics Medications Brought to Hospitalno General Health: Weight in kg48.1 kilogram(s) Weight in nqq517 pound(s) Height in feet5 feet Height in inches1 inch(es) Height in cm154.9 centimeter(s) BMI (kg/m2)20.046 square meter Weight Methodactual (measured) Scale Typestanding Height Methodstated Blood Avoidance/Restrictionsno ne Previous Transfusion Reactionno RSP Based Care: How would you like to participate in your careBe involved directly What is the number one concern for you during this hospitalizationTo be kept informed of decisions What is the most important thing we can do to support you during this hospitalizationTo get better and be discharged Is there anything we need to know to best care for youNone at this time Recent Change in Mood/Behaviordenies Major Change/Loss/Stressor/Fea rsdenies Substance: Current or Former Substance Use never: Cigarette/Tobacco, e-Cigarette/Vaping, Street Drugs YES: Alcohol Alcohol Use Statuscurrent alcohol Alcohol Amount3-4 drinks Alcohol Frequencysocially Health Mgmt: Symptoms/Conditions Managed at Homeobstetric/gynecologi c Are You Currently Breastfeedingno ADULT LIVE IN CAREGIVER Symptoms/ConditionsOvari an cycts rupture - 2019 (4-5 months ago) ADULT LIVE IN CAREGIVER Managementmanaged Are You no Relationship/Environ: Primary Source of Support/Comfortparent Lives Withparent(s) Living Arrangementshouse Resource/Environmental Concernsnone Anticipated Transition Toaitkin Services Anticipated at Transitionnone Significant IndicatorsComplete Information Review: Allergies, Home Meds and Significant Events have been Reviewed and Verified with Patient/Familyyes Electronic Signatures: Chidi Betancourt (STAFF N) (Signed 11-Jun-2019 02:13) Authored: Profile, Additional Information Last Updated: 11-Jun-2019 02:13 by Chidi Betancourt (STAFF N) Normal [facility] TROPONIN Ion 06-11-2019 Troponin I.cardiac [Mass/Vol] 0.17 ng/mL Critically high 0.00 - 0.03 [facility] Comment on above: Order Comment: Zane DOYLE to maribel reveles, 06/11/2019 07:37 Result Comment: LESS THAN 0.04 NG/ML: NEGATIVE REPEAT TESTING IN THREE TO SIX HOURS IF CLINICALLY INDICATED. 0.04 - 0.5 NG/ML: CONSISTENT WITH POSSIBLE CARDIAC DAMAGE AND POSSIBLE INCREASED CLINICAL RISK. SERIAL MEASUREMENTS MAY HELP ASSESS EXTENT OF MYOCARDIAL DAMAGE. >0.5 NG/ML: CONSISTENT WITH CARDIAC DAMAGE, INCREASED CLINICAL RISK AND MYOCARDIAL INFARCTION. SERIAL MEASUREMENTS MAY HELP ASSESS EXTENT OF MYOCARDIAL DAMAGE. . Note: Troponin I testing is performed using different testing methodology at [facility] than at other [facility]. Direct result comparisons should only be made within the same method. Called- RB to maribel reveles, 06/11/2019 07:37 Performed By: #### T ROP2 #### [address] [address] Troponin I.cardiac [Mass/Vol] 0.19 ng/mL Critically high 0.00 - 0.03 [facility] Comment on above: Order Comment: Zane Disla, 06/11/2019 01:35 Result Comment: LESS THAN 0.04 NG/ML: NEGATIVE REPEAT TESTING IN THREE TO SIX HOURS IF CLINICALLY INDICATED. 0.04 - 0.5 NG/ML: CONSISTENT WITH POSSIBLE CARDIAC DAMAGE AND POSSIBLE INCREASED CLINICAL RISK. SERIAL MEASUREMENTS MAY HELP ASSESS EXTENT OF MYOCARDIAL DAMAGE. >0.5 NG/ML: CONSISTENT WITH CARDIAC DAMAGE, INCREASED CLINICAL RISK AND MYOCARDIAL INFARCTION. SERIAL MEASUREMENTS MAY HELP ASSESS EXTENT OF MYOCARDIAL DAMAGE. . Note: Troponin I testing is performed using different testing methodology at [facility] than at other [facility]. Direct result comparisons should only be made within the same method. Called- RB vianey Disla, 06/11/2019 01:35 Performed By: #### T ROP2 #### [address] [address] VITAMIN B12on 06-11-2019 Cobalamin (Vitamin B12) [Mass/Vol] 307 pg/mL Normal 211 - 911 [facility] Comment on above: Performed By: #### A MY #### [facility] [address] [place] [address] Acetamnphn Lvlon 06-10-2019 Acetaminoph Lvl <10 Normal 10-30 [facility] Comment on above: Performed By: #### 2 [id number] #### [facility] [address] [place] [address] Auto Diffon 06-10-2019 Basophils (Bld) [#/Vol] 0.1 E3/mcL Normal 0.0-0.2 [facility] Comment on above: Order Comment: Order Added by Discern Expert. Performed By: #### 2 [id number] #### [facility] [address] [place] [address] Basophils/100 WBC (Bld) 1.1 % Normal 0.0-2.0 [facility] Comment on above: Order Comment: Order Added by Discern Expert. Performed By: #### 2 [id number] #### [facility] [address] [place] [address] Eos Absolute 0.1 E3/mcL Normal 0.0-0.7 [facility] Comment on above: Order Comment: Order Added by Discern Expert. Performed By: #### 2 [id number] #### [facility] [address] [place] [address] Eosinophils/100 WBC (Bld) 1.5 % Normal 0.0-11.0 [facility] Comment on above: Order Comment: Order Added by Discern Expert. Performed By: #### 2 [id number] #### [facility] [place] [address] Lymphocytes (Bld) [#/Vol] 2.4 E3/mcL Normal 1.2-3.4 [facility] Comment on above: Order Comment: Order Added by Discern Expert. Performed By: #### 2 [id number] #### [facility] [address] [place] [address] Lymphocytes/100 WBC (Bld) 37.7 % Normal 20.0-55.0 [facility] Comment on above: Order Comment: Order Added by Discern Expert. Performed By: #### 2 [id number] #### [facility] [address] [place] [address] Real Absolute 0.5 E3/mcL Normal 0.0-0.7 [facility] Comment on above: Order Comment: Order Added by Discern Expert. Performed By: #### 2 [id number] #### [facility] [address] [place], [place] [address] Monocytes/100 WBC (Bld) 7.4 % Normal 0.0-10.0 [facility] Comment on above: Order Comment: Order Added by Discern Expert. Performed By: #### 2 [id number] #### [facility] [address] [place] [address] Neutro Absolute 3.3 E3/mcL Normal 1.4-6.5 [facility] Comment on above: Order Comment: Order Added by Discern Expert. Performed By: #### 2 [id number] #### [facility] [address] [place] [address] Neutro Auto 52.3 % Normal 37.0-75.0 [facility] Comment on above: Order Comment: Order Added by Discern Expert. Performed By: #### 2 075115 #### [facility] [address] [place] [address] BMPon 06-10-2019 Anion gap [Moles/Vol] 11 mmol/L Normal 10-20 [facility] Comment on above: Performed By: #### 2 [id number] #### [facility] [address] [place] [address]42 Calcium [Mass/Vol] 9.1 mg/dL Normal 8.6-10.3 [facility] Comment on above: Performed By: #### 2 851408 #### [facility] [address] [place] [address] Chloride [Moles/Vol] 106 mmol/L Normal 98-107 [facility] Comment on above: Performed By: #### 2 [id number] #### [facility] [address] [place] [address]64 CO2 [Moles/Vol] 25.0 mmol/L Normal 21.0-32.[address] [facility] Comment on above: Performed By: #### 2 796999 #### [facility] [address] [place] [address] Creatinine [Mass/Vol] 0.8 mg/dL Normal 0.5-1.1 [facility] Comment on above: Performed By: #### 2 [id number] #### [facility] [address] [place] [address]856 Glucose [Mass/Vol] 94 mg/dL Normal 70-99 [facility] Comment on above: Performed By: #### 2 [id number] #### [facility] [address] [place] [address] Potassium [Moles/Vol] 3.9 mmol/L Normal 3.5-5.3 [facility] Comment on above: Performed By: #### 2 408449 #### [facility] [address] [place] [address]1521 Sodium [Moles/Vol] 138 mmol/L Normal 136-145 [facility] Comment on above: Performed By: #### 2 [id number] #### [facility] [address] [place] [address] Urea nitrogen [Mass/Vol] 22 mg/dL Normal 6-23 [facility] Comment on above: Performed By: #### 2 742020 #### [facility] [address] [place] [address] Urea nitrogen/Creatinine [Mass ratio] 27.5 ratio Normal 5.4-30.0 [facility] Comment on above: Performed By: #### 2 696322 #### [facility] [address] [place] [address] CBC w/ Auto Diffon 9 Erythrocyte distribution width (RBC) [Ratio] 20.9 % High 11.5-14.5 [facility] Comment on above: Performed By: #### 2 100952 #### [facility] [address] [place] [address] Hematocrit (Bld) [Volume fraction] 40.2 % Normal 36.0-48.0 [facility] Comment on above: Performed By: #### 2 259765 #### [facility] [address] [place] [address] Hemoglobin (Bld) [Mass/Vol] 12.8 g/dL Normal 12.0-16.0 [facility] Comment on above: Performed By: #### 2 961316 #### [facility] [address] [place] [address] MCH (RBC) [Entitic mass] 22.5 pg Low 27.0-31.0 [facility] Comment on above: Performed By: #### 2 668738 #### [facility] [address] [place] [address] 27784 MCHC (RBC) [Mass/Vol] 31.8 g/dL Low 33.0-37.0 [facility] Comment on above: Performed By: #### 2 604354 #### [facility] [address] [place] [address]007 MCV (RBC) [Entitic vol] 70.8 fL Low 78.0-100.0 [facility] Comment on above: Performed By: #### 2 [id number] #### [facility] [address] [place] [address] Platelet mean volume (Bld) [Entitic vol] 8.7 fL Normal 7.4-11.0 [facility] Comment on above: Performed By: #### 2 837504 #### [facility] [address] [place] [address] Platelets (Bld) [#/Vol] 276 E3/mcL Normal 130-400 [facility] Comment on above: Performed By: #### 2 097170 #### [facility] [address] [place] [address] 78257 RBC (Bld) [#/Vol] 5.68 E6/mcL High 3.90-5.40 [facility] Comment on above: Performed By: #### 2 811847 #### [facility] [address] [place] [address] 68571 WBC (Bld) [#/Vol] 6.2 E3/mcL Normal 3.6-11.0 [facility] Comment on above: Performed By: #### 2 274799 #### [facility] [address] [place], [place] [address] CRPon 06-10-2019 CRP [Mass/Vol] 0.24 mg/dL Normal 0.00-1.00 [facility] Comment on above: Performed By: #### 2 274107 #### [facility] [address] [place] [address] D-Dimeron 06-10-2019 D-Dimer <215.00 Normal <=500.00 [facility] Comment on above: Result Comment: When the concentration of D-dimer is below the guest house manager's cutoff, 500 ng/mL FEU, it may be possible to exclude the diagnosis of DVT and PE in conjunction with a clinical pretest probability assessment. Performed By: #### 2 [id number] #### [facility] [address] [place] [address] Ethanolon 06-10-2019 Ethanol [Mass/Vol] mg/dL Normal <=10 [facility] Comment on above: Performed By: #### 2 908986 #### [facility] [address] [place], [place] [address] Hep Func Panelon 06-10-2019 Albumin [Mass/Vol] 4.3 g/dL Normal 3.4-5.0 [facility] Comment on above: Performed By: #### 2 757242 #### [facility] [address] [place], [place] [address] Albumin/Globulin [Mass ratio] 1.8 {ratio} Normal 1.1-1.9 [facility] Comment on above: Performed By: #### 2 946823 #### [facility] [address] [place], [place] [address] Alk Phos 46 Int._Unit/L Normal 33-110 [facility] Comment on above: Performed By: #### 2 520873 #### [facility] [address] [place] [address]274 ALT [Catalytic activity/Vol] 6 Int._Unit/L Low 7-45 [facility] Comment on above: Performed By: #### 2 253486 #### [facility] [address] [place], [place] [address] AST [Catalytic activity/Vol] 32 Int._Unit/L Normal 9-39 [facility] Comment on above: Performed By: #### 2 903717 #### [facility] [place] [address] Bili Direct 0.08 mg/dL Normal 0.00-0.30 [facility] Comment on above: Performed By: #### 2 909317 #### [facility] [place] [address] Bili Indirect 0.38 mg/dL Normal [facility] Comment on above: Result Comment: No e stablished ranges available for the indirect bilirubin Performed By: #### 2 256063 #### [facility] [address] [place], [place] [address] Bili Total 0.46 mg/dL Normal 0.00-1.20 [facility] Comment on above: Performed By: #### 2 270697 #### [facility] [address] [place] [address] Globulin (S) [Mass/Vol] 2.0 g/dL Normal 2.0-4.0 [facility] Comment on above: Performed By: #### 2 102602 #### [facility] [address] [place] [address] 19724 Protein [Mass/Vol] 6.7 g/dL Normal 6.4-8.2 [facility] Comment on above: Performed By: #### 2 181653 #### [facility] [address] [place] [address] Magnesiumon 06-10-2019 Magnesium [Mass/Vol] 2.1 Int._Unit/L Normal 1.6-2.4 [facility] Comment on above: Performed By: #### 2 047526 #### [facility] [address] [place] [address] 19043 Morphon 06-10-2019 Microcyte 1+ Normal [facility] Comment on above: Order Comment: Order Added by Discern Expert. Performed By: #### 2 165194 #### [facility] [place] [address] RBC morphology finding Nom (Bld) SEE MORPHOLOGY Normal [facility] Comment on above: Order Comment: Order Added by Discern Expert. Performed By: #### 2 080727 #### [facility] [address] [place] [address] 33483 Salicylateon 06-10-2019 Salicylate Lvl <1.5 Low 4.0-20.0 [facility] Comment on above: Performed By: #### 2 532689 #### [facility] [address] [place] [address] 10886 Sed Rate Automatedon 019 Sed Rate Automated 16 mm/hr Normal [facility] Comment on above: Result Comment: AGE- SPECIFIC REFERENCE RANGES FOR SEDIMENTATION RATE AUTOMATED REFERENCE RANGE - MM/HR AGE MEN WOMEN 0-2 0-2 - PUBERTY 3-13 3-13 PUBERTY - 50 YRS 0-15 0-20 > 50 YRS 0-20 0-30 Performed By: #### 2 939573 #### [facility] [employer] [address] [place], [place] [address] Troponin-Ion 06-10-2019 Troponin I.cardiac [Mass/Vol] 0.28 ng/mL Critically abnormal 0.00-0.03 [facility] Comment on above: Result Comment: Crit ical Result (s) Called to and read back by: ALESSANDRA SAMPSON at: 06/10/2019 15:27:14 by:RONEY Performed By: #### 2 [id number] #### [facility] [employer] [address] [place] [address] 43691 U BhCG Qlton 06-10-2019 HCG.beta subunit Qn Negative Normal Neg [facility] Comment on above: Performed By: #### 2 776235 #### [facility] [address] [place] [address] 07209 U Drug Screenon 06-10-2019 U Amph Scr Positive Abnormal Negative [facility] Comment on above: Performed By: #### 2 187377 #### [facility] [address] [place] [address] 22624 U Marlyn Scr Negative Normal Negative [facility] Comment on above: Performed By: #### 2 225280 #### [facility] [address] [place] [address] 11332 U Benzodia Scr Negative Normal Negative [facility] Comment on above: Performed By: #### 2 235208 #### [facility] [address] [place] [address] U Cannab Scr Positive Abnormal Negative [facility] Comment on above: Performed By: #### 2 605395 #### [facility] [address] [place] [address] 30595 U Cocaine Scr Negative Normal Negative [facility] Comment on above: Performed By: #### 2 725635 #### [facility] [address] [place] [address] 03443 U Opiate Scr Negative Normal Negative [facility] Comment on above: Performed By: #### 2 865663 #### [facility] [address] [place] [address] U PCP Scr Negative Normal Negative [facility] Comment on above: Performed By: #### 2 179950 #### [facility] [address] [place] [address] UA Completeon 06-10-2019 Color (U) Yellow Normal Yellow [facility] Comment on above: Performed By: #### 2 866071 #### [facility] [address] [place] [address] Glucose (U) [Mass/Vol] Negative Normal Negative [facility] Comment on above: Performed By: #### 2 [id number] #### [facility] [address] [place] [address] Ketones Ql (U) Trace Normal [facility] Comment on above: Performed By: #### 2 255811 #### [facility] [address] [place] [address] RBC (U) [#/Vol] 0-3 Normal 0-3 [facility] Comment on above: Performed By: #### 2 378770 #### [facility] [address] [place] [address] UA Blood Negative Normal Negative [facility] Comment on above: Performed By: #### 2 825858 #### [facility] [address] [place] [address] UA Bacteria 2+ /HPF Abnormal None [facility] Comment on above: Performed By: #### 2 287901 #### [facility] [address] [place] [address] UA Clarity SltCloudy Abnormal Clear [facility] Comment on above: Performed By: #### 2 305372 #### [facility] [address] [place] [address] UA Leuk Est Negative Normal Negative [facility] Comment on above: Performed By: #### 2 598456 #### [facility] [address] [place] [address] UA Mucous Few Abnormal Trace [facility] Comment on above: Performed By: #### 2 200236 #### [facility] [address] [place] [address] UA Nitrite Negative Normal Negative [facility] Comment on above: Performed By: #### 2 904618 #### [facility] [address] [place] [address] UA pH 5.0 Normal 4.6-8.0 [facility] Comment on above: Performed By: #### 2 610589 #### [facility] [address] [place] [address] UA Protein 1+ Abnormal Negative [facility] Comment on above: Performed By: #### 2 928053 #### [facility] [address] [place] [address] UA Spec Grav 1.033 High 1.003-1.030 [facility] Comment on above: Performed By: #### 2 123043 #### [facility] [address] [place] [address] UA Squam Epithelial 0-5 Normal 0-5 [facility] Comment on above: Performed By: #### 2 518971 #### [facility] [address] [place] [address] UA Urobilinogen 2.0 mg/dL Abnormal [facility] Comment on above: Result Comment: Due to a manufacturing issue, low positive urobilinogen results may be fasely positive. Correlate with urine bilirubin and additional clinical/laboratory findings to assess the risk of hemolytic anemia or liver disease. If clinically indicated, repeat testing with an alternate method is available by contacting the laboratory within 24 hours. Performed By: #### 2 069138 #### [facility] [address] [place] [address] UA WBC 5-10 Abnormal 0-5 [facility] Comment on above: Performed By: #### 2 [id number] #### [facility] [place] [address] Urobilinogen Qn (U) Negative Normal Negative [facility] Comment on above: Performed By: #### 2 465217 #### [facility] [place] [address] XR Chest AP Portableon 06-10 XR Chest AP Portable Exam Date/Time: 06/10/2019 15:05 EDT Reason for Exam: Chest pain Report STUDY: XR Chest AP Portable; 06/10/2019 3:05 pm INDICATION: Chest pain. COMPARISON: None. ACCESSION NUMBER(S): [id number] ORDERING CLINICIAN: Rosita Crow FINDINGS: A single AP portable radiograph of the chest was obtained. Multiple cardiac monitoring leads are seen over the chest. No focal infiltrate, pleural effusion or pneumothorax is identified. The cardiac silhouette is within normal limits for size. IMPRESSION: No focal infiltrate or pneumothorax is identified. FINAL REPORT Dictated: 06/10/2019 3:28 pm Janet Sanchez MD Signed (Electronic Signature): 06/10/2019 3:28 pm Signed by: Janet Sanchez MD Technologist: GLP Normal [facility] eGFRon 06-10-2019 GFR/1.73 sq M predicted among non-blacks MDRD (S/P/Bld) [Vol rate/Area] mL/min/{1.73_m2} Normal [facility] Comment on above: Order Comment: Order added by Discern Expert. Performed By: #### 2 [id number] #### [facility] [address] [place] [address] zzplt morphon 06-10-2019 Platelet morphology finding Nom (Bld) NORMAL Normal [facility] Comment on above: Performed By: #### 2 731754 #### [facility] [place] [address] Platelets (Bld) [#/Vol] NORMAL Normal S [facility] Comment on above: Performed By: #### 2 [id number] #### [facility] [place] [address] .Manual Abson 03-01-2019 Basophil Abs Man 0.0 10x3/ Normal 0.0-0.[address] [facility] Comment on above: Order Comment: Order Added by Discern Expert. Performed By: #### 3 [id number] #### [facility] [employer] [address] [place] [address] Eos Abs Man 0.1 10x3/ Normal 0.0-0.5 [facility] Comment on above: Order Comment: Order Added by Discern Expert. Performed By: #### 3 [id number] #### [facility] [employer] [address] [place] [address] Lymph Abs Man 0.6 10x3/ Low 1.2-3.4 [facility] Comment on above: Order Comment: Order Added by Angela Expert. Performed By: #### 3 [id number] #### [facility] [employer] [address] [place] [address] Real Abs Man 0.4 10x3/ Normal 0.0-0.7 [facility] Comment on above: Order Comment: Order Added by Angela Expert. Performed By: #### 3 [id number] #### [facility] [employer] [address] [place] [address] Segs Abs Man 4.1 10x3/ Normal 1.4-6.5 [facility] Comment on above: Order Comment: Order Added by Angela Expert. Performed By: #### 3 [id number] #### [facility] [employer] [address] [place] [address] BhCG Qualon 03-01-2019 Beta hCG Ql Negative Normal Negative [facility] Comment on above: Performed By: #### 2 [id number] #### [facility] Chemistry Manual Subsection [address] [place] [address] CBC w/ Auto Diffon 9 Erythrocyte distribution width (RBC) [Ratio] 14.4 % Normal 11.5-14.5 [facility] Comment on above: Performed By: #### 2 [id number] #### [place] Rem[facility] [place] [address] Hematocrit (Bld) [Volume fraction] 29.9 % Low 36.0-48.0 [facility] Comment on above: Performed By: #### 2 [id number] #### [place] Rem[employer]emo [address] [place] [address] Hemoglobin (Bld) [Mass/Vol] 10.2 g/dL Low 12.0-16.0 [facility] Comment on above: Performed By: #### 2 [id number] #### [place] [employer]emo [address] [place] [address] MCH (RBC) [Entitic mass] 30.1 pg Normal 27.0-31.0 [facility] Comment on above: Performed By: #### 2 [id number] #### [place] Rem[employer] [address] [place] [address] MCHC (RBC) [Mass/Vol] 34.3 g/dL Normal 33.0-37.0 [facility] Comment on above: Performed By: #### 2 [id number] #### [place] Rem[employer] [address] [place] [address] MCV (RBC) [Entitic vol] 87.8 fL Normal 78.0-100.0 [facility] Comment on above: Performed By: #### 2 [id number] #### [place] [employer] [address] [place] [address] Platelet mean volume (Bld) [Entitic vol] 8.0 fL Normal 7.4-11.0 [facility] Comment on above: Performed By: #### 2 [id number] #### [place] [employer] [address] [place] [address] Platelets (Bld) [#/Vol] 245 E3/mcL Normal 130-400 [facility] Comment on above: Performed By: #### 2 [id number] #### [place] Rem[employer] [address] [place] [address] RBC (Bld) [#/Vol] 3.40 E6/mcL Low 3.90-5.40 [facility] Comment on above: Performed By: #### 2 [id number] #### [place] Rem[employer]emo [address] [place] [address] WBC (Bld) [#/Vol] 5.6 E3/mcL Normal 3.6-11.0 [facility] Comment on above: Performed By: #### 2 [id number] #### [place] Rem[employer]emo [address] [place] [address] CMPon 03-01-2019 Albumin [Mass/Vol] 4.1 g/dL Normal 3.4-5.0 [facility] Comment on above: Performed By: #### 2 [id number] #### [facility] [employer] [address] [place] [address] Albumin/Globulin [Mass ratio] 2.0 {ratio} High 1.1-1.9 [facility] Comment on above: Performed By: #### 2 [id number] #### [facility] [employer] [address] [place] [address] Alk Phos 42 Int._Unit/L Normal 33-110 [facility] Comment on above: Performed By: #### 2 [id number] #### [place] [employer] [address] [place] [address] ALT [Catalytic activity/Vol] 6 Int._Unit/L Low 7-45 [facility] Comment on above: Performed By: #### 2 [id number] #### [place] [employer] [address] [place] [address] Anion gap [Moles/Vol] 11 mmol/L Normal 10-20 [facility] Comment on above: Performed By: #### 2 [id number] #### [place] [employer] [address] [place] [address] AST [Catalytic activity/Vol] 20 Int._Unit/L Normal 9-39 [facility] Comment on above: Performed By: #### 2 [id number] #### [place] [employer] [address] [place] [address] Bili Total 0.39 mg/dL Normal 0.00-1.20 [facility] Comment on above: Performed By: #### 2 [id number] #### [place] [employer] [address] [place] [address] Calcium [Mass/Vol] 8.8 mg/dL Normal 8.6-10.3 [facility] Comment on above: Performed By: #### 2 [id number] #### [place] [employer] [address] [place] [address] Chloride [Moles/Vol] 106 mmol/L Normal 98-107 [facility] Comment on above: Performed By: #### 2 [id number] #### [facility] [employer] [address] [place] [address] CO2 [Moles/Vol] 25.0 mmol/L Normal 21.0-32.[address] [facility] Comment on above: Performed By: #### 2 [id number] #### [place] [employer] [address] [place] [address] Creatinine [Mass/Vol] 0.7 mg/dL Normal 0.5-1.1 [facility] Comment on above: Performed By: #### 2 [id number] #### [facility] [employer] [address] [place] [address] Globulin (S) [Mass/Vol] 2.0 g/dL Normal 2.0-4.0 [facility] Comment on above: Performed By: #### 2 [id number] #### [facility] [employer] [address] [place] [address] Glucose [Mass/Vol] 93 mg/dL Normal 70-99 [facility] Comment on above: Performed By: #### 2 [id number] #### [facility] [employer] [address] [place] [address] Potassium [Moles/Vol] 3.9 mmol/L Normal 3.5-5.3 [facility] Comment on above: Performed By: #### 2 [id number] #### [facility] [employer] [address] [place] [address] Protein [Mass/Vol] 6.1 g/dL Low 6.4-8.2 [facility] Comment on above: Performed By: #### 2 [id number] #### [facility] [employer] [address] [place] [address]25[address] Sodium [Moles/Vol] 138 mmol/L Normal 136-145 [facility] Comment on above: Performed By: #### 2 553511 #### [place] [employer] [address] [place] [address] Urea nitrogen [Mass/Vol] 15 mg/dL Normal 6-23 [facility] Comment on above: Performed By: #### 2 [id number] #### [facility] [employer] [address] [place] [address] Urea nitrogen/Creatinine [Mass ratio] 21.4 ratio Normal 5.4-30.0 [facility] Comment on above: Performed By: #### 2 [id number] #### [facility] D[employer]ink [address] [place] [address] CT Abdomen/Pelvis w/ Contras ton 03-01-2019 CT Abdomen/Pelvis w/ Contrast Exam Date/Time: 03/01/2019 14:43 EDT Reason for Exam: post abd surgery- pale and near syncope;Other (please specify) Report STUDY: CT Abdomen/Pelvis w/ Contrast; 03/01/2019 2:43 pm INDICATION: Other (please specify). Vomiting and fever. Near syncope. Abdominal pain. Reported emergency surgery 5 days prior at outside facility for ruptured ovarian cyst. COMPARISON: None. ACCESSION NUMBER(S): [id number] ORDERING CLINICIAN: Immanuel Saldaña TECHNIQUE: Contiguous axial images were obtained through the abdomen and pelvis after the administration of 71 mL Omnipaque 350 intravenous contrast. Coronal and sagittal reformations were made. FINDINGS: LOWER CHEST: Lung bases are clear. ABDOMEN: LIVER: Within normal limits. BILE DUCTS: Nondilated. GALLBLADDER: The gallbladder is not distended and without calcified stones. PANCREAS: Within normal limits. SPLEEN: Within normal limits. ADRENAL GLANDS: Within normal limits. KIDNEYS AND URETERS: The kidneys enhance symmetrically without focal lesion. No hydroureteronephrosis bilaterally. Exam Date/Time: 03/01/2019 14:43 EDT Report Urinary bladder is nearly fully collapsed. VESSELS: There is no aneurysmal dilatation of the abdominal aorta. The IVC is within normal limits. BOWEL: There is no bowel obstruction or appreciable bowel wall thickening. Appendix is normal. No focal diverticular disease. PERITONEUM/RETROPERITONE UM/LYMPH NODES: Small volume intrapelvic free fluid is present. No localized fluid collection. No free intraperitoneal air. No retroperitoneal fluid collection or lymphadenopathy. ABDOMINAL WALL: Unremarkable. BONE AND SOFT TISSUE: Bones are intact. IMPRESSION: Nonspecific small volume intrapelvic free fluid. No organized fluid collection. No free intraperitoneal air. No bowel obstruction. Normal appendix. FINAL REPORT Dictated: 03/01/2019 2:52 pm Bala Albarado MD Signed (Electronic Signature): 03/01/2019 2:52 pm Signed by: Bala Albarado MD Technologist: SLB Normal [facility] Lactic Acidon 03-01-2019 Lactate [Moles/Vol] 0.9 mmol/L Normal 0.4-2.0 [facility] Comment on above: Performed By: #### 2 [id number] #### [facility] [employer] [address] [place] [address] Lipase Levelon 03-01-2019 Lipase Lvl 100 Int._Unit/L High 9-82 [facility] Comment on above: Performed By: #### 2 [id number] #### [place] [employer] [address] [place] [address] Manual Diffon 03-01-2019 Anisocytosis Ql (Bld) 2+ Normal [facility] Comment on above: Order Comment: Order Added by Discern Expert. Performed By: #### 2 [id number] #### [facility] [employer] [address] [place] [address] Band form neutrophils/100 WBC (Bld) 8 High 0-1 [facility] Comment on above: Order Comment: Order Added by Discern Expert. Performed By: #### 2 [id number] #### [facility] [employer] [address] [place] [address] Basophil Man 0 % Normal 0-1 [facility] Comment on above: Order Comment: Order Added by Discern Expert. Performed By: #### 2 [id number] #### [facility] [employer] [address] [place] [address] Eosinophils/100 WBC (Bld) 2 % Normal 0-5 [facility] Comment on above: Order Comment: Order Added by Discern Expert. Performed By: #### 2 [id number] #### [facility] [employer] [address] [place] [address] Lymphocytes/100 WBC (Bld) 10 % Low 14-48 [facility] Comment on above: Order Comment: Order Added by Discern Expert. Performed By: #### 2 [id number] #### [facility] [employer] [address] [place] [address] Monocyte Man 7 % Normal 1-11 [facility] Comment on above: Order Comment: Order Added by Discern Expert. Performed By: #### 2 [id number] #### [place] [employer] [address] [place] [address] Poikilocytosis 1+ Normal [facility] Comment on above: Order Comment: Order Added by Discern Expert. Performed By: #### 2 [id number] #### [facility] [employer] [address] [place] [address] RBC morphology finding Nom (Bld) SEE MORPHOLOGY Normal [facility] Comment on above: Order Comment: Order Added by Discern Expert. Performed By: #### 2 [id number] #### [facility] [employer] [address] [place] [address] Segs Man 73 % Normal 37-75 [facility] Comment on above: Order Comment: Order Added by Discern Expert. Performed By: #### 2 [id number] #### [place] [employer] [address] [place] [address] UA Completeon 03-01-2019 Color (U) Yellow Normal Yellow [facility] Comment on above: Performed By: #### 8 [id number] #### [facility] Urinalysis Automated Subsection [facility] [place] [address] Glucose (U) [Mass/Vol] Negative Normal Negative [facility] Comment on above: Performed By: #### 8 [id number] #### [facility] Urinalysis Automated Subsection [facility] [place] [address] Ketones Ql (U) Negative Normal Negative [facility] Comment on above: Performed By: #### 8 [id number] #### [facility] Urinalysis Automated Subsection [facility] [place] [address] RBC (U) [#/Vol] 3-5 Abnormal 0-3 [facility] Comment on above: Performed By: #### 8 [id number] #### [facility] Urinalysis Automated Subsection [facility] [place] [address] UA Blood Negative Normal Negative [facility] Comment on above: Performed By: #### 8 [id number] #### [facility] Urinalysis Automated Subsection [facility] [place] [address] UA Bacteria 1+ /HPF Abnormal None [facility] Comment on above: Performed By: #### 8 [id number] #### [facility] Urinalysis Automated Subsection [facility] [place] [address] UA Clarity SltCloudy Abnormal Clear [facility] Comment on above: Performed By: #### 8 [id number] #### [facility] Urinalysis Automated Subsection [facility] [place] [address] UA Leuk Est Trace Normal Negative [facility] Comment on above: Performed By: #### 8 [id number] #### [facility] Urinalysis Automated Subsection [facility] [place] [address] UA Mucous Trace Abnormal Trace [facility] Comment on above: Performed By: #### 8 [id number] #### [facility] Urinalysis Automated Subsection [facility] [place] [address] UA Nitrite Positive Abnormal Negative [facility] Comment on above: Performed By: #### 8 [id number] #### [facility] Urinalysis Automated Subsection [address] [place] [address] UA pH 8.0 Normal 4.6-8.0 [facility] Comment on above: Performed By: #### 8 [id number] #### [place] Urinalysis Automated Subsection [address] [place] [address] UA Protein 1+ Abnormal Negative [facility] Comment on above: Performed By: #### 8 [id number] #### [place] Urinalysis Automated Subsection [address] [place] [address] UA Spec Grav 1.025 Normal 1.003-1.030 [facility] Comment on above: Performed By: #### 8 [id number] #### [facility] Urinalysis Automated Subsection [facility] [place] [address] UA Squam Epithelial 5-10 Abnormal 0-5 [facility] Comment on above: Performed By: #### 8 [id number] #### [place] Urinalysis Automated Subsection [address] [place] [address] UA Transitional Epithelial 0-2 Normal 0-2 [facility] Comment on above: Performed By: #### 8 [id number] #### [place] Urinalysis Automated Subsection [address] [place] [address] UA Urobilinogen Negative Normal [facility] Comment on above: Result Comment: Due to a manufacturing issue, low positive urobilinogen results may be fasely positive. Correlate with urine bilirubin and additional clinical/laboratory findings to assess the risk of hemolytic anemia or liver disease. If clinically indicated, repeat testing with an alternate method is available by contacting the laboratory within 24 hours. Performed By: #### 8 [id number] #### [facility] Urinalysis Automated Subsection [facility] [place] [address] UA WBC >50 Abnormal 0-5 [facility] Comment on above: Performed By: #### 8 [id number] #### [place] Urinalysis Automated Subsection [facility] [place] [address] Urobilinogen Qn (U) Negative Normal Negative [facility] Comment on above: Performed By: #### 8 [id number] #### [facility] Urinalysis Automated Subsection [address] [place] [address] eGFRon 03-01-2019 GFR/1.73 sq M predicted among non-blacks MDRD (S/P/Bld) [Vol rate/Area] mL/min/{1.73_m2} Normal [facility] Comment on above: Order Comment: Order added by Discern Expert. Performed By: #### 1 [id number] #### [place] [employer] [address] [place] [address] zzplt morphon 03-01-2019 Platelet morphology finding Nom (Bld) NORMAL Normal [facility] Comment on above: Performed By: #### 9 [id number] #### [place] [employer] [address] [place] [address] Platelets (Bld) [#/Vol] NORMAL Normal [facility] Comment on above: Performed By: #### 9 [id number] #### [place] [facility]5 [place] [id number] CBC, EDIF, PLATELETon 2018 ABSOLUTE BASOPHIL COUNT 0.0 X10 [facility] Basophils/100 WBC (Bld) 0.3 % 0 - 2 % [facility] Differential cell count method Nom (Bld) AUTO DIFF % [facility] Eosinophils #/vol (Bld) 0.00 10*3/uL X10 [facility] Eosinophils/100 WBC (Bld) 0.0 % 0 - 11 % [facility] Erythrocyte distribution width Ratio (RBC) 13.5 % 11.5 - 14.5 % [facility] Hematocrit Volume Fraction (Bld) 35.1 % Low 36 - 48 % [facility] Hemoglobin mass conc (Bld) 12.5 g/dL [facility] Lymphocytes #/vol (Bld) 1.10 10*3/uL X10 [facility] Lymphocytes/100 WBC (Bld) 13.6 % Low 20 - 55 % [facility] MCH Entitic mass (RBC) 29.9 pg 26 - 35 PG [facility] MCHC mass conc (RBC) 35.5 g/dL [facility] MCV Entitic volume (RBC) 84.1 fL [facility] Monocytes #/vol (Bld) 0.4 10*3/uL X10 [facility] Monocytes/100 WBC (Bld) 4.2 % 0 - 10 % [facility] Neutrophils #/vol (Bld) 6.9 10*3/uL [facility] Neutrophils/100 WBC (Bld) 81.9 % High 37 - 75 % [facility] Platelet mean volume Entitic volume (Bld) 8.4 fL [facility] Platelets #/vol (Bld) 277 10*3/uL [facility] RBC #/vol (Bld) 4.17 10*6/uL [facility] WBC #/vol (Bld) 8.4 10*3/uL [facility] [employer] COMPREHENSIVE METABOLIC PANE Lencho 02-24-2019 Albumin mass conc 4.9 G/dl 3.5 - 5 G/dl [facility] Albumin/Globulin mass ratio 1.8 {ratio} [facility] ALP enzyme act/vol 51 U/L [facility] ALT enzyme act/vol 9 U/L Low [facility] AST enzyme act/vol 28 U/L [facility] Bilirubin mass conc 1.2 mg/dL [facility] Calcium mass conc 9.2 mg/dL [facility] Chloride molar conc 99 mmol/L [facility] CO2 molar conc 22 mmol/L [facility] Creatinine mass conc 0.85 mg/dL [facility] GFR/1.73 sq M predicted among blacks MDRD vol rate/area (S/P/Bld) mL/min/{1.73_m2} ml/min/1.73s q.m [facility] [employer] GFR/1.73 sq M predicted among non-blacks MDRD vol rate/area (S/P/Bld) mL/min/{1.73_m2} ml/min/1.73s q.m [facility] GFR/1.73 sq M predicted among non-blacks MDRD vol rate/area (S/P/Bld) Average GFR for 20-29 years old = 116. [facility] Comment on above: Chronic Kidney disea se, GFR = <60. Kidney failure, GFR = <15. The GFR estimate is not adjusted for extreme body surface area or acute process, nor has it been validated for women or ethnic groups other than and . Glucose fasting mass conc 129 mg/dL High [employer] Comment on above: NORMAL <100 mg/dL PREDIABETES 101-126 mg/dL DIABETES 126 mg/dL or higher Potassium molar conc 3.6 mmol/L [facility] [employer] Protein mass conc 7.6 g/dL [facility] Sodium molar conc 134 mmol/L Low [facility] Urea nitrogen mass conc 14 mg/dL A [employer] CT ABDOMEN/PELVIS WITH CONTR Carmen 02-24-2019 User, Interfaces - 02/24/2019 3:[address] ABDOMEN/PELVIS WITH CONTRAST CLINICAL STATEMENT: Epigastric and low abdominal pain in a 23-year-old female. COMPARISON: None. TECHNIQUE: CT examination of the abdomen and pelvis following the administration of 75 mL of Omnipaque 350 intravenous contrast. Coronal and sagittal reformations were performed. Dose reduction techniques were achieved by using automated exposure control and/or adjustment of mA and/or kV according to patient size and/or use of iterative reconstruction technique. FINDINGS: Lung bases are unremarkable. There is generally thought to be satisfactory enhancement of the liver and spleen. No abnormality is seen. The stomach is contracted with minor fluid levels. The gallbladder is unremarkable. The pancreas does not appear to show any inflammatory change or discrete mass. There is no ductal dilation. Adrenal glands are not well visualized but thought to be normal. The kidneys enhance normally. Aorta and IVC are satisfactory. The primary pathology is generalized extensive abdominal fluid. The patient has a paucity of intra-abdominal fat as well and the combination of fluid, opacified bowel and lack of fat obscures structures especially in the pelvis. A large amount of fluid is seen, however, surrounding the liver and spleen and extending along the paracolic gutters and throughout the mesentery. In the pelvis the uterus is visualized. Ovaries are equivocally identified. There is thought to be considerable fluid in the pelvis, some of which is more hyperdense or complex and could be related to recent blood products. The bladder is surrounded by fluid as well but otherwise was thought to be satisfactory. IMPRESSION IMPRESSION: The abdomen and pelvis are filled with fluid of varying densities. The solid organ appearance of the upper abdomen is thought to be satisfactory. I am not seeing a definite pathological bowel pattern. In the pelvis, the uterus is thought to be identified. Ovaries are questionably identified. All fascial planes are obscured due to heterogeneous density fluid, some of which is potentially more hyperdense and could be related to blood products. Correlation with beta-hCG is recommended. Pelvic ultrasound if the patient is stable is suggested to try to delineate discrete pelvic anatomy. Diagnostic paracentesis might also be considered. Critical results were called by Dr. Sascha Cotto DO to ROSEY CASTRO ON 02/24/2019 AT 2:51 PM EDT. [facility] IMPRESSION: The abdo men and pelvis are filled with fluid of varying densities. The solid organ appearance of the upper abdomen is thought to be satisfactory. I am not seeing a definite pathological bowel pattern. In the pelvis, the uterus is thought to be identified. Ovaries are questionably identified. All fascial planes are obscured due to heterogeneous density fluid, some of which is potentially more hyperdense and could be related to blood products. Correlation with beta-hCG is recommended. Pelvic ultrasound if the patient is stable is suggested to try to delineate discrete pelvic anatomy. Diagnostic paracentesis might also be considered. Critical results were called by Dr. Sascha Cotto DO to ROSEY CASTRO ON 02/24/2019 AT 2:[address] [facility] [address] ABDOMEN/PELVIS WI TH CONTRAST CLINICAL STATEMENT: Epigastric and low abdominal pain in a 23-year-old female. COMPARISON: None. TECHNIQUE: CT examination of the abdomen and pelvis following the administration of 75 mL of Omnipaque 350 intravenous contrast. Coronal and sagittal reformations were performed. Dose reduction techniques were achieved by using automated exposure control and/or adjustment of mA and/or kV according to patient size and/or use of iterative reconstruction technique. FINDINGS: Lung bases are unremarkable. There is generally thought to be satisfactory enhancement of the liver and spleen. No abnormality is seen. The stomach is contracted with minor fluid levels. The gallbladder is unremarkable. The pancreas does not appear to show any inflammatory change or discrete mass. There is no ductal dilation. Adrenal glands are not well visualized but thought to be normal. The kidneys enhance normally. Aorta and IVC are satisfactory. The primary pathology is generalized extensive abdominal fluid. The patient has a paucity of intra-abdominal fat as well and the combination of fluid, opacified bowel and lack of fat obscures structures especially in the pelvis. A large amount of fluid is seen, however, surrounding the liver and spleen and extending along the paracolic gutters and throughout the mesentery. In the pelvis the uterus is visualized. Ovaries are equivocally identified. There is thought to be considerable fluid in the pelvis, some of which is more hyperdense or complex and could be related to recent blood products. The bladder is surrounded by fluid as well but otherwise was thought to be satisfactory. [facility] HCG QUALITATIVE, URINEon HCG ( test) Ql (U) Negative NEGATIVE [facility] HEMOGLOBIN & HEMATOCRITon Hematocrit Volume Fraction (Bld) 26.8 % Low 36 - 48 % [facility] [employer] Hemoglobin mass conc (Bld) 9.8 g/dL Low [facility] Interpretation and review of laboratory results Abnormal [facility] LIPASEon 02-24-2019 Lipase enzyme act/vol 30 U/L 23 - 300 U/L [facility] Otheron 02-24-2019 Interpretation and review of laboratory results Abnormal [facility] Interpretation and review of laboratory results Abnormal [facility] [employer] URINALYSIS, MACROon 02-25-20 19 Bilirubin Ql (U) MODERATE Abnormal NEGATIVE [employer] [facility] [facility] [employer] Clarity Nom (U) CLEAR CLEAR [facility] [facility] Color Nom (U) YELLOW YELLOW [facility] [employer] Glucose Test strip mass conc (U) Negative NEGATIVE mg/dl [facility] Hemoglobin Ql (U) Negative NEGATIVE [facility] Ketones mass conc (U) >160 Abnormal NEGATI VE mg/dl [facility] Leukocyte esterase Test strip Ql (U) Negative NEGATIVE [facility] Nitrite Ql (U) Negative NEGATIVE [employer] [facility] [facility] pH (U) 6.0 [pH] [facility] Protein Ql (U) 30 mg/dl Abnormal NEGATIVE [facility] Specific gravity Relative Density (U) 1.025 [facility] Urobilinogen mass conc (U) 0.2 mg/dl 0.2 - 1 mg/dl [facility] URINE MICROSCOPICon 02-25-20 19 Bacteria LM.HPF #/area (Urine sed) TRACE Abnormal NEGATIVE [facility] Casts LM.LPF #/area (Urine sed) NONE NONE /LPF [facility] Crystals LM Nom (Urine sed) NONE NONE [facility] Epithelial cells LM Ql (Urine sed) 1 TO 5 /HPF [facility] Mucus Ql (Urine sed) 1+ Abnormal NEGATIVE [facility] RBC LM.HPF #/area (Urine sed) 1 TO 5 NEGATIVE /HPF [facility] Urine sediment comments LM Judd (Urine sed) CULTURE CRITERIA NOT MET, NO CULTURE PERFORMED. [facility] WBC LM.HPF #/area (Urine sed) 1 TO 5 NEGATIVE /HPF [facility] CBC with Diffon 10-01-2017 Basophils Auto #/vol (Bld) 0.0 K/mcL Normal 0-0.2 [facility] Comment on above: Performed By: #### C BCDIF ####Unless otherwise noted, all testing performed by [address]CLIA: [id number] Director: Jesus Friedman M.D. Basophils/100 WBC Auto (Bld) 0.5 % Normal [facility] Comment on above: Performed By: #### C BCDIF ####Unless otherwise noted, all testing performed by [place] [id number]: [id number] Director: Jesus Friedman M.D. Eosinophils 0.0 K/mcL Normal 0-0.5 [facility] Comment on above: Performed By: #### C BCDIF ####Unless otherwise noted, all testing performed by [place] [phone]: [id number] Director: Jesus Friedman M.D. Eosinophils/100 leukocytes 0.3 % Normal [facility] Comment on above: Performed By: #### C BCDIF ####Unless otherwise noted, all testing performed by [address] [phone]: [id number] Director: Jesus Friedman M.D. Erythrocyte distribution width Auto Ratio (RBC) 12.7 % Normal 10.0-14.4 [facility] Comment on above: Performed By: #### C BCDIF ####Unless otherwise noted, all testing performed by [address] [phone]: [id number] Director: Jesus Friedman M.D. Erythrocytes (RBC) 4.37 M/mcL Normal 3.7-5.0 [facility] Comment on above: Performed By: #### C BCDIF ####Unless otherwise noted, all testing performed by [address] [phone]: [id number] Director: Jesus Friedman M.D. Hematocrit (HCT) 38.5 % Normal 34.4-44.8 [facility] Comment on above: Performed By: #### C BCDIF ####Unless otherwise noted, all testing performed by [address] [phone]: [id number] Director: Jesus Friedman M.D. Hemoglobin mass conc (Bld) 13.4 g/dL Normal 11.6-15.4 [facility] Comment on above: Performed By: #### C BCDIF ####Unless otherwise noted, all testing performed by [address] [phone]: [id number] Director: Jesus Friedman M.D. Lymphocytes 1.1 K/mcL Normal 1.0-3.7 [facility] Comment on above: Performed By: #### C BCDIF ####Unless otherwise noted, all testing performed by [address] [phone]: [id number] Director: Jesus Friedman M.D. Lymphocytes/100 leukocytes 16.7 % Normal [facility] Comment on above: Performed By: #### C BCDIF ####Unless otherwise noted, all testing performed by [address] [phone]: [id number] Director: Jesus Friedman M.D. MCH 30.8 pg Normal 27.9-33.9 [facility] Comment on above: Performed By: #### C BCDIF ####Unless otherwise noted, all testing performed by [address] [phone]: [id number] Director: Jesus Friedman M.D. MCHC mass conc (RBC) 34.9 g/dL Normal 33.1-35.1 [facility] Comment on above: Performed By: #### C BCDIF ####Unless otherwise noted, all testing performed by [address] [phone]: [id number] Director: Jesus Friedman M.D. MCV 88.1 fL Normal 82.6-98.9 [facility] Comment on above: Performed By: #### C BCDIF ####Unless otherwise noted, all testing performed by [address] [phone]: [id number] Director: Jesus Friedman M.D. Monocytes 0.1 K/mcL Normal 0.1-0.6 [facility] Comment on above: Performed By: #### C BCDIF ####Unless otherwise noted, all testing performed by [address] [phone]: [id number] Director: Jesus Friedman M.D. Monocytes/100 leukocytes 1.5 % Normal [facility] Comment on above: Performed By: #### C BCDIF ####Unless otherwise noted, all testing performed by [address] [phone]: [id number] Director: Jesus Friedman M.D. Neutrophils 5.4 K/mcL Normal 1.2-6.9 [facility] Comment on above: Performed By: #### C BCDIF ####Unless otherwise noted, all testing performed by [address] [phone]: [id number] Director: Jesus Friedman M.D. Platelet mean volume (PMV) 8.3 fL Normal 7.0-10.6 [facility] Comment on above: Performed By: #### C BCDIF ####Unless otherwise noted, all testing performed by [address] [phone]: [id number] Director: Jesus Friedman M.D. Platelets 186 K/mcL Normal 162-402 [facility] Comment on above: Performed By: #### C BCDIF ####Unless otherwise noted, all testing performed by [address] [phone]: [id number] Director: Jesus Friedman M.D. Segmented Neut % 81.0 % Normal [facility] Comment on above: Performed By: #### C BCDIF ####Unless otherwise noted, all testing performed by [address] [phone]: [id number] Director: Jesus Friedman M.D. WBC (Leukocytes) 6.7 K/mcL Normal 3.4-10.6 [facility] Comment on above: Performed By: #### C BCDIF ####Unless otherwise noted, all testing performed by [address] [phone]: [id number] Director: Jesus Friedman M.D. Basophils Auto #/vol (Bld) 0.1 K/mcL Normal 0-0.2 [facility] Comment on above: Performed By: #### C BCDIF ####Unless otherwise noted, all testing performed by [address] [phone]: [id number] Director: Jesus Friedman M.D. Basophils/100 WBC Auto (Bld) 0.9 % Normal [facility] Comment on above: Performed By: #### C BCDIF ####Unless otherwise noted, all testing performed by [address] [phone]: [id number] Director: Jesus Friedman M.D. Eosinophils 0.1 K/mcL Normal 0-0.5 [facility] Comment on above: Performed By: #### C BCDIF ####Unless otherwise noted, all testing performed by [address] [phone]: [id number] Director: Jesus Friedman M.D. Eosinophils/100 leukocytes 0.9 % Normal [facility] Comment on above: Performed By: #### C BCDIF ####Unless otherwise noted, all testing performed by [address] [phone]: [id number] Director: Jesus Friedman M.D. Erythrocyte distribution width Auto Ratio (RBC) 12.8 % Normal 10.0-14.4 [facility] Comment on above: Performed By: #### C BCDIF ####Unless otherwise noted, all testing performed by [place] [id number]: [id number] Director: Jesus Friedman M.D. Erythrocytes (RBC) 4.56 M/mcL Normal 3.7-5.0 [facility] Comment on above: Performed By: #### C BCDIF ####Unless otherwise noted, all testing performed by [address] [phone]: [id number] Director: Jesus Friedman M.D. Hematocrit (HCT) 39.6 % Normal 34.4-44.8 [facility] Comment on above: Performed By: #### C BCDIF ####Unless otherwise noted, all testing performed by [address] [phone]: [id number] Director: Jesus Friedman M.D. Hemoglobin mass conc (Bld) 14.1 g/dL Normal 11.6-15.4 [facility] Comment on above: Performed By: #### C BCDIF ####Unless otherwise noted, all testing performed by [address] [phone]: [id number] Director: Jesus Friedman M.D. Lymphocytes 2.0 K/mcL Normal 1.0-3.7 [facility] Comment on above: Performed By: #### C BCDIF ####Unless otherwise noted, all testing performed by [address] [phone]: [id number] Director: Jesus Friedman M.D. Lymphocytes/100 leukocytes 36.0 % Normal [facility] Comment on above: Performed By: #### C BCDIF ####Unless otherwise noted, all testing performed by [address] [phone]: [id number] Director: Jesus Friedman M.D. MCH 30.9 pg Normal 27.9-33.9 [facility] Comment on above: Performed By: #### C BCDIF ####Unless otherwise noted, all testing performed by [address] [phone]: [id number] Director: Jesus Friedman M.D. MCHC mass conc (RBC) 35.5 g/dL High 33.1-35.1 [facility] Comment on above: Performed By: #### C BCDIF ####Unless otherwise noted, all testing performed by [place] [phone]: [id number] Director: Jesus Friedman M.D. MCV 87.0 fL Normal 82.6-98.9 [facility] Comment on above: Performed By: #### C BCDIF ####Unless otherwise noted, all testing performed by [place] [phone]: [id number] Director: Jesus Friedman M.D. Monocytes 0.4 K/mcL Normal 0.1-0.6 [facility] Comment on above: Performed By: #### C BCDIF ####Unless otherwise noted, all testing performed by [address] [phone]: [id number] Director: Jesus Friedman M.D. Monocytes/100 leukocytes 7.6 % Normal [facility] Comment on above: Performed By: #### C BCDIF ####Unless otherwise noted, all testing performed by [address] [phone]: [id number] Director: Jesus Friedman M.D. Neutrophils 3.1 K/mcL Normal 1.2-6.9 [facility] Comment on above: Performed By: #### C BCDIF ####Unless otherwise noted, all testing performed by [place] [phone]: [id number] Director: Jesus Friedman M.D. Platelet mean volume (PMV) 7.9 fL Normal 7.0-10.6 [facility] Comment on above: Performed By: #### C BCDIF ####Unless otherwise noted, all testing performed by [address] [phone]: [id number] Director: Jesus Friedman M.D. Platelets 187 K/mcL Normal 162-402 [facility] Comment on above: Performed By: #### C BCDIF ####Unless otherwise noted, all testing performed by [address] [phone]: [id number] Director: Jesus Friedman M.D. Segmented Neut % 54.6 % Normal [facility] Comment on above: Performed By: #### C BCDIF ####Unless otherwise noted, all testing performed by [address] [phone]: [id number] Director: Jesus Friedman M.D. WBC (Leukocytes) 5.6 K/mcL Normal 3.4-10.6 [facility] Comment on above: Performed By: #### C BCDIF ####Unless otherwise noted, all testing performed by [address] [phone]: [id number] Director: Jesus Friedman M.D. SURGon 10-01-2017 SURG Name: LISSETT ARNETT [facility] POC, SPONTANEOUS/MISSED Clinical History Missed Diagnosis Fragments of chorionic villi and decidua, consistent with products of conception. HW Gross Description Received in formalin are multiple fragments of guevara-brown soft tissue which aggregate to 6 x 5 x 2 cm. No distinct mass lesions are identified. Damage Appraiser sections are submitted in four cassettes. SEDA/arden (JEFFERY/arden) Electronically Signed By Casa Griffin MD , Pathologist (Case signed 10/03/2017) Normal [facility] Type and Screenon 10-01-2017 Type and Screen Negative Normal [facility] Comment on above: Performed By: #### T YPSCR ####Unless otherwise noted, all testing performed by [address] [phone]: [id number] Director: Jesus Friedman M.D. HCG, Quantitativeon 09-23-20 17 HCG, Quantitative 8454 mIU/mL Normal [facility] Comment on above: Result Comment: HCG, Quant. Reference Range: [Units mIU/ml]Gestation Age Approx.HCG0.2-1Week 5-501-2 Weeks 50-5002-3 Weeks 100-5,0003-4 Weeks 500-10,0004-5 Weeks 1,000-50,0006-8 Weeks 15,000-200,0002-3 Months 10,000-100,000Non- Females <5Males <5 Performed By: #### H CGQT ####Unless otherwise noted, all testing performed by [address] [phone]: [id number] Director: Jesus Friedman M.D. US OB TRANSVAGINALon 017 US OB TRANSVAGINAL Final ReportAccession No: [id number] Performed: Sep 23 2017 2:47PMExamination: US OB TRANSVAGINALHISTORY: Cramping for four hours.TRANSVAGINAL OB ULTRASOUND ON 09/23/17 AT 2:47 P.M.:TECHNIQUE: Routine early obstetric ultrasound was performed.FINDINGS: A fluid collection in the endometrial complex may represent agestational sac, though there is no detectable pole or yolk sac.Mean sac diameter is 2.1 cm which corresponds with an estimatedgestational age of 7 weeks, 1 day. Gestational age by last menstrualperiod is 12 weeks, 6 days. Both ovaries were visualized and exhibitnormal sonographic morphology and vascular flow. The right ovary measures2.2 x 1.7 x 2.9 cm and the left ovary measures 3.4 x 2.2 x 1.5 cm. Thereis no adnexal mass or free cul-de-sac fluid. Prominent vessels are notedin the left adnexa.IMPRESSION:1. There is a fluid collection in the endometrial complex that mayrepresent a gestational sac, though there is no detectable pole.Differential considerations include an early intrauterine ,although a failed first trimester or ectopic is notexcluded. Close clinical and laboratory follow-up is recommended with lowthreshold for repeat imaging.2. Normal sonographic morphology of the bilateral ovaries.3. Prominent vessels are noted in the left adnexa. This can be seen inthe setting of pelvic congestion syndrome.NOTIFICATION: The above findings were phoned to Susanna Astorga in theER Department on 09/23/2017 at 4:02pm EST.Ean Ziegler M.D. and Lit Durand M.D.KRISTEL Christian/Roberto Signed by and VerifiedDate Report Signed: 09/24/2017 3:16:30 PMInterpreting Physician: KISHAN,Trans: [id number] : cc: Normal [facility] Urinalysis, Routineon 2016 Amorphous,Crystal Many Abnormal None Seen [facility] Comment on above: Performed By: #### U A ####Unless otherwise noted, all testing performed by [facility] CastroRed [place], [place] [phone]: [id number] Director: Jesus Friedman M.D. Bilirubin,Urine Negative Normal NEG;NEGATIVE [facility] Comment on above: Performed By: #### U A ####Unless otherwise noted, all testing performed by [place] [phone]: [id number] Director: Jesus Friedman M.D. Blood,Urine Negative Normal NEG;NEGATIVE [facility] Comment on above: Performed By: #### U A ####Unless otherwise noted, all testing performed by [address] [phone]: [id number] Director: Jesus Friedman M.D. Character Cloudy Normal [facility] Comment on above: Performed By: #### U A ####Unless otherwise noted, all testing performed by [address] [phone]: [id number] Director: Jesus Friedman M.D. Ketone,Urine Negative Normal NEG;NEGATIVE [facility] Comment on above: Performed By: #### U A ####Unless otherwise noted, all testing performed by [address] [phone]: [id number] Director: Jesus Friedman M.D. Leuk.Esterase,Urine Negative Normal Negative [facility] Comment on above: Performed By: #### U A ####Unless otherwise noted, all testing performed by [address] [phone]: [id number] Director: Jesus Friedman M.D. Nitrite,Urine Negative Normal NEG;NEGATIVE [facility] Comment on above: Performed By: #### U A ####Unless otherwise noted, all testing performed by [address], [place] [phone]: [id number] Director: Jesus Friedman M.D. Protein,Urine Negative Normal NEG;NEGATIVE [facility] Comment on above: Performed By: #### U A ####Unless otherwise noted, all testing performed by [address] [phone]: [id number] Director: Jesus Friedman M.D. RBC,Urine 2 /HPF Normal 0-5 [facility] Comment on above: Performed By: #### U A ####Unless otherwise noted, all testing performed by [address] [phone]: [id number] Director: Jesus Friedman M.D. Specific [place],Urine 1.010 Normal 1.003-1.029 [facility] Comment on above: Performed By: #### U A ####Unless otherwise noted, all testing performed by [address] [phone]: [id number] Director: Jesus Friedman M.D. Squamous Epithelial 1 /HPF Normal 0-40 [facility] Comment on above: Performed By: #### U A ####Unless otherwise noted, all testing performed by [address] [phone]: [id number] Director: Jesus Friedman M.D. Urine, color Yellow Normal [facility] Comment on above: Performed By: #### U A ####Unless otherwise noted, all testing performed by [address], [place] [phone]: [id number] Director: Jesus Friedman M.D. Urine, glucose presence Negative Normal NEG;NEGATIVE [facility] Comment on above: Performed By: #### U A ####Unless otherwise noted, all testing performed by [address] [phone]: [id number] Director: Jesus Friedman M.D. Urine, pH 7.0 [pH] Normal 4.5-8.0 [facility] Comment on above: Performed By: #### U A ####Unless otherwise noted, all testing performed by [address] [phone]: [id number] Director: Jesus Friedman M.D. Urobilinogen,Urine < 2.0 Normal <2 [facility] Comment on above: Performed By: #### U A ####Unless otherwise noted, all testing performed by [address] [phone]: [id number] Director: Jesus Friedman M.D. Culture, urine Bacteria identified Cx Nom (U) Presumptive Lactobacillus sp. [facility] Work Phone: No Panel Information Group B Streptococcus Culture Group B Beta Streptococcus is not isolated. [facility] Work Phone: Vital Signs Date Time Vital Sign Value Performing Clinician Demetris gregory 04-27-2025 13:13040 Body height 157.48 cm No Primary Care Physician [facility] 04-27-2025 13:13040 Body mass index (BMI) [Ratio] 22.6 kg/m2 No Primary Care Physician [facility] 04-27-2025 13:13-0400 Body weight 56.24 kg No Primary Care Physician [facility] 04-27-2025 13:13-0400 Diastolic blood pressure 76 mm[Hg] No Primary Care Physician [facility] 04-27-2025 13:13-0400 Systolic blood pressure 116 mm[Hg] No Primary Care Physician [facility] 04-22-2025 20:30-0400 Body temperature 97.2 [degF] Sharri Guzmán MD Work Phone: [facility] 04-22-2025 20:30-0400 Diastolic blood pressure 66 mm[Hg] Sharri Guzmán MD Work Phone: [facility] 04-22-2025 20:30-0400 Heart rate 69 /min Sharri Guzmán MD Work Phone: [facility] 04-22-2025 20:30-0400 Respiratory rate 16 /min Sharri Guzmán MD Work Phone: [facility] 04-22-2025 20:30-0400 SaO2% (BldA) [Mass fraction] 98 % Sharri Guzmán MD Work Phone: [facility] 04-22-2025 20:30-0400 Systolic blood pressure 101 mm[Hg] Sharri Guzmán MD Work Phone: [facility] 04-22-2025 16:48-0400 Body height 157.5 cm Sharri Guzmán MD Work Phone: [facility] 04-22-2025 16:48-0400 Body mass index (BMI) [Ratio] 21.95 kg/m2 Sharri Guzmán MD Work Phone: [facility] 04-22-2025 16:48-0400 Body weight 54.43 kg Sharri Guzmán MD Work Phone: [facility] 12-25-2024 16:40-0500 Body height 157.5 cm Corinne CORONEL Work Phone: [facility] 12-25-2024 16:40-0500 Body mass index (BMI) [Ratio] 22.31 kg/m2 Corinne Paul CINDER WORKER-AUTOMATION CLERK Work Phone: [facility] 12-25-2024 16:40-0500 Body temperature 97.39 [degF] Corinne Paul CINDER WORKER-AUTOMATION CLERK Work Phone: [facility] 12-25-2024 16:40-0500 Body weight 55.34 kg Corinne Paul CINDER WORKER-AUTOMATION CLERK Work Phone: [facility] 12-25-2024 16:40-0500 Diastolic blood pressure 75 mm[Hg] Corinne Paul CINDER WORKER-AUTOMATION CLERK Work Phone: [facility] 12-25-2024 16:40-0500 Heart rate 68 /min Corinne Paul CINDER WORKER-AUTOMATION CLERK Work Phone: [facility] 12-25-2024 16:40-0500 Respiratory rate 16 /min Corinne Paul CINDER WORKER-AUTOMATION CLERK Work Phone: [facility] 12-25-2024 16:40-0500 SaO2% (BldA) [Mass fraction] 99 % Corinne Paul CINDER WORKER-AUTOMATION CLERK Work Phone: [facility] 12-25-2024 16:40-0500 Systolic blood pressure 114 mm[Hg] Corinne Paul CINDER WORKER-AUTOMATION CLERK Work Phone: [facility] 12-20-2024 11:02-0500 Body height 154.9 cm Pretty SAWANT Work Phone: [facility] 12-20-2024 11:02-0500 Body mass index (BMI) [Ratio] 23.13 kg/m2 Pretty Vega PA Work Phone: [facility] 12-20-2024 11:02-0500 Body temperature 98.8 [degF] Pretty Vega PA Work Phone: [facility] 12-20-2024 11:02-0500 Body weight 55.52 kg Pretty Vega PA Work Phone: [facility] 12-20-2024 11:02-0500 Diastolic blood pressure 62 mm[Hg] Pretty Thomas PA Work Phone: [facility] 12-20-2024 11:02-0500 Heart rate 119 /min Pretty Vega PA Work Phone: [facility] 12-20-2024 11:02-0500 Respiratory rate 16 /min Pretty Stallworthner PA Work Phone: [facility] 12-20-2024 11:02-0500 Systolic blood pressure 114 mm[Hg] Pretty Stallworthner PA Work Phone: [facility] 09-11-2024 09:07-0500 Body height 157.5 cm Corinne Paul APRN-AUTOMATION CLERK Work Phone: [facility] 09-11-2024 09:07-0500 Body mass index (BMI) [Ratio] 23.23 kg/m2 Corinne Paul CINDER WORKER-AUTOMATION CLERK Work Phone: [facility] 09-11-2024 09:07-0500 Body temperature 98.29 [degF] Corinne Paul CINDER WORKER-AUTOMATION CLERK Work Phone: [facility] 09-11-2024 09:07-0500 Body weight 57.61 kg Corinne Paul CINDER WORKER-AUTOMATION CLERK Work Phone: [facility] 09-11-2024 09:07-0500 Diastolic blood pressure 66 mm[Hg] Corinne Paul CINDER WORKER-AUTOMATION CLERK Work Phone: [facility] 09-11-2024 09:07-0500 Heart rate 103 /min Corinne Paul APRN-AUTOMATION CLERK Work Phone: [facility] 09-11-2024 09:07-0500 Respiratory rate 18 /min Corinne Palu CINDER WORKER-AUTOMATION CLERK Work Phone: [facility] 09-11-2024 09:07-0500 SaO2% (BldA) [Mass fraction] 96 % Corinne Paul CINDER WORKER-AUTOMATION CLERK Work Phone: [facility] 09-11-2024 09:07-0500 Systolic blood pressure 110 mm[Hg] Corinne Paul CINDER WORKER-AUTOMATION CLERK Work Phone: [facility] 02-22-2024 09:59-0400 Body height 157.48 cm No Primary Care Physician [facility] 02-22-2024 09:59-0400 Body mass index (BMI) [Ratio] 27.4 kg/m2 No Primary Care Physician [facility] 02-22-2024 09:59-0400 Body weight 68.09 kg No Primary Care Physician [facility] 02-22-2024 09:59-0400 Diastolic blood pressure 73 mm[Hg] No Primary Care Physician [facility] 02-22-2024 09:59-0400 Systolic blood pressure 115 mm[Hg] No Primary Care Physician [facility] 02-04-2024 16:08-0400 Body mass index (BMI) [Ratio] 27.1 kg/m2 No Primary Care Physician [facility] 02-04-2024 16:08-0400 Body weight 67.13 kg No Primary Care Physician [facility] 02-04-2024 16:08-0400 Diastolic blood pressure 73 mm[Hg] No Primary Care Physician [facility] 02-04-2024 16:08-0400 Systolic blood pressure 109 mm[Hg] No Primary Care Physician [facility] 01-24-2024 11:51-0400 Body height 157.48 cm No Primary Care Physician [facility] 01-24-2024 11:51-0400 Body mass index (BMI) [Ratio] 26.5 kg/m2 No Primary Care Physician [facility] 01-24-2024 11:51-0400 Body weight 65.82 kg No Primary Care Physician [facility] 01-24-2024 11:51-0400 Diastolic blood pressure 76 mm[Hg] No Primary Care Physician [facility] 01-24-2024 11:51-0400 Systolic blood pressure 112 mm[Hg] No Primary Care Physician [facility] 10-24-2023 13:17-0500 Body height 157.48 cm No Primary Care Physician [facility] 10-24-2023 13:15-0500 Body mass index (BMI) [Ratio] 23.3 kg/m2 No Primary Care Physician [facility] 10-24-2023 13:15-0500 Body weight 57.83 kg No Primary Care Physician [facility] 10-24-2023 13:15-0500 Diastolic blood pressure 70 mm[Hg] No Primary Care Physician [facility] 10-24-2023 13:15-0500 Systolic blood pressure 101 mm[Hg] No Primary Care Physician [facility] 08-15-2022 16:00-0400 Body temperature 96.8 [degF] No Primary Care Physician [facility] Work Phone: 08-15-2022 16:00-0400 Diastolic blood pressure 64 mm[Hg] No Primary Care Physician [facility] Work Phone: 08-15-2022 16:00-0400 Heart rate 78 /min No Primary Care Physician [facility] Work Phone: 08-15-2022 16:00-0400 Respiratory rate 14 /min No Primary Care Physician [facility] Work Phone: 08-15-2022 16:00-0400 SaO2% (BldA) [Mass fraction] 97 % No Primary Care Physician [facility] Work Phone: 08-15-2022 16:00-0400 Systolic blood pressure 105 mm[Hg] No Primary Care Physician [facility] Work Phone: 08-14-2022 07:56-0400 Body height 157.48 cm No Primary Care Physician [facility] Work Phone: 08-14-2022 07:56-0400 Body mass index (BMI) [Ratio] 25.6 kg/m2 No Primary Care Physician [facility] Work Phone: 08-14-2022 07:56-0400 Body weight 63.5 kg No Primary Care Physician [facility] Work Phone: 08-08-2022 14:39-0400 Body height 157.48 cm No Primary Care Physician [facility] Work Phone: 08-08-2022 14:38-0400 Body mass index (BMI) [Ratio] 25.8 kg/m2 No Primary Care Physician [facility] Work Phone: 08-08-2022 14:38-0400 Body weight 64.06 kg No Primary Care Physician [facility] Work Phone: 08-08-2022 14:38-0400 Diastolic blood pressure 72 mm[Hg] No Primary Care Physician [facility] Work Phone: 08-08-2022 14:38-0400 Systolic blood pressure 113 mm[Hg] No Primary Care Physician [facility] Work Phone: 08-07-2022 12:46-0400 Diastolic blood pressure 64 mm[Hg] No Primary Care Physician [facility] Work Phone: 08-07-2022 12:46-0400 Heart rate 106 /min No Primary Care Physician [facility] Work Phone: 08-07-2022 12:46-0400 Respiratory rate 16 /min No Primary Care Physician [facility] Work Phone: 08-07-2022 12:46-0400 Systolic blood pressure 108 mm[Hg] No Primary Care Physician [facility] Work Phone: 08-07-2022 10:42-0400 Body temperature 97.1 [degF] No Primary Care Physician [facility] Work Phone: 07-31-2022 15:26-0400 Body height 157.48 cm No Primary Care Physician [facility] Work Phone: 07-31-2022 15:26-0400 Body mass index (BMI) [Ratio] 25.6 kg/m2 No Primary Care Physician [facility] Work Phone: 07-31-2022 15:26-0400 Body weight 63.5 kg No Primary Care Physician [facility] Work Phone: 07-31-2022 15:26-0400 Diastolic blood pressure 50 mm[Hg] No Primary Care Physician [facility] Work Phone: 07-31-2022 15:26-0400 Systolic blood pressure 115 mm[Hg] No Primary Care Physician [facility] Work Phone: 07-31-2022 15:01-0400 Diastolic blood pressure 52 mm[Hg] No Primary Care Physician [facility] Work Phone: 07-31-2022 15:01-0400 Heart rate 96 /min No Primary Care Physician [facility] Work Phone: 07-31-2022 15:01-0400 Systolic blood pressure 101 mm[Hg] No Primary Care Physician [facility] Work Phone: 07-31-2022 12:19-0400 Body height 157.48 cm No Primary Care Physician [facility] Work Phone: 07-31-2022 12:19-0400 Body mass index (BMI) [Ratio] 25 kg/m2 No Primary Care Physician [facility] Work Phone: 07-31-2022 12:19-0400 Body temperature 97.4 [degF] No Primary Care Physician [facility] Work Phone: 07-31-2022 12:19-0400 Body weight 62.14 kg No Primary Care Physician [facility] Work Phone: 07-31-2022 12:19-0400 Respiratory rate 16 /min No Primary Care Physician [facility] Work Phone: 07-31-2022 12:19-0400 SaO2% (BldA) [Mass fraction] 99 % No Primary Care Physician [facility] Work Phone: 07-28-2022 15:13-0400 Diastolic blood pressure 67 mm[Hg] No Primary Care Physician [facility] Work Phone: 07-28-2022 15:13-0400 Heart rate 103 /min No Primary Care Physician [facility] Work Phone: 07-28-2022 15:13-0400 Respiratory rate 16 /min No Primary Care Physician [facility] Work Phone: 07-28-2022 15:13-0400 SaO2% (BldA) [Mass fraction] 97 % No Primary Care Physician [facility] Work Phone: 07-28-2022 15:13-0400 Systolic blood pressure 109 mm[Hg] No Primary Care Physician [facility] Work Phone: 07-24-2022 09:54-0400 Body height 157.48 cm No Primary Care Physician [facility] Work Phone: 07-24-2022 09:53-0400 Body mass index (BMI) [Ratio] 25 kg/m2 No Primary Care Physician [facility] Work Phone: 07-24-2022 09:53-0400 Body weight 62.19 kg No Primary Care Physician [facility] Work Phone: 07-24-2022 09:53-0400 Diastolic blood pressure 72 mm[Hg] No Primary Care Physician [facility] Work Phone: 07-24-2022 09:53-0400 Systolic blood pressure 112 mm[Hg] No Primary Care Physician [facility] Work Phone: 07-17-2022 10:39-0400 Body height 157.48 cm No Primary Care Physician [facility] Work Phone: 07-17-2022 10:38-0400 Body mass index (BMI) [Ratio] 25 kg/m2 No Primary Care Physician [facility] Work Phone: 07-17-2022 10:38-0400 Body weight 62.14 kg No Primary Care Physician [facility] Work Phone: 07-17-2022 10:38-0400 Diastolic blood pressure 77 mm[Hg] No Primary Care Physician [facility] Work Phone: 07-17-2022 10:38-0400 Systolic blood pressure 121 mm[Hg] No Primary Care Physician [facility] Work Phone: 07-10-2022 10:59-0400 Body height 157.48 cm No Primary Care Physician [facility] Work Phone: 07-10-2022 10:58-0400 Body mass index (BMI) [Ratio] 24.7 kg/m2 No Primary Care Physician [facility] Work Phone: 07-10-2022 10:58-0400 Body weight 61.23 kg No Primary Care Physician [facility] Work Phone: 07-10-2022 10:58-0400 Diastolic blood pressure 71 mm[Hg] No Primary Care Physician [facility] Work Phone: 07-10-2022 10:58-0400 Systolic blood pressure 103 mm[Hg] No Primary Care Physician [facility] Work Phone: 07-03-2022 12:53-0400 Body height 157.48 cm No Primary Care Physician [facility] Work Phone: 07-03-2022 12:52-0400 Body mass index (BMI) [Ratio] 23.6 kg/m2 No Primary Care Physician [facility] Work Phone: 07-03-2022 12:52-0400 Body weight 58.51 kg No Primary Care Physician [facility] Work Phone: 07-03-2022 12:52-0400 Diastolic blood pressure 63 mm[Hg] No Primary Care Physician [facility] Work Phone: 07-03-2022 12:52-0400 Systolic blood pressure 101 mm[Hg] No Primary Care Physician [facility] Work Phone: 06-19-2022 14:21-0400 Body mass index (BMI) [Ratio] 24.3 kg/m2 No Primary Care Physician [facility] Work Phone: 06-19-2022 14:21-0400 Body weight 60.32 kg No Primary Care Physician [facility] Work Phone: 06-19-2022 14:21-0400 Diastolic blood pressure 70 mm[Hg] No Primary Care Physician [facility] Work Phone: 06-19-2022 14:21-0400 Systolic blood pressure 102 mm[Hg] No Primary Care Physician [facility] Work Phone: 06-05-2022 09:51-0400 Body mass index (BMI) [Ratio] 24.3 kg/m2 No Primary Care Physician [facility] Work Phone: 06-05-2022 09:51-0400 Body weight 60.32 kg No Primary Care Physician [facility] Work Phone: 06-05-2022 09:51-0400 Diastolic blood pressure 70 mm[Hg] No Primary Care Physician [facility] Work Phone: 06-05-2022 09:51-0400 Systolic blood pressure 118 mm[Hg] No Primary Care Physician [facility] Work Phone: 05-15-2022 10:57-0400 Body height 157.[address] Briana Velasquez Work Phone: [facility] Work Phone: 05-15-2022 10:57-0400 Body mass index (BMI) [Ratio] 22.8 kg/m2 Dr. Briana Velasquez Work Phone: [facility] Work Phone: 05-15-2022 10:57-0400 Body weight 58.[address] Briana Velasquez Work Phone: [facility] Work Phone: 05-15-2022 10:57-0400 Diastolic blood pressure 74 mm[Hg] Dr. Briana Velasquez Work Phone: [facility] Work Phone: 05-15-2022 10:57-0400 Systolic blood pressure 112 mm[Hg] Dr. Briana Velasquez Work Phone: [facility] Work Phone: 04-17-2022 10:49-0400 Body mass index (BMI) [Ratio] 22.1 kg/m2 Dr. Briana Velasquez Work Phone: [facility] Work Phone: 04-17-2022 10:49-0400 Body weight 54.[address] Briana Velasquez Work Phone: [facility] Work Phone: 04-17-2022 10:49-0400 Diastolic blood pressure 72 mm[Hg] Dr. Briana Velasquez Work Phone: [facility] Work Phone: 04-17-2022 10:49-0400 Systolic blood pressure 100 mm[Hg] Dr. Briana Velasquez Work Phone: [facility] Work Phone: 04-10-2022 15:36-0400 Body height 157.48 cm Jesus Man Work Phone: [facility] Work Phone: 04-10-2022 15:36-0400 Body mass index (BMI) [Ratio] 22.41 kg/m2 Jesus Man Work Phone: [facility] Work Phone: 04-10-2022 15:36-0400 Body surface area Derived from formula 1.55 m2 Jesus Man Work Phone: [facility] Work Phone: 04-10-2022 15:36-0400 Body temperature 97.3 [degF] Jesus Man Work Phone: [facility] Work Phone: 04-10-2022 15:36-0400 Body weight 55.57 kg Jesus Man Work Phone: [facility] Work Phone: 04-10-2022 15:36-0400 Diastolic blood pressure 64 mm[Hg] Jesus Man Work Phone: [facility] Work Phone: 04-10-2022 15:36-0400 Heart rate 94 /min Jesus Man Work Phone: [facility] Work Phone: 04-10-2022 15:36-0400 SaO2% (BldA) [Mass fraction] 99 % Jesus Man Work Phone: [facility] Work Phone: 04-10-2022 15:36-0400 Systolic blood pressure 104 mm[Hg] Jesus Man Work Phone: [facility] Work Phone: 02-24-2022 13:36-0400 Body mass index (BMI) [Ratio] 21.2 kg/m2 Dr. Briana Velasquez Work Phone: [facility] Work Phone: 02-24-2022 13:36-0400 Body weight 52.[address] Briana Velasquez Work Phone: [facility] Work Phone: 02-24-2022 13:36-0400 Diastolic blood pressure 58 mm[Hg] Dr. Briana Velasquez Work Phone: [facility] Work Phone: 02-24-2022 13:36-0400 Systolic blood pressure 110 mm[Hg] Dr. Briana Velasquez Work Phone: [facility] Work Phone: 01-27-2022 09:24-0400 Body mass index (BMI) [Ratio] 20.2 kg/m2 Dr. Briana Velasquez Work Phone: [facility] Work Phone: 01-27-2022 09:24-0400 Body weight 50.[address] Briana Velasquez Work Phone: [facility] Work Phone: 01-27-2022 09:24-0400 Diastolic blood pressure 62 mm[Hg] Dr. Briana Velasquez Work Phone: [facility] Work Phone: 01-27-2022 09:24-0400 Systolic blood pressure 94 mm[Hg] Dr. Briana Velasquez Work Phone: [facility] Work Phone: 01-27-2022 09:24-0400 Body height 157.[address] Briana Velasquez Work Phone: [facility] Work Phone: 01-27-2022 09:24-0400 Body mass index (BMI) [Ratio] 20.2 kg/m2 Dr. Briana Velasquez Work Phone: [facility] Work Phone: 01-27-2022 09:24-0400 Body weight 50.[address] Briana Velasquez Work Phone: [facility] Work Phone: 01-27-2022 09:24-0400 Diastolic blood pressure 62 mm[Hg] Dr. Briana Velasquez Work Phone: [facility] Work Phone: 01-27-2022 09:24-0400 Systolic blood pressure 94 mm[Hg] Dr. Briana Velasquez Work Phone: [facility] Work Phone: 01-01-2022 14:18-0400 Diastolic blood pressure 70 mm[Hg] Sharri Guzmán MD Work Phone: [facility] 01-01-2022 14:18-0400 Heart rate 114 /min Sharri Guzmán MD Work Phone: [facility] 01-01-2022 14:18-0400 Respiratory rate 16 /min Sharri Guzmán MD Work Phone: [facility] 01-01-2022 14:18-0400 SaO2% (BldA) [Mass fraction] 97 % Sharri Guzmán MD Work Phone: [facility] 01-01-2022 14:18-0400 Systolic blood pressure 106 mm[Hg] Sharri Guzmán MD Work Phone: [facility] 01-01-2022 10:14-0400 Body height 154.9 cm Sharri Guzmán MD Work Phone: [facility] 01-01-2022 10:13-0400 Body temperature 100.09 [degF] Sharri Guzmán MD Work Phone: [facility] 06-13-2021 14:10-0400 Body height 157.5 cm Lenore Arnold PA-C Work Phone: [facility] 06-13-2021 14:10-0400 Body mass index (BMI) [Ratio] 19.39 kg/m2 Pollok Arnold PA-C Work Phone: [employer] [facility] 06-13-2021 14:10-0400 Body temperature 98.6 [degF] Lenore Arnold PA-C Work Phone: [facility] 06-13-2021 14:10-0400 Body weight 48.08 kg Pollok [facility]-C [facility] 06-13-2021 14:10-0400 Diastolic blood pressure 68 mm[Hg] Pollok Arnold PA-C Work Phone: [facility] 06-13-2021 14:10-0400 Heart rate 83 /min Pollok Arnold PA-C Work Phone: [facility] 06-13-2021 14:10-0400 Respiratory rate 15 /min Lenore Cordova PA-C Work Phone: [facility] 06-13-2021 14:10-0400 SaO2% (BldA) [Mass fraction] 99 % Lenore Cordova PA-C Work Phone: [facility] 06-13-2021 14:10-0400 Systolic blood pressure 100 mm[Hg] Lenore Cordova PA-C Work Phone: [facility] 02-24-2019 15:40-0400 BP Diastolic 66 mm[Hg] [facility] 02-24-2019 15:40-0400 BP Systolic 133 mm[Hg] [facility] 02-24-2019 15:40-0400 Pulse (Heart Rate) 94 /min [facility] 02-24-2019 15:40-0400 Pulse Oximetry 100 % [facility] 02-24-2019 15:40-0400 Respiratory Rate 22 /min [facility] 02-24-2019 14:23-0400 Body Temperature 98.49 [degF] [facility] 02-24-2019 10:07-0400 Height 154.9 cm [employer] Encounters Encounter Date Encounter Type Care Provider Facility Start: 06-16-2025 [facility] Start: 05-12-2025 End: 05-12-2025 ambulatory No Primary Care Physician -Ultrasound [facility] Start: 05-12-2025 End: 05-12-[address] Coco Vyas DO -Ultrasound [facility] Work Phone: Start: 05-12-2025 End: 05-12-2025 ambulatory Coco Vyas Facility:[facility] Start: 04-27-2025 End: 04-27-[address] Coco Vyas DO -[facility] Work Phone: Start: 04-27-2025 End: 04-27-2025 ambulatory No Primary Care Physician -[facility] Start: 04-22-2025 End: 04-22-2025 Emergency department patient visit [facility] Start: 03-12-2025 ambulatory [facility] Start: 12-25-2024 ambulatory SHARRI GUZMÁN [facility] Start: 12-25-2024 End: 12-25-2024 Office outpatient visit 15 minutes Corinne Paul CINDER WORKER-AUTOMATION CLERK Work Phone: [facility] Comment on above: Sore throat (Primary Dx); Strep throat exposure Start: 12-20-2024 End: 12-20-2024 Office outpatient visit 15 minutes Pretty SAWANT Work Phone: [facility] Comment on above: Acute bacterial conj unctivitis of right eye (Primary Dx) Start: 12-20-2024 ambulatory [facility] Start: 09-11-2024 ambulatory SHARRI GUZMÁN [facility] Start: 09-11-2024 End: 09-11-2024 Office outpatient visit 15 minutes Corinne Paul CINDER WORKER-AUTOMATION CLERK Work Phone: [facility] Comment on above: Acute suppurative ot itis media of left ear without spontaneous rupture of tympanic membrane, recurrence not specified (Primary Dx); Sore throat Start: 05-19-2024 ambulatory [facility] Facility :[facility] Start: 02-22-2024 End: 02-22-2024 Patient encounter procedure No Primary Care Physician [facility] Work Phone: Start: 02-18-2024 End: 02-18-2024 ambulatory No Primary Care Physician [facility] Work Phone: Start: 02-18-2024 End: 02-18-2024 Patient encounter procedure No Primary Care Physician [facility] Work Phone: Start: 02-04-2024 End: 02-04-2024 Patient encounter procedure No Primary Care Physician [facility] Work Phone: Start: 01-24-2024 End: 01-24-2024 ambulatory No Primary Care Physician [facility] Work Phone: Start: 01-24-2024 End: 01-24-2024 Patient encounter procedure No Primary Care Physician [facility] Work Phone: Start: 11-26-2023 End: 11-27-2023 ambulatory [facility] Start: 11-26-2023 End: 11-26-2023 Subsequent hospital visit by physician Candis Roberts MD Work Phone: [facility] Comment on above: Encounter for other screening for genetic and chromosomal anomalies Start: 11-23-2023 End: 11-24-2023 ambulatory [facility] Start: 11-23-2023 End: 11-23-2023 Subsequent hospital visit by physician Candis Roberts MD Work Phone: [facility] Comment on above: Screening, , for malformation by ultrasound; Abnormal ultrasound Start: 11-22-2023 End: 11-22-2023 ambulatory SOBEIDA Mora [facility] Start: 10-25-2023 End: 10-25-2023 ambulatory No Primary Care Physician [facility] Work Phone: Start: 10-25-2023 End: 10-25-2023 Patient encounter procedure No Primary Care Physician [facility]Laboratory Work Phone: Start: 10-24-2023 End: 10-24-2023 ambulatory No Primary Care Physician [facility] Work Phone: Start: 10-24-2023 End: 10-24-2023 Patient encounter procedure No Primary Care Physician [facility]-Laboratory, Specimen Work Phone: Start: 10-24-2023 End: 10-24-2023 Patient encounter procedure No Primary Care Physician [facility] Work Phone: Start: 10-05-2023 End: 10-05-2023 ambulatory [facility] Work Phone: Start: 10-05-2023 End: 10-05-2023 Patient encounter procedure [facility]-Ultrasound, [facility] Work Phone: Start: 10-04-2023 End: 10-04-2023 ambulatory [facility] Work Phone: Start: 10-04-2023 End: 10-04-2023 Patient encounter procedure [facility]Labor[facility] Work Phone: Start: 08-15-2022 Non-patient / Non-visit No Lay esteban Care Physician [facility] Start: 08-14-2022 Non-patient / Non-visit No Lay esteban Care Physician [facility] Start: 08-14-2022 End: 08-15-2022 Evaluation and management of inpatient No Primary Care Physician [facility] Start: 08-08-2022 End: 08-08-2022 Patient encounter procedure No Primary Care Physician [facility] Start: 08-07-2022 End: 08-07-2022 ambulatory No Primary Care Physician [facility] Work Phone: Start: 08-07-2022 End: 08-07-2022 Patient encounter procedure No Primary Care Physician [facility] Out Start: 08-03-2022 End: 08-03-2022 ambulatory No Primary Care Physician [facility] Work Phone: Start: 08-03-2022 End: 08-03-2022 Patient encounter procedure No Primary Care Physician [facility]-Ultrasound, [facility] Start: 07-31-2022 End: 07-31-2022 Patient encounter procedure No Primary Care Physician [facility] Start: 07-31-2022 End: 07-31-2022 ambulatory No Primary Care Physician [facility] Work Phone: Start: 07-31-2022 End: 07-31-2022 Patient encounter procedure No Primary Care Physician [facility] Start: 07-28-2022 End: 07-28-2022 Patient encounter procedure No Primary Care Physician [facility] Start: 07-27-2022 End: 07-27-2022 ambulatory No Primary Care Physician [facility] Work Phone: Start: 07-27-2022 End: 07-27-2022 Patient encounter procedure No Primary Care Physician [facility] [facility] Start: 07-24-2022 End: 07-24-2022 ambulatory No Primary Care Physician [facility] Work Phone: Start: 07-24-2022 End: 07-24-2022 Patient encounter procedure No Primary Care Physician [facility] Start: 07-17-2022 End: 07-17-2022 ambulatory No Primary Care Physician [facility] Work Phone: Start: 07-17-2022 End: 07-17-2022 Patient encounter procedure No Primary Care Physician [facility], [facility] Start: 07-17-2022 End: 07-17-2022 Patient encounter procedure No Primary Care Physician [facility] Start: 07-13-2022 End: 07-13-2022 ambulatory No Primary Care Physician [facility] Work Phone: Start: 07-13-2022 End: 07-13-2022 Patient encounter procedure No Primary Care Physician [facility], [facility] Start: 07-10-2022 End: 07-10-2022 Patient encounter procedure No Primary Care Physician [facility] Start: 07-06-2022 End: 07-06-2022 ambulatory No Primary Care Physician [facility] Work Phone: Start: 07-06-2022 End: 07-06-2022 Patient encounter procedure No Primary Care Physician [facility], [facility] Start: 07-03-2022 End: 07-03-2022 ambulatory No Primary Care Physician [facility] Work Phone: Start: 07-03-2022 End: 07-03-2022 Patient encounter procedure No Primary Care Physician [facility] Start: 06-19-2022 End: 06-19-2022 Patient encounter procedure No Primary Care Physician [facility] Start: 06-05-2022 End: 06-05-2022 Patient encounter procedure No Primary Care Physician [facility] Start: 05-16-2022 End: 05-16-[address] Briana Velasquez Work Phone: [facility], Specimen Start: 05-15-2022 End: 05-15-[address] Briana Velasquez Work Phone: [facility] Start: 04-17-2022 End: 04-17-[address] Briana Velasquez Work Phone: [facility] Start: 04-10-2022 Office outpatient ne w 30 minutes Jesus Man Work Phone: [facility] Work Phone: Start: 02-24-2022 End: 02-24-[address] Briana Velasquez Work Phone: [facility] Start: 01-27-2022 End: 01-27-[address] Briana Velasquez Work Phone: [facility] Start: 01-23-2022 End: 01-23-[address] Briana Velasquez Work Phone: [facility] Start: 01-01-2022 End: 01-01-2022 Emergency department patient visit Sharri Guzmán MD Work Phone: [facility] Start: 12-19-2021 End: 12-19-[address] Briana Velasquez Work Phone: [facility], [facility] Start: 12-15-2021 End: 12-15-[address] Briana Velasquez Work Phone: [facility] Pav[facility] Start: 12-12-2021 End: 12-12-[address] Briana Velasquez Work Phone: [facility] Start: 06-13-2021 End: 06-13-2021 Office outpatient new 30 minutes Lenore SAWANT-C Work Phone: [facility] Comment on above: Acute cystitis witho ut hematuria (Primary Dx) Start: 02-24-2019 End: 02-24-2019 Letter encounter Provider Joya [facility] Start: 02-24-2019 End: 02-24-2019 Emergency department patient visit [facility] Start: 05-07-2018 End: 05-07-2018 Patient encounter Aydee Francisco Facility:[place] Start: 10-01-2017 End: 10-01-2017 Patient encounter Massiel Lujan Facility:[place] Start: 09-23-2017 End: 09-23-2017 Emergency department patient visit Arcadio Garner Facility:[place] Start: 04-03-2017 End: 04-04-2017 Ambulatory DENISHA HARRINGTON [facility] Work Phone: [facility] Work Phone: Comment on above: AGE 15; Procedures Date Procedure Procedure Detail Performing Clinician Start: 05-12-2025 Pelvic echography No Pr imminot Care Physician Start: 04-22-2025 Us preg uterus real time w/image dcmtn transvag Nohemi Reagan PA-C Work Phone: Start: 04-22-2025 End: 04-22-2025 Albumin serum plasma/whole blood Nohemi Reagan PA-C Work Phone: Start: 04-22-2025 Complete blood count with white cell differential, automated Nohemi Reagan PA-C Work Phone: Start: 04-22-2025 Culture bacterial qu anttative colony count urine Nohemi Reagan PA-C Work Phone: Start: 04-22-2025 Urinalysis, reagent strip without microscopy Nohemi Reagan PA-C Work Phone: Start: 12-25-2024 Iaadiadoo streptococ cus group a Corinne Navas Aaliyah CINDER WORKER-AUTOMATION CLERK Work Phone: Start: 09-11-2024 Iaadiadoo streptococ cus group a Corinne Cartwrightley CINDER WORKER-AUTOMATION CLERK Work Phone: Start: 09-11-2024 SARS-CoV-2 (COVID-19 ) RNA [Presence] in Unspecified specimen by CLIFTON with probe detection Corinne Navas Aaliyah CINDER WORKER-AUTOMATION CLERK Work Phone: Start: 02-18-2024 Ultrasound scan for growth No Primary Care Physician Start: 10-24-2023 Urine culture No Primar y Care Physician Start: 10-05-2023 Transvaginal obstetr ic ultrasonography Start: 08-03-2022 Ultrasonography for biophysical profile without non-stress testing No Primary Care Physician Start: 07-27-2022 Ultrasonography for biophysical profile without non-stress testing No Primary Care Physician Start: 07-24-2022 Ultrasonography for biophysical profile without non-stress testing No Primary Care Physician Start: 07-17-2022 Ultrasonography for biophysical profile without non-stress testing No Primary Care Physician Start: 07-13-2022 Ultrasonography for biophysical profile without non-stress testing No Primary Care Physician Start: 07-06-2022 Ultrasonography for biophysical profile without non-stress testing No Primary Care Physician Start: 01-27-[address] Nayana Velasquez Work Phone: Start: 01-23-[address] ic ultrasonography Dr[address] Briana Velasquez Work Phone: Start: 01-01-2022 End: 01-01-2022 Gonadotropin chorionic qualitative Corinne Charles CINDER WORKER-AUTOMATION CLERK Work Phone: Start: 01-01-2022 Urinalysis microscopic only Corinne Charles CINDER WORKER-AUTOMATION CLERK Work Phone: Start: 01-01-2022 Urinalysis, reagent strip without microscopy Corinne Charles [facility] Work Phone: Start: 01-01-2022 Complete blood count with white cell differential, automated [facility]inne Charles [facility] Work Phone: Start: 01-01-2022 Quantitative PCR analysis Corinne Charles [facility] Work Phone: Start: 12-19-[address] ic ultrasonography Dr[address] Briana Velasquez Work Phone: Start: 06-13-2021 Urnls dip stick/tabl et rgnt auto w/o microscopy Lenore Cordova PA-C Work Phone: Start: 06-11-2019 Echocardiography Start: 02-24-2019 Blood count hematocrit Rosey Castro Work Phone: Start: 02-24-2019 Blood typing serologic abo Rosey Castro Work Phone: Start: 02-24-2019 Choriogonadotropin ( test) [Presence] in Serum or Plasma Rosey Castro Work Phone: Start: 02-24-2019 Computed tomography of abdomen and pelvis with contrast Rosey Castro Work Phone: Start: 02-24-2019 Choriogonadotropin ( test) [Presence] in Urine Rosey Castro Work Phone: Start: 02-24-2019 Iadna chlamydia trac homatis amplified probe tq Rosey Castro Work Phone: Start: 02-24-2019 Urinalysis microscopic only Rosey Castro Work Phone: Start: 02-24-2019 URINALYSIS, MACRO Rosey Castro Work Phone: Start: 02-24-2019 Assay of lipase Rosey Castro Work Phone: Start: 02-24-2019 CBC, EDIF, PLATELET Bipin zoey Castro Work Phone: Start: 02-24-2019 Comprehensive metabolic panel Rosey Castro Work Phone: Dilation and curettage Jesus Man Work Phone: Excision of cyst of ovary Se teri Man Work Phone: Comment on above: 2018; Group B Streptococcus Culture No Primary Care Physician Urine culture Dr. Briana Velasquez Work Phone: Plan of Treatment Date Care Activity Detail Author Start: 2072 RSV VACCINE (1 - 1-d ose 75+ series) RSV VACCINE (1 - 1-dose 75+ series) [facility] Start: 05-29-2028 Tetanus vaccination TETANUS [facility] Start: 06-22-2025 Influenza vaccination INFLUENZA VACC INE (#1) [facility] Start: 12-25-2024 End: 12-25-2025 Throat culture CULTURE THROAT Microbiology Routine Sore throat Strep throat exposure Expected: 12/25/2024, Expires: 12/25/2025 [facility] Comment on above: Expected: 12/25/2024 , Expires: 12/25/2025 Start: 06-22-2024 COVID-19 VACCINE ( season) COVID-19 VACCINE ( season) [facility] Start: 06-22-2024 Influenza vaccination INFLUENZA VACC INE (#1) [facility] Start: 11-26-2023 End: 11-26-2023 Patient encounter procedure 11/26/2023 11:45 AM EST Office Visit [facility] [address], [place] [id number] Candis Roberts MD [address] [facility] [address] [place], [place] [id number] Madelyn Williamson, [facility] [place] [address] [facility] Start: 06-22-2023 FLU (#1) FLU (#1) [facility] Start: 08-15-2022 Following clinical p athway protocol [facility] Work Phone: Start: 08-15-2022 Consultation [facility] Work Phone: Start: 08-15-[address] [facility] Work Phone: Start: 08-14-2022 [facility] Work Phone: Start: 08-14-2022 Administration of medication [facility] Work Phone: Start: 08-14-2022 Application of ice c ollar, cap or bag [facility] Work Phone: Start: 08-14-2022 Catheterization of vein [facility] Work Phone: Start: 08-14-2022 Introduction of urin ethan catheter [facility] Work Phone: Start: 08-14-2022 Measuring intake and output [facility] Work Phone: Start: 08-14-2022 Notification of physician [facility] Work Phone: Start: 08-14-2022 Procedure discontinued [facility] Work Phone: Start: 08-14-2022 Provision of activit y privileges [facility] Work Phone: Start: 08-14-2022 Vital signs measurements [facility] Work Phone: Start: 08-14-2022 End: 08-14-2022 [facility] Work Phone: Start: 08-14-2022 Admission procedure [facility] Work Phone: Start: 08-14-2022 [facility] Work Phone: Start: 08-07-2022 Iv infusion therapy prophylaxis/dx ea hour THER/PROPH/DIAG IV INF ADDON [facility] Work Phone: Start: 08-07-2022 Iv infusion therapy/prophylaxis /dx 1st to 1 hr THER/PROPH/DIAG IV INF INIT [facility] Work Phone: Start: 07-28-2022 Iv infusion therapy prophylaxis/dx ea hour THER/PROPH/DIAG IV INF ADDON [facility] Work Phone: Start: 07-28-2022 Iv infusion therapy/prophylaxis /dx 1st to 1 hr THER/PROPH/DIAG IV INF INIT [facility] Work Phone: Start: 07-24-2022 Procedure [facility] Work Phone: Start: 07-17-2022 Biophysical pr ofile panel [facility] Work Phone: Start: 07-17-2022 Ultrasonography for biophysical profile without non-stress testing Biophysical Prof W/O Non Stres [facility] Work Phone: Start: 07-06-2022 Biophysical pr ofile panel [facility] Work Phone: Start: 07-06-2022 Ultrasonography for biophysical profile without non-stress testing Biophysical Prof W/O Non [facility] Work Phone: Start: 07-06-2022 Ultrasound scan for growth [facility] Work Phone: Start: 06-22-2021 Influenza vaccination INFLUENZA VACC INE (#1) [facility] Start: 02-25-2020 GONORRHEA SCREEN GONORRHEA SCREEN [facility] Start: 02-25-2020 Screening for Chlamy marciano trachomatis CHLAMYDIA SCREEN [facility] Start: 06-22-2019 Influenza vaccination INFLUENZ A VACCINE (Season Ended) [facility] Start: 2018 Microscopic observat ion [Identifier] in Cervix by Cyto stain Pap Smear [facility] Start: 2018 Screening for malign ant neoplasm of cervix [facility] Start: 2016 Third diphtheria, te tanus and acellular pertussis (DTaP) vaccination TDAP (ADULT) [facility] Start: 2015 Tetanus vaccination TETANUS [facility] Start: 2013 MenB (1 of 2 - MenB 2-Dose Series Bexsero) MenB (1 of 2 - MenB 2-Dose Series Bexsero) [facility] Start: 2013 Screening for Chlamy marciano trachomatis CHLAMYDIA SCREEN [facility] Start: 2012 HIV screening HIV SCREENING DISCUSSION [facility] Start: 2012 Vaccination for maria fernanda n papillomavirus HPV VACCINE ADOL (1 - Female 3-dose series) [facility] Start: 2010 HIV screening HIV SCREENING DISCUSSION [facility] Start: 2009 COVID-19 VACCINE (1) COVID-19 VACCIN E (1) [facility] Start: 2008 HPV (1 - 2-dose series) HPV (1 - 2-dose series) [facility] Start: 2008 Vaccination for maria fernanda n papillomavirus HPV VACCINE ADOL (1 - 2-dose series) [facility] Start: 2004 Tetanus Diphtheria a nd Pertussis Vaccines (1 - Tdap) Tetanus Diphtheria and Pertussis Vaccines (1 - Tdap) [facility] Start: 2002 COVID-19 VACCINE (1) COVID-19 VACCIN E (1) [facility] Start: 1998 MMR (1 of 1 - Standa rd series) MMR (1 of 1 - Standard series) [facility] Start: 1998 Varicella (1 of 2 - 2-dose childhood series) Varicella (1 of 2 - 2-dose childhood series) [facility] Start: 02-17-1998 COVID-19 (#1) COVID-19 (#1) [facility] Start: 1997 GONORRHEA SCREEN [facility] Start: 1997 Hepatitis B (1 of 3 - 3-dose series) Hepatitis B (1 of 3 - 3-dose series) [facility] Start: 1997 Hepatitis C antibody , confirmatory test HEPATITIS C VIRUS SCREENING [facility] Start: 1997 Hepatitis C screening HEPATITI S C VIRUS SCREENING [facility] Bacteria identified in Urine by Culture URINE CULTURE Microbiology STAT 01/01/2022 11:57 AM EDT [facility] Bacteria identified in Urine by Culture URINE CULTURE Microbiology Routine Acute cystitis without hematuria 06/13/2021 2:00 PM EDT [facility] Work Phone: Bacteria identified in Urine by Culture URINE CULTURE Microbiology Routine 04/22/2025 5:05 PM EDT [facility] CBC W Auto Different ial panel - Blood [facility] Work Phone: CHLAMYDIA/GONOCOCCUS, CLIFTON CHLAMY MARCIANO/GONOCOCCUS, CLIFTON Microbiology STAT 02/24/2019 11:45 AM EDT [employer] Biophysical pr ofile panel US [facility] Work Phone: Glucose [Mass/volume ] in Serum or Plasma --1 hour post 50 g glucose PO [facility] Work Phone: HCG ( test) Ql [employer] Lipase measurement [facility] Work Phone: MR MRI (singl e) Imaging STAT Screening, , for malformation by ultrasound Abnormal ultrasound 11/23/2023 8:00 AM [facility] Work Phone: Patient Education After a Vaginal [facility] Work Phone: Patient referral [facility] Work Phone: Procedure [facility] Work Phone: End: 01-01-2022 Standard ECG ECG ECG STAT One Time for 1 Occurrences starting 01/01/2022 until 01/01/2022 [facility] Comment on above: One Time for 1 Occur rences starting 01/01/2022 until 01/01/2022 End: 02-24-2019 Transvaginal ultrasonography of pelvis US PELVIS Imaging STAT One Time for 1 Occurrences starting 02/24/2019 until 02/24/2019 [employer] Comment on above: One Time for 1 Occur rences starting 02/24/2019 until 02/24/2019 Transvaginal ultrasonography of pelvis US PELVIS Imaging STAT 02/24/2019 3:23 PM EDT [employer] TYPE AND SCREEN - PO SSIBLE TRANSFUSION TYPE AND SCREEN - POSSIBLE TRANSFUSION Blood Bank STAT 02/24/2019 3:30 PM ED [employer] End: 02-24-2019 Ultrasonography of abdomen US ABDOMEN COMPLETE Imaging STAT One Time for 1 Occurrences starting 02/24/2019 until 02/24/2019 [employer] Comment on above: One Time for 1 Occur rences starting 02/24/2019 until 02/24/2019 Ultrasonography of abdomen US AB LIZA COMPLETE Imaging STAT 02/24/2019 3:23 PM EDT [facility] Ultrasound scan for growth [facility] US Pelvis [facility] Immunizations Immunization Date Immunization Notes Care Provider Tasneem simonbg 08-15-2022 influenza, injectabl e, quadrivalent, preservative free [facility] 08-15-2022 influenza, seasonal, injectable No Primary Care Physician [facility] Work Phone: 08-15-2022 influenza virus vaccine, unspecified formulation Corinnehandy Paul CINDER WORKER-AUTOMATION CLERK Work Phone: [facility] 05-29-2018 diphtheria, tetanus toxoids and acellular pertussis vaccine, unspecified formulation Dr. Briana Velasquez Work Phone: [facility] Work Phone: 05-29-2018 tetanus toxoid, redu shaka diphtheria toxoid, and acellular pertussis vaccine, adsorbed Dr. Briana Velasquez Work Phone: [facility] Payers Date Payer Category Payer Medicaid (Managed Care) [employer] [id number] 2024 Self-pay [id number] 2024 Unknown [id number] 2017 Unknown [employer] xxxxxxxxxxx 2017-Present [id number] 2017 Unknown [id number] 2017 Unknown MATI RANDLE [id number] 2017-Present [address] [place] [address] [id number] 2017 Unknown [id number] 1997 Unknown [id number]. 479 1997 Unknown [id number] [id number]. 479 1997 Unknown [id number] [id number]. 479 1997 Unknown [id number] [id number]. 479 1997 Unknown [id number] [id number]. 983 1997 Unknown [id number] [id number]. 983 1997 Unknown [id number] [id number]. 983 1997 Unknown [id number] [id number]. 983 1997 Unknown [id number] [id number]. 983 1997 Unknown [id number] [id number]. 983 Unknown [id number] [id number]. 462 Unknown [id number] [id number]. 462 Unknown [id number]. 462 Unknown [id number]. 462 Social History Date Type Detail Facility Start: 02-24-2019 End: 04-27-2025 Tobacco smoking status NHIS Never smoker [facility] Start: 1995 Sex Assigned At Not on file [facility] Start: 12-16-2017 End: 07-20-2022 Tobacco use and exposure Smokeless tobacco non-user [facility] Start: 01-01-2022 End: 04-22-2025 Alcohol intake Current non-drinker of alcohol (finding) [facility] Start: 12-22-2021 End: 01-01-2022 Exposure to SARS-CoV-2 (event) Not sure [facility] Start: 01-27-2022 End: 01-24-2024 Tobacco smoking status NHIS Unknown if ever smoked [facility] Start: 08-12-2018 None [facility] Start: 1995 Sex Assigned At Female W [facility] Start: 11-23-2023 End: 04-22-2025 No alcohol use No alcohol use [facility] Work Phone: History of tobacco use Passive smoker [facility] Start: 11-23-2023 End: 11-26-2023 Alcohol intake Lifetime non-drinker (finding) [facility] Start: 11-23-2023 End: 04-22-2025 Tobacco use panel [facility] Start: 07-23-2023 [facility] Start: 12-16-2017 Gender identity Identifies as female gender (finding) [facility] Start: 10-27-2016 Sex Female (finding) [facility] Goals Date Patient Goal Desired Activity /State Functional Status Date Assessment Result Facility 02-25-2019 Are you deaf, or do you have serious difficulty hearing No 02/25/2019 3:30 AM Gale Cueva RN [facility] 02-25-2019 Are you blind, or do you have serious difficulty seeing, even when wearing glasses No 02/25/2019 3:30 AM Gale Cueva RN [facility] 02-25-2019 Do you have serious difficulty walking or climbing stairs No 02/25/2019 3:30 AM Gale Cueva RN [facility] 02-25-2019 Do you have difficul ty dressing or bathing No 02/25/2019 3:30 AM Gale Cueva RN [facility] 02-25-2019 Because of a physica l, mental, or emotional condition, do you have difficulty doing errands alone such as visiting a physician's office or shopping No 02/25/2019 3:30 AM Gale Cueva RN [facility] Mental Status Date Assessment Result Facility 08-07-2022 Cognitive function Level Of Cons ciousness Awake;Alert;Appropriate;Fol lows Commands [facility] Work Phone: 07-31-2022 Cognitive function Awake;Alert;A ppropriate;Fol lows Commands [facility] Work Phone: 07-28-2022 Cognitive function Level Of Cons ciousness Awake;Alert;Appropriate;Fol lows Commands [facility] Work Phone: 02-25-2019 Because of a physica l, mental, or emotional condition, do you have serious difficulty concentrating, remembering, or making decisions No 02/25/2019 3:30 AM Gale Cueva RN [facility] Clinical Notes 06-13-2021 to 05-15-2025 Note Date & Type Note Facility 05-15-2025 Radiology Diagnostic study note [facility] Imaging Services [address] [place], [place] [address] Pelvic w/ Transvaginal MR#: [id number] Acct: [id number] Name: LISSETT ARNETT Rep #: [id number] : 1995 F 29 From: Malika Dunlap MD PCP: Care Physician,No Primary Status: REG CLI Study:Pelvic w/ Transvaginal Date of Exam: 05/12/25 Exam# [id number] Ordering Dr: Coco Peoples DO PROCEDURE: PELVIC W/ TRANSVAGINAL 05/12/2025 REASON FOR EXAM: INCOMPLETE , RULE OUT POC TECHNIQUE: PELVIC W/ TRANSVAGINAL. Transabdominal and transvaginal grayscale, color and spectral Doppler pelvic ultrasound. COMPARISON: None. FINDINGS: ENDOMETRIUM: Heterogeneous with internal vascularity. Thickness of 12.0 mm. UTERUS: Anteverted. Normal size and contour measuring 9.6 x 6.1 x 4.3 cm. No fibroid detected. CERVIX: Normal size and contour. RIGHT OVARY: Normal size and appearance measuring 3.7 x 3.2 x 2.7 cm. Normal follicles. Normal blood flow. No adnexal mass. LEFT OVARY: Enlarged measuring 4.0 x 3.2 x 3.2 cm with a volume of 21.4 mL. Anechoic cyst measuring 3.4 x 2.8 x 3.0 cm. Normal blood flow. No adnexal mass. FREE FLUID: No free fluid. US/Pelvic w/ Transvaginal IMPRESSION: 1. Heterogeneous endometrium with vascularity, suggesting retained products of conception. 2. Simple 3.4 cm left ovarian cyst. O-RADS US 2 - Almost certainly benign category (<1% risk of malignancy). No follow-up recommended. Reading Location: [id number] CC: Dr. Coco Vyas DO; No Primary Care Physician ~ Hogshead Dumper: Signed [facility] 04-27-2025 Evaluation note Diagnosis Onset Date Resolution Contraceptive management acute April 27, 2025 1:11pm Incomplete acute April 27, 2025 1:11pm [facility] Work Phone: [phone]) 337-269807-02-2025 Physician Emergency department Note* Nohemi Reagan PA-C - 04/22/2025 5:52 PM EDT Emergency Department Report [facility] [facility] EMERGENCY DEPARTMENT Service Date:.04/22/25 PCP: Sharri Guzmán Chief Complaint: Chief Complaint Patient presents with Abdominal Pain Spotting Patient to ED with concerns for miscarriage. Patient states hx previous miscarriage. Patient believes she is 8 weeks along. States intense cramps and dark spotting [facility] [employer] [facility] Lissett Arnett is a 29 y.o. female. History is obtained from the patient. The patient states that she is having trouble with bleeding and cramping. States she thinks she is about 8 weeks and started to have a dark brown blood spotting 2 days ago. States she has had continued does some dark spotting no heavy bleeding. She states the cramping started yesterday. She has had 1 miscarriagein the past as well as 3 live healthy pregnancies. She states yesterday she also started vomiting and since then has not been able to keep down any food or fluids.. Review of Systems: Review of Systems Review of Systems negative other than stated in the HPI Past Medical History: Past Medical History: Diagnosis Date Anemia Past Surgical History: Past Surgical History: Procedure Laterality Date ASPIRATION CAVITY/CYST ABDOMEN PERITONEUM OMENTUM LAPAROSCOPIC N/A 02/24/2019 Laterality: N/A; Surgeon: Rachel Rai MD; Location: [facility] MAIN OR HAND SURGERY right Allergies: No Known Allergies Medications: Patient's Medications New Prescriptions No medications on file Previous Medications ACETAMINOPHEN 160 MG/5ML SOLUTION Take by mouth every 4 hours as needed for Mild Pain. ALBUTEROL 108 (90 BASE) MCG/ACT AERO SOLN INHALER Inhale 2 puffs every 6 hours as needed for Shortness of Breath or Wheezing. DOCUSATE 100 MG CAP Take 1 capsule by mouth 2 times daily as needed for Constipation 1st Line. FERROUS SULFATE 325 (65 FE) MG TABLET Take 325 mg by mouth daily. IBUPROFEN 600 MG TAB TABLET Take 1 tablet by mouth every 6 hours as needed for Mild Pain or Moderate Pain. ONDANSETRON 4 MG TAB DISPERSIBLE TABLET Take 1 tablet by mouth every 4 hours as needed for Nausea. Place on tongue OSELTAMIVIR 75 MG CAPSULE Take 1 capsule by mouth 2 times daily. For flu treatment OXYCODONE 5 MG TAB TABLET Take 1 tablet by mouth every 6 hours as needed for Pain (breakthrough) for up to 7 days. VIT-FE FUMARATE-FA ( PLUS) 27-1 MG TABLET Take 1 tablet by mouth daily. VELYMGMRCYNBIBP-[id number]-[id number] (CAPMIST DM) 60-15-400 MG TABLET Take 1 tablet by mouth every 6 hours as needed for Cold Symptoms or Cough for up to 3 days. Modified Medications No medications on file Discontinued Medications No medications on file Family History: History reviewed. No pertinent family history. Social History: Social History Socioeconomic History Marital status: Single Spouse name: Not on file Number of children: Not on file Years of education: Not on file Highest education level: Not on file Occupational History Not on file Tobacco Use Smoking status: Never Smokeless tobacco: Never Vaping Use Vaping status: Never Used Substance and Sexual Activity Alcohol use: No [...] Social History Narrative Not on file Social Drivers of Health Financial Resource Strain: Not on file Food Insecurity: Not on file Transportation Needs: Not on file Physical Activity: Not on file Stress: Not on file Social Connections: Not on file Personal Safety: Not on file Housing Stability: Not on file Physical Exam: Physical Exam Vitals and nursing note reviewed. Constitutional: Appearance: Normal appearance. HENT: Head: Normocephalic and atraumatic. Eyes: Conjunctiva/sclera: Conjunctivae normal. Cardiovascular: Rate and Rhythm: Normal rate and regular rhythm. Pulmonary: Effort: Pulmonary effort is normal. No respiratory distress. Breath sounds: Normal breath sounds. No wheezing. Abdominal: General: There is no distension. Palpations: Abdomen is soft. Tenderness: There is abdominal tenderness (low pelvic tenderness). There is no guarding. Musculoskeletal: General: No tenderness, deformity or signs of injury. Normal range of motion. Cervical back: Normal range of motion and neck supple. Skin: Findings: No rash. Neurological: General: No focal deficit present. Mental Status: She is alert and oriented to person, place, and time. Cranial Nerves: No cranial nerve deficit. Motor: No weakness. Coordination: Coordination normal. Psychiatric: Behavior: Behavior normal. Thought Content: Thought content normal. Judgment: Judgment normal. Vital Signs During ED Visit Patient Vitals for the past 24 hrs: BP Temp Temp src Pulse Resp Height Weight 04/22/25 1650 111/64 97.2 F (36.2 C) Oral 85 17 -- -- 04/22/25 1648 -- -- -- -- -- 1.575 m (5' 2) 54.4 kg (120 lb) Orders/Results: Results for orders placed or performed during the hospital encounter of 04/22/25 URINE CULTURE Result Value Ref Range SPECIMEN DESCRIPTION URINE CLEAN CATCH RESULT-CULT PENDING Report Status PENDING CHEM 7 (LYTES,BUN,CREA,GLUC) Result Value Ref Range Glucose 87 70 - 100 MG/DL BUN 9 7 - 20 mg/dL CREATININE SERUM 0.70 0.70 - 1.20 mg/dL SODIUM 136 (L) 137 - 145 MMOL/L Potassium 4.2 3.5 - 5.1 MMOL/L CHLORIDE 99 98 - 107 MMOL/L CARBON DIOXIDE (CO2) 26 22 - 30 MMOL/L ESTIMATED GFR 107 ml/min/1.73sq.m GFR COMMENT Average GFR for 18-29 years old = 116. CBC, EDIF, PLATELET Result Value Ref Range WBC (WHITE BLOOD COUNT) 5.2 3.6 - 11.0 10*3/uL RBC 4.70 4.0 - 5.4 10*6/uL HEMOGLOBIN (HGB) 13.9 12.0 - 16.0 G/DL HEMATOCRIT (HCT) 39.0 36.0 - 48.0 % Mean Cell Volume 82.9 80.0 - 100.0 FL Mean Cell HGB 29.6 26.0 - 35.0 PG Mean Cell HGB Concentration 35.7 27.0 - 37.0 G/DL RBC Distribution 13.5 11.5 - 14.5 % PLATELET COUNT 215 130 - 400 10*3/uL Mean Platelet Volume 8.2 7.4 - 11.0 FL DIFFERENTIAL TYPE AUTO DIFF % NEUTROPHILS 68.9 37.0 - 75.0 % LYMPHOCYTE 23.7 20.0 - 55.0 % MONOCYTE % 6.0 0.0 - 10.0 % EOSINOPHIL % 0.7 0.0 - 11.0 % BASOPHIL % 0.7 0.0 - 2.0 % Absolute Neutrophil Count 3.6 1.4 - 6.5 10*3/uL LYMPHOCYTES, ABSOLUTE 1.2 1.2 - 3.4 10*3/uL MONOCYTES, ABSOLUTE 0.3 0.0 - 0.7 10*3/uL ABSOLUTE EOSINOPHIL COUNT 0.0 0.0 - 0.7 10*3/uL ABSOLUTE BASOPHIL COUNT 0.0 0.0 - 0.2 10*3/uL HEPATIC FUNCTION PANEL Result Value Ref Range Albumin 4.6 2.9 - 5.3 G/DL BILIRUBIN, TOTAL 0.5 0.2 - 1.3 mg/dL ALKALINE PHOSPHATASE 51 38 - 126 U/L AST 30 14 - 36 U/L BILIRUBIN, DIRECT 0.0 0.0 - 0.4 MG/DL PROTEIN, TOTAL 7.5 6.3 - 8.2 g/dL ALT 8 <35 U/L LIPASE Result Value Ref Range LIPASE 154 23 - 300 U/L HCG QUALITATIVE, URINE Result Value Ref Range HCG, QUALITATIVE, URINE POSITIVE (A) NEGATIVE URINALYSIS, MACRO Result Value Ref Range Color, Urine YELLOW YELLOW Appearance, Urine CLEAR CLEAR Specific [place], Urine >1.030 (H) 1.010 - 1.025 PH URINE 6.0 5.0 - 7.0 Urine Protein 30 (A) NEGATIVE mg/dl Glucose, Urine NEGATIVE NEGATIVE mg/dl Ketones, Urine >160 (A) NEGATIVE mg/dl BILIRUBIN, URINE NEGATIVE NEGATIVE BLOOD, URINE DIPSTICK MODERATE (A) NEGATIVE Nitrites, Urine NEGATIVE NEGATIVE Urobilinogen, Urine 1.0 0.2 - 1.0 E.U./dL Leukocyte esterase, Urine NEGATIVE NEGATIVE URINE MICROSCOPIC Result Value Ref Range WBC, Urine NEGATIVE NEGATIVE /HPF RBC, Urine NEGATIVE NEGATIVE /HPF Epithelial Cells UA 5 TO 10 /HPF Mucus NEGATIVE NEGATIVE Bacteria, Urine NEGATIVE NEGATIVE CRYSTALS, URINE NONE NONE CASTS, URINE NONE NONE /LPF COMMENT, URINE REFLEX CULTURE PER ESTABLISHED CRITERIA. Radiographic Imaging US OB TRANSVAGINAL/CERVICAL LENGTH Procedures: Procedures ED Summary/MDM Patient has been stable here in the emergency room. Urinalysis does show moderate blood along with greater than in the 160 ketones likely from her continued vomiting and inability to keep down food or fluids. She also has 30 proteins present. Electrolytes are stable other than a sodium of 136. Kidney function is good liver enzymes are normal. Her test is positive here today and we are waiting on the quantitative hCG level. Her white count and hemoglobin are stable and normal. We did obtain an OB ultrasound which is also pending at this time. Patient will be turned over to Dr. Markerat shift change awaiting the results of these things. An After Visit Summary was printed and given to the patient with above information. Nohemi Reagan PA-C [facility] Emergency Department [place], [place] . . Nohemi Reagan PA-C 04/22/25 1845 Cosigned by Leonila Spence DO at 04/22/2025 8:48 PM EDT Associated attestation - Leonila Spence DO - 04/22/2025 8:48 PM EDT This 29-year-old female who has had 1 miscarriage in his a proximally 9 weeks was signed out to me at shift change pending ultrasound. She presents for evaluation of dark vaginal bleeding/spotting and nausea vomiting. She states she always has nausea vomiting with her pregnancies butthis is worse than usual. She was given Reglan, normal saline and D5 LR in his a positive. Beta quantitative hCG is in the 44,000 range. Ultrasound shows a 5 week intrauterine with a heart rate in the 90s. This is not consistent with her dates. She verbalizes understanding of the this is a threatened miscarriage. She has an OBGYN in [facility]. But this point she is hemodynamically stable not bleeding heavily and not in need of a D&C. The ultrasound report was given to her to share with her OBGYN. She does have Zofran and Reglan at home. She will be discharged home after additional IV fluids. [facility]07-02-2025 Emergency department Note* Nohemi Reagan PA-C - 04/22/2025 5:52 PM EDT Emergency Department Report [facility] EMERGENCY DEPARTMENT Service Date:.04/22/25 PCP: Sharri Guzmán Chief Complaint: Chief Complaint Patient presents with Abdominal Pain Spotting Patient to ED with concerns for miscarriage. Patient states hx previous miscarriage. Patient believes she is 8 weeks along. States intense cramps and dark spotting HPI Lissett Arnett is a 29 y.o. female. History is obtained from the patient. The patient states that she is having trouble with bleeding and cramping. States she thinks she is about 8 weeks and started to have a dark brown blood spotting 2 days ago. States she has had continued does some dark spotting no heavy bleeding. She states the cramping started yesterday. She has had 1 miscarriagein the past as well as 3 live healthy pregnancies. She states yesterday she also started vomiting and since then has not been able to keep down any food or fluids.. Review of Systems: Review of Systems Review of Systems negative other than stated in the HPI Past Medical History: Past Medical History: Diagnosis Date Anemia Past Surgical History: Past Surgical History: Procedure Laterality Date ASPIRATION CAVITY/CYST ABDOMEN PERITONEUM OMENTUM LAPAROSCOPIC N/A 02/24/2019 Laterality: N/A; Surgeon: Rachel Rai MD; Location: [facility] MAIN OR HAND SURGERY right Allergies: No Known Allergies Medications: Patient's Medications New Prescriptions No medications on file Previous Medications ACETAMINOPHEN 160 MG/5ML SOLUTION Take by mouth every 4 hours as needed for Mild Pain. ALBUTEROL 108 (90 BASE) MCG/ACT AERO SOLN INHALER Inhale 2 puffs every 6 hours as needed for Shortness of Breath or Wheezing. DOCUSATE 100 MG CAP Take 1 capsule by mouth 2 times daily as needed for Constipation 1st Line. FERROUS SULFATE 325 (65 FE) MG TABLET Take 325 mg by mouth daily. IBUPROFEN 600 MG TAB TABLET Take 1 tablet by mouth every 6 hours as needed for Mild Pain or Moderate Pain. ONDANSETRON 4 MG TAB DISPERSIBLE TABLET Take 1 tablet by mouth every 4 hours as needed for Nausea. Place on tongue OSELTAMIVIR 75 MG CAPSULE Take 1 capsule by mouth 2 times daily. For flu treatment OXYCODONE 5 MG TAB TABLET Take 1 tablet by mouth every 6 hours as needed for Pain (breakthrough) for up to 7 days. VIT-FE FUMARATE-FA ( PLUS) 27-1 MG TABLET Take 1 tablet by mouth daily. RMNDMQCLHZTINOS-[id number] (CAPMIST DM) 60-15-400 MG TABLET Take 1 tablet by mouth every 6 hours as needed for Cold Symptoms or Cough for up to 3 days. Modified Medications No medications on file Discontinued Medications No medications on file Family History: History reviewed. No pertinent family history. Social History: Social History Socioeconomic History Marital status: Single Spouse name: Not on file Number of children: Not on file Years of education: Not on file Highest education level: Not on file Occupational History Not on file Tobacco Use Smoking status: Never Smokeless tobacco: Never Vaping Use Vaping status: Never Used Substance and Sexual Activity Alcohol use: No [...] Social History Narrative Not on file Social Drivers of Health Financial Resource Strain: Not on file Food Insecurity: Not on file Transportation Needs: Not on file Physical Activity: Not on file Stress: Not on file Social Connections: Not on file Personal Safety: Not on file Housing Stability: Not on file Physical Exam: Physical Exam Vitals and nursing note reviewed. Constitutional: Appearance: Normal appearance. HENT: Head: Normocephalic and atraumatic. Eyes: Conjunctiva/sclera: Conjunctivae normal. Cardiovascular: Rate and Rhythm: Normal rate and regular rhythm. Pulmonary: Effort: Pulmonary effort is normal. No respiratory distress. Breath sounds: Normal breath sounds. No wheezing. Abdominal: General: There is no distension. Palpations: Abdomen is soft. Tenderness: There is abdominal tenderness (low pelvic tenderness). There is no guarding. Musculoskeletal: General: No tenderness, deformity or signs of injury. Normal range of motion. Cervical back: Normal range of motion and neck supple. Skin: Findings: No rash. Neurological: General: No focal deficit present. Mental Status: She is alert and oriented to person, place, and time. Cranial Nerves: No cranial nerve deficit. Motor: No weakness. Coordination: Coordination normal. Psychiatric: Behavior: Behavior normal. Thought Content: Thought content normal. Judgment: Judgment normal. Vital Signs During ED Visit Patient Vitals for the past 24 hrs: BP Temp Temp src Pulse Resp Height Weight 04/22/25 1650 111/64 97.2 F (36.2 C) Oral 85 17 -- -- 04/22/25 1648 -- -- -- -- -- 1.575 m (5' 2) 54.4 kg (120 lb) Orders/Results: Results for orders placed or performed during the hospital encounter of 04/22/25 URINE CULTURE Result Value Ref Range SPECIMEN DESCRIPTION URINE CLEAN CATCH RESULT-CULT PENDING Report Status PENDING CHEM 7 (LYTES,BUN,CREA,GLUC) Result Value Ref Range Glucose 87 70 - 100 MG/DL BUN 9 7 - 20 mg/dL CREATININE SERUM 0.70 0.70 - 1.20 mg/dL SODIUM 136 (L) 137 - 145 MMOL/L Potassium 4.2 3.5 - 5.1 MMOL/L CHLORIDE 99 98 - 107 MMOL/L CARBON DIOXIDE (CO2) 26 22 - 30 MMOL/L ESTIMATED GFR 107 ml/min/1.73sq.m GFR COMMENT Average GFR for 18-29 years old = 116. CBC, EDIF, PLATELET Result Value Ref Range WBC (WHITE BLOOD COUNT) 5.2 3.6 - 11.0 10*3/uL RBC 4.70 4.0 - 5.4 10*6/uL HEMOGLOBIN (HGB) 13.9 12.0 - 16.0 G/DL HEMATOCRIT (HCT) 39.0 36.0 - 48.0 % Mean Cell Volume 82.9 80.0 - 100.0 FL Mean Cell HGB 29.6 26.0 - 35.0 PG Mean Cell HGB Concentration 35.7 27.0 - 37.0 G/DL RBC Distribution 13.5 11.5 - 14.5 % PLATELET COUNT 215 130 - 400 10*3/uL Mean Platelet Volume 8.2 7.4 - 11.0 FL DIFFERENTIAL TYPE AUTO DIFF % NEUTROPHILS 68.9 37.0 - 75.0 % LYMPHOCYTE 23.7 20.0 - 55.0 % MONOCYTE % 6.0 0.0 - 10.0 % EOSINOPHIL % 0.7 0.0 - 11.0 % BASOPHIL % 0.7 0.0 - 2.0 % Absolute Neutrophil Count 3.6 1.4 - 6.5 10*3/uL LYMPHOCYTES, ABSOLUTE 1.2 1.2 - 3.4 10*3/uL MONOCYTES, ABSOLUTE 0.3 0.0 - 0.7 10*3/uL ABSOLUTE EOSINOPHIL COUNT 0.0 0.0 - 0.7 10*3/uL ABSOLUTE BASOPHIL COUNT 0.0 0.0 - 0.2 10*3/uL HEPATIC FUNCTION PANEL Result Value Ref Range Albumin 4.6 2.9 - 5.3 G/DL BILIRUBIN, TOTAL 0.5 0.2 - 1.3 mg/dL ALKALINE PHOSPHATASE 51 38 - 126 U/L AST 30 14 - 36 U/L BILIRUBIN, DIRECT 0.0 0.0 - 0.4 MG/DL PROTEIN, TOTAL 7.5 6.3 - 8.2 g/dL ALT 8 <35 U/L LIPASE Result Value Ref Range LIPASE 154 23 - 300 U/L HCG QUALITATIVE, URINE Result Value Ref Range HCG, QUALITATIVE, URINE POSITIVE (A) NEGATIVE URINALYSIS, MACRO Result Value Ref Range Color, Urine YELLOW YELLOW Appearance, Urine CLEAR CLEAR Specific [place], Urine >1.030 (H) 1.010 - 1.025 PH URINE 6.0 5.0 - 7.0 Urine Protein 30 (A) NEGATIVE mg/dl Glucose, Urine NEGATIVE NEGATIVE mg/dl Ketones, Urine >160 (A) NEGATIVE mg/dl BILIRUBIN, URINE NEGATIVE NEGATIVE BLOOD, URINE DIPSTICK MODERATE (A) NEGATIVE Nitrites, Urine NEGATIVE NEGATIVE Urobilinogen, Urine 1.0 0.2 - 1.0 E.U./dL Leukocyte esterase, Urine NEGATIVE NEGATIVE URINE MICROSCOPIC Result Value Ref Range WBC, Urine NEGATIVE NEGATIVE /HPF RBC, Urine NEGATIVE NEGATIVE /HPF Epithelial Cells UA 5 TO 10 /HPF Mucus NEGATIVE NEGATIVE Bacteria, Urine NEGATIVE NEGATIVE CRYSTALS, URINE NONE NONE CASTS, URINE NONE NONE /LPF COMMENT, URINE REFLEX CULTURE PER ESTABLISHED CRITERIA. Radiographic Imaging US OB TRANSVAGINAL/CERVICAL LENGTH Procedures: Procedures ED Summary/MDM Patient has been stable here in the emergency room. Urinalysis does show moderate blood along with greater than in the 160 ketones likely from her continued vomiting and inability to keep down food or fluids. She also has 30 proteins present. Electrolytes are stable other than a sodium of 136. Kidney function is good liver enzymes are normal. Her test is positive here today and we are waiting on the quantitative hCG level. Her white count and hemoglobin are stable and normal. We did obtain an OB ultrasound which is also pending at this time. Patient will be turned over to Dr. Zeynep meehan change awaiting the results of these things. An After Visit Summary was printed and given to the patient with above information. Nohemi Reagan PA-C [facility] Emergency Department [place], [place] . . Nohemi Reagan PA-C 04/22/25 [id number] Cosigned by Leonila Spence DO at 04/22/2025 8:48 PM EDT Associated attestation - Jordy, Leonila Mora DO - 04/22/2025 8:48 PM EDT This 29-year-old female who has had 1 miscarriage in his a proximally 9 weeks was signed out to me at shift change pending ultrasound. She presents for evaluation of dark vaginal bleeding/spotting and nausea vomiting. She states she always has nausea vomiting with her pregnancies butthis is worse than usual. She was given Reglan, normal saline and D5 LR in his a positive. Beta quantitative hCG is in the 44,000 range. Ultrasound shows a 5 week intrauterine with a heart rate in the 90s. This is not consistent with her dates. She verbalizes understanding of the this is a threatened miscarriage. She has an OBGYN in [facility]. But this point she is hemodynamically stable not bleeding heavily and not in need of a D&C. The ultrasound report was given to her to share with her OBGYN. She does have Zofran and Reglan at home. She will be discharged home after additional IV fluids. [facility] History of Present illness Narrative* Corinne Paul, CINDER WORKER-AUTOMATION CLERK - 12/25/2024 4:30 PM EST HPI Lissett Rehana Arnett 1995 presents to the [facility] with Chief Complaint Patient presents with Sore Throat Sore throat, ear pain onset yesterday. Kids have strep Patient presents with sore throat bilateral ear pain that started yesterday. States she has noticedswollen lymph nodes to all sides of her neck as well. To kids at home with strep throat diagnosed 2days ago. Denies any cough or other URI symptoms. Denies any fever or chills denies any drooling denies any difficulty swallowing. Patient is currently History No Known Allergies Current Outpatient Medications Medication Sig Acetaminophen 160 MG/5ML Solution Take by mouth every 4 hours as needed for Mild Pain. Amoxicillin 500 MG capsule Take 1 capsule by mouth every 12 hours for 10 days. docusate 100 MG Cap Take 1 capsule by mouth 2 times daily as needed for Constipation 1st Line. (Patient not taking: Reported on 09/11/2024) ferrous sulfate 325 (65 Fe) MG tablet Take 325 mg by mouth daily. (Patient not taking: Reported on 09/11/2024) ibuprofen 600 MG Tab tablet Take 1 tablet by mouth every 6 hours as needed for Mild Pain or Moderate Pain. (Patient not taking: Reported on 09/11/2024) ofloxacin 0.3 % ophthalmic solution Place 1 drop in both eyes 4 times daily for 5 days. ondansetron 4 MG Tab Dispersible tablet Take 1 tablet by mouth every 4 hours as needed for Nausea. Place on tongue (Patient not taking: Reported on 09/11/2024) oseltamivir 75 MG capsule Take 1 capsule by mouth 2 times daily. For flu treatment (Patient not taking: Reported on 09/11/2024) oxyCODONE 5 MG Tab tablet Take 1 tablet by mouth every 6 hours as needed for Pain (breakthrough) for up to 7 days. Vit-Fe Fumarate-FA ( Plus) 27-1 MG tablet Take 1 tablet by mouth daily. (Patient not taking: Reported on 09/11/2024) History reviewed. No pertinent family history. Past Medical History: Diagnosis Date Anemia Past Surgical History: Procedure Laterality Date ASPIRATION CAVITY/CYST ABDOMEN PERITONEUM OMENTUM LAPAROSCOPIC N/A 02/24/2019 Laterality: N/A; Surgeon: Rachel Rai MD; Location: [facility] MAIN OR HAND SURGERY right Social History Socioeconomic History Marital status: Single Spouse name: Not on file Number of children: Not on file Years of education: Not on file Highest education level: Not on file Occupational History Not on file Tobacco Use Smoking status: Never Smokeless tobacco: Never Vaping Use Vaping status: Never Used Substance and Sexual Activity Alcohol use: No [...] Social History Narrative Not on file Social Drivers of Health Financial Resource Strain: Not on file Food Insecurity: Not on file Transportation Needs: Not on file Physical Activity: Not on file Stress: Not on file Social Connections: Not on file Personal Safety: Not on file Housing Stability: Not on file ROS Review of Systems 8 systems reviewed with patient, negative unless specifically mentioned in history of present illness PHYSICAL EXAM Visit Vitals BP 114/75 (BP Location: Right arm, BP Position: Sitting) Pulse 68 Temp 97.4 F (36.3 C) (Temporal) Resp 16 Ht 1.575 m (5' 2) Wt 55.3 kg (122 lb) LMP 12/18/2024 SpO2 99% BMI 22.31 kg/m Physical Exam Vitals and nursing note reviewed. Constitutional: Appearance: Normal appearance. HENT: Head: Normocephalic. Right Ear: Tympanic membrane, ear canal and external ear normal. Left Ear: Tympanic membrane, ear canal and external ear normal. Nose: Nose normal. Mouth/Throat: Mouth: Mucous membranes are moist. Pharynx: Oropharynx is clear. Uvula midline. Posterior oropharyngeal erythema present. Eyes: Conjunctiva/sclera: Conjunctivae normal. Cardiovascular: Rate and Rhythm: Normal rate and regular rhythm. Pulses: Normal pulses. Heart sounds: Normal heart sounds. Pulmonary: Effort: Pulmonary effort is normal. Breath sounds: Normal breath sounds. Abdominal: General: Bowel sounds are normal. Musculoskeletal: General: Normal range of motion. Cervical back: Normal range of motion and neck supple. Lymphadenopathy: Cervical: Cervical adenopathy present. Right cervical: Superficial cervical adenopathy present. Left cervical: Superficial cervical adenopathy present. Skin: General: Skin is warm and dry. Neurological: General: No focal deficit present. Mental Status: She is alert. RESULTS Recent Results (from the past 2 hours) POCT RAPID STREP A Collection Time: 12/25/24 4:49 PM Result Value Ref Range POCT RAPID STREP A negative (+/-) ASSESSMENT/PLAN 1. Sore throat 2. Strep throat exposure Orders Placed This Encounter CULTURE THROAT POCT RAPID STREP A Amoxicillin 500 MG capsule Vital signs stable. Physical exam reveals erythematous posterior pharynx. Positive anterior cervical lymphadenopathy. Physical exam is otherwise unremarkable, Due to exposure and symptoms I did startthe patient on amoxicillin based off [facility] criteria. May stop antibiotic if appropriate when culture results. Supportive treatment reviewed Follow up if symptoms worsen or fails to improve over time. The risk and benefits of therapy were discussed with the patient. Alarm symptoms were discussed, along with reasons for contacting the office or going to the ER. Questions were answered for the patient. Follow up if symptoms worsen or fails to improve over time. If symptoms worsen patient was advised to follow up in our office, primary care provider or the Emergency Dept. Benefits, Risks, Contraindications, and Complications of recommended treatments were explained. The patient verbalized understanding and agrees to proceed with plan. HOMER Porter 12/25/2024 documented in this encounter[facility] History of Present illness Narrative* SAVANA Deluca - 12/20/2024 10:30 AM EST URGENT CARE eNCOUnter CHIEF COMPLAINT Eye Drainage (Right eye drainage, x 1 day) [facility] Lissett Arnett is a 29 y.o. female who presents today for complaint of right eye drainage and redness of the right eye that began yesterday. Her kids with similar symptoms. No recent illness but did have influenza a couple weeks ago. REVIEW OF SYSTEMS Review of Systems As documented in [facility]. A thorough 12 point review of systems was evaluated including Constitutional and general appearance, Head, Face, Ears, Eyes, Nose, Throat, Cardiovascular, Pulmonary, GI, , Skin, and Psychiatric andwas found to be negative without symptoms or signs consistent with acute pathology with the exception of that specifically documented in the HPI section of this documentation. PAST MEDICAL HISTORY Past Medical History: Diagnosis Date Anemia SURGICAL HISTORY Past Surgical History: Procedure Laterality Date ASPIRATION CAVITY/CYST ABDOMEN PERITONEUM OMENTUM LAPAROSCOPIC N/A 02/24/2019 Laterality: N/A; Surgeon: Rachel Rai MD; Location: [facility] MAIN OR HAND SURGERY right CURRENT MEDICATIONS Current Outpatient Medications Medication Sig Dispense Refill Acetaminophen 160 MG/5ML Solution Take by mouth every 4 hours as needed for Mild Pain. docusate 100 MG Cap Take 1 capsule by mouth 2 times daily as needed for Constipation 1st Line. (Patient not taking: Reported on 09/11/2024) 60 capsule 0 ferrous sulfate 325 (65 Fe) MG tablet Take 325 mg by mouth daily. (Patient not taking: Reported on 09/11/2024) ibuprofen 600 MG Tab tablet Take 1 tablet by mouth every 6 hours as needed for Mild Pain or Moderate Pain. (Patient not taking: Reported on 09/11/2024) 35 tablet 0 ofloxacin 0.3 % ophthalmic solution Place 1 drop in both eyes 4 times daily for 5 days. 5 mL 0 ondansetron 4 MG Tab Dispersible tablet Take 1 tablet by mouth every 4 hours as needed for Nausea. Place on tongue (Patient not taking: Reported on 09/11/2024) 10 tablet 0 oseltamivir 75 MG capsule Take 1 capsule by mouth 2 times daily. For flu treatment (Patient not taking: Reported on 09/11/2024) 10 capsule 0 oxyCODONE 5 MG Tab tablet Take 1 tablet by mouth every 6 hours as needed for Pain (breakthrough) for up to 7 days. 10 tablet 0 Vit-Fe Fumarate-FA ( Plus) 27-1 MG tablet Take 1 tablet by mouth daily. (Patient not taking: Reported on 09/11/2024) 30 tablet 0 No current facility-administered medications for this visit. ALLERGIES No Known Allergies FAMILY HISTORY History reviewed. No pertinent family history. SOCIAL HISTORY Social History Socioeconomic History Marital status: Single Spouse name: Not on file Number of children: Not on file Years of education: Not on file Highest education level: Not on file Occupational History Not on file Tobacco Use Smoking status: Never Smokeless tobacco: Never Vaping Use Vaping status: Never Used Substance and Sexual Activity Alcohol use: No [...] Social History Narrative Not on file Social Drivers of Health Financial Resource Strain: Not on file Food Insecurity: Not on file Transportation Needs: Not on file Physical Activity: Not on file Stress: Not on file Social Connections: Not on file Personal Safety: Not on file Housing Stability: Not on file PHYSICAL EXAM BP 114/62 (BP Location: Right arm, BP Position: Sitting) Pulse 119 Temp 98.8 F (37.1 C) (Temporal) Resp 16 Ht 1.549 m (5' 1) Wt 55.5 kg (122 lb 6.4 oz) BMI 23.13 kg/m Smoking Status Never Physical Exam General exam: Patient is well-developed and well-nourished in no distress. Patient does not appear acutely ill or toxic. Eye exam: + right conjunctiva is injected. Crusting of eyelashes. PERRL normal EOMs ENT exam: head and facial exam is normal. The neck is supple without meningeal signs. No significant adenopathy. Pulmonary exam: No respiratory distress. Respiratory rate is normal. No stridor. Breath sounds are equal bilaterally. There are no wheezes, rales, or rhonchi noted. Cardiac exam: The cardiac rate and rhythm are normal. No significant murmurs, rubs, or gallops. Peripheral pulses are normal. Skin and soft tissue: Skin is warm and dry, without significant abnormality. Good color. Musculoskeletal exam: There is no peripheral edema. Neurologic: Patient is alert and appropriate. Normal speech. Normal symmetric strength and tone in all extremities. Psychiatric: Normal adult with appropriate demeanor and interpersonal interaction. Is oriented to person, place, and time. Diagnosis, Assessment & Plan: Lissett was seen today for eye drainage. Diagnoses and all orders for this visit: Acute bacterial conjunctivitis of right eye Other orders - ofloxacin 0.3 % ophthalmic solution; Place 1 drop in both eyes 4 times daily for 5 days. 29 yo female presents with conjunctivitis of right eye. Will start on ofloxacin eye drops. -Follow up with PCP. Advised to return or go to ER immediately if any new or worsening symptoms. -Benefits, risks, contraindications, & complications of recommended treatments were explained. The patient understands & agrees to proceed with plan. SAVANA Deluca 12/20/2024 documented in this [facility]11-21-2024 History of Present illness Narrative* Corinne Paul, AMA-AUTOMATION CLERK - 09/11/2024 9:00 AM EST HPI Lissett Arnett female 1995 presents to the [facility] with Chief Complaint Patient presents with Sore Throat Kids got her sick, they are treated now, but she started to feel bad 4 days ago Sinus Congestion Ear Pain Started last night Patient presents with postnasal drip, sore throat, cough and voice hoarseness mainly in the morningfor the past 4-5 days. States she has had sinus congestion. Reports left ear pain and muffled hearing from left ear as of this morning. Describes the pain as severe. Denies any discharge from her left ear. Denies any fever or chills. States 2 of her children at home have been ill with similar symptoms. She is currently History No Known Allergies Current Outpatient Medications Medication Sig Acetaminophen 160 MG/5ML Solution Take by mouth every 4 hours as needed for Mild Pain. Amoxicillin-clavulanate 875-125 MG tablet Take 1 tablet by mouth 2 times daily for 7 days. docusate 100 MG Cap Take 1 capsule by mouth 2 times daily as needed for Constipation 1st Line. (Patient not taking: Reported on 09/11/2024) ferrous sulfate 325 (65 Fe) MG tablet Take 325 mg by mouth daily. (Patient not taking: Reported on 09/11/2024) ibuprofen 600 MG Tab tablet Take 1 tablet by mouth every 6 hours as needed for Mild Pain or Moderate Pain. (Patient not taking: Reported on 09/11/2024) ondansetron 4 MG Tab Dispersible tablet Take 1 tablet by mouth every 4 hours as needed for Nausea. Place on tongue (Patient not taking: Reported on 09/11/2024) oseltamivir 75 MG capsule Take 1 capsule by mouth 2 times daily. For flu treatment (Patient not taking: Reported on 09/11/2024) oxyCODONE 5 MG Tab tablet Take 1 tablet by mouth every 6 hours as needed for Pain (breakthrough) for up to 7 days. Vit-Fe Fumarate-FA ( Plus) 27-1 MG tablet Take 1 tablet by mouth daily. (Patient not taking: Reported on 09/11/2024) History reviewed. No pertinent family history. Past Medical History: Diagnosis Date Anemia Past Surgical History: Procedure Laterality Date ASPIRATION CAVITY/CYST ABDOMEN PERITONEUM OMENTUM LAPAROSCOPIC N/A 02/24/2019 Laterality: N/A; Surgeon: Rachel Rai MD; Location[facility] MA[facility] OR HAND SURGERY right Social History Socioeconomic History Marital status: Single Spouse name: Not on file Number of children: Not on file Years of education: Not on file Highest education level: Not on file Occupational History Not on file Tobacco Use Smoking status: Never Smokeless tobacco: Never Vaping Use Vaping status: Never Used Substance and Sexual Activity Alcohol use: No [...] on file Housing Stability: Not on file ROS Review of Systems 8 systems reviewed with patient, negative unless specifically mentioned in history of present illness PHYSICAL EXAM Visit Vitals BP 110/66 (BP Location: Right arm, BP Position: Sitting) Pulse 103 Temp 98.3 F (36.8 C) (Oral) Resp 18 Ht 1.575 m (5' 2) Wt 57.6 kg (127 lb) SpO2 96% Yes BMI 23.23 kg/m Physical Exam Vitals and nursing note reviewed. Constitutional: Appearance: Normal appearance. HENT: Head: Normocephalic. Right Ear: Tympanic membrane, ear canal and external ear normal. Left Ear: Ear canal and external ear normal. Tympanic membrane is injected, erythematous and bulging. Nose: Nose normal. Mouth/Throat: Mouth: Mucous membranes are moist. Pharynx: Oropharynx is clear. Eyes: Conjunctiva/sclera: Conjunctivae normal. Cardiovascular: Rate and Rhythm: Normal rate and regular rhythm. Pulses: Normal pulses. Heart sounds: Normal heart sounds. Pulmonary: Effort: Pulmonary effort is normal. Breath sounds: Normal breath sounds. Abdominal: General: Bowel sounds are normal. Musculoskeletal: General: Normal range of motion. Cervical back: Normal range of motion and neck supple. Skin: General: Skin is warm and dry. Neurological: General: No focal deficit present. Mental Status: She is alert. RESULTS Recent Results (from the past 2 hour(s)) SARS-COV-2 RAPID ANTIGEN (CLINIC ONLY) Collection Time: 09/11/24 9:15 AM Specimen: NARES Result Value Ref Range SARS-COV-2 Rapid Antigen NOT DETECTED NOT DETECTED NARRATIVE -1 This test was performed using lateral flow immunoassay. This test does not differentiate between SARS-CoV and SARS-CoV2. POCT RAPID STREP A Collection Time: 09/11/24 9:23 AM Result Value Ref Range POCT RAPID STREP A neg (+/-) ASSESSMENT/PLAN 1. Acute suppurative otitis media of left ear without spontaneous rupture of tympanic membrane, recurrence not specified 2. Sore throat Orders Placed This Encounter SARS-COV-2 RAPID ANTIGEN (CLINIC ONLY) POCT RAPID STREP A Amoxicillin-clavulanate 875-125 MG tablet COVID-19, rapid strep negative. Physical exam findings consistent with otitis media left ear. I didprescribe the patient Augmentin for this due to I also advise her to take Mucinex andFlonase. Patient verbalizes understanding and agrees with the plan. Take Tylenol for any fever or mild discomfort. Follow up if symptoms worsen or fails to improve over time. The risk and benefits of therapy were discussed with the patient. Alarm symptoms were discussed, along with reasons for contacting the office or going to the ER. Questions were answered for the patient. Follow up if symptoms worsen or fails to improve over time. If symptoms worsen patient was advised to follow up in our office, primary care provider or the Emergency Dept. Benefits, Risks, Contraindications, and Complications of recommended treatments were explained. The patient understands and agrees to proceed with plan. HOMER Porter 09/11/2024 documented in this encounterOhio[facility]04-08-2022 NotePap Smear Specimen AdequacyApr2021 4:56pmCommentSatisfactory for evaluation. No endocervical component is identified.LABBOLD Guidance INTERFACED A#[id number] [facility] Work Phone: Comment on above:Satisfactory for evaluation. No endocervical component is identified.01-27-2022 NotePap Smear Specimen Adequacy January 27, 2022 4:56pmComment.Satisfactory for evaluation. No endocervical component is identified.LABBOLD Guidance INTERFACED A#[id number] [facility] Work Phone: Comment on above:Satisfactory for evaluation. No endocervical component is identified.01-01-2022 Emergency department Note* Nancy Saleem RN - 01/01/2022 12:50 PM EDT Pt states I am pretty sure I just threw up the Tylenol and Tamilflu Pt vomiting into bag upon entering room. [facility]03-[facility] Emergency department Note* Nancy Saleem RN - 01/01/2022 12:50 PM EDT Pt states I am pretty sure I just threw up the Tylenol and Tamilflu Pt vomiting into bag upon entering room. * Corinne Charles APRN-AGUEDA - 01/01/2022 10:47 AM EDT Emergency Department Report [facility] EMERGENCY [facility]PARTMENT Service Date:.01/01/22 PCP: Sharri Guzmán Chief Complaint: Chief Complaint Patient presents with Fever 3 days Headache HPI Lissett Arnett is a 26 y.o. female who presents to ED for evaluation of Fever, cough, headache; onset 3 days ago. She additionally states that she is approximately 7 weeks gestation of , G4A2P1, & has had morning sickness weak, now having difficulty retaining fluids. She has an appointment with high man in [place] tomorrow. Denies any abdominal pain. No urinary symptoms or abnormal vaginal bleeding/discharge. 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 RGBFUVXOJAZOMYL-GVAOPPJFOSHSKSY-FJDLMATYWCMWIUXE (BROMFED DM) 30-2-10 MG/5ML SYRUP Take 1 [...] -- -- -- -- 1.549 m (5' 1) 01/01/22 1013 120/73 100.1 F (37.8 C) [...] YELLOW YELLOW APPEARANCE, URINE CLEAR CLEAR Specific [place], Urine 1.020 1.010 - 1.025 PH URINE [...] Procedures EKG: Sinus tachycardia, rate 104 BPM. ND 130, QRS 72, QTC 402. [place] is normal. No acute ST changes,no STEMI. No old EKGs readily available for comparison ED Summary/MDM Patient presented for evaluation of Fever, cough and cold symptoms; additionally complaining of persistent vomiting at 7 weeks gestation of . She is nontoxic in appearance. ED workup as follows: Influenza A POSITIVE. Laboratory studies grossly unremarkable. Urine is positive. Urinalysis is unfortunately contaminated with squamous epithelial cells, but no overtinfection. She was given IV hydration and antiemetics, [...] needed for nausea, as directed by her ADULT LIVE IN CAREGIVER. Supportive measures were otherwise reviewed and return [...] the patient with above information. . . HOMER Hernandez 01/01/22 1237 * Yadira Duarte RN - 01/01/2022 10:21 AM EDT Pt ambulates to ER, c/o headache, fever, eye pain, N/V and generalized malaise x approx 3 days. Pt reports that she is unable to retain food or liquids, and is approximately 7 weeks . documented in this encounterOhio[facility]03-13-2022 Hospital Discharge instructions* Discharge Instructions* HOMER Hernandez - 01/01/2022 12:02 PM EDT May continue Unisom & Vit B6 Needed for nausea/vomiting, dosage as per your OB provider. Tamiflu as directed- okay to discontinue if worsens nausea/vomiting. Increase oral fluids, bland diet. Please follow-up with your doctor as planned, or return for new, worsening, or worrisome symptoms. * Attachments The following attachments cannot be sent through Care Everywhere. * Influenza (Malagasy) * Morning Sickness ([facility]) (Malagasy) * Over the Counter Medicines During ([facility]) (Malagasy) documented in this [facility]03-13-2022 Physician Emergency department Note* HOMER Hernandez - 01/01/2022 10:47 AM EDT Emergency Department Report [facility] EMERGENCY [facility]PARTMENT Service Date:.01/01/22 PCP: Sharri Guzmán Chief Complaint: Chief Complaint Patient presents with Fever 3 days Headache HPI Lissett Arnett is a 26 y.o. female who presents to ED for evaluation of Fever, cough, headache; onset 3 days ago. She additionally states that she is approximately 7 weeks gestation of , G4A2P1, & has had morning sickness weak, now having difficulty retaining fluids. She has an appointment with high man in [place] tomorrow. Denies any abdominal pain. No urinary symptoms or abnormal vaginal bleeding/discharge. 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 [id number]-[id number] (BROMFED DM) 30-2-10 MG/5ML SYRUP Take 1 [...] -- -- -- -- 1.549 m (5' 1) 01/01/22 1013 120/73 100.1 F (37.8 C) [...] YELLOW YELLOW APPEARANCE, URINE CLEAR CLEAR Specific [place], Urine 1.020 1.010 - 1.025 PH URINE [...] Procedures EKG: Sinus tachycardia, rate 104 BPM. ND 130, QRS 72, QTC 402. [place] is normal. No acute ST changes,no STEMI. No old EKGs readily available for comparison ED Summary/MDM Patient presented for evaluation of Fever, cough and cold symptoms; additionally complaining of persistent vomiting at 7 weeks gestation of . She is nontoxic in appearance. ED workup as follows: Influenza A POSITIVE. Laboratory studies grossly unremarkable. Urine is positive. Urinalysis is unfortunately contaminated with squamous epithelial cells, but no overtinfection. She was given IV hydration and antiemetics, [...] needed for nausea, as directed by her ADULT LIVE IN CAREGIVER. Supportive measures were otherwise reviewed and return [...] with above information. . . Corinne Charles, AMA-AUTOMATION CLERK 01/01/22 1237 [facility]03-13[facility] Emergency department Note* Yadira Duarte RN - 01/01/2022 10:21 AM EDT Pt ambulates to ER, c/o headache, fever, eye pain, N/V and generalized malaise x approx 3 days. Pt reports that she is unable to retain food or liquids, and is approximately 7 weeks . [facility]08-[facility] History of Present illness Narrative* Lenore Cordova PA-C - 06/13/2021 1:10 PM EDT HPI Lissett Arnett is a 25 y.o. female presenting to [...] Social Gatherings with Friends and Family: Attends [employer] Services: Active Member of Clubs or Organizations: Attends Club or Organization Meetings: Marital Status: Intimate Partner Violence: Fear of Current or Ex-Partner: Emotionally Abused: Physically Abused: Sexually Abused: History reviewed. No pertinent family history. No past medical history on file. Past Surgical History: Procedure Laterality Date LAPAROSCOPY ABDOMEN PERITONEUM OMENTUM W/ ASPIRATION CAVITY/CYST N/A 02/24/2019 Laterality: N/A; Surgeon: Rachel Rai MD; Location: [facility] MAIN OR HAND SURGERY right PHYSICAL EXAM BP 100/68 (BP Location: Right arm, BP Position: Sitting) Pulse 83 Temp 98.6 F (37 C) (Temporal) Resp 15 Ht 1.575 m (5' 2) Wt 48.1 kg (106 lb) SpO2 99% [...] CRYSTALS, URINE POCT URINE COMMENTS, URINE Diagnosis/Plan: Lissett was seen today for urinary pain. Diagnoses [...] Lenore Cordova PA-C 06/13/2021 documented in this encounterOhio[facility]08-23-2021 Instructions* Patient Instructions* Lenore Cordova PA-C - 06/13/2021 1:10 PM [...] a good idea to know your test resultsand keep a list of the medicines you [...] sprays, and other feminine hygiene products that havedeodorants. After going to the bathroom, wipe from [...] Where can you learn more? Go to http://www.[email or web address]/patiented. Enter K848 in the search box to learn more about 'Urinary Tract Infection (UTI) in Women: Care Instructions.' Interested in seeing a video go to [email or web address] to see all video content. Current as of: December 01, 2020 Content Version: 12.9 [employer]. Care instructions adapted under license by your healthcare professional. If you have questions about a medical condition or this instruction, always ask your healthcare professional. [employer] disclaims any warranty or liability for your use of this information. documented in this encounterOhiohealth [facility] HospitalEvaluation note* Diagnosis Influenza A- Primary Influenza with other respiratory manifestations Nausea and vomiting in prior to 22 weeks gestation Mild hyperemesis gravidarum, unspecified as to episode of care documented in this encounter [facility]* Diagnosis Acute cystitis without hematuria- Primary Acute cystitis documented in this encounter [facility]* Diagnosis Onset Date Resolution Status Nausea/vomiting in acute acute Supervision of normal [facility] Work Phone: Evaluation note* Diagnosis Onset Date Resolution Status acute Supervision of normal acute Nausea/vomiting in resolved Marijuana use acute acute Supervision of normal acute Nausea/vomiting in resolved Marijuana use acute acute Supervision of normal acute Marijuana use acute acute Supervision of normal acute [facility] Work Phone: evaluation note* Diagnosis Onset Date Resolution Status Marijuana use acute acute Marijuana use acute acute Anemia affecting a cute Marijuana use acute acute Anemia affecting a cute Marijuana use acute acute Anemia affecting a cute Cholestasis during acute Marijuana use acute acute Supervision of high-risk acute [facility] Work Phone: Evaluation note* Diagnosis Onset Date Resolution Status Marijuana use acute acute Marijuana use acute acute Anemia affecting a cute Marijuana use acute acute Anemia affecting a cute Marijuana use acute acute Anemia affecting a cute Cholestasis during acute Marijuana use acute acute Supervision of high-risk acute Anemia affecting a cute Cholestasis during acute Marijuana use acute acute Supervision of high-risk acute [facility] Work Phone: Evaluation note* Diagnosis Onset Date Resolution Status Marijuana use acute acute Marijuana use acute acute Anemia affecting a cute Marijuana use acute acute Anemia affecting a cute Marijuana use acute acute Anemia affecting a cute Cholestasis during acute Marijuana use acute acute Supervision of high-risk acute Anemia affecting a cute Cholestasis during acute Marijuana use acute acute Supervision of high-risk acute Anemia affecting a cute Cholestasis during acute IUGR (intrauterine growth restriction) acute Marijuana use acute acute Supervision of high-risk acute [facility] Work Phone: evaluation note* Diagnosis Onset Date Resolution Status Marijuana use acute acute Marijuana use acute acute Anemia affecting a cute Marijuana use acute acute Anemia affecting a cute Marijuana use acute acute Anemia affecting a cute Cholestasis during acute Marijuana use acute acute Supervision of high-risk acute Anemia affecting a cute Cholestasis during acute Marijuana use acute acute Supervision of high-risk acute Anemia affecting a cute Cholestasis during acute IUGR (intrauterine growth restriction) acute Marijuana use acute acute Supervision of high-risk acute Anemia affecting a cute Cholestasis during acute IUGR (intrauterine growth restriction) acute Marijuana use acute acute Supervision of high-risk acute [facility] Work Phone: Evaluation note* Diagnosis Onset Date Resolution Status Marijuana use acute acute Marijuana use acute acute Anemia affecting a cute Marijuana use acute acute Anemia affecting a cute Marijuana use acute acute Anemia affecting a cute Cholestasis during acute Marijuana use acute acute Supervision of high-risk acute Anemia affecting a cute Cholestasis during acute Marijuana use acute acute Supervision of high-risk acute Anemia affecting a cute Cholestasis during acute Marijuana use acute acute Supervision of high-risk acute IUGR (intrauterine growth restriction) resolved Anemia affecting a cute Cholestasis during acute Marijuana use acute acute Supervision of high-risk acute IUGR (intrauterine growth restriction) resolved Anemia affecting a cute Cholestasis during acute Marijuana use acute acute Supervision of high-risk acute [facility] Work Phone: Evaluation note* Diagnosis Onset Date Resolution Status Marijuana use acute acute Marijuana use acute acute Anemia affecting a cute Marijuana use acute acute Anemia affecting a cute Marijuana use acute acute Anemia affecting a cute Cholestasis during acute Marijuana use acute acute Supervision of high-risk acute Anemia affecting a cute Cholestasis during acute Marijuana use acute acute Supervision of high-risk acute Anemia affecting a cute Cholestasis during acute Marijuana use acute acute Supervision of high-risk acute IUGR (intrauterine growth restriction) resolved Anemia affecting a cute Cholestasis during acute Marijuana use acute acute Supervision of high-risk acute IUGR (intrauterine growth restriction) resolved Anemia affecting a cute Cholestasis during acute Marijuana use acute acute Supervision of high-risk acute Anemia affecting a cute Cholestasis during acute Marijuana use acute acute Supervision of high-risk acute [facility] Work Phone: Evaluation note* Diagnosis Onset Date Resolution Status Marijuana use acute Marijuana use acute Anemia affecting a cute Marijuana use acute Anemia affecting a cute Marijuana use acute Anemia affecting a cute Marijuana use acute Cholestasis during resolved Supervision of high-risk resolved Anemia affecting a cute Marijuana use acute Cholestasis during resolved Supervision of high-risk resolved Anemia affecting a cute Marijuana use acute Cholestasis during resolved IUGR (intrauterine growth restriction) resolved Supervision of high-risk resolved Anemia affecting a cute Marijuana use acute Cholestasis during resolved IUGR (intrauterine growth restriction) resolved Supervision of high-risk resolved Anemia affecting a cute Marijuana use acute Cholestasis during resolved Supervision of high-risk resolved Anemia affecting a cute Marijuana use acute Cholestasis during resolved Supervision of high-risk resolved Anemia affecting a cute Marijuana use acute Vaginal delivery acute Cholestasis during resolved Supervision of high-risk resolved [facility] Work Phone: evaluation noteNo assessment information available [facility] Work Phone: Evaluation note* Diagnosis Onset Date Resolution Status History of marijuana use acu te History of miscarriage, currently acute acute Supervision of high risk in first trimester acute Supervision of high-risk acute 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, antepartum acute [facility] Work Phone: evaluation note* Diagnosis Screening, , for malformation by ultrasound Encounter for routine screening for malformation using ultrasonics Abnormal ultrasound Abnormal findings on screening [facility] Encounter for other screening for genetic and chromosomal anomalies documented in this encounter [facility] note* Diagnosis Onset Date Resolution Status History of cholestasis during acute History of marijuana use acu te History of miscarriage, currently acute acute Supervision of high risk in first trimester acute Supervision of high-risk acute 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, antepartum 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 History of cholestasis during acute History of marijuana use acu te History of miscarriage, currently acute acute Supervision of high risk in first trimester acute Supervision of high-risk acute 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, antepartum 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 History of cholestasis during acute History of marijuana use acu te History of miscarriage, currently acute acute Supervision of high risk in first trimester acute Supervision of high-risk acute 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, antepartum acute [facility] Work Phone: evaluation note* Diagnosis Onset Date Resolution Status History of marijuana use acu te History of miscarriage, currently acute acute Supervision of high risk in first trimester acute Supervision of high-risk acute 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, antepartum acute History of cholestasis during acute History of marijuana use acu te History of miscarriage, currently acute acute Supervision of high risk in first trimester acute Supervision of high-risk acute 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, antepartum acute [facility] Work Phone: Evaluation note* Diagnosis Acute suppurative otitis media of left ear without spontaneous rupture of tympanic membrane, recurrence not specified- Primary Sore throat Acute [facility] Acute bacterial conjunctivitis of right eye- [facility] Diagnosis Sore throat- Primary Acute pharyngitis Strep throat exposure Contact with or exposure to other communicable diseases [facility] Diagnosis Threatened miscarriage in early - Primary Threatened , unspecified as to episode of care Hyperemesis gravidarum Mild hyperemesis gravidarum, unspecified as to episode of care [facility]* Patient presents to establish care. * Patient has no chronic illnesses and takes no daily medicines. Patient is currently 20 weeks and is following with OB in [place]. * Acutely, patient reports eyelid irritation. Patient reports erythema, irritation, mild tenderness, and pruritus that has been present for months after using glue to affix fake eyelashes. Patient has attempted moisturizing cream without success. No bleeding or drainage from the eyelids. Has stopped u sing all eye cosmetic products and has not used the adhesive since that time. [facility] Work Phone: Hospital Discharge instructions* Attachments The following attachments cannot be sent through Care Everywhere. * : Morning Sickness (Malagasy) * : Vaginal Bleeding (Malagasy) * Miscarriage: Threatened (Malagasy) [facility] Attachments The following attachments cannot be sent through Care Everywhere. * Otitis Media (Malagasy) [facility] Attachments The following attachments cannot be sent through Care Everywhere. * Conjunctivitis (Malagasy) [facility] Attachments The following attachments cannot be sent through Care Everywhere. * Sore Throat (Malagasy) [facility] (narrative)* Radiology (Emergency) - New Request Specialty Diagnoses / Procedures Referred By Contac t Referred To Contact Procedures US OB TRANSVAGINAL/CERVICAL LENGTH Nohemi Reagan PA-C [address] [place] [address] Phone: tel: fax: Referral ID Status Reason Start Date Expiration Date V isits Requested Visits Authorized [id number] New Request 04/22/2025 05/17/2026 1 1 [facility] for referral (narrative)No reason for referral [facility] Work Phone: Summary Purpose Family History No [...] Code 02/24/2019 7:56 PM 02/24/2019 11:39 PM Advance Directive Response Recorded Date/ Time Living Will No January 23, 2022 3:32pm Power of Drawing Hand No January 23 3:32pm Advance Directive Response Recorded Date/ Time Living Will No August 14 8:33am Power of Drawing Hand No August 14, 2022 8:33am Advance Directive Response Recorded Date/ Time Living Will No August 14 7:33am Power of Drawing Hand No August 14, 2022 7:33am Advance Directive Response Recorded Date/ Time Living Will No October 17 023 9:53am Power of Drawing Hand No October 17, 2023 9:53am Advance Directive Response Recorded Date/ Time Living Will No October 17 023 10:53am Power of Drawing Hand No October 17, 2023 10:53am Date Activated Date Inactivated Comments 02/24/2019 7:56 PM 02/24/2019 11:39 PM Date Activated Date Inactivated Comments 02/24/2019 7:56 PM 02/24/2019 11:39 PM Reason for Referral Status Reason Specialty Diagnoses / Procedures Referred By Contact Referred To Contact New Request Procedures US PELVIS Rosey Castro PA-C [address] [place] [address] Status Reason Specialty Diagnoses / Procedures Referred By Contact Referred To Contact New Request Procedures US ABDOMEN COMPLETE oRsey Castro PA-C [address] [place] [address] Specialty Diagnoses / Procedures Referred By Contac t Referred To Contact Procedures ECG Corinne Charles, CINDER WORKER-AUTOMATION CLERK [address] [address] Referral ID Status Reason Start Date Expiration Date V isits Requested Visits Authorized [id number] New Request 01/01/2022 01/26/2023 1 1 Assessments [...] at Discharge: .Home Vital Signs: T PRBPSpO2 [id number]% Date/Time06/12 8: 8: 8: 8: 8:00 Range(36.4C - 37C ) (59 - 75 ) (18 - 18 ) (98 - 111 )/ (54 - 64 ) (94% - 99% ) Highest temp of 37 C was recorded at 06/11 20:00 Physical Exam: Constitutional: Alert, awake, in no acute distress Eyes: EOMI, PERRLA, clear sclera Head/Neck: Normocephalic, a (more content not included)... Chief Complaint and Reason for Visit Chief Complaint SUPERVISION OF PREG WELL BEING NOB OB, US DONE PER SM Reason for Visit Nausea/vomiting in p regnancy Supervision of normal Chief Complaint WELL BEING NOB OB, US DONE PER SM 13WK OB 21WK OB 25WK OB Reason for Visit Supervision of normal Nausea/vomiting in Marijuana use Supervision of normal Nausea/vomiting in Marijuana use Supervision of normal Marijuana use Supervision of normal Chief Complaint 21WK OB 25WK OB 28WK OB / GLUCOSE 30 WK OB 32 WK OB / nst per sm GROWTH Reason for Visit Marijuana use Marijuana use Anemia affecting Marijuana use Anemia affecting Marijuana use Anemia affecting Cholestasis during Marijuana use Supervision of high-risk Chief Complaint 21WK OB 25WK OB 28WK OB / GLUCOSE 30 WK OB 32 WK OB / nst per sm GROWTH 33 WK NST Reason for Visit Marijuana use Marijuana use Anemia affecting Marijuana use Anemia affecting Marijuana use Anemia affecting Cholestasis during Marijuana use Supervision of high-risk Anemia affecting Cholestasis during Marijuana use Supervision of high-risk Chief Complaint 21WK OB 25WK OB 28WK OB / GLUCOSE 30 WK OB 32 WK OB / nst per sm GROWTH 33 WK NST WELL BEING 34 WK OB WELLBEING Reason for Visit Marijuana use Marijuana use Anemia affecting Marijuana use Anemia affecting Marijuana use Anemia affecting Cholestasis during Marijuana use Supervision of high-risk Anemia affecting Cholestasis during Marijuana use Supervision of high-risk Anemia affecting Cholestasis during IUGR (intrauterine growth restriction) Marijuana use Supervision of high-risk Chief Complaint 21WK OB 25WK OB 28WK OB / GLUCOSE 30 WK OB 32 WK OB / nst per sm GROWTH 33 WK NST WELL BEING 34 WK OB WELLBEING 35 WK OB WELL BEING WELL BEING Reason for Visit Marijuana use Marijuana use Anemia affecting Marijuana use Anemia affecting Marijuana use Anemia affecting Cholestasis during Marijuana use Supervision of high-risk Anemia affecting Cholestasis during Marijuana use Supervision of high-risk Anemia affecting Cholestasis during IUGR (intrauterine growth restriction) Marijuana use Supervision of high-risk Anemia affecting Cholestasis during IUGR (intrauterine growth restriction) Marijuana use Supervision of high-risk Chief Complaint 21WK OB 25WK OB 28WK OB / GLUCOSE 30 WK OB 32 WK OB / nst per sm GROWTH 33 WK NST WELL BEING 34 WK OB WELLBEING 35 WK OB WELL BEING WELL BEING VENOFER 300MG VENOFER 300MG 36 WK OB Reason for Visit Marijuana use Marijuana use Anemia affecting Marijuana use Anemia affecting Marijuana use Anemia affecting Cholestasis during Marijuana use Supervision of high-risk Anemia affecting Cholestasis during Marijuana use Supervision of high-risk Anemia affecting Cholestasis during IUGR (intrauterine growth restriction) Marijuana use Supervision of high-risk Anemia affecting Cholestasis during IUGR (intrauterine growth restriction) Marijuana use Supervision of high-risk Chief Complaint 21WK OB 25WK OB 28WK OB / GLUCOSE 30 WK OB 32 WK OB / nst per sm GROWTH 33 WK NST WELL BEING 34 WK OB WELLBEING 35 WK OB WELL BEING WELL BEING VENOFER 300MG VENOFER 300MG 36 WK OB WELL BEING Reason for Visit Marijuana use Marijuana use Anemia affecting Marijuana use Anemia affecting Marijuana use Anemia affecting Cholestasis during Marijuana use Supervision of high-risk Anemia affecting Cholestasis during Marijuana use Supervision of high-risk Anemia affecting Cholestasis during Marijuana use Supervision of high-risk IUGR (intrauterine growth restriction) Anemia affecting Cholestasis during Marijuana use Supervision of high-risk IUGR (intrauterine growth restriction) Anemia affecting Cholestasis during Marijuana use Supervision of high-risk Chief Complaint 21WK OB 25WK OB 28WK OB / GLUCOSE 30 WK OB 32 WK OB / nst per sm GROWTH 33 WK NST WELL BEING 34 WK OB WELLBEING 35 WK OB WELL BEING WELL BEING VENOFER 300MG VENOFER 300MG 36 WK OB WELL BEING Venofer Reason for Visit Marijuana use Marijuana use Anemia affecting Marijuana use Anemia affecting Marijuana use Anemia affecting Cholestasis during Marijuana use Supervision of high-risk Anemia affecting Cholestasis during Marijuana use Supervision of high-risk Anemia affecting Cholestasis during Marijuana use Supervision of high-risk IUGR (intrauterine growth restriction) Anemia affecting Cholestasis during Marijuana use Supervision of high-risk IUGR (intrauterine growth restriction) Anemia affecting Cholestasis during Marijuana use Supervision of high-risk Chief Complaint 21WK OB 25WK OB 28WK OB / GLUCOSE 30 WK OB 32 WK OB / nst per sm GROWTH 33 WK NST WELL BEING 34 WK OB WELLBEING 35 WK OB WELL BEING WELL BEING VENOFER 300MG VENOFER 300MG 36 WK OB WELL BEING Venofer est ob IV venofer today Reason for Visit Marijuana use Marijuana use Anemia affecting Marijuana use Anemia affecting Marijuana use Anemia affecting Cholestasis during Marijuana use Supervision of high-risk Anemia affecting Cholestasis during Marijuana use Supervision of high-risk Anemia affecting Cholestasis during Marijuana use Supervision of high-risk IUGR (intrauterine growth restriction) Anemia affecting Cholestasis during Marijuana use Supervision of high-risk IUGR (intrauterine growth restriction) Anemia affecting Cholestasis during Marijuana use Supervision of high-risk Anemia affecting Cholestasis during Marijuana use Supervision of high-risk Chief Complaint 21WK OB 25WK OB 28WK OB / GLUCOSE 30 WK OB 32 WK OB / nst per sm GROWTH 33 WK NST WELL BEING 34 WK OB WELLBEING 35 WK OB WELL BEING WELL BEING VENOFER 300MG VENOFER 300MG 36 WK OB WELL BEING Venofer est ob IV venofer today VAGINAL DELIVERY INDUCTION VAGINAL DELIVERY Reason for Visit Marijuana use Marijuana use Anemia affecting Marijuana use Anemia affecting Marijuana use Anemia affecting Marijuana use Cholestasis during Supervision of high-risk Anemia affecting Marijuana use Cholestasis during Supervision of high-risk Anemia affecting Marijuana use Cholestasis during IUGR (intrauterine growth restriction) Supervision of high-risk Anemia affecting Marijuana use Cholestasis during IUGR (intrauterine growth restriction) Supervision of high-risk Anemia affecting Marijuana use Cholestasis during Supervision of high-risk Anemia affecting Marijuana use Cholestasis during Supervision of high-risk Anemia affecting Marijuana use Vaginal delivery Cholestasis during Supervision of high-risk Chief Complaint E-ORDE Encounter for supervision of normal , uns Chief Complaint E-ORDE Encounter for supervision of normal , uns New OB, ALESSANDRA 04/08/24 LAB DRAW Reason for Visit History of marijuana use History of miscarriage, currently Supervision of high risk in first trimester Supervision of high-risk 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, antepartum Chief Complaint LAB DRAW 28wk OB 30 WK OB Personal history of other diseases of the digestiv 33w3d, Growth US at [facility] Reason for Visit History of cholestas is during History of marijuana use History of miscarriage, currently Supervision of high risk in first trimester Supervision of high-risk 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, antepartum malformation of central nervous system History of cholestasis during History of marijuana use History of miscarriage, currently Supervision of high risk in first trimester Supervision of high-risk 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, antepartum malformation of central nervous system History of cholestasis during History of marijuana use History of miscarriage, currently Supervision of high risk in first trimester Supervision of high-risk 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, antepartum Chief Complaint E-ORDE Encounter for supervision of normal , uns New OB, ALESSANDRA 04/08/24 LAB DRAW 28wk OB Reason for Visit History of marijuana use History of miscarriage, currently Supervision of high risk in first trimester Supervision of high-risk 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, antepartum History of cholestasis during History of marijuana use History of miscarriage, currently Supervision of high risk in first trimester Supervision of high-risk 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, antepartum Chief Complaint Admit Date Possible Miscarriage F/U April 27, 2025 1:11pm Chief Complaint Admit Date Possible Miscarriage F/U April 27, 2025 1:11pm incomplete , rule out POC April 222024 6:00pm Reason for Visit Admit Date Contraceptive management April 27, 2025 1:11pm Incomplete April 27, 2025 1:11p m Chief Complaint * Patient here today to get established as a new patient. Patient states it has been over 5 years since last seen by a PCP. Patient is [address] Jamar Malave in [place]. * Patient is having bilateral upper eye lid irritation with itching x 3-4 months. Patient states symptoms noticed after she used false eyelashes and eyelash glue. Patient states since that time she hasstopped using make-up and fake eyelashes with no change in eye irritation. Additional Source Comments INFORMATION SOURCE (unrecogn ized section and content) DATE CREATED AUTHOR 04/17/2018 [facility] DATE CREATED AUTHOR AUTHOR'S ORGANIZ ATION 05/09/2018 [facility] DATE CREATED AUTHOR AUTHOR'S ORGANIZ ATION 06/20/2019 [facility] DATE CREATED AUTHOR AUTHOR'S ORGANIZ ATION 06/25/2019 [facility] DATE CREATED AUTHOR AUTHOR'S ORGANIZ ATION 03/28/2021 [facility] DATE CREATED AUTHOR AUTHOR'S ORGANIZ ATION 04/11/2022 [facility] DATE CREATED AUTHOR AUTHOR'S ORGANIZ ATION 01/21/2024 [facility] DATE CREATED AUTHOR AUTHOR'S ORGANIZ ATION 12/29/2024 [facility] DATE CREATED AUTHOR AUTHOR'S ORGANIZ ATION 04/25/2025 [facility] DATE CREATED AUTHOR AUTHOR'S ORGANIZ ATION 05/19/[address] [facility] Reason for Visit (unrecogniz ed section and content) Reason Comments Epigastric Pain pt c/o upper abdomin al and lower pelvic pain since yesterday. Pelvic Pain Reason Comments Fever 3 days Headache Reason Comments Urinary Pain symptoms started las t week, strong odor, burning and tinging, urgency Specialty Diagnoses / Procedures Referred By Contac t Referred To Contact Radiology Diagnoses Screening, , for malformation by ultrasound Abnormal ultrasound Procedures MRI (single) CHG MRI W/PLACNTL MATRNL PLVC IMG SING/ [facility] Candis Roberts MD [id number] [place] [address] Referral ID Status Reason Start Date Expiration Date Visits Re quested Visits Authorized [id number] Closed 11/23/2023 01/22/2024 1 1 Reason Comments Sore Throat Kids got her sick, t hey are treated now, but she started to feel bad 4 days ago Sinus Congestion Ear Pain Started last night Reason Comments Eye Drainage Right eye drainage, x 1 day Reason Comments Sore Throat Sore throat, ear paula n onset yesterday. Kids have strep Reason Comments Abdominal Pain Spotting Patient to ED with c oncerns for miscarriage. Patient states hx previous miscarriage. Patient believes she is 8 weeks along. States intense cramps and dark spotting Scheduled Active and Recently Administ ered Medications (unrecognized section and content) Medication Order 12/30/2021 12/31/2021 01/01/2022 acetaminophen (TYLENOL) tablet 650 mg (COMPLETED) 650 mg, Oral, ONCE, 1 dose, On 01/01/22 at 1145, Maximum dose of acetaminophen is 4000 mg from all sources in 24 hours. 1152 (Given - Provid er: Yadira Duarte RN) diphenhydrAMINE (BENADRYL) injection 25 mg (COMPLETED) 25 mg, Intravenous, ONCE, 1 dose, On 01/01/22 at 1115 1057 (Given - Provid er: Yadira Duarte RN) metoclopramide (REGLAN) injection 10 mg (COMPLETED) 10 mg, Intravenous, ONCE, 1 dose, On 01/01/22 at 1115 1057 (Given - Provid er: Yadira Duarte RN) oseltamivir (TAMIFLU) capsule 75 mg (COMPLETED) 75 mg, Oral, ONCE, 1 dose, On 01/01/22 at 1215, If given via tube, mix capsule contents with 20ml of water. MUST flush tube before and after admin. 1152 (Given - Provid er: Yadira Duarte RN) promethazine (PHENERGAN) 12.5 mg in sodium chloride 0.9%, with overfill 60.5 mL (total volume) IVPB (COMPLETED) 12.5 mg, Intravenous, at 121-242 mL/hr, Administer over 15-30 Minutes, ONCE, 1 dose, On 01/01/22 at 1330, Extravasation Risk 1308 ($$New Bag$$ - Provider: Yadira Duarte RN)1329 (Rate/Dose Change - Provider: Yadira Duarte RN - Comment: Pt tolerating mediction well, rate increased per protocol)1342 (Stopped - Provider: Yadira Duarte RN) sodium chloride 0.9% IV solution 1,000 mL (COMPLETED) 1,000 mL, Intravenous, ONCE, 1 dose, On 01/01/22 at 1115 1056 ($$New Bag$$ - Provider: Yadira Duarte RN)1231 (Stopped - Provider: Yadira Duarte RN) sodium chloride 0.9% IV solution 1,000 mL (COMPLETED) 1,000 mL, Intravenous, ONCE, 1 dose, On Sun01/01/22 at 1330 1255 ($$New Bag$$ - Provider: Nancy Saleem RN)1353 (Stopped - Provider: Yadira Duarte RN) Scheduled Medication Order 04/20/2025 04/21/2025 04/22/2025 diphenhydrAMINE (BENADRYL) injection 25 mg (COMPLETED) 25 mg, Intravenous, ONCE, 1 dose, On Sun04/22/25 at 1830 1801 (Given - Provid er: Chon Sidhu RN) Metoclopramide (REGLAN) injection 10 mg (COMPLETED) 10 mg, Intravenous, ONCE, 1 dose, On Sun04/22/25 at 1830 1759 (Given - Provid er: Chon Sidhu RN) Sodium chloride 0.9% IV solution 1,000 mL (COMPLETED) 1,000 mL, Intravenous, ONCE, 1 dose, On Sun04/22/25 at 1830 1757 ($$New Bag$$ - Provider: Chon Sidhu RN)1934 (Stopped - Provider: Chon Sidhu RN) Continuous Medication Order 04/20/2025 04/21/2025 04/22/2025 Dextrose 5% and lactated ringers IV solution Intravenous, at 125 mL/hr, CONTINUOUS, Starting on Sun04/22/25 at 1900, Until Sun04/22/25 at 2325 1959 ($$New Bag$$ - Provider: Chon Sidhu RN)2044 (Rate/Dose Change - Provider: Chon Sidhu RN - Comment: per Dr. Spence to give 500 ml bolus)2113 (Canceled Entry - Provider: Chno Sidhu RN)2114 (Stopped - Provider: Chon Sidhu RN) Care Teams (unrecognized sec tion and content) Rack Pusher Relationship Specialty Start Date End Date Sharri Guzmán MD [address] [phone] PCP - General ADULT LIVE IN CAREGIVER 01/01/22 Rack Pusher Relationship Specialty Start Date End Date Provider, Historical PCP - General Unallocated 06/13/21 Team Status: Active Member Role Status Dates No Primary Care Physician Family Provider Active No Primary Care Physician Primary Care Provider Active Team Status: Inactive Member Role Status Dates No Primary Care Physician Primary Care Provider Active Dr. Coco Vyas DO Attending Provider, Refe rring Provider Active Team Status: Active Member Role Status Dates No Primary Care Physician Primary Care Provider Active Dr. Sharri Guzmán MD Attending Provider Active Team Status: Inactive Member Role Status Dates No Primary Care Physician Primary Care Provider Active Dr. Sharri Guzmán MD Attending Provider Active Team Status: Inactive Member Role Status Dates No Primary Care Physician Primary Care Provider, Refer ring Provider Active Sobeida Cantu CNM Attending Provider Active Team Status: Inactive Member Role Status Dates No Primary Care Physician Primary Care Provider Active Sobeida Cantu CNM Attending Provider, Referring Pr ovider Active Rack Pusher Relationship Specialty Start Date End Date No Primary Care, MD Adiel [facility] [place] [address] PCP - General Pediatrics 11/22/23 Sobeida Cantu CNM [address] [place] [address] Referring Physician Obstetrics 10/26/23 Rack Pusher Relationship Specialty Start Date End Date No Primary Care, MD Adiel [facility] [place] [address] PCP - General Pediatrics 11/22/23 Sobeida Cantu CNM [address] [place], [place] [address] Referring Physician Obstetrics 10/26/23 Team Status: Inactive Member Role Status Dates No Primary Care Physician Primary Care Provider, Refer ring Provider Active Dr. Coco Vyas DO Attending Provider Activ e Rack Pusher Relationship Specialty Start Date End Date Sharri Guzmán MD [address] [place] [id number] PCP - General Obstetrics & Gynecology 01/01/22 Rack Pusher Relationship Specialty Start Date End Date Sharri Guzmán MD [address] [place] [address] PCP - General Obstetrics & Gynecology 01/01/22 Rack Pusher Relationship Specialty Start Date End Date Sharri Guzmán MD [address] [place] [address] PCP - General Obstetrics & Gynecology 01/01/22 Rack Pusher Relationship Specialty Start Date End Date Sharri Guzmán MD PCP - General Obstetrics & Gynecology 01/01/22 Team Status: Active Member Role/Relationship Status Dates No Primary Care Physician Family Provider Active No Primary Care Physician Primary Care Provider Active Team Status: Inactive Member Role/Relationship Status Dates No Primary Care Physician Primary Care Provider Active Start: April 27, 2025 End: April 27, 2025 No Primary Care Physician Referring Provider Active Start: April 27, 2025 End: April 27, 2025 Dr. Coco Vyas , Attending Provider Activ e Start: April 27, 2025 End: April 27, 2025 Team Status: Active Member Role/Relationship Status Dates No Primary Care Physician Primary Care Provider Active Team Status: Inactive Member Role/Relationship Status Dates No Primary Care Physician Primary Care Provider Active Start: May 12, 2025 End: May 12, 2025 Dr. Coco Vyas DO Attending Provider Activ e Start: May 12, 2025 End: May 12, 2025 Dr. Coco Vyas DO Referring Provider Activ e Start: May 12, 2025 End: May 12, 2025 Goals (unrecognized section and content) Goals may be documented in a n alternate sectionGoals may be documented in an alternate sectionGoals may be documented in an alternate sectionGoals may be documented in an alternate sectionGoals may be documented in an alternate sectionGoals may be documented in an alternate sectionGoals may be documented in an alternate sectionGoals may be documented in an alternate sectionGoals may be documented in an alternate sectionGoals may be documented in an alternate sectionGoals may be documented in an alternate sectionGoals may be documented in an alternate sectionGoals may be documented in an alternate sectionGoals may be documented in an alternate sectionGoals may be documented in an alternate sectionGoals may be documented in an alternate sectionGoals may be documented in an alternate sectionGoals may be documented in an alternate sectionGoals may be documented in an alternate sectionGoals may be documented in an alternate section FOR RECORDS PERTAINING TO PATIENTS WHO ARE [...] BE BASED ON THE PRIMARY CLINICAL RECORDS. [facility] [employer] [facility]. provides no warranty or guarantee of the accuracy or completeness of information in this document.
[2025-05-21] MEDS: Lactated Ringers 1,000 ML 15 ML IV (06:49)
[2025-05-21 06:55] LABS: Hematocrit 39.1 % (37-47); Hemoglobin 13.4 g/dL (12.0-15.0); Mean Corp Hgb Conc 34.3 g/dL (32-36); Mean Corpuscular Volume 85.6 fL (81-99); Mean Platelet Vol. 10.4 fl (6.2-12.0); Platelet Count 199 K/mm3 (150-450); RBC Distribution Width CV 12.8 % (11.6-14.6); RBC Distribution Width SD 39.5 fl (35.1-43.9); Red Blood Count 4.57 M/mm3 (4.2-5.4); White Blood Count 4.7 K/mm3 (4.4-11.0)
--- NOTE | 2025-05-21 07:00 | PCM.PRE.AN2 ---
ASA Classification* ASA Classification ASA Classification: 2 Assessment & Plan Anesthesia* Anesthesia Assessment Anesthesia Assessment: Discussed sedation and/or anesthesia options, risks, benefits, and alternatives with patient/parents/legal guardian/POA. Questions invited. The patient/parents/legal guardian/POA seems to understand and agrees to proceed with anesthesia plan. Reviewed the physical assessment, medical history, allergy history and patient home medications list prior to surgery/procedure/anesthetic and documented any changes. Performed airway and anesthesia risk assessments. Anesthesia Type Anesthesia Type: MAC History Source History Obtained from:: Patient and Chart Anesthesia Focused Assessment* Temperature: 98.0 F Pulse Rate: 65 Blood Pressure: 104/70 Respiratory Rate: 16 Pulse Ox: 99 Oxygen Delivery Method: Room Air Airway Assessment Mouth opens: 1 cm Mallampati Score: I Teeth Condition: Intact Neck Range of motion (ROM): Full ROM Labs Anesthesia Preop lab: CBC WBC 4.7 K/mm3 (4.4-11.0) 05/21/25 06:44 05/21/25 RBC 4.57 M/mm3 (4.2-5.4) 05/21/25 06:44 05/21/25 Hgb 13.4 g/dL (12.0-15.0) 05/21/25 06:44 05/21/25 Hct 39.1 % (37-47) 05/21/25 06:44 05/21/25 Plt Count 199 K/mm3 (150-450) 05/21/25 06:44 05/21/25 CHEMISTRY Potassium 3.6 mmol/L (3.5-5.1) 07/24/22 09:45 07/24/22 Sodium 137 mmol/L (136-145) 07/24/22 09:45 07/24/22 BUN 7 mg/dL (7-18) 07/24/22 09:45 07/24/22 Creatinine 0.50 mg/dL (0.55-1.02) L 07/24/22 09:45 07/24/22 Glucose 74 mg/dL (74-106) 07/24/22 09:45 07/24/22 TSH 1.24 uIU/mL (0.358-3.74) 07/22/20 09:53 07/22/20 COAG HCG, Quant 12399 mIU/mL (1-3) H 10/04/23 12:16 10/04/23 Pre-Assessment Diagnosis/Proposed Procedure Planned Operative Procedure(s): SUCTION D&C Anesthesia History 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 When Was Last Pacemaker Check QUESTION #4 FULL TEXT: You/Your Family Experience fever (hyperthermia) with Anesthesia Last Oral Intake Last Oral intake: Last Oral Intake NPO since 22:00 05/21/25 06:34 Meds taken in AM with sips of No 05/21/25 06:34 water? Meds patient instructed to take am of surgery PONV PONV - government minister: PONV - government minister Female Yes 05/20/25 10:26 HX of Motion Sickness Yes 05/20/25 10:26 HX of N/V After Surgery No 05/20/25 10:26 Non-Smoker Yes 05/20/25 10:26 Duration of Surgery greater No 05/20/25 10:26 than 60 minutes Number of Risk Factors 3 05/20/25 10:26 PONV Score Moderate Risk 05/20/25 10:26 Height & Weight Height & Weight: Anesthesia: Height & Weight Height 5 ft 2 in 05/21/25 06:34 Weight: 55.883 kg 05/21/25 06:34 Body Mass Index (BMI) 22.5 05/21/25 06:34 Respiratory Assessment Respiratory Assessment - government minister: Respiratory Tract Infection Hx - government minister Hx Respiratory Tract Infection No 05/20/25 10:26 STOP Sleep Apnea STOP Sleep Apnea - government minister: STOP Sleep Apnea - government minister Hx Hypertension No 05/20/25 10:26 Hx Sleep Apnea No 05/20/25 10:26 CPAP BIPAP Do you snore loudly (louder No 07/30/25 10:26 than talking or can be heard Do you often feel tired/ No 05/20/25 10:26 fatigued/ sleepy during daytime? Has anyone observed you stop No 05/20/25 10:26 breathing during sleep? STOP Results Negative 05/20/25 10:26 QUESTION #5 FULL TEXT : Do you snore loudly (louder than talking or can be heard through closed doors)? Tobacco Use History Tobacco Use History - government minister: Tobacco Use History - government minister Tobacco Use Smoking Status Never smoker 05/20/25 10:26 Hx Tobacco Use No 05/20/25 10:26 Years Smoking Packs Smoked per Day Smoking Cessation Date was within the last 15 years Hx Smoking Cessation Date Hx Smoking Cessation Counseling Hematologic Medial History Hematologic Hx - government minister: Hematologic Medical Hx - pvc monitor Hx of Blood Transfusion No 05/20/25 10:26 Hx of Transfusion in last 3 No 05/20/25 10:26 Months Date of Last Transfusion (if within last 3 months) Ever experience any problems No 05/20/25 10:26 with transfusion(s)? Specify any problems Hx of Preganancy in last 3 Yes 05/20/25 10:26 Months Nurse Filling Out Transfusion VCHRISTIN 05/20/25 10:26 & Questions: Date: 05/20/25 05/20/25 10:26 Time: 10:28 05/20/25 10:26 Patient unable to answer at this time (ie. 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 Supervision of high risk in first trimester History of miscarriage, currently Supervision of high-risk 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, antepartum Anemia affecting Marijuana use Anxiety and depression Home Medications ?Medication ?Instructions ?Recorded ?Last Taken ?Type sertraline 50 mg tablet (Zoloft) 50 mg PO QDAY #90 tabs 04/27/25 05/20/25 08:00 Rx Allergy/AdvReac Type Severity Reaction Status Date / Time No Known Allergies Allergy Verified 05/21/25 06:32 Surgical History Hx of hand surgery S/P laparoscopy H/O dilation and curettage Social History adopted: No household members: significant other and children number of children: 3 current occupational status: employed current occupation: [employer] current occupational exposures/hazards: No pets and animals: Yes (Not managing litterbox ) pets and animals: cat(s) and dog(s) history of recent travel: No sexually active: Yes Smoking Status: Never smoker alcohol intake: never substance use type: does not use well-balanced diet: daily or most days caffeine: Yes Type: coffee Number of servings: 1 eating out: rarely or never during the past year weight has: remained stable what type of physical activity do you participate in: none ciara/yarsanism: None seatbelt use: always do you feel safe at home: Yes 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
--- NOTE | 2025-05-21 07:22 | PCM.HP.OB ---
HPI - General HPI Narrative LISSETT ARNETT, is a 29 F who presents with early retained POC 12 mm lining with heterogenous and internal vascularity. she was 5-6 weeks and had a miscarriage the beginning of april. she is still having intermittent bleeding. she denies any fevers or foul dishcarge, no other complaints. 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 Supervision of high risk in first trimester History of miscarriage, currently Supervision of high-risk 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, antepartum Anemia affecting Marijuana use Anxiety and depression Home Medications ?Medication ?Instructions ?Recorded ?Last Taken ?Type sertraline 50 mg tablet (Zoloft) 50 mg PO QDAY #90 tabs 04/27/25 05/20/25 08:00 Rx Allergy/AdvReac Type Severity Reaction Status Date / Time No Known Allergies Allergy Verified 05/21/25 06:32 Surgical History Hx of hand surgery S/P laparoscopy H/O dilation and curettage Social History adopted: No household members: significant other and children number of children: 3 current occupational status: employed current occupation: [employer] current occupational exposures/hazards: No pets and animals: Yes (Not managing litterbox ) pets and animals: cat(s) and dog(s) history of recent travel: No sexually active: Yes Smoking Status: Never smoker alcohol intake: never substance use type: does not use well-balanced diet: daily or most days caffeine: Yes Type: coffee Number of servings: 1 eating out: rarely or never during the past year weight has: remained stable what type of physical activity do you participate in: none ciara/sabianism: None seatbelt use: always do you feel safe at home: Yes 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 Date Name GA/Weeks Outcome Route Bth Weight Gen Labor Lgth Anesthesia Del Locatn Provider FOB 09/28/17 8 spontaneous 10/22/18 SOILA 40 live - full term Female epidural [facility] LILLIAN Artur 08/14/22 Theryi 38 live - full term Female [facility] Georgette Bennett 04/03/24 Artell 39 live - full term Male epidural [facility] JV Delivery Date: 09/28/17 Last Updated by: Cris Gordon D&C Delivery Date: 08/14/22 Last Updated by: Lydia Green Cholestasis, anemia Delivery Date: 04/03/24 Last Updated by: Marianne Saab RN See problem list for complications ROS Constitutional Constitutional: Reports systems reviewed and no addt'l complaints, except as documented; Denies as per HPI, change in weight, fatigue, fever(s), malaise, weakness or other Eyes Eyes: Reports systems reviewed and no addt'l complaints, except as documented; Denies as per HPI, change in vision or other ENT HEENT: Reports systems reviewed and no addt'l complaints, except as documented Respiratory/Chest Respiratory/Chest: Reports systems reviewed and no addt'l complaints, except as documented Gastrointestinal Gastrointestinal: Reports systems reviewed and no addt'l complaints, except as documented and as per HPI Genitourinary Genitourinary: Reports as per HPI Musculoskeletal Musculoskeletal: Reports systems reviewed and no addt'l complaints, except as documented Neurologic Neurologic: Reports systems reviewed and no addt'l complaints, except as documented Psychiatric Psychiatric: Reports systems reviewed and no addt'l complaints, except as documented Endocrine Endocrinology: Reports systems reviewed and no addt'l complaints, except as documented Hematologic/Lymphatic Hematologic/Lymphatic: Reports systems reviewed and no addt'l complaints, except as documented Vital Signs Vital Signs Vital Signs: 05/21/25 06:33 05/21/25 06:34 05/21/25 07:02 Temperature 98.0 F 98.0 F Temperature Source Temporal Pulse Rate 65 65 Respiratory Rate 16 16 Respiratory Pattern Normal Blood Pressure 104/70 104/70 Blood Pressure Mean 81 Blood Pressure Source Monitor Blood Pressure Position Semi-Fowlers Blood Pressure Location Right Arm Pulse Ox 99 99 Oxygen Delivery Method Room Air Room Air Weight Weight: 123 lb 3.2 oz Body Mass Index (BMI) 22.5 Physical Exam Const alert, oriented x3 and no apparent distress HEENT normocephalic Head and Scalp: atraumatic Eyes EOMs intact bilaterally and conjunctivae normal Neck full ROM, no lymphadenopathy, supple and thyroid normal General: trachea midline Lymph Lymphatic: no lymphadenopathy noted Resp normal respiratory effort, no retractions, no use of accessory muscles and clear to auscultation bilaterally Cardio regular rhythm GI normal to inspection, nondistended, normoactive bowel sounds, soft to palpation, non-distended and no masses Inspection: Negative for abdominal distention Back/Spine no CVA tenderness Extremity normal to inspection Skin no rashes or lesions noted Neuro moves all extremities and deep tendon reflexes 2+ bilaterally Psych mental status grossly normal Labs Labs Labs: Blood Type A POSITIVE Antibody Screen NEGATIVE Hct 39.1 % (37-47) Hgb 13.4 g/dL (12.0-15.0) Obstetrics Ultrasound Syphilis Total Ab Non-reactive VZV IgG Antibody 254 index (Immune >165) Rubella IgG Antibody Reactive (Nonreactive) Hep Bs Antigen Non-Reactive (Nonreactive) Hepatitis C Antibody Non-Reactive (Nonreactive) Hepatitis C Ab (EIA) <0.1 s/co ratio (0.0-0.9) Chlamydia DNA ([place]) Negative (Negative) N.gonorrhoeae DNA ([place]) Negative (Negative) HIV 1&2 Antibody Non-Reactive (Nonreactive) Glucose 1 Hr 50 gm 126 mg/dL (70-140) Group B Strep DNA Negative (Negative) Rhogam given: No Miscellaneous Test Assessment & Plan (1) Incomplete : PLAN: Plan After discussing the patient's diagnosis and treatment plan options, patient wishes to proceed with surgical management. I have discussed with the patient the risks, benefits, and alternatives of the procedure which include but are not limited to risks of anesthesia, bleeding, infection, possible damage to bowel, bladder, or surrounding vasculature which could lead to additional surgery to evaluate any complications. Patient agrees to procedure and wishes to proceed. ACOG/uptodate references given for additional information regarding procedure.
--- NOTE | 2025-05-21 07:26 | PCM.OPRPT ---
Procedures Urinary/Genital 52xxx-59xxx: [id number] Trmt of incomplete Ab, any TM Operative Report (Standard) Operative Information Date of Procedure: 05/21/25 Pre-Operative Diagnosis: see problem list comments Post-Operative Diagnosis: same Surgery/Procedure Performed: suction dilation and curettage rubber belt splicer: No Type of Anesthesia: IV Sedation and Local RN Documented Start/Stop Times: Operation Date: 05/21/25 07:30 Case Time Into Pre-Op 05/21/25 06:05 Anesthesia Start 05/21/25 07:29 Into Room 05/21/25 07:29 Out of Pre-Op 05/21/25 07:30 Procedure Start 05/21/25 07:42 Procedure End 05/21/25 07:46 Procedure Start Time: :42 Procedure Stop Time: 07:46 Select all DRAINS/GRAFTS/IMPLANTS that apply: None Estimated Blood Loss: 50 Specimen collected: Yes Description of specimen(s) removed: retained POC Description of surgery: Patient was taken to the operating room and placed under MAC local anesthesia. She was prepped and draped in the normal sterile fashion the dorsal lithotomy position. Bladder was drained of clear urine and anterior lip of the cervix was grasped and the uterus sounded to 8 cm. Cervix was progressively dilated to allow passage of a 8mm suction curette. Progressive passes were made removing the retained products of conception without complication. Sharp curettage confirmed complete removal of the retained products. All instruments were removed from the vagina and excellent hemostasis was noted and the patient was taken to recovery in stable condition. Surgical Findings: retained products Complications Complications: No
--- NOTE | 2025-05-21 07:27 | PCM.DC ---
Discharge Instructions DC O2, CPAP, BIPAP needs Home O2 Discharge instructions: No Dressing / Incision Discharge Activity: Return to Normal Activity, May Shower and May Take a Tub Bath (after 1 week) May resume sexual activity in: 1-2 weeks Weight Bearing Status: Weight bearing as tolerated Lifting Restrictions: none Dressing / Incision Call your doctor if you observe: Fever of 101 or Higher, Using more than 1 pad per hour, Shortness of breath and Uncontrolled pain Follow Up Care Please Follow Up With: Sharri Matthew MD When: Call [phone] to schedule appointment. Test Results: Test results from this visit will be discussed in further detail at your follow-up appointment, if applicable. Discharge Plan Admission Attending Provider: Sharri Matthew Primary Care Provider: Care PhysicianLinda Primary Instructions Print Language: Macedonian Discharge Orders/Prescriptions Prescriptions: No Action sertraline [Zoloft] 50 mg tablet 50 mg PO QDAY Qty: 90 4RF Rx Instructions: take a half a pill for the first week. Referrals / Follow Up: Care Physician,Linda Primary [Primary Care Provider] - Disposition Disposition (needs filled in before D/C Order can be placed): Home, Self Care
--- NOTE | 2025-05-21 07:30 | POC_PTH ---
PATIENT: LISSETT ARNETT LOC: [facility] U#:[id number] AGE/SX: 29/F ROOM: RE05/21/[address]: Dr. Sharri Matthew MD : 1995 BED: DIS: 05/21/2025 SPEC #: [id number] RECD: 05/21/25 09:15 STATUS: JOSE REJaskaran #: [id number] MAYRA: 05/21/25 07:[address]: Sharri Matthew DEPT: SURGICAL PATHOLOGY RECD BY: Sheldon Mays ENTERED: 05/21/25 09:56 SP TYPE: PROD CONC OTHR DR: No Primary Care Phys Tissues: A - Product of conception, NOS Procedures: Surgery Specimen Level IV HEADER OPERATION: Dilation and curettage, suction PRE-OP DIAGNOSIS: Incomplete TISSUE SUBMITTED: A- Products of conception MICROSCOPIC DIAGNOSIS A. Uterine contents, products of conception, dilation and curettage: - Necrotic decidua. - Secretory endometrium. - No chorionic villi or tissue seen. MICROSCOPIC DESCRIPTION Slides are reviewed. GROSS DESCRIPTION A. Received in formalin labeled with the patient's name and date of . Designated as products of conception is a 2.5 g, 3.5 x 2.9 x 0.4 cm aggregate of pink-red soft tissue parts are not present. Entirely submitted in 3 cassettes. [place] 05/21/2025 CPT:[id number]
[2025-05-21] MEDS: Lidocaine 1% (20 ml mdv) 20 ML Vial (07:42)
--- NOTE | 2025-05-21 07:59 | PCM.POST.ANE ---
Anesthesia: Postop Eval I Current Vital Signs Temperature: 97.5 F Pulse Rate: 65 Blood Pressure: 95/59 Respiratory Rate: 12 Pulse Ox: 95 Oxygen Delivery Method: Room Air Assessment Airway patent: Yes Spontaneous unlabored respirations: Yes Mental status: Asleep nausea: No Vomiting: No Anesthesia Complication: No Fluid Hydration Crystalloid volume administer (ml): 500 Total IV fluid infused: 500 Progress Note Anesthesia document: Postop Eval 1 completed: Yes
--- NOTE | 2025-05-21 14:08 | POSTOPAN2_ITS ---
Anesthesia Postop Eval I Sum Postop Eval Completion status Anesthesia document: Postop Eval 1 completed: Yes Anesthesia Postop Eval I Summary Anesthesia Postop Eval I Summary: Anesthesia Postop Eval I: Assessment Summary Airway patent Yes 05/21/25 08:00 IT [email or web address] Spontaneous unlabored Yes 05/21/25 08:00 IT AUDITOR.SHOF respirations Mental status Asleep 05/21/25 08:00 IT AUDITOR.SHOF nausea No 05/21/25 08:00 IT AUDITOR.SHOF Vomiting No 05/21/25 08:00 IT AUDITOR.SHOF Anesthesia Postop Eval I: Fluid Summary Crystalloid volume administer 500 05/21/25 08:00 IT AUDITOR.SHOF (ml) Colloids volume administered ( ml) Blood Product volume administered (ml) Total IV fluid infused 500 05/21/25 08:00 IT AUDITOR.SHOF Anesthesia Postop Eval I: Summary Notes Anesthesia Complication No 05/21/25 08:00 IT AUDITOR.SHOF Anesthesia Complication Comment: Post-operative progress note Anesthesia: Postop Eval II Evaluation Mental status: Awake and Calm Pain Level: 1 nausea: No Vomiting: No Complications Anesthesia Complication: No
--- NOTE | 2025-05-21 14:08 | PCM.POSTANE2 ---
Anesthesia Postop Eval I Sum Postop Eval Completion status Anesthesia document: Postop Eval 1 completed: Yes Anesthesia Postop Eval I Summary Anesthesia Postop Eval I Summary: Anesthesia Postop Eval I: Assessment Summary Airway patent Yes 05/21/25 08:00 EXCEPTIONAL STUDENT EDUCATION TEACHER.SHOF Spontaneous unlabored Yes 05/21/25 08:00 EXCEPTIONAL STUDENT EDUCATION TEACHER.SHOF respirations Mental status Asleep 05/21/25 08:00 EXCEPTIONAL STUDENT EDUCATION TEACHER.SHOF nausea No 05/21/25 08:00 EXCEPTIONAL STUDENT EDUCATION TEACHER.SHOF Vomiting No 05/21/25 08:00 EXCEPTIONAL STUDENT EDUCATION TEACHER.SHOF Anesthesia Postop Eval I: Fluid Summary Crystalloid volume administer 500 05/21/25 08:00 EXCEPTIONAL STUDENT EDUCATION TEACHER.SHOF (ml) Colloids volume administered ( ml) Blood Product volume administered (ml) Total IV fluid infused 500 05/21/25 08:00 EXCEPTIONAL STUDENT EDUCATION TEACHER.SHOF Anesthesia Postop Eval I: Summary Notes Anesthesia Complication No 05/21/25 08:00 EXCEPTIONAL STUDENT EDUCATION TEACHER.SHOF Anesthesia Complication Comment: Post-operative progress note Anesthesia: Postop Eval II Evaluation Mental status: Awake and Calm Pain Level: 1 nausea: No Vomiting: No Complications Anesthesia Complication: No
== END 2025-05-21 10:07 | disposition home or self-care (01) ==
LOC: SDC 05:56 → AC 05:58
PROVIDERS: Referring Provider Obstetrics & Gynecology; Visit Provider Obstetrics & Gynecology
PROC: (CPT 59812; principal; 2025-05-21 07:15)
DX: O03.4 Incomplete spontaneous abortion without complication (principal); F41.9 Anxiety disorder, unspecified; F32.A Depression, unspecified; Z79.899 Other long term (current) drug therapy
CPT/HCPCS: 59812; 00940; 85027; 86850; 86900; 86901; 88305; J2405

== ENCOUNTER 2025-06-16 11:26 | Day surgery (SDC) | payer MEDICAID, SELFPAY ==
[2025-06-16] VITALS (10 sets, daily range): BP systolic 113–125; BP diastolic 62–97; PULSE 80–105; RESP 16; TEMP 36.3–36.9; O2SAT 97–100; BMI 22.9
[2025-06-16 11:49] LABS: Internal QC Validated? YES +Cl - CLEAR BKGD; Pregnancy, Urine Negative Negative
[2025-06-16 11:50] LABS: Record Kit Lot#,Urine Preg 962302
[2025-06-16] MEDS: Lactated Ringers 1,000 ML 15 ML IV ×2 (12:16→16:13)
--- NOTE | 2025-06-16 12:37 | PCM.PRE.AN2 ---
ASA Classification* ASA Classification ASA Classification: 2 Assessment & Plan Anesthesia* Anesthesia Assessment Anesthesia Assessment: Discussed sedation and/or anesthesia options, risks, benefits, and alternatives with patient/parents/legal guardian/POA. Questions invited. The patient/parents/legal guardian/POA seems to understand and agrees to proceed with anesthesia plan. Reviewed the physical assessment, medical history, allergy history and patient home medications list prior to surgery/procedure/anesthetic and documented any changes. Performed airway and anesthesia risk assessments. Anesthesia Type Anesthesia Type: General History Source History Obtained from:: Patient and Chart Anesthesia Focused Assessment* Temperature: 98.0 F Pulse Rate: 80 Blood Pressure: 113/71 Respiratory Rate: 16 Pulse Ox: 100 Oxygen Delivery Method: Room Air Airway Assessment Mouth opens: >3 cm Mallampati Score: I Teeth Condition: Intact Neck Range of motion (ROM): Full ROM Labs Anesthesia Preop lab: CBC WBC 4.7 K/mm3 (4.4-11.0) 05/21/25 06:44 05/21/25 RBC 4.57 M/mm3 (4.2-5.4) 05/21/25 06:44 05/21/25 Hgb 13.4 g/dL (12.0-15.0) 05/21/25 06:44 05/21/25 Hct 39.1 % (37-47) 05/21/25 06:44 05/21/25 Plt Count 199 K/mm3 (150-450) 05/21/25 06:44 05/21/25 CHEMISTRY Potassium 3.6 mmol/L (3.5-5.1) 07/24/22 09:45 07/24/22 Sodium 137 mmol/L (136-145) 07/24/22 09:45 07/24/22 BUN 7 mg/dL (7-18) 07/24/22 09:45 07/24/22 Creatinine 0.50 mg/dL (0.55-1.02) L 07/24/22 09:45 07/24/22 Glucose 74 mg/dL (74-106) 07/24/22 09:45 07/24/22 TSH 1.24 uIU/mL (0.358-3.74) 07/22/20 09:53 07/22/20 COAG HCG, Quant 77427 mIU/mL (1-3) H 10/04/23 12:16 10/04/23 Urine Test Negative Negative 06/16/25 11:40 06/16/25 Pre-Assessment Diagnosis/Proposed Procedure Planned Operative Procedure(s): (B) Laparoscopic, Salpingectomy Anesthesia History Anesthesia History - inclinometer tester: Anesthesia History - inclinometer tester Hx Hospitalization Yes: 03/2024 VAGINAL DELIVERY 06/02/25 11:12 Any Problems With Anesthesia No 06/02/25 11:12 Cholinesterase deficiency No 06/02/25 11:12 You/Your Family Experience No 06/02/25 11:12 fever (hyperthermia) with Relationship Recent Exposure to Contagious No 06/16/25 12:05 Disease Does patient have nerve No 06/02/25 11:12 stimulator Patient instructed to have device shut off --Does patient have Pacemaker No 06/16/25 12:05 or ICD? When Was Last Pacemaker Check QUESTION #4 FULL TEXT: You/Your Family Experience fever (hyperthermia) with Anesthesia Last Oral Intake Last Oral intake: Last Oral Intake NPO since 00:00 06/16/25 12:05 Meds taken in AM with sips of No 06/16/25 12:05 water? Meds patient instructed to take am of surgery PONV PONV - inclinometer tester: PONV - inclinometer tester Female Yes 06/02/25 11:12 HX of Motion Sickness No 06/02/25 11:12 HX of N/V After Surgery No 06/02/25 11:12 Non-Smoker Yes 06/02/25 11:12 Duration of Surgery greater No 06/02/25 11:12 than 60 minutes Number of Risk Factors 2 06/02/25 11:12 PONV Score Moderate Risk 06/02/25 11:12 Height & Weight Height & Weight: Anesthesia: Height & Weight Height 5 ft 2 in 06/16/25 12:05 Weight: 57 kg 06/16/25 12:05 Body Mass Index (BMI) 22.9 06/16/25 12:05 Respiratory Assessment Respiratory Assessment - inclinometer tester: Respiratory Tract Infection Hx - inclinometer tester Hx Respiratory Tract Infection No 06/02/25 11:12 STOP Sleep Apnea STOP Sleep Apnea - inclinometer tester: STOP Sleep Apnea - inclinometer tester Hx Hypertension No 06/02/25 11:12 Hx Sleep Apnea No 06/02/25 11:12 CPAP BIPAP Do you snore loudly (louder No 06/02/25 11:12 than talking or can be heard Do you often feel tired/ No 06/02/25 11:12 fatigued/ sleepy during daytime? Has anyone observed you stop No 06/02/25 11:12 breathing during sleep? STOP Results Negative 06/02/25 11:12 QUESTION #5 FULL TEXT : Do you snore loudly (louder than talking or can be heard through closed doors)? Tobacco Use History Tobacco Use History - inclinometer tester: Tobacco Use History - inclinometer tester Tobacco Use Smoking Status Never smoker 06/02/25 11:12 Hx Tobacco Use No 06/02/25 11:12 Years Smoking Packs Smoked per Day Smoking Cessation Date was within the last 15 years Hx Smoking Cessation Date Hx Smoking Cessation Counseling Hematologic Medial History Hematologic Hx - inclinometer tester: Hematologic Medical Hx - hand molder and caster Hx of Blood Transfusion No 06/02/25 11:12 Hx of Transfusion in last 3 No 06/02/25 11:12 Months Date of Last Transfusion (if within last 3 months) Ever experience any problems No 06/02/25 11:12 with transfusion(s)? Specify any problems Hx of Preganancy in last 3 No 06/02/25 11:12 Months Nurse Filling Out Transfusion VCHRISTIN 06/02/25 11:12 & Questions: Date: 06/02/25 06/02/25 11:12 Time: 11:13 06/02/25 11:12 Patient unable to answer at this time (ie. 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 Supervision of high risk in first trimester History of miscarriage, currently Supervision of high-risk 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, antepartum Anemia affecting Marijuana use Anxiety and depression Home Medications ?Medication ?Instructions ?Recorded ?Last Taken ?Type sertraline 50 mg tablet (Zoloft) 50 mg PO QDAY #90 tabs 04/27/25 06/15/25 Rx Allergy/AdvReac Type Severity Reaction Status Date / Time No Known Allergies Allergy Verified 06/16/25 12:04 Surgical History Hx of dilation and curettage Hx of hand surgery S/P laparoscopy H/O dilation and curettage Social History adopted: No household members: significant other and children number of children: 3 current occupational status: employed current occupation: [employer] current occupational exposures/hazards: No pets and animals: Yes (Not managing litterbox ) pets and animals: cat(s) and dog(s) history of recent travel: No sexually active: Yes Smoking Status: Never smoker alcohol intake: never substance use type: does not use well-balanced diet: daily or most days caffeine: Yes Type: coffee Number of servings: 1 eating out: rarely or never during the past year weight has: remained stable what type of physical activity do you participate in: none ciara/hindu: None seatbelt use: always do you feel safe at home: Yes 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
[2025-06-16 12:41] LABS: Hematocrit 38.2 % (37-47); Hemoglobin 12.8 g/dL (12.0-15.0); Mean Corp Hgb Conc 33.5 g/dL (32-36); Mean Corpuscular Volume 85.8 fL (81-99); Mean Platelet Vol. 10.5 fl (6.2-12.0); Platelet Count 215 K/mm3 (150-450); RBC Distribution Width CV 12.6 % (11.6-14.6); RBC Distribution Width SD 39.1 fl (35.1-43.9); Red Blood Count 4.45 M/mm3 (4.2-5.4); White Blood Count 5.0 K/mm3 (4.4-11.0)
--- NOTE | 2025-06-16 12:59 | HP.PCM.OB_ITS ---
HPI - General HPI Narrative LISSETT ARNETT, is a 29 y/o who presents to [facility] for a bilateral salpingectomy for permanent sterilization. 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 Supervision of high risk in first trimester History of miscarriage, currently Supervision of high-risk 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, antepartum Anemia affecting Marijuana use Anxiety and depression Home Medications ?Medication ?Instructions ?Recorded ?Last Taken ?Type sertraline 50 mg tablet (Zoloft) 50 mg PO QDAY #90 tab s 04/27/25 06/15/25 Rx Allergy/AdvReac Type Severity Reaction Status Date / Time No Known Allergies Allergy Verified 06/16/25 12:04 Surgical History Hx of dilation and curettage Hx of hand surgery S/P laparoscopy H/O dilation and curettage Social History adopted: No household members: significant other and children number of children: 3 current occupational status: employed current occupation: [employer] current occupational exposures/hazards: No pets and animals: Yes (Not managing litterbox ) pets and animals: cat(s) and dog(s) history of recent travel: No sexually active: Yes Smoking Status: Never smoker alcohol intake: never substance use type: does not use well-balanced diet: daily or most days caffeine: Yes Type: coffee Number of servings: 1 eating out: rarely or never during the past year weight has: remained stable what type of physical activity do you participate in: none ciara/roman catholic: None seatbelt use: always do you feel safe at home: Yes 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 Date Name GA/Weeks Outcome Route Bth Weight Infant Gen Labor Lgth Anesthesia Del Locatn Provider FOB 09/28/17 8 spontaneous 08/12/18 SOILA 40 live - full term Female epid ural [facility] Artur 08/14/22 Theryi 38 live - full term Female [facility] Georgette Jaffe kassi 04/03/24 Artell 39 live - full term Male casandra cartwright [facility] JV Delivery Date: 09/28/17 Last Updated by: Cris Gordon D&C Delivery Date: 08/14/22 Last Updated by: Lydia Green Cholestasis, anemia Delivery Date: 04/03/24 Last Updated by: Marianne Saab, RN See problem list for complications ROS Constitutional Constitutional: Denies change in weight, chills, fatigue, fever(s), headache(s), poor appetite or weakness Eyes Eyes: Denies blurry vision, change in vision, seeing flashes or spots in vision ENT HEENT: Denies dizziness, headache(s), loss taste/smell or sore throat Cardiovascular Cardiovascular: Denies chest pain, dizziness, dyspnea, irregular heart rhythm, leg edema, palpitations, rapid heart rate or vomiting Respiratory/Chest Respiratory/Chest: Denies chest tightness, cough, dyspnea or breast pain Gastrointestinal Gastrointestinal: Denies abdominal pain, anorexia, constipation, cramping, diarrhea, hemorrhoids, vomiting or weight changes Genitourinary Genitourinary: Denies dysuria, flank pain, genital lesions, genital pain, urinary frequency or urinary urgency Musculoskeletal Musculoskeletal: Denies back pain, difficulty walking, joint pain, limited range of motion, muscle cramps or numbness Integumentary Integumentary: Denies lesions or unusual bruising Neurologic Neurologic: Denies abnormal movements, abnormal speech, dizziness, numbness, seizure-like activity or syncope Psychiatric Psychiatric: Denies anxiety, behavioral changes, change in appetite, change in libido, cognitive impairment, confusion, depression, difficulty concentrating, hallucinations or suicidal thoughts Endocrine Endocrinology: Denies excessive sweating, polydipsia or polyuria Hematologic/Lymphatic Hematologic/Lymphatic: Denies easy bleeding, easy bruising or lymphadenopathy Allergic/Immunologic Allergic/Immunologic: Denies itchy eyes, lip swelling, seasonal rhinorrhea, rhinitis, throat swelling, tongue swelling, eczemia, wheezing or asthma Vital Signs Vital Signs Vital Signs: 06/16/25 12:05 06/16/25 12:05 06/16/25 12:43 Temperature 98.0 F 98.0 F Temperature Source Temporal Pulse Rate 80 80 Respiratory Rate 16 16 Respiratory Pattern Normal Blood Pressure 113/71 113/71 Blood Pressure Mean 85 Blood Pressure Source Monitor Blood Pressure Position Semi-Fowlers Blood Pressure Location Left Arm Pulse Ox 100 100 Oxygen Delivery Method Room Air Room Air Weight Weight: 125 lb 10.616 oz Body Mass Index (BMI) 22.9 Physical Exam Const alert, oriented x3 and no apparent distress HEENT normocephalic Chest Chest: symmetrical chest wall rise Resp normal respiratory effort Cardio regular rate and regular rhythm GI normal to inspection, nondistended, normoactive bowel sounds no CVA tenderness Extremity normal to inspection Skin no rashes or lesions noted Neuro oriented x3 Psych mental status grossly normal Labs Labs Labs: Blood Type A POSITIVE Antibody Screen NEGATIVE Hct 38.2 % (37-47) Hgb 12.8 g/dL (12.0-15.0) Obstetrics Ultrasound Syphilis Total Ab Non-reactive VZV IgG Antibody 254 index (Immune >165) Rubella IgG Antibody Reactive (Nonreactive) Hep Bs Antigen Non-Reactive (Nonreactive) Hepatitis C Antibody Non-Reactive (Nonreactive) Hepatitis C Ab (EIA) <0.1 s/co ratio (0.0-0.9) Chlamydia DNA ([place]) Negative (Negative) N.gonorrhoeae DNA ([place]) Negative (Negative) HIV 1&2 Antibody Non-Reactive (Nonreactive) Glucose 1 Hr 50 gm 126 mg/dL (70-140) Group B Strep DNA Negative (Negative) Rhogam given: No Miscellaneous Test Assessment & Plan (1) Contraceptive management: PLAN: After discussing the patient's diagnosis and treatment plan options, patient wishes to proceed with surgical management. I have discussed with the patient the risks, benefits, and alternatives of the procedure which include but are not limited to risks of anesthesia, bleeding, infection, possible damage to bowel, bladder, or surrounding vasculature which could lead to additional surgery to evaluate any complications. Patient agrees to procedure and wishes to proceed. ACOG/uptodate references given for additional information regarding procedure. plan is for laparoscopic bilateral salpingectomy
--- NOTE | 2025-06-16 14:07 | DCINST_ITS ---
Discharge Instructions DC O2, CPAP, BIPAP needs Home O2 Discharge instructions: No Dressing / Incision Discharge Activity: Return to Normal Activity, May Not Drive (for two weeks or while taking narcotic pain medications.), May Shower and May Take a Tub Bath (in 7 days) May resume sexual activity in: 1 week Weight Bearing Status: Full weight bearing Dressing / Incision Call your doctor if you observe: Using more than 1 pad per hour, Shortness of breath, Chest pain and Uncontrolled pain Suture Line Care: Avoid Pulling/Pushing and Avoid Pinching/Bending Remove Dressing in: 1 week (if present) Cleanse incision/area with: Soap & Water and Keep Dressing Clean & Dry Follow Up Care Please Follow Up With: Coco Vyas DO When: Call to make an appointment with your doctor for a follow up incision check in 1-2 weeks. Test Results: Test results from this visit will be discussed in further detail at your follow- up appointment, if applicable. Discharge Plan Admission Primary Reason for Your Visit: laparoscopic bilateral salpingectomy Attending Provider: Coco Vyas Primary Care Provider: Care PhysicianLinda Primary Instructions Print Language: Algerian Discharge Orders/Prescriptions Prescriptions: New ibuprofen 800 mg tablet 800 mg PO Q8H PRN (Reason: pain) Qty: 20 0RF oxycodone-acetaminophen [Percocet] 5-325 mg tablet 1 tab PO Q4H PRN (Reason: pain) 7 Days Qty: 10 0RF Continued sertraline [Zoloft] 50 mg tablet 50 mg PO QDAY Qty: 90 4RF Rx Instructions: take a half a pill for the first week. Referrals / Follow Up: Care Physician,Linda Primary [Primary Care Provider] - Disposition Disposition (needs filled in before D/C Order can be placed): Home, Self Care
--- NOTE | 2025-06-16 14:15 | FALS_PTH ---
PATIENT: LISSETT ARNETT LOC: [facility] – [place], [place] U#:[id number] AGE/SX: 29/F ROOM: RE06/16/[address]: Dr. Coco Vyas DO : 1995 BED: DIS: 06/16/2025 SPEC #: [id number] RECD: 06/16/25 18:15 STATUS: JOSE NIKITA #: [id number] MAYRA: 06/16/25 14:[address]: Coco Vyas DEPT: SURGICAL PATHOLOGY RECD BY: Sheldon Mays ENTERED: 06/17/25 11:05 SP TYPE: FALL TUBES OTHR DR: No Primary Care Phys Tissues: A - Fallopian tube Procedures: Surgery Specimen Level II HEADER OPERATION: Laparoscopic salpingectomy PRE-OP DIAGNOSIS: Desires sterilization TISSUE SUBMITTED: A- Right fallopian tube, B- Left fallopian tube MICROSCOPIC DIAGNOSIS A. Fallopian tube, right, laparoscopic salpingectomy: No specific pathologic change. Complete luminal cross-section confirmed. B. Fallopian tube, left, laparoscopic salpingectomy: Paratubal cyst. Complete luminal cross-section confirmed. MICROSCOPIC DESCRIPTION Slides are reviewed. GROSS DESCRIPTION Received in 2 formalin containers labeled with the patient's name and date of . Designated as: A. Right fallopian tube is a red-purple, fimbriated fallopian tube in 2 pieces, collectively measuring 7.4 cm in length by 0.7 cm in diameter. Few, possible paratubal cyst are identified, up to 0.3 cm. Reel Cutter sections are submitted in 1 cassette. B. Left fallopian tube is a pink-purple, fimbriated fallopian tube measuring 8.5 cm in length by 0.7 cm in diameter. A 1.3 cm paratubal cyst is identified. Reel Cutter sections are submitted in 1 cassette. NM 06/17/2025 CPT:45179m5
[2025-06-16] MEDS: Lidocaine 1% (5 ml sdv) 5 ML Vial 10 ML IV (14:31)
[2025-06-16] MEDS: fentaNYL 100 MCG/2 ML Ampul 200 MCG IV (15:00)
--- NOTE | 2025-06-16 15:13 | OP.PCM_ITS ---
Problems Associated Problem List Diagnoses (1) Contraceptive management: Multi Select Codes Urinary/Genital Urinary/Genital CPT Codes: 75342 Laproscopic BS/O Operative Report (Standard) Operative Information Date of Procedure: 06/16/25 Pre-Operative Diagnosis: desires permanent sterilization Post-Operative Diagnosis: desires permanent sterilization Surgery/Procedure Performed: laparoscopic bilateral salpingectomy, drainage of right ovarian cyst client services associate: Yes Safety And Skill Based Pay Manager: Krishna Giron Tasks completed by clinical project assistant: Closing and Retracting Additional media center assistant?: Yes Additional Generator Operator Straight Bevel Gear #2: Celina Norton Tasks completed by media center assistant #2: Other (relieved the fiber technician and manipulated the uterus for visualization ) Additional media center assistant?: No Type of Anesthesia: General RN Documented Start/Stop Times: Operation Date: 06/16/25 14:15 Case Time Into Pre-Op 06/16/25 11:55 Out of Pre-Op 06/16/25 14:23 Anesthesia Start 06/16/25 14:26 Into Room 06/16/25 14:26 Procedure Start 06/16/25 14:47 Procedure Start Time: 14:47 Procedure Stop Time: 15:15 Select all DRAINS/GRAFTS/IMPLANTS that apply: None Estimated Blood Loss: 10cc Specimen collected: Yes Description of specimen(s) removed: bilateral fallopian tubes Description of surgery: Patient was taken in the operating room and was placed under general anesthesia was prepped and draped in normal sterile fashion in the dorsal lithotomy position. Bladder was drained of clear urine and SCDs were on preoperatively. Uterus was sounded and a uterine manipulator was placed after dilating. Attention was then paid to the abdominal portion of the procedure and the umbilicus was injected with 0.75% sensorcaine Next a 5 mm incision was made and a 5 mm laparoscopic port was inserted under direct visualization. The Abdomen was insufflated with CO2 gas and a Left lower quadrant 5 mm port was placed. A suprapubic mini trocar was then inserted next. The Uterus was well visualized and bilateral fallopian tubes and ovaries were identified and the infundibulopelvic ligaments were transected across using the LigaSure device followed by transecting across the mesosalpinx to the attachment to the uterine corpus bilaterally the tubes were removed without complication. There was a right ovarian cyst that ruptured incidentally with blunt manipulation. The fluid was brown/mason color and was suction irrigated out of the pelvis. The small site on the ovary that was draining the fluid was cauterized with the ligasure device. Excellent hemostasis was noted. Fallopian tubes were removed through the lower port sites without complication. Liver and upper abdomen were visualized notably within normal limits and no other gross abnormalities were seen in the abdomen. All instruments removed from the abdomen after gas was desufflated. Port sites were closed with 3-0 Monocryl and surgical glue was used. All instruments removed from the vagina and patient was awoken and taken recovery in stable condition. Surgical Findings: normal uterus, tubes, ovaries Complications Complications: No Admit VTE Documentation VTE Present on Admission: No VTE Mechan Device Prophylaxis: SCD's VTE Pharm Prophylaxis ordered?: No
--- NOTE | 2025-06-16 15:32 | PCM.POST.ANE ---
Anesthesia: Postop Eval I Current Vital Signs Temperature: 97.6 F Pulse Rate: 88 Blood Pressure: 116/62 Respiratory Rate: 16 Pulse Ox: 97 Oxygen Delivery Method: Room Air Assessment Airway patent: Yes Spontaneous unlabored respirations: Yes Mental status: Awake and Calm nausea: No Vomiting: No Anesthesia Complication: No Fluid Hydration Crystalloid volume administer (ml): 800 Total IV fluid infused: 800 Progress Note Anesthesia document: Postop Eval 1 completed: Yes
[2025-06-16] MEDS: Ketorolac 30 MG/ML Syringe IV (15:52)
[2025-06-16] MEDS: HYDROcodone Bitartrate/Apap 5/325 Tablet PO (16:35)
--- NOTE | 2025-06-16 16:35 | POSTOPAN2_ITS ---
Anesthesia Postop Eval I Sum Postop Eval Completion status Anesthesia document: Postop Eval 1 completed: Yes Anesthesia Postop Eval I Summary Anesthesia Postop Eval I Summary: Anesthesia Postop Eval I: Assessment Summary Airway patent Yes 06/16/25 15:32 ROCK [email or web address].[email or web address] Spontaneous unlabored Yes 06/16/25 15:32 ROCK CUTTER.ALINA respirations Mental status Awake,Calm 06/16/25 15:32 ROCK CUTTER.[email or web address] nausea No 06/16/25 15:32 ROCK CUTTER.SKOBY Vomiting No 06/16/25 15:32 ROCK CUTTER.JUDYOBIvy Anesthesia Postop Eval I: Fluid Summary Crystalloid volume administer 800 06/16/25 15:32 ROCK CUTTER.SKOBY (ml) Colloids volume administered ( ml) Blood Product volume administered (ml) Total IV fluid infused 800 06/16/25 15:32 ROCK CUTTER.JUDYOBIvy Anesthesia Postop Eval I: Summary Notes Anesthesia Complication No 06/16/25 15:32 ROCK CUTTER.ALINA Anesthesia Complication Comment: Post-operative progress note Anesthesia: Postop Eval II Evaluation Mental status: Awake and Calm Pain Level: 0 nausea: No Vomiting: No Complications Anesthesia Complication: No
--- NOTE | 2025-06-16 16:35 | PCM.POSTANE2 ---
Anesthesia Postop Eval I Sum Postop Eval Completion status Anesthesia document: Postop Eval 1 completed: Yes Anesthesia Postop Eval I Summary Anesthesia Postop Eval I Summary: Anesthesia Postop Eval I: Assessment Summary Airway patent Yes 06/16/25 15:32 RAILROAD CAR CLEANING SUPERVISOR.SKOBY Spontaneous unlabored Yes 06/16/25 15:32 RAILROAD CAR CLEANING SUPERVISOR.ALINA respirations Mental status Awake,Calm 06/16/25 15:32 RAILROAD CAR CLEANING SUPERVISOR.SKOBY nausea No 06/16/25 15:32 RAILROAD CAR CLEANING SUPERVISOR.SKOBY Vomiting No 06/16/25 15:32 RAILROAD CAR CLEANING SUPERVISOR.JUDYOBIvy Anesthesia Postop Eval I: Fluid Summary Crystalloid volume administer 800 06/16/25 15:32 RAILROAD CAR CLEANING SUPERVISOR.SKOBY (ml) Colloids volume administered ( ml) Blood Product volume administered (ml) Total IV fluid infused 800 06/16/25 15:32 RAILROAD CAR CLEANING SUPERVISOR.JUDYOBIvy Anesthesia Postop Eval I: Summary Notes Anesthesia Complication No 06/16/25 15:32 RAILROAD CAR CLEANING SUPERVISOR.ALINA Anesthesia Complication Comment: Post-operative progress note Anesthesia: Postop Eval II Evaluation Mental status: Awake and Calm Pain Level: 0 nausea: No Vomiting: No Complications Anesthesia Complication: No
== END 2025-06-16 17:41 | disposition home or self-care (01) ==
LOC: SDC 11:28 → AC 11:30
PROVIDERS: Referring Provider Obstetrics & Gynecology; Visit Provider Obstetrics & Gynecology
PROC: (CPT 58661; principal; 2025-06-16 14:00)
DX: N83.202 Unspecified ovarian cyst, left side (principal); N83.201 Unspecified ovarian cyst, right side; Z30.2 Encounter for sterilization; F41.9 Anxiety disorder, unspecified; F32.A Depression, unspecified; Z79.899 Other long term (current) drug therapy
CPT/HCPCS: 58661; 00840; 81025; 85027; 86850; 86900; 86901; 88302; J2405